=== PATIENT | female | born 1950 | race African-American/Black ===

== ENCOUNTER 2016-03-28 14:30 | Inpatient (IN) | payer BC, MEDICARE, MEDICAID ==
[~2016-03-28] VITALS: Ht 162.6 cm; Wt 90.7 kg
[~2016-03-28 14:30] MED LIST: COLACE100 MG PO; GABAPENTIN100 MG PO; LANTUS5 UNITS SUBQ; NOVOLIN R100 UNIT/1 SUBQ; RANITIDINE HCL150 MG PO
[2016-03-28] MEDS ORDERED: HUMALOG100 UNIT/4 SUBQ (14:48)
[2016-03-28 15:14] VITALS: BP 150/90
[2016-03-28] MEDS ORDERED: Nitroglycerin Subl 0.4mg tab (Bottle Of 25) SL PRN ×2 (16:00→23:15)
[2016-03-28] MEDS ORDERED: Nitroglycerin 2% oint pkt TOPIC ONE (16:00)
[2016-03-28 16:37] LABS: APPEARANCE,URINE CLEAR; BASOPHILS % (AUTO) 1.3 % (0.0-2.0); EOSINOPHILS % (AUTO) 3.7 % (0.0-3.0); KETONES,URINE NEGATIVE (NEGATIVE); LEUKOCYTE ESTERASE ,URINE NEGATIVE (NEGATIVE); LYMPHOCYTES % (AUTO) 30.2 % (20.0-45.0); MEAN CORPUSCULAR HEMOGLOBIN 28.6 PG (27.0-31.0); MEAN CORPUSCULAR HGB CONC 33.5 G/DL (32.0-36.0); MEAN CORPUSCULAR VOLUME 86 FL (80-99); MEAN PLATELET VOLUME 9.6 FL (6.5-10.1); MONOCYTES % (AUTO) 7.2 % (1.0-10.0); NEUTROPHILS % (AUTO) 57.5 % (45.0-75.0); NITRITE,URINE NEGATIVE (NEGATIVE); PH,URINE 6 (4.5-8.0); PLATELET COUNT 217 K/UL (150-450); PROTEIN,URINE NEGATIVE (NEGATIVE); RED BLOOD COUNT 4.47 M/UL (4.20-5.40); RED CELL DISTRIBUTION WIDTH 13.2 % (11.6-14.8); UROBILINOGEN,URINE NORMAL MG/DL (0.0-1.0); WHITE BLOOD COUNT 9.2 K/UL (4.8-10.8)
--- NOTE | 2016-03-28 16:37 | Emergency Room Report ---
History of Present Illness General Chief Complaint: Pain Source: Patient Present Illness HPI Patient presents with several days of intermittent chest pain which is pressure , left-sided and radiates down towards her back laterally. It is associated with nausea. She has episodes that last about 20 minutes that are severe 9/10. They seem to subside on their own. She denies the pain being exertional. She has not taken any medication other than prescribed. No prior cardiology w/u. RF = dm, htn No fever, cough, URI sy, POLO, dizziness, palpitations, vomit or diarrhea. No melena. No dysuria. Glucose controlled 90s to 140s with insulin. Allergies: Coded Allergies: IODINE (Verified Allergy, Severe, Anaphylaxis, 02/29/12) Patient History Past Medical History: see triage record Social History: Denies: alcohol use, drug use, smoking Social History Narrative from [facility] Reviewed Nursing Documentation: PMH: Agreed, PSxH: Agreed Nursing Documentation-PMH Past Medical History: No History, Except For Hx Cardiac Problems: No Hx Diabetes: Yes Hx Cancer: No Hx Gastrointestinal Problems: No Hx Neurological Problems: Yes - NEUROPATHY Review of Systems All Other Systems: negative except mentioned in HPI Physical Exam Vital Signs Date Time Temp Pulse Resp B/P Pulse Ox O2 Delivery O2 Flow Rate FiO2 03/28/16 14:43 99.0 88 18 175/100 99 Room Air Sp02 EP Interpretation: reviewed, normal General Appearance: well appearing, no apparent distress, GCS 15 Head: normocephalic Eyes: bilateral eye PERRL, bilateral eye normal inspection ENT: moist mucus membranes Neck: supple Respiratory: chest non-tender, lungs clear, normal breath sounds Cardiovascular #1: regular rate, rhythm, no edema Cardiovascular #2: 2+ radial (R) Gastrointestinal: normal inspection, normal bowel sounds, non tender, no mass, non-distended Musculoskeletal: back normal, gait/station normal, normal range of motion Neurologic: alert, oriented x3, grossly normal Psychiatric: mood/affect normal Skin: normal inspection, warm/dry Medical Decision Making Diagnostic Impression: Primary Impression: Chest pain Qualified Codes: R07.2 - Precordial pain Additional Impression: Diabetes Qualified Codes: E10.9 - Type 1 diabetes mellitus without complications ER Course Patient with risk factors with chest pain. DDx: AMI, ACS, chest wall pain, PE, gastritis/GERD amongst others. Never with cardiac evaluation. Emergent evaluation with labs, CXR, EKG. Treatment with nitrates and aspirin. Cardiac monitoring. EKG no ischemia. CXR unremarkable. Labs with negative troponin. Discussed with Dr. Blackwood. He contacted Dr. Tadeo who contacted me. He states he is calling Dr. Cintron. Patient treated for pain. Improved. Admit telemetry Dr. Tadeo. Laboratory Tests Test 03/28/16 16:22 03/29/16 03:45 White Blood Count 9.2 K/UL (4.8-10.8) 7.2 K/UL (4.8-10.8) Red Blood Count 4.47 M/UL (4.20-5.40) 4.08 M/UL (4.20-5.40) L Hemoglobin 12.8 G/DL (12.0-16.0) 11.7 G/DL (12.0-16.0) L Hematocrit 38.2 % (37.0-47.0) 35.2 % (37.0-47.0) L Mean Corpuscular Volume 86 FL (80-99) 86 FL (80-99) Mean Corpuscular Hemoglobin 28.6 PG (27.0-31.0) 28.6 PG (27.0-31.0) Mean Corpuscular Hemoglobin Concent 33.5 G/DL (32.0-36.0) 33.2 G/DL (32.0-36.0) Red Cell Distribution Width 13.2 % (11.6-14.8) 13.5 % (11.6-14.8) Platelet Count 217 K/UL (150-450) 206 K/UL (150-450) Mean Platelet Volume 9.6 FL (6.5-10.1) 10.6 FL (6.5-10.1) H Neutrophils (%) (Auto) 57.5 % (45.0-75.0) 56.3 % (45.0-75.0) Lymphocytes (%) (Auto) 30.2 % (20.0-45.0) 30.3 % (20.0-45.0) Monocytes (%) (Auto) 7.2 % (1.0-10.0) 9.0 % (1.0-10.0) Eosinophils (%) (Auto) 3.7 % (0.0-3.0) H 3.6 % (0.0-3.0) H Basophils (%) (Auto) 1.3 % (0.0-2.0) 0.9 % (0.0-2.0) Prothrombin Time 10.7 SEC (9.30-11.50) Prothrombin Time INR 1.1 (0.9-1.1) PTT 26 SEC (23-33) Urine Color Pale yellow Urine Appearance Clear Urine pH 6 (4.5-8.0) Urine Specific [place] 1.005 (1.005-1.035) Urine Protein Negative (NEGATIVE) Urine Glucose (UA) 1+ (NEGATIVE) H Urine Ketones Negative (NEGATIVE) Urine Occult Blood Negative (NEGATIVE) Urine Nitrite Negative (NEGATIVE) Urine Bilirubin Negative (NEGATIVE) Urine Urobilinogen Normal MG/DL (0.0-1.0) Urine Leukocyte Esterase Negative (NEGATIVE) Sodium Level 141 mEQ/L (135-145) Pending Potassium Level 4.0 mEQ/L (3.4-4.9) Pending Chloride Level 100 mEQ/L (98-107) Pending Carbon Dioxide Level 25 mEQ/L (20-30) Pending Anion Gap 16 (5-15) H Blood Urea Nitrogen 13 mg/dL (7-23) Pending Creatinine 0.8 mg/dL (0.5-0.9) Pending Estimate Glomerular Filtration Rate > 60 mL/min (>60) Pending Glucose Level 109 mg/dL (74-106) H Pending Calcium Level 9.5 mg/dL (8.6-10.2) Pending Total Bilirubin < 0.2 mg/dL (0.0-1.2) Pending Aspartate Amino Transferase (AST) 16 U/L (5-40) Pending Alanine Aminotransferase (ALT) 12 U/L (3-33) Pending Alkaline Phosphatase 130 U/L (35-104) H Pending Total Creatine Kinase 225 U/L (26-140) H Troponin I < 0.30 ng/mL (<=0.30) Pending Pro-B-Type Natriuretic Peptide 105 pg/mL (0-125) Total Protein 7.3 g/dL (6.6-8.7) Pending Albumin 4.1 g/dL (3.5-5.2) Pending Globulin 3.2 g/dL Pending Albumin/Globulin Ratio 1.2 (1.0-2.7) Hemoglobin A1c Pending Phosphorus Level Pending Magnesium Level Pending EKG Diagnostic Results Rate: normal Rhythm: NSR ST Segments: no acute changes Rhythm Strip Diag. Results EP Interpretation: yes Rhythm: NSR, no PVC's, no ectopy Chest X-Ray Diagnostic Results EP Interpretation: Yes Findings: no consolidation, no effusion, no pneumothorax, no acute cardiopulmonary disease Number of Views: 1 Last Vital Signs Date Time Temp Pulse Resp B/P Pulse Ox O2 Delivery O2 Flow Rate FiO2 03/28/16 16:14 164/75 03/28/16 15:14 98.6 83 16 98 Room Air Status: improved Disposition: ADMITTED INPATIENT Condition: Serious Bravo Mon M.D. Mar 28, 2016 16:36
[2016-03-28 16:46] LABS: INR 1.1 (0.9-1.1); PROTHROMBIN TIME 10.7 SEC (9.30-11.50)
[2016-03-28 16:49] LABS: ALANINE AMINOTRANSFERASE 12 U/L (3-33); ALBUMIN/GLOBULIN RATIO 1.2 (1.0-2.7); ANION GAP 16 (5-15); ASPARTATE AMINO TRANSFERASE 16 U/L (5-40); CALCIUM 9.5 mg/dL (8.6-10.2); CARBON DIOXIDE 25 mEQ/L (20-30); CHLORIDE 100 mEQ/L (98-107); CREATININE 0.8 mg/dL (0.5-0.9); GLOMERULAR FILTRATION RATE > 60 mL/min (>60); HEMOLYSIS 2; SODIUM 141 mEQ/L (135-145); TOTAL PROTEIN 7.3 g/dL (6.6-8.7); TROPONIN I < 0.30 ng/mL (<=0.30)
[2016-03-28 17:42] VITALS: BP 149/82
[2016-03-28] MEDS ORDERED: Morphine Sulfate 4mg/ml Inj IVP ONE (18:45)
[2016-03-28 20:47] VITALS: BP 112/59
[2016-03-28 22:00] VITALS: BP 136/83
[2016-03-28] MEDS ORDERED: Morphine Sulfate 2mg/ml Inj IVP PRN (23:15)
[2016-03-28] MEDS ORDERED: Morphine Sulfate 4mg/ml Inj IVP PRN (23:15)
[2016-03-28] MEDS ORDERED: Simethicone 80mg tab ORAL ONE (23:45)
[2016-03-29] VITALS: BP 130/82
[2016-03-29 04:00] VITALS: BP 138/74
[2016-03-29 05:08] LABS: BASOPHILS % (AUTO) 0.9 % (0.0-2.0); EOSINOPHILS % (AUTO) 3.6 % (0.0-3.0); LYMPHOCYTES % (AUTO) 30.3 % (20.0-45.0); MEAN CORPUSCULAR HEMOGLOBIN 28.6 PG (27.0-31.0); MEAN CORPUSCULAR HGB CONC 33.2 G/DL (32.0-36.0); MEAN CORPUSCULAR VOLUME 86 FL (80-99); MEAN PLATELET VOLUME 10.6 FL (6.5-10.1); NEUTROPHILS % (AUTO) 56.3 % (45.0-75.0); PLATELET COUNT 206 K/UL (150-450); RED BLOOD COUNT 4.08 M/UL (4.20-5.40); RED CELL DISTRIBUTION WIDTH 13.5 % (11.6-14.8); WHITE BLOOD COUNT 7.2 K/UL (4.8-10.8)
[2016-03-29 05:48] LABS: ALANINE AMINOTRANSFERASE 12 U/L (3-33); ALBUMIN/GLOBULIN RATIO 1.1 (1.0-2.7); ANION GAP 14 (5-15); ASPARTATE AMINO TRANSFERASE 16 U/L (5-40); CARBON DIOXIDE 24 mEQ/L (20-30); CHLORIDE 104 mEQ/L (98-107); CREATININE 1.1 mg/dL (0.5-0.9); GLOMERULAR FILTRATION RATE > 60 mL/min (>60); HEMOLYSIS 3; POTASSIUM 4.2 mEQ/L (3.4-4.9); SODIUM 142 mEQ/L (135-145); TOTAL PROTEIN 6.1 g/dL (6.6-8.7)
[2016-03-29 05:49] LABS: MAGNESIUM 1.9 mg/dL (1.7-2.5); PHOSPHORUS 3.7 mg/dL (2.5-4.8)
[2016-03-29] MEDS: NovoLOG Insulin Flexpen SUBQ SCH ×4 (06:11→22:15)
[2016-03-29] MEDS: Heparin 5000 units/ml inj SUBQ SCH ×3 (06:12→22:17)
[2016-03-29 06:31] LABS: TROPONIN I < 0.30 ng/mL (<=0.30)
[2016-03-29 06:56] LABS: HEMOGLOBIN A1C 8.6 % (< 6.0)
[2016-03-29 08:00] VITALS: BP 138/77
--- NOTE | 2016-03-29 11:18 | Diagnostic Imaging Report ---
Indication: Chest pain Technique: One view of the chest Comparison: 08/08/2012 Findings: Lungs and pleural spaces are clear. Heart size is normal. No significant interim change Impression: No acute process. This agrees with the preliminary interpretation provided by the emergency room physician
--- NOTE | 2016-03-29 11:33 | History & Physical ---
History and Physical History & Physicial Dictated for Int Med-Dr Tadeo no. [id number]. FLETCHER IRIZARRY Mar 29, 2016 11:33
--- NOTE | 2016-03-29 12:12 | Consultation ---
History of Present Illness General Date patient seen: Mar 29, 2016 Chief Complaint: Pain Referring physician: Dr. Pimentel Reason for Consultation: chest pain Present Illness HPI 65 year old female with hx of IDDM, PVD, s/p amputation of RBK presented to [facility] with CC of intermittent sharp chest pain, left-sided and radiates down towards her back laterally. It is associated with nausea. She has episodes that last about 20 minutes they're severe 9/10 in the day seemed to subside on their own. This is the first time she has this kind of chest pain. Allergies: Coded Allergies: IODINE (Verified Allergy, Severe, Anaphylaxis, 02/29/12) Medication History Scheduled Docusate Sodium* (Colace*), 100 MG PO DAILY Insulin Glargine (Lantus), 21 UNITS SUBQ QHS, (Reported) Insulin Lispro (Humalog), 0 SUBQ AC+HS, (Reported) Discontinued Medications Gabapentin* (Gabapentin*), 100 MG PO QHS PRN, (Reported) Discontinued Reason: Pt stopped taking med Insulin Regular, Human* (Novolin R*), 16 UNITS SUBQ AC, (Reported) Discontinued Reason: Pt stopped taking med Patient History Healthcare decision maker N Resuscitation status Full Code Advanced Directive on File Past Medical/Surgical History Past Medical/Surgical History: (1) Diabetes (2) PVD (peripheral vascular disease) Review of Systems All Other Systems: negative except mentioned in HPI Physical Exam General Appearance: WD/WN Lines, tubes and drains: peripheral HEENT: normocephalic, atraumatic Neck: normal alignment, supple Respiratory/Chest: chest wall non-tender, lungs clear Cardiovascular/Chest: normal peripheral pulses, normal rate Abdomen: normal bowel sounds, non tender Genitourinary/Rectal: normal genital exam, normal rectal exam Last 24 Hour Vital Signs Date Time Temp Pulse Resp B/P Pulse Ox O2 Delivery O2 Flow Rate FiO2 03/29/16 08:00 97.3 95 20 138/77 78 Room Air 03/29/16 08:00 80 03/29/16 04:00 72 03/29/16 04:00 97.7 76 20 138/74 99 Room Air 03/29/16 00:00 98.3 72 20 130/82 99 Room Air 03/29/16 00:00 74 03/28/16 22:00 98.4 76 20 136/83 99 Room Air 03/28/16 21:19 98.6 75 16 112/59 98 Room Air 03/28/16 20:47 98.6 75 16 112/59 98 Room Air 03/28/16 19:44 98.6 03/28/16 17:42 98.6 86 15 149/82 98 Room Air 03/28/16 16:14 164/75 03/28/16 16:13 164/75 03/28/16 15:14 98.6 83 16 150/90 98 Room Air 03/28/16 14:43 99.0 88 18 175/100 99 Room Air Intake and Output 03/28/16 03/29/16 19:00 07:00 Intake Total 0 ml Balance 0 ml Intake Oral 0 ml # Voids 2 Laboratory Tests Test 03/28/16 16:22 03/29/16 03:45 White Blood Count 9.2 K/UL (4.8-10.8) 7.2 K/UL (4.8-10.8) Red Blood Count 4.47 M/UL (4.20-5.40) 4.08 M/UL (4.20-5.40) L Hemoglobin 12.8 G/DL (12.0-16.0) 11.7 G/DL (12.0-16.0) L Hematocrit 38.2 % (37.0-47.0) 35.2 % (37.0-47.0) L Mean Corpuscular Volume 86 FL (80-99) 86 FL (80-99) Mean Corpuscular Hemoglobin 28.6 PG (27.0-31.0) 28.6 PG (27.0-31.0) Mean Corpuscular Hemoglobin Concent 33.5 G/DL (32.0-36.0) 33.2 G/DL (32.0-36.0) Red Cell Distribution Width 13.2 % (11.6-14.8) 13.5 % (11.6-14.8) Platelet Count 217 K/UL (150-450) 206 K/UL (150-450) Mean Platelet Volume 9.6 FL (6.5-10.1) 10.6 FL (6.5-10.1) H Neutrophils (%) (Auto) 57.5 % (45.0-75.0) 56.3 % (45.0-75.0) Lymphocytes (%) (Auto) 30.2 % (20.0-45.0) 30.3 % (20.0-45.0) Monocytes (%) (Auto) 7.2 % (1.0-10.0) 9.0 % (1.0-10.0) Eosinophils (%) (Auto) 3.7 % (0.0-3.0) H 3.6 % (0.0-3.0) H Basophils (%) (Auto) 1.3 % (0.0-2.0) 0.9 % (0.0-2.0) Prothrombin Time 10.7 SEC (9.30-11.50) Prothromb Time International Ratio 1.1 (0.9-1.1) Activated Partial Thromboplast Time 26 SEC (23-33) Urine Color Pale yellow Urine Appearance Clear Urine pH 6 (4.5-8.0) Urine Specific [place] 1.005 (1.005-1.035) Urine Protein Negative (NEGATIVE) Urine Glucose (UA) 1+ (NEGATIVE) H Urine Ketones Negative (NEGATIVE) Urine Occult Blood Negative (NEGATIVE) Urine Nitrite Negative (NEGATIVE) Urine Bilirubin Negative (NEGATIVE) Urine Urobilinogen Normal MG/DL (0.0-1.0) Urine Leukocyte Esterase Negative (NEGATIVE) Sodium Level 141 mEQ/L (135-145) 142 mEQ/L (135-145) Potassium Level 4.0 mEQ/L (3.4-4.9) 4.2 mEQ/L (3.4-4.9) Chloride Level 100 mEQ/L (98-107) 104 mEQ/L (98-107) Carbon Dioxide Level 25 mEQ/L (20-30) 24 mEQ/L (20-30) Anion Gap 16 (5-15) H 14 (5-15) Blood Urea Nitrogen 13 mg/dL (7-23) 17 mg/dL (7-23) Creatinine 0.8 mg/dL (0.5-0.9) 1.1 mg/dL (0.5-0.9) H Estimat Glomerular Filtration Rate > 60 mL/min (>60) > 60 mL/min (>60) Glucose Level 109 mg/dL (74-106) H 209 mg/dL (74-106) #H Calcium Level 9.5 mg/dL (8.6-10.2) 9.0 mg/dL (8.6-10.2) Total Bilirubin < 0.2 mg/dL (0.0-1.2) < 0.2 mg/dL (0.0-1.2) Aspartate Amino Transf (AST/SGOT) 16 U/L (5-40) 16 U/L (5-40) Alanine Aminotransferase (ALT/SGPT) 12 U/L (3-33) 12 U/L (3-33) Alkaline Phosphatase 130 U/L (35-104) H 112 U/L (35-104) H Total Creatine Kinase 225 U/L (26-140) H Troponin I < 0.30 ng/mL (<=0.30) < 0.30 ng/mL (<=0.30) Pro-B-Type Natriuretic Peptide 105 pg/mL (0-125) Total Protein 7.3 g/dL (6.6-8.7) 6.1 g/dL (6.6-8.7) L Albumin 4.1 g/dL (3.5-5.2) 3.3 g/dL (3.5-5.2) L Globulin 3.2 g/dL 2.8 g/dL Albumin/Globulin Ratio 1.2 (1.0-2.7) 1.1 (1.0-2.7) Hemoglobin A1c 8.6 % (< 6.0) H Phosphorus Level 3.7 mg/dL (2.5-4.8) Magnesium Level 1.9 mg/dL (1.7-2.5) Height (Feet): 5 Height (Inches): 4.00 Weight (Pounds): 200 Medications Current Medications Medications (Trade) Dose Ordered Sig/[place] Route PRN Reason Start Time Stop Time Status Last Admin Dose Admin Aspirin (ASA) 325 mg DAILY ORAL 03/29/16 09:00 04/28/16 08:59 03/29/16 09:40 Dextrose (Dextrose 50%) STAT PRN IV Hypoglycemia 03/28/16 23:15 04/27/16 23:14 Heparin Sodium (Porcine) (Heparin 5000 units/ml) 5,000 units EVERY 8 HOURS SUBQ 03/29/16 06:00 04/28/16 05:59 03/29/16 06:12 Insulin Aspart (NovoLOG) BEFORE MEALS AND HS SUBQ 03/29/16 06:30 04/28/16 06:29 03/29/16 06:11 Morphine Sulfate (Morphine Sulfate) 2 mg Q4H PRN IVP For mild to moderate pain 03/28/16 23:15 04/04/16 23:14 Morphine Sulfate (Morphine Sulfate) 4 mg Q4H PRN IVP For severe Pain 03/28/16 23:15 04/04/16 23:14 03/29/16 10:55 Nitroglycerin (Ntg) 0.4 mg Q5M PRN SL Prn Chest Pain 03/28/16 23:15 04/27/16 23:14 Ranitidine HCl (Zantac) 150 mg BEDTIME ORAL 03/29/16 21:00 04/28/16 20:59 Assessment/Plan Problem List: (1) Chest pain ICD Codes: R07.9 - Chest pain, unspecified SNOMED: 26681119 (2) Diabetes ICD Codes: E11.9 - Type 2 diabetes mellitus without complications SNOMED: 77413317 (3) PVD (peripheral vascular disease) ICD Codes: I73.9 - Peripheral vascular disease, unspecified SNOMED: 708796244 Assessment/Plan serial ekg, torponin echo probably will need stress testing and GI evaluation No hx of smoking or COPD No risk for PE sliding scale, insulin coverage dvt prophylaxis FRANCES RIVERA Mar 29, 2016 12:12
--- NOTE | 2016-03-29 12:17 | Cardiology Report ---
APPROVED REPORT EKG Measurement Heart [id number] Normal sinus rhythm Nonspecific T wave abnormality Abnormal ECG
--- NOTE | 2016-03-29 13:48 | Cardiac Electrophysiology PN ---
Subjective Subjective [id number]. CP in a patient with IDDM, HTN, PVD s/pR BKA. No IA. Get echo and nuclear stress test. Objective Last 24 Hour Vital Signs Date Time Temp Pulse Resp B/P Pulse Ox O2 Delivery O2 Flow Rate FiO2 03/29/16 12:00 71 03/29/16 08:00 97.3 95 20 138/77 78 Room Air 03/29/16 08:00 80 03/29/16 04:00 72 03/29/16 04:00 97.7 76 20 138/74 99 Room Air 03/29/16 00:00 98.3 72 20 130/82 99 Room Air 03/29/16 00:00 74 03/28/16 22:00 98.4 76 20 136/83 99 Room Air 03/28/16 21:19 98.6 75 16 112/59 98 Room Air 03/28/16 20:47 98.6 75 16 112/59 98 Room Air 03/28/16 19:44 98.6 03/28/16 17:42 98.6 86 15 149/82 98 Room Air 03/28/16 16:14 164/75 03/28/16 16:13 164/75 03/28/16 15:14 98.6 83 16 150/90 98 Room Air 03/28/16 14:43 99.0 88 18 175/100 99 Room Air Intake and Output 03/28/16 03/29/16 19:00 07:00 Intake Total 0 ml Balance 0 ml Intake Oral 0 ml # Voids 2 Laboratory Tests Test 03/28/16 16:22 03/29/16 03:45 White Blood Count 9.2 K/UL (4.8-10.8) 7.2 K/UL (4.8-10.8) Red Blood Count 4.47 M/UL (4.20-5.40) 4.08 M/UL (4.20-5.40) L Hemoglobin 12.8 G/DL (12.0-16.0) 11.7 G/DL (12.0-16.0) L Hematocrit 38.2 % (37.0-47.0) 35.2 % (37.0-47.0) L Mean Corpuscular Volume 86 FL (80-99) 86 FL (80-99) Mean Corpuscular Hemoglobin 28.6 PG (27.0-31.0) 28.6 PG (27.0-31.0) Mean Corpuscular Hemoglobin Concent 33.5 G/DL (32.0-36.0) 33.2 G/DL (32.0-36.0) Red Cell Distribution Width 13.2 % (11.6-14.8) 13.5 % (11.6-14.8) Platelet Count 217 K/UL (150-450) 206 K/UL (150-450) Mean Platelet Volume 9.6 FL (6.5-10.1) 10.6 FL (6.5-10.1) H Neutrophils (%) (Auto) 57.5 % (45.0-75.0) 56.3 % (45.0-75.0) Lymphocytes (%) (Auto) 30.2 % (20.0-45.0) 30.3 % (20.0-45.0) Monocytes (%) (Auto) 7.2 % (1.0-10.0) 9.0 % (1.0-10.0) Eosinophils (%) (Auto) 3.7 % (0.0-3.0) H 3.6 % (0.0-3.0) H Basophils (%) (Auto) 1.3 % (0.0-2.0) 0.9 % (0.0-2.0) Prothrombin Time 10.7 SEC (9.30-11.50) Prothromb Time International Ratio 1.1 (0.9-1.1) Activated Partial Thromboplast Time 26 SEC (23-33) Urine Color Pale yellow Urine Appearance Clear Urine pH 6 (4.5-8.0) Urine Specific [place] 1.005 (1.005-1.035) Urine Protein Negative (NEGATIVE) Urine Glucose (UA) 1+ (NEGATIVE) H Urine Ketones Negative (NEGATIVE) Urine Occult Blood Negative (NEGATIVE) Urine Nitrite Negative (NEGATIVE) Urine Bilirubin Negative (NEGATIVE) Urine Urobilinogen Normal MG/DL (0.0-1.0) Urine Leukocyte Esterase Negative (NEGATIVE) Sodium Level 141 mEQ/L (135-145) 142 mEQ/L (135-145) Potassium Level 4.0 mEQ/L (3.4-4.9) 4.2 mEQ/L (3.4-4.9) Chloride Level 100 mEQ/L (98-107) 104 mEQ/L (98-107) Carbon Dioxide Level 25 mEQ/L (20-30) 24 mEQ/L (20-30) Anion Gap 16 (5-15) H 14 (5-15) Blood Urea Nitrogen 13 mg/dL (7-23) 17 mg/dL (7-23) Creatinine 0.8 mg/dL (0.5-0.9) 1.1 mg/dL (0.5-0.9) H Estimat Glomerular Filtration Rate > 60 mL/min (>60) > 60 mL/min (>60) Glucose Level 109 mg/dL (74-106) H 209 mg/dL (74-106) #H Calcium Level 9.5 mg/dL (8.6-10.2) 9.0 mg/dL (8.6-10.2) Total Bilirubin < 0.2 mg/dL (0.0-1.2) < 0.2 mg/dL (0.0-1.2) Aspartate Amino Transf (AST/SGOT) 16 U/L (5-40) 16 U/L (5-40) Alanine Aminotransferase (ALT/SGPT) 12 U/L (3-33) 12 U/L (3-33) Alkaline Phosphatase 130 U/L (35-104) H 112 U/L (35-104) H Total Creatine Kinase 225 U/L (26-140) H Troponin I < 0.30 ng/mL (<=0.30) < 0.30 ng/mL (<=0.30) Pro-B-Type Natriuretic Peptide 105 pg/mL (0-125) Total Protein 7.3 g/dL (6.6-8.7) 6.1 g/dL (6.6-8.7) L Albumin 4.1 g/dL (3.5-5.2) 3.3 g/dL (3.5-5.2) L Globulin 3.2 g/dL 2.8 g/dL Albumin/Globulin Ratio 1.2 (1.0-2.7) 1.1 (1.0-2.7) Hemoglobin A1c 8.6 % (< 6.0) H Phosphorus Level 3.7 mg/dL (2.5-4.8) Magnesium Level 1.9 mg/dL (1.7-2.5) TANIA HERNANDEZ Mar 29, 2016 13:48
[2016-03-29 16:00] VITALS: BP 119/64
[2016-03-29 20:00] VITALS: BP 121/62
--- NOTE | 2016-03-29 21:19 | History and Physical Report ---
DATE OF ADMISSION: 03/28/2016 CHIEF COMPLAINT: The patient is a 65-year-old female, presents with chief complaint of chest pain. HISTORY OF PRESENT ILLNESS: The patient has a history of type 2 diabetes. The patient states chest pain began approximately three weeks ago, has been on and off. It is sharp. It is located under the left breast. There is no radiation to the jaw or to the shoulder. The patient states the pain intensified yesterday, 03/28/2016. The patient stated the pain was 9/10 in intensity. The patient called EMS. The patient was transported to [facility]. The patient was admitted for chest pain to rule out acute coronary syndrome. REVIEW OF SYSTEMS: Constitutional: The patient denies weight loss or weight gain. The patient denies fevers or chills. HEENT: The patient denies ear or throat pain. Cardiovascular: The patient complains of chest pain as above. The patient denies palpitations. Abdominal: The patient denies nausea, vomiting, diarrhea, constipation, or chest pain. Chest: The patient denies wheezes or shortness of breath. Genitourinary: The patient denies dysuria or increased frequency of urination. Neuromuscular: The patient denies seizures or generalized weakness. PAST MEDICAL HISTORY: Significant for: 1. Type 2 diabetes. 2. Hypertension. PAST SURGICAL HISTORY: Significant for uterine myomectomy, secondary to fibroids. MEDICATIONS: Current medications: 1. Aspirin 81 mg one tablet p.o. daily. 2. Lantus insulin 21 units subcutaneously nightly. 3. Lispro sliding scale before meals and at bedtime. ALLERGIES: Iodine, which causes anaphylaxis. SOCIAL HISTORY: The patient is . The patient is disabled. The patient denies tobacco use. The patient admits to rare alcohol use. PHYSICAL EXAMINATION: VITAL SIGNS: Temperature 98.6, respirations 16, pulse 75, and blood pressure 112/59. GENERAL: The patient is a well-developed and well-nourished female, in no apparent distress. HEENT: Eyes, pupils are equal and responsive to light and accommodation. Extraocular movements are intact. NECK: Supple without lymphadenopathy. CHEST: Lungs are clear to auscultation bilaterally without wheezes or rales. CARDIOVASCULAR: Regular rhythm and rate. S1 and S2 are normal without murmurs, rubs, or gallops. ABDOMEN: Soft, nontender, and nondistended. Positive bowel sounds. No evidence of hepatosplenomegaly. Currently, no rebound or guarding noted. EXTREMITIES: Negative for clubbing, cyanosis, or edema. RECTAL: Refused. GENITAL: Refused. NEUROLOGIC: Cranial nerves II through XII are grossly intact without focal deficits. Motor strength is 5/5 bilaterally. Deep tendon reflexes are 2+ plantar. LABORATORY AND DIAGNOSTIC DATA: WBC 9.2, hemoglobin 12.8, hematocrit 38.2, and platelets 217,000. Sodium 141, potassium 4.0, chloride 100, CO2 25, BUN 13, creatinine 0.8, and glucose 109. Troponin is less than 0.3. BNP normal at 105. ASSESSMENT: This is a 65-year-old female with: 1. Chest pain. 2. Diabetes type 2. 3. Uncontrolled hypertension. TREATMENT: 1. Chest pain. A Cardiology consultation was obtained with Dr. Manoj Lua. A Cardiolite stress test is pending. We will follow recommendations of Cardiology. Serial troponin levels will be run. 2. Diabetes, type 2. Continue Levemir insulin as Lantus is unavailable at [facility]. Continue lispro and sliding scale. 3. Uncontrolled hypertension. The patient has been placed empirically on uncontrolled hypertension. The patient is currently stable on as needed clonidine. David Pimentel M.D. DR: TIAGO JOB#: [id number] CC:
--- NOTE | 2016-03-29 21:39 | Consultation ---
DATE OF CONSULTATION: 03/29/2016 CARDIOLOGY CONSULTATION CONSULTING PHYSICIAN: Manoj Lua M.D. REFERRING PHYSICIAN: Abhilash Tadeo M.D. REASON FOR CONSULTATION: Management of hypertension and chest pain. HISTORY OF PRESENT ILLNESS: The patient is a very pleasant 65-year-old lady with history of hypertension, insulin-dependent diabetes, peripheral vascular disease, status post amputation of right [id number], who presents to [facility] complaining of chest pain, which was left-sided with some radiation to her back associated with nausea last about 20 minutes and it was 9/10 in severity. The patient had similar pain in the past. She denies any known coronary artery disease or prior myocardial infarction or cardiac catheterization. The patient's first set of cardiac enzymes were negative and a Cardiology consultation was obtained for further evaluation and management. PAST MEDICAL HISTORY: 1. Hypertension. 2. Diabetes. 3. Peripheral vascular disease. 4. Status post amputation of right [id number]. FAMILY HISTORY: Noncontributory. ALLERGIES: Iodine. REVIEW OF SYSTEMS: Review of systems was thoroughly performed and was negative other than what was mentioned in the history of present illness. PHYSICAL EXAMINATION: VITAL SIGNS: Blood pressure is 110/70, pulse 70, respirations 18, and she is afebrile. HEAD AND NECK: Showed no JVD or carotid bruits. LUNGS: Clear. CARDIOVASCULAR: Shows regular S1 and S2 with no gallop or murmur. ABDOMEN: Soft and nontender. EXTREMITIES: Status post right [id number]-khpl amputation. LABORATORY DATA: White cell count 7.2, hemoglobin 7.2, hematocrit 35.2, and platelet count of 260,000. Sodium 142, potassium 4.2, BUN 17, creatinine 1.1, and glucose of 209. Troponin negative x2. ASSESSMENT AND PLAN: 1. Chest pain. The patient with multiple risk factors for coronary artery disease including hypertension, diabetes, and peripheral vascular disease. The patient was ruled out for myocardial infarction. EKG showed nonspecific ST abnormalities. Echocardiogram has been ordered. I am awaiting . I will schedule the patient for nuclear stress test for further evaluation and management. 2. Hypertension. Currently off antihypertensives. Blood pressure is borderline elevated. We will watch the patient. We will start the patient on low-dose DIONISIO inhibitor. In view of patient's diabetes and to prevent proteinuria as well. 3. Diabetes on insulin. 4. Peripheral vascular disease status post right phqnw-iqa-[id number] amputation. Thank you very much, Dr. Tadeo, for allowing me to participate in the care of this patient. Please do not hesitate to contact me for any questions regarding my evaluation. Manoj Lua M.D. DR: NICOLE JOB#: [id number] CC:
[2016-03-30] VITALS: BP 119/66
[2016-03-30 04:00] VITALS: BP 138/70
[2016-03-30] MEDS: Heparin 5000 units/ml inj SUBQ SCH ×3 (06:05→21:46)
[2016-03-30] MEDS: NovoLOG Insulin Flexpen SUBQ SCH ×4 (06:27→21:46)
[2016-03-30 07:58] LABS: BASOPHILS % (AUTO) 1.2 % (0.0-2.0); EOSINOPHILS % (AUTO) 3.9 % (0.0-3.0); LYMPHOCYTES % (AUTO) 30.8 % (20.0-45.0); MEAN CORPUSCULAR HEMOGLOBIN 28.9 PG (27.0-31.0); MEAN CORPUSCULAR HGB CONC 32.6 G/DL (32.0-36.0); MEAN CORPUSCULAR VOLUME 89 FL (80-99); MEAN PLATELET VOLUME 10.2 FL (6.5-10.1); MONOCYTES % (AUTO) 8.3 % (1.0-10.0); PLATELET COUNT 190 K/UL (150-450); RED BLOOD COUNT 4.07 M/UL (4.20-5.40); WHITE BLOOD COUNT 6.5 K/UL (4.8-10.8)
[2016-03-30 08:00] VITALS: BP 159/82
[2016-03-30 08:16] LABS: ANION GAP 13 (5-15); CALCIUM 9.1 mg/dL (8.6-10.2); CARBON DIOXIDE 24 mEQ/L (20-30); CHLORIDE 102 mEQ/L (98-107); CREATININE 0.9 mg/dL (0.5-0.9); GLOMERULAR FILTRATION RATE > 60 mL/min (>60); HEMOLYSIS 3; POTASSIUM 4.2 mEQ/L (3.4-4.9); SODIUM 139 mEQ/L (135-145)
[2016-03-30 08:29] LABS: TROPONIN I < 0.30 ng/mL (<=0.30)
[2016-03-30] MEDS: Lisinopril 10mg tab ORAL SCH (09:46)
[2016-03-30] MEDS ORDERED: Adenosine 90 mg/30mL vial IVP ONE (11:15)
[2016-03-30 12:00] VITALS: BP 146/76
--- NOTE | 2016-03-30 12:10 | Pulmonology Progress Note ---
Assessment/Plan Problems: (1) Chest pain (2) Diabetes (3) PVD (peripheral vascular disease) Assessment/Plan improving dc home with diuretics f/u with her primary physician Subjective ROS Limited/Unobtainable: No Interval Events: feeling much better, urinating a lot Allergies: Coded Allergies: IODINE (Verified Allergy, Severe, Anaphylaxis, 02/29/12) Objective Last 24 Hour Vital Signs Date Time Temp Pulse Resp B/P Pulse Ox O2 Delivery O2 Flow Rate FiO2 03/30/16 09:46 159/82 03/30/16 08:00 99.1 84 18 159/82 97 Room Air 03/30/16 08:00 84 03/30/16 04:00 70 03/30/16 04:00 98.2 77 18 138/70 94 Room Air 03/30/16 00:00 98.1 73 18 119/66 94 Room Air 03/30/16 00:00 71 03/29/16 20:00 77 03/29/16 20:00 97.6 73 19 121/62 98 Room Air 03/29/16 16:36 73 03/29/16 16:00 98.2 78 21 119/64 97 Room Air Intake and Output 03/29/16 03/30/16 19:00 07:00 Intake Total 550 ml 300 ml Balance 550 ml 300 ml Intake Oral 550 ml 300 ml # Voids 1 1 Objective General Appearance: WD/WN Lines, tubes and drains: peripheral HEENT: normocephalic, atraumatic Neck: non-tender, normal alignment Respiratory/Chest: chest wall non-tender, rhonchi - left, rhonchi - right Cardiovascular/Chest: normal peripheral pulses, normal rate Abdomen: normal bowel sounds, non tender Genitourinary/Rectal: normal genital exam Extremities: normal range of motion, non-tender, normal inspection, no calf tenderness, normal capillary refill Skin Exam: normal pigmentation 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: 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 Laboratory Tests 03/30/16 07:15: White Blood Count 6.5, Red Blood Count 4.07L, Hemoglobin 11.8L, Hematocrit 36.2L , Mean Corpuscular Volume 89, Mean Corpuscular Hemoglobin 28.9, Mean Corpuscular Hemoglobin Concent 32.6, Red Cell Distribution Width 13.0, Platelet Count 190, Mean Platelet Volume 10.2H, Neutrophils (%) (Auto) 56.0, Lymphocytes (%) (Auto) 30.8, Monocytes (%) (Auto) 8.3, Eosinophils (%) (Auto) 3.9H, Basophils (%) (Auto) 1.2, Sodium Level 139, Potassium Level 4.2, Chloride Level 102, Carbon Dioxide Level 24, Anion Gap 13, Blood Urea Nitrogen 18, Creatinine 0.9, Estimat Glomerular Filtration Rate > 60, Glucose Level 218H, Calcium Level 9.1, Troponin I < 0.30, Pro-B-Type Natriuretic Peptide 23 Current Medications Medications (Trade) Dose Ordered Sig/Salvador Route PRN Reason Start Time Stop Time Status Last Admin Dose Admin Aspirin (ASA) 325 mg DAILY ORAL 03/29/16 09:00 04/28/16 08:59 03/30/16 09:46 Dextrose (Dextrose 50%) STAT PRN IV Hypoglycemia 03/28/16 23:15 04/27/16 23:14 Heparin Sodium (Porcine) (Heparin 5000 units/ml) 5,000 units EVERY 8 HOURS SUBQ 03/29/16 06:00 04/28/16 05:59 03/30/16 06:05 Insulin Aspart (NovoLOG) BEFORE MEALS AND HS SUBQ 03/29/16 06:30 04/28/16 06:29 03/29/16 17:58 Lisinopril (Zestril) 10 mg DAILY ORAL 03/30/16 09:00 04/29/16 08:59 03/30/16 09:46 Morphine Sulfate (Morphine Sulfate) 2 mg Q4H PRN IVP For mild to moderate pain 03/28/16 23:15 04/04/16 23:14 Morphine Sulfate (Morphine Sulfate) 4 mg Q4H PRN IVP For severe Pain 03/28/16 23:15 04/04/16 23:14 03/29/16 10:55 Nitroglycerin (Ntg) 0.4 mg Q5M PRN SL Prn Chest Pain 03/28/16 23:15 04/27/16 23:14 Ranitidine HCl (Zantac) 150 mg BEDTIME ORAL 03/29/16 21:00 04/28/16 20:59 03/29/16 22:16 FRANCES RIVERA Mar 30, 2016 12:10
--- NOTE | 2016-03-30 12:56 | Cardiology Report ---
APPROVED REPORT EXAM: Two-dimensional and M-mode echocardiogram with Doppler and color Doppler. INDICATION Chest Pain M-Mode DIMENSIONS IVSd.8 (0.7-1.1cm)Left Atrium (MM)3.9 (1.6-4.0cm) LVDd4.2 (3.5-5.6cm)Aortic Root2.4 (2.0-3.7cm) PWd1.3 (0.7-1.1cm)Aortic Cusp Exc.1.8 (1.5-2.0cm) LVDs2.6 (2.5-4.0cm) PWs1.6 cm Normal left ventricular chamber size, systolic function and wall motion. Left ventricular ejection fraction estimated to be 55-60 %. No evidence of ventricular hypertrophy. No evidence of pericardial fat or effusion. All other cardiac chamber sizes are within normal limits. Mild focal aortic valve sclerosis with adequate cusp excursion. Mildly thickened mitral valve leaflets with normal excursion. Mild mitral annulus and aortic root calcification. Pulmonic valve not well visualized. Normal tricuspid valve structure. IVC not obtainable. A color flow and spectral Doppler study was performed and revealed: No aortic regurgitation. Trace mitral regurgitation. Mitral diastolic velocities suggest reduced left ventricular relaxation (Grade I). Trace tricuspid regurgitation. No pulmonic regurgitation present.
--- NOTE | 2016-03-30 15:28 | Cardiac Electrophysiology PN ---
Assessment/Plan Status Narrative Normal left ventricular chamber size, systolic function and wall motion. Left ventricular ejection fraction estimated to be 55-60 %. No evidence of ventricular hypertrophy. No evidence of pericardial fat or effusion. All other cardiac chamber sizes are within normal limits. Mild focal aortic valve sclerosis with adequate cusp excursion. Mildly thickened mitral valve leaflets with normal excursion. Mild mitral annulus and aortic root calcification. Pulmonic valve not well visualized. Normal tricuspid valve structure. IVC not obtainable. A color flow and spectral Doppler study was performed and revealed: No aortic regurgitation. Trace mitral regurgitation. Mitral diastolic velocities suggest reduced left ventricular relaxation (Grade I ). Trace tricuspid regurgitation. No pulmonic regurgitation present. Assessment/Plan 1. Chest pain in a patient with multiple risk factors for coronary artery disease including hypertension, diabetes, and peripheral vascular disease. The patient was ruled out for myocardial infarction. Awaiting nuclear stress test report.Echo EF 55% 2. Hypertension. On Lisinopril 10 mg daily. 3. Diabetes on insulin. 4. Peripheral vascular disease status post right [id number] DW RN Subjective Subjective Had nuclear stress test today. No chest pain or SOB. Objective Last 24 Hour Vital Signs Date Time Temp Pulse Resp B/P Pulse Ox O2 Delivery O2 Flow Rate FiO2 03/30/16 12:00 98.0 81 17 146/76 96 03/30/16 12:00 81 03/30/16 09:46 159/82 03/30/16 08:00 99.1 84 18 159/82 97 Room Air 03/30/16 08:00 84 03/30/16 04:00 70 03/30/16 04:00 98.2 77 18 138/70 94 Room Air 03/30/16 00:00 98.1 73 18 119/66 94 Room Air 03/30/16 00:00 71 03/29/16 20:00 77 03/29/16 20:00 97.6 73 19 121/62 98 Room Air 03/29/16 16:36 73 03/29/16 16:00 98.2 78 21 119/64 97 Room Air Intake and Output 03/29/16 03/30/16 19:00 07:00 Intake Total 550 ml 300 ml Balance 550 ml 300 ml Intake Oral 550 ml 300 ml # Voids 1 1 Laboratory Tests Test 03/30/16 07:15 White Blood Count 6.5 K/UL (4.8-10.8) Red Blood Count 4.07 M/UL (4.20-5.40) L Hemoglobin 11.8 G/DL (12.0-16.0) L Hematocrit 36.2 % (37.0-47.0) L Mean Corpuscular Volume 89 FL (80-99) Mean Corpuscular Hemoglobin 28.9 PG (27.0-31.0) Mean Corpuscular Hemoglobin Concent 32.6 G/DL (32.0-36.0) Red Cell Distribution Width 13.0 % (11.6-14.8) Platelet Count 190 K/UL (150-450) Mean Platelet Volume 10.2 FL (6.5-10.1) H Neutrophils (%) (Auto) 56.0 % (45.0-75.0) Lymphocytes (%) (Auto) 30.8 % (20.0-45.0) Monocytes (%) (Auto) 8.3 % (1.0-10.0) Eosinophils (%) (Auto) 3.9 % (0.0-3.0) H Basophils (%) (Auto) 1.2 % (0.0-2.0) Sodium Level 139 mEQ/L (135-145) Potassium Level 4.2 mEQ/L (3.4-4.9) Chloride Level 102 mEQ/L (98-107) Carbon Dioxide Level 24 mEQ/L (20-30) Anion Gap 13 (5-15) Blood Urea Nitrogen 18 mg/dL (7-23) Creatinine 0.9 mg/dL (0.5-0.9) Estimat Glomerular Filtration Rate > 60 mL/min (>60) Glucose Level 218 mg/dL (74-106) H Calcium Level 9.1 mg/dL (8.6-10.2) Troponin I < 0.30 ng/mL (<=0.30) Pro-B-Type Natriuretic Peptide 23 pg/mL (0-125) Objective HEAD AND NECK: Showed no JVD or carotid bruits. LUNGS: Clear. CARDIOVASCULAR: Shows regular S1 and S2 with no gallop or murmur. ABDOMEN: Soft and nontender. EXTREMITIES: Status post right bmtik-sqd-glur amputation. TANIA HERNANDEZ Mar 30, 2016 15:28
--- NOTE | 2016-03-30 15:48 | Diagnostic Imaging Report ---
Indications: 65-year-old female inpatient presents with chest pain. Technique: The examination was supervised by Dr. Oquendo. Baseline electrocardiogram was recorded. Adenosine was administered the patient intravenously per usual protocol. Continuous electrocardiography, heart rate, blood pressure monitoring performed. Immediate SPECT imaging of the left ventricular myocardium was performed in multiple planes with the patient in supine position, following intravenous administration of 31.2 mCi 99 M technetium-sestaMIBI. Cinegraphic images were generated for wall motion analysis. Left ventricular ejection fraction was calculated. Similar imaging was performed at rest immediately prior with intravenous administration of 0.9 mCi 99 M technetium-sestaMIBI. Findings: Comparison: None. Both stress and rest images demonstrate left ventricular myocardial perfusion to be intact. No areas of abnormally decreased or absent perfusion are demonstrated. Cinegraphic images demonstrate no areas of wall motion abnormality. Ejection fraction is estimated at 69%. The patient developed no acute complaints but minimal ST segment depression and T-wave inversion in the inferior leads during adenosine infusion. Supervising dairy bar manager's conclusions are that clinical response to pharmacologic stress simulation is ischemic while electrocardiographic response is equivocal. IMPRESSION: Negative left ventricular myocardial perfusion scan-no evidence of chemically induced left ventricular myocardial ischemia. LVEF within normal limits This partially correlates with supervising dairy bar manager's conclusions.
[2016-03-30 16:00] VITALS: BP 119/69
--- NOTE | 2016-03-30 16:37 | Internal Med Progress Note ---
Subjective Date of Service: Mar 30, 2016 Physician Name David Irizarry Attending Physician Abhilash Tadeo MD Current Medications Medications (Trade) Dose Ordered Sig/Salvador Route PRN Reason Start Time Stop Time Status Last Admin Dose Admin Aspirin (ASA) 325 mg DAILY ORAL 03/29/16 09:00 04/28/16 08:59 03/30/16 09:46 Dextrose (Dextrose 50%) STAT PRN IV Hypoglycemia 03/28/16 23:15 04/27/16 23:14 Heparin Sodium (Porcine) (Heparin 5000 units/ml) 5,000 units EVERY 8 HOURS SUBQ 03/29/16 06:00 04/28/16 05:59 03/30/16 14:53 Insulin Aspart (NovoLOG) BEFORE MEALS AND HS SUBQ 03/29/16 06:30 04/28/16 06:29 03/30/16 13:08 Lisinopril (Zestril) 10 mg DAILY ORAL 03/30/16 09:00 04/29/16 08:59 03/30/16 09:46 Morphine Sulfate (Morphine Sulfate) 2 mg Q4H PRN IVP For mild to moderate pain 03/28/16 23:15 04/04/16 23:14 Morphine Sulfate (Morphine Sulfate) 4 mg Q4H PRN IVP For severe Pain 03/28/16 23:15 04/04/16 23:14 03/29/16 10:55 Nitroglycerin (Ntg) 0.4 mg Q5M PRN SL Prn Chest Pain 03/28/16 23:15 04/27/16 23:14 Ranitidine HCl (Zantac) 150 mg BEDTIME ORAL 03/29/16 21:00 04/28/16 20:59 03/29/16 22:16 Allergies: Coded Allergies: IODINE (Verified Allergy, Severe, Anaphylaxis, 02/29/12) ROS Limited/Unobtainable: No Constitutional: Reports: no symptoms HEENT: Reports: no symptoms Cardiovascular: Reports: chest pain Respiratory: Reports: no symptoms Gastrointestinal/Abdominal: Reports: no symptoms Genitourinary: Reports: no symptoms Neurologic/Psychiatric: Reports: no symptoms Subjective 65 YO F with diabetes admitted with chest pain. Await cardiolite stress test. Cover for Int Med-Dr Tadeo. Objective Last Vital Signs Date Time Temp Pulse Resp B/P Pulse Ox O2 Delivery O2 Flow Rate FiO2 03/30/16 16:00 96.6 85 18 119/69 96 Room Air General Appearance: WD/WN, no apparent distress, alert, obese EENT: PERRL/EOMI, normal ENT inspection Neck: non-tender, normal alignment, supple, normal inspection Cardiovascular: normal peripheral pulses, normal rate, regular rhythm, no gallop/murmur, no JVD Respiratory/Chest: chest wall non-tender, lungs clear, normal breath sounds, no respiratory distress, no accessory muscle use Abdomen: normal bowel sounds, non tender, soft, no organomegaly, no mass Extremities: normal range of motion Neurologic: director global development II-XII 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 normal, no motor/sensory deficits Skin: normal pigmentation, warm/dry Laboratory Tests Test 03/30/16 07:15 White Blood Count 6.5 K/UL (4.8-10.8) Red Blood Count 4.07 M/UL (4.20-5.40) L Hemoglobin 11.8 G/DL (12.0-16.0) L Hematocrit 36.2 % (37.0-47.0) L Mean Corpuscular Volume 89 FL (80-99) Mean Corpuscular Hemoglobin 28.9 PG (27.0-31.0) Mean Corpuscular Hemoglobin Concent 32.6 G/DL (32.0-36.0) Red Cell Distribution Width 13.0 % (11.6-14.8) Platelet Count 190 K/UL (150-450) Mean Platelet Volume 10.2 FL (6.5-10.1) H Neutrophils (%) (Auto) 56.0 % (45.0-75.0) Lymphocytes (%) (Auto) 30.8 % (20.0-45.0) Monocytes (%) (Auto) 8.3 % (1.0-10.0) Eosinophils (%) (Auto) 3.9 % (0.0-3.0) H Basophils (%) (Auto) 1.2 % (0.0-2.0) Sodium Level 139 mEQ/L (135-145) Potassium Level 4.2 mEQ/L (3.4-4.9) Chloride Level 102 mEQ/L (98-107) Carbon Dioxide Level 24 mEQ/L (20-30) Anion Gap 13 (5-15) Blood Urea Nitrogen 18 mg/dL (7-23) Creatinine 0.9 mg/dL (0.5-0.9) Estimat Glomerular Filtration Rate > 60 mL/min (>60) Glucose Level 218 mg/dL (74-106) H Calcium Level 9.1 mg/dL (8.6-10.2) Troponin I < 0.30 ng/mL (<=0.30) Pro-B-Type Natriuretic Peptide 23 pg/mL (0-125) Intake and Output 03/29/16 03/30/16 19:00 07:00 Intake Total 550 ml 300 ml Balance 550 ml 300 ml Intake Oral 550 ml 300 ml # Voids 1 1 Assessment/Plan Problem List: (1) Diabetes mellitus Assessment & Plan: Continue novolog sliding scale (2) Uncontrolled hypertension Assessment & Plan: Continue lisinopril. (3) Chest pain Assessment & Plan: See Cardiology note. Await adenosine stress test results. Status: progressing DAVID IRIZARRY Mar 30, 2016 16:37
[2016-03-30 20:00] VITALS: BP 141/69
[2016-03-30] MEDS ORDERED: Miralax 17gm pkt ORAL ONE ×2 (21:30→21:45)
[2016-03-31 00:14] VITALS: BP 120/63
[2016-03-31 04:09] VITALS: BP 137/85
[2016-03-31] MEDS: NovoLOG Insulin Flexpen SUBQ SCH ×2 (06:26→12:36)
[2016-03-31] MEDS: Heparin 5000 units/ml inj SUBQ SCH ×2 (06:27→13:46)
[2016-03-31 07:59] LABS: BASOPHILS % (AUTO) 0.7 % (0.0-2.0); LYMPHOCYTES % (AUTO) 28.5 % (20.0-45.0); MEAN CORPUSCULAR HEMOGLOBIN 27.8 PG (27.0-31.0); MEAN CORPUSCULAR HGB CONC 31.3 G/DL (32.0-36.0); MEAN CORPUSCULAR VOLUME 89 FL (80-99); MEAN PLATELET VOLUME 10.8 FL (6.5-10.1); MONOCYTES % (AUTO) 9.9 % (1.0-10.0); NEUTROPHILS % (AUTO) 56.8 % (45.0-75.0); PLATELET COUNT 194 K/UL (150-450); RED BLOOD COUNT 4.02 M/UL (4.20-5.40); WHITE BLOOD COUNT 7.1 K/UL (4.8-10.8)
[2016-03-31 08:01] VITALS: BP 143/71
[2016-03-31 08:10] LABS: ANION GAP 13 (5-15); CALCIUM 9.1 mg/dL (8.6-10.2); CARBON DIOXIDE 25 mEQ/L (20-30); CHLORIDE 101 mEQ/L (98-107); CREATININE 0.9 mg/dL (0.5-0.9); GLOMERULAR FILTRATION RATE > 60 mL/min (>60); HEMOLYSIS 4; POTASSIUM 3.8 mEQ/L (3.4-4.9); SODIUM 139 mEQ/L (135-145)
[2016-03-31] MEDS: Lisinopril 10mg tab ORAL SCH (08:27)
[2016-03-31] MEDS ORDERED: LISINOPRIL10 MG ORAL (10:54)
[2016-03-31] MEDS ORDERED: ASPIRIN325 MG ORAL (10:54)
--- NOTE | 2016-03-31 11:00 | Discharge Summary ---
Discharge Summary Hospital Course Date of Admission Mar 28, 2016 at 21:09 Date of Discharge Admitting Diagnosis Acute Coronary Syndrome HPI Stacey Silveira is a 65 year old female who was admitted on Mar 28, 2016 at 21 :09 for Acute Coronary Syndrome Hospital Course Dictated for Int Davon-Dr Tadeo no. [id number]. Discharge Discharge Disposition Patient was discharged to Discharge Diagnoses: FLETCHER IRIZARRY Mar 31, 2016 11:00
[2016-03-31 11:19] VITALS: BP 157/88
--- NOTE | 2016-03-31 15:21 | Cardiac Electrophysiology PN ---
Assessment/Plan Status Narrative Normal left ventricular chamber size, systolic function and wall motion. Left ventricular ejection fraction estimated to be 55-60 %. No evidence of ventricular hypertrophy. No evidence of pericardial fat or effusion. All other cardiac chamber sizes are within normal limits. Mild focal aortic valve sclerosis with adequate cusp excursion. Mildly thickened mitral valve leaflets with normal excursion. Mild mitral annulus and aortic root calcification. Pulmonic valve not well visualized. Normal tricuspid valve structure. IVC not obtainable. A color flow and spectral Doppler study was performed and revealed: No aortic regurgitation. Trace mitral regurgitation. Mitral diastolic velocities suggest reduced left ventricular relaxation (Grade I ). Trace tricuspid regurgitation. No pulmonic regurgitation present. Assessment/Plan 1. Chest pain in a patient with multiple risk factors for coronary artery disease including hypertension, diabetes, and peripheral vascular disease. Ruled out for myocardial infarction. Nuclear stress test was equivocal by [facility] and no ischemia on nuclear images. Offered transfer for Cardiac cath or coronary Ct angio but she declined. Will treat medically. If develops chest pain again, she will go to [facility] for Cardiac cath or coronary CT angio for further evaluation .Echo EF 55% 2. Hypertension. On Lisinopril 10 mg daily. 3. Diabetes on insulin. 4. Peripheral vascular disease status post right [id number] DW RN Subjective Subjective No chest pain or SOB.No arrhythmias on tele. Objective Last 24 Hour Vital Signs Date Time Temp Pulse Resp B/P Pulse Ox O2 Delivery O2 Flow Rate FiO2 03/31/16 12:00 86 03/31/16 11:19 97.9 82 18 157/88 98 Room Air 03/31/16 08:27 143/71 03/31/16 08:01 97.7 81 18 143/71 99 Room Air 03/31/16 08:00 86 03/31/16 04:09 98.4 79 18 137/85 95 Room Air 03/31/16 04:00 67 03/31/16 00:14 98.2 87 19 120/63 94 Room Air 03/31/16 00:00 92 03/30/16 20:00 80 03/30/16 20:00 98.2 83 18 141/69 96 Room Air 03/30/16 16:00 96.6 85 18 119/69 96 Room Air 03/30/16 16:00 80 Intake and Output 03/30/16 03/31/16 19:00 07:00 Intake Total 450 ml Balance 450 ml Intake Oral 450 ml # Voids 2 2 Laboratory Tests Test 03/31/16 06:40 White Blood Count 7.1 K/UL (4.8-10.8) Red Blood Count 4.02 M/UL (4.20-5.40) L Hemoglobin 11.2 G/DL (12.0-16.0) L Hematocrit 35.6 % (37.0-47.0) L Mean Corpuscular Volume 89 FL (80-99) Mean Corpuscular Hemoglobin 27.8 PG (27.0-31.0) Mean Corpuscular Hemoglobin Concent 31.3 G/DL (32.0-36.0) L Red Cell Distribution Width 13.0 % (11.6-14.8) Platelet Count 194 K/UL (150-450) Mean Platelet Volume 10.8 FL (6.5-10.1) H Neutrophils (%) (Auto) 56.8 % (45.0-75.0) Lymphocytes (%) (Auto) 28.5 % (20.0-45.0) Monocytes (%) (Auto) 9.9 % (1.0-10.0) Eosinophils (%) (Auto) 4.0 % (0.0-3.0) H Basophils (%) (Auto) 0.7 % (0.0-2.0) Sodium Level 139 mEQ/L (135-145) Potassium Level 3.8 mEQ/L (3.4-4.9) Chloride Level 101 mEQ/L (98-107) Carbon Dioxide Level 25 mEQ/L (20-30) Anion Gap 13 (5-15) Blood Urea Nitrogen 18 mg/dL (7-23) Creatinine 0.9 mg/dL (0.5-0.9) Estimat Glomerular Filtration Rate > 60 mL/min (>60) Glucose Level 209 mg/dL (74-106) H Calcium Level 9.1 mg/dL (8.6-10.2) Objective HEAD AND NECK: Showed no JVD or carotid bruits. LUNGS: Clear. CARDIOVASCULAR: Shows regular S1 and S2 with no gallop or murmur. ABDOMEN: Soft and nontender. EXTREMITIES: Status post right pevyi-bqe-[id number] amputation. TANIA HERNANDEZ Mar 31, 2016 15:21
--- NOTE | 2016-03-31 17:59 | Pulmonology Progress Note ---
Assessment/Plan Problems: (1) Chest pain (2) Diabetes (3) PVD (peripheral vascular disease) Assessment/Plan improving dc home with diuretics f/u with her primary physician Subjective Allergies: Coded Allergies: IODINE (Verified Allergy, Severe, Anaphylaxis, 02/29/12) Objective Last 24 Hour Vital Signs Date Time Temp Pulse Resp B/P Pulse Ox O2 Delivery O2 Flow Rate FiO2 03/31/16 12:00 86 03/31/16 11:19 97.9 82 18 157/88 98 Room Air 03/31/16 08:27 143/71 03/31/16 08:01 97.7 81 18 143/71 99 Room Air 03/31/16 08:00 86 03/31/16 04:09 98.4 79 18 137/85 95 Room Air 03/31/16 04:00 67 03/31/16 00:14 98.2 87 19 120/63 94 Room Air 03/31/16 00:00 92 03/30/16 20:00 80 03/30/16 20:00 98.2 83 18 141/69 96 Room Air Intake and Output 03/30/16 03/31/16 19:00 07:00 Intake Total 450 ml Balance 450 ml Intake Oral 450 ml # Voids 2 2 Objective General Appearance: WD/WN Lines, tubes and drains: peripheral HEENT: normocephalic, atraumatic Neck: non-tender, normal alignment Respiratory/Chest: chest wall non-tender, rhonchi - left, rhonchi - right Cardiovascular/Chest: normal peripheral pulses, normal rate Abdomen: normal bowel sounds, non tender Genitourinary/Rectal: normal genital exam Extremities: normal range of motion, non-tender, normal inspection, no calf tenderness, normal capillary refill Skin Exam: normal pigmentation 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 Laboratory Tests 03/31/16 06:40: White Blood Count 7.1, Red Blood Count 4.02L, Hemoglobin 11.2L, Hematocrit 35.6L , Mean Corpuscular Volume 89, Mean Corpuscular Hemoglobin 27.8, Mean Corpuscular Hemoglobin Concent 31.3L, Red Cell Distribution Width 13.0, Platelet Count 194, Mean Platelet Volume 10.8H, Neutrophils (%) (Auto) 56.8, Lymphocytes (%) (Auto) 28.5, Monocytes (%) (Auto) 9.9, Eosinophils (%) (Auto) 4.0H, Basophils (%) (Auto) 0.7, Sodium Level 139, Potassium Level 3.8, Chloride Level 101, Carbon Dioxide Level 25, Anion Gap 13, Blood Urea Nitrogen 18, Creatinine 0.9, Estimat Glomerular Filtration Rate > 60, Glucose Level 209H, Calcium Level 9.1 Current Medications Medications (Trade) Dose Ordered Sig/Salvadro Route PRN Reason Start Time Stop Time Status Last Admin Dose Admin Aspirin (ASA) 325 mg DAILY ORAL 03/29/16 09:00 04/28/16 08:59 03/31/16 08:27 Dextrose (Dextrose 50%) STAT PRN IV Hypoglycemia 03/28/16 23:15 04/27/16 23:14 Heparin Sodium (Porcine) (Heparin 5000 units/ml) 5,000 units EVERY 8 HOURS SUBQ 03/29/16 06:00 04/28/16 05:59 03/31/16 13:46 Insulin Aspart (NovoLOG) BEFORE MEALS AND HS SUBQ 03/29/16 06:30 04/28/16 06:29 03/31/16 12:36 Lisinopril (Zestril) 10 mg DAILY ORAL 03/30/16 09:00 04/29/16 08:59 03/31/16 08:27 Morphine Sulfate (Morphine Sulfate) 2 mg Q4H PRN IVP For mild to moderate pain 03/28/16 23:15 04/04/16 23:14 Morphine Sulfate (Morphine Sulfate) 4 mg Q4H PRN IVP For severe Pain 03/28/16 23:15 04/04/16 23:14 03/29/16 10:55 Nitroglycerin (Ntg) 0.4 mg Q5M PRN SL Prn Chest Pain 03/28/16 23:15 04/27/16 23:14 Ranitidine HCl (Zantac) 150 mg BEDTIME ORAL 03/29/16 21:00 04/28/16 20:59 03/30/16 21:42 FRANCES RIVERA Mar 31, 2016 17:59
--- NOTE | 2016-03-31 22:20 | Discharge Summary ---
DATE OF ADMISSION: 03/28/2016 DATE OF DISCHARGE: 03/31/2016 ADMITTING DIAGNOSES: 1. Chest pain. 2. Diabetes type 2. DISCHARGE DIAGNOSES: 1. Chest pain. 2. Diabetes type 2. 3. Uncontrolled hypertension. 4. Right sblzk-[id number]-[id number] amputation. HOSPITAL COURSE BY PROBLEM LIST: 1. Chest pain. A Cardiology consultation was obtained with Dr. Manoj Lua. The patient underwent a nuclear medicine myocardial perfusion scan on 03/30/2016. This is reported as no ischemia. The patient also underwent an echocardiogram on 03/29/2016. Ejection fraction was normal at 50% to 55%. The patient is to follow up with Dr. Lua as outpatient. Chest pain is thought to be not secondary to coronary etiology. 2. Diabetes type 2. The patient remained on NovoLog sliding scale during the hospitalization. The patient is to continue her regular dose of Lantus insulin and NovoLog at home. 3. Uncontrolled hypertension. The patient is placed on lisinopril 10 mg one tab daily. The patient is to follow up with Dr. Manoj Lua in one week. 4. History of right sltfq-[id number]-tidj amputation. DISCHARGE MEDICATIONS: Please refer to discharge medication list. DISCHARGE INSTRUCTIONS: 1. The patient is discharged home today, 03/31/2016 to home with her daughter. 2. The patient to follow up with Dr. Abhilash Tadeo in one to two weeks. David Pimentel M.D. DR: JANIS JOB#: [id number] CC:
== END 2016-03-31 16:35 | disposition home or self-care (01) | DRG 313 ==
LOC: EMR 16:15 → EDBEDREQ 18:05 → 2W 21:09 → 2E 03-29 13:16
DX: R07.89 Other chest pain (principal); I10 Essential (primary) hypertension; Z89.511 Acquired absence of right leg below knee; E11.9 Type 2 diabetes mellitus without complications; Z79.4 Long term (current) use of insulin; Z88.8 Allergy status to other drugs, medicaments and biological substances; I73.9 Peripheral vascular disease, unspecified
CPT/HCPCS: 36415; 71010; 78452; 80048; 80053; 81003; 82550; 82962; 83036; 83735; 83880; 84100; 84484; 85025; 85610; 85730; 93005; 93017; 93306; J0153; J1815; J2405

== ENCOUNTER 2016-09-02 20:56 | Inpatient (IN) | payer BC, MEDICARE, MEDICAID ==
[~2016-09-02] VITALS: Ht 165.1 cm; Wt 101.6 kg
[~2016-09-02 20:56] MED LIST changes: +ASPIR 8181 MG ORAL; +ASPIRIN325 MG ORAL; +HUMALOG100 UNIT/4 SUBQ; +LANTUS SOL100 UNIT/1 SUBQ; +LISINOPRIL10 MG ORAL; +LISINOPRIL5 MG ORAL; +NOVOLOG100 UNIT/5; +RANITIDINE HCL150 MG ORAL
[2016-09-02 21:30] VITALS: BP 182/110
[2016-09-02] MEDS ORDERED: Morphine Sulfate 4mg/ml Inj IVP ONE (21:30)
[2016-09-02 21:58] LABS: MEAN CORPUSCULAR HEMOGLOBIN 29.1 PG (27.0-31.0); MEAN CORPUSCULAR VOLUME 86 FL (80-99); MEAN PLATELET VOLUME 11.2 FL (6.5-10.1); PLATELET COUNT 260 K/UL (150-450); RED BLOOD COUNT 4.78 M/UL (4.20-5.40); RED CELL DISTRIBUTION WIDTH 12.9 % (11.6-14.8); WHITE BLOOD COUNT 14.5 K/UL (4.8-10.8)
[2016-09-02 22:01] LABS: BASOPHILS % (AUTO) 0.3 % (0.0-2.0); MONOCYTES % (AUTO) 4.4 % (1.0-10.0); NEUTROPHILS % (AUTO) 87.3 % (45.0-75.0)
[2016-09-02 22:12] LABS: ALANINE AMINOTRANSFERASE 9 U/L (3-33); ALBUMIN/GLOBULIN RATIO 1.2 (1.0-2.7); ASPARTATE AMINO TRANSFERASE 12 U/L (5-40); CALCIUM 9.7 mg/dL (8.6-10.2); CARBON DIOXIDE 20 mEQ/L (20-30); CHLORIDE 90 mEQ/L (98-107); CREATININE 1.1 mg/dL (0.5-0.9); GLOMERULAR FILTRATION RATE > 60 mL/min (>60); HEMOLYSIS 4; LIPASE 66 U/L (< 60); SODIUM 137 mEQ/L (135-145); TOTAL PROTEIN 7.2 g/dL (6.6-8.7)
[2016-09-02 22:18] LABS: ANION GAP 27 (5-15)
[2016-09-02 22:21] LABS: POTASSIUM 2.5 mEQ/L (3.4-4.9)
[2016-09-02 23:00] VITALS: BP 198/88
[2016-09-02 23:40] LABS: APPEARANCE,URINE CLEAR; KETONES,URINE 4+ (NEGATIVE); LEUKOCYTE ESTERASE ,URINE NEGATIVE (NEGATIVE); NITRITE,URINE NEGATIVE (NEGATIVE); PH,URINE 5 (4.5-8.0); PROTEIN,URINE 3+ (NEGATIVE); UROBILINOGEN,URINE NORMAL MG/DL (0.0-1.0)
[2016-09-02] MEDS ORDERED: HYDROmorphone 1mg/ml Carpuject IVP ONE (23:45)
[2016-09-02 23:54] LABS: BACTERIA,URINE OCCASIONAL /HPF; RBC,URINE 0-2 /HPF (0 - 2); SQUAMOUS EPITHELIAL CELL,UR FEW /LPF (NONE/OCC); WBC,URINE 0-2 /HPF (0 - 2)
[2016-09-03] VITALS (7 sets, daily range): BP systolic 137–183; BP diastolic 69–99
--- NOTE | 2016-09-03 00:31 | Emergency Room Report ---
History of Present Illness General Chief Complaint: Abdominal Pain Source: Patient, EMS Present Illness HPI This is a 66-year-old female with history of diabetes. She has a history of intractable pain and vomiting. She was just admitted here last week for abdominal pain with vomiting. Workup showed esophagitis. She was just discharged home for one day. Since then she's been vomiting unable to keep anything down. No diarrhea. Does have abdominal pain in the epigastric area. No diarrhea. Call 911. Pain is 10 out of 10. No chest pain. No other complaint. Allergies: Coded Allergies: IODINE (Verified Allergy, Severe, Anaphylaxis, 02/29/12) Patient History Past Medical History: see triage record, old chart reviewed, DM, HTN Past Surgical History: other Pertinent Family History: none Social History: Denies: smoking Last Menstrual Period: ONE Now: No Immunizations: other Reviewed Nursing Documentation: PMH: Agreed, PSxH: Agreed Nursing Documentation-PMH Hx Cardiac Problems: No Hx Hypertension: Yes Hx Diabetes: Yes Hx Cancer: No Hx Gastrointestinal Problems: No Hx Neurological Problems: Yes - NEUROPATHY Review of Systems Eye: Denies: blurred vision, eye pain ENT: Denies: ear pain, nose congestion, throat swelling Respiratory: Denies: cough, shortness of breath Cardiovascular: Denies: chest pain, palpitations Gastrointestinal: Reports: abdominal pain, nausea, vomiting, Denies: diarrhea Musculoskeletal: Denies: back pain, joint pain Skin: Denies: rash Neurological: Denies: headache, numbness Endocrine: Denies: increased thirst, increased urine Hematologic/Lymphatic: Denies: easy bruising All Other Systems: negative except mentioned in HPI Physical Exam Vital Signs Date Time Temp Pulse Resp B/P Pulse Ox O2 Delivery O2 Flow Rate FiO2 09/02/16 20:54 98.8 88 18 182/110 98 Room Air vitals with hypertension Sp02 EP Interpretation: reviewed, normal General Appearance: well appearing, no apparent distress, alert Head: normocephalic, atraumatic Eyes: bilateral eye EOMI, bilateral eye PERRL ENT: hearing grossly normal, normal pharynx Neck: full range of motion, supple, no meningismus Respiratory: chest non-tender, lungs clear, normal breath sounds Cardiovascular #1: regular rate, rhythm, no murmur Gastrointestinal: no mass, no organomegaly, no bruit, non-distended, abnormal bowel sounds, tenderness - Epigastric, decreased bowel sounds Musculoskeletal: back normal, normal range of motion Neurologic: alert, oriented x3 Psychiatric: mood/affect normal Skin: warm/dry Medical Decision Making Diagnostic Impression: Primary Impression: Abdominal pain of unknown etiology Additional Impressions: Nausea & vomiting Qualified Codes: R11.2 - Nausea with vomiting, unspecified Hypertension Qualified Codes: I10 - Essential (primary) hypertension Uncontrolled diabetes mellitus Qualified Codes: E11.8 - Type 2 diabetes mellitus with unspecified complications; E11.65 - Type 2 diabetes mellitus with hyperglycemia Dehydration Hypokalemia Proteinuria Qualified Codes: R80.9 - Proteinuria, unspecified ER Course Present with abdominal pain and vomiting. No evidence of obstruction. This may be secondary to gastroparesis from her diabetes. She is dehydrated. Oral admit for IV fluid and potassium replacement. I contacted Dr. Tadeo for admission. Also discussed the case with Dr. Pyle who will write orders. Last Vital Signs Date Time Temp Pulse Resp B/P Pulse Ox O2 Delivery O2 Flow Rate FiO2 09/02/16 23:14 222/104 09/02/16 20:54 98.8 88 18 98 Room Air Status: improved Disposition: ADMITTED INPATIENT Condition: Serious Referrals: Abhilash Tadeo MD (PCP) RICHARD HENRY M.D. Sep 03, 2016 00:31
[2016-09-03] MEDS ORDERED: Nitroglycerin Subl 0.4mg tab (Bottle Of 25) SL PRN (00:45)
[2016-09-03] MEDS ORDERED: Ketorolac 30mg Inj IV PRN (00:45)
[2016-09-03] MEDS ORDERED: Mylanta II UD 30ml ORAL PRN (00:45)
[2016-09-03] MEDS ORDERED: Miralax 17gm pkt ORAL PRN (00:45)
[2016-09-03] MEDS ORDERED: PROTONIX40 M2 GT (00:53)
[2016-09-03] MEDS ORDERED: NORCO 5-325 TA1 EAC1 ORAL (00:54)
[2016-09-03] MEDS ORDERED: LANTUS SOL100 UNIT/1 SUBQ (00:56)
[2016-09-03] MEDS: Morphine Sulfate 2mg/ml Inj IVP PRN ×4 (04:10→21:21)
[2016-09-03] MEDS: NovoLOG Insulin Flexpen SUBQ SCH ×4 (07:05→20:58)
[2016-09-03] MEDS: Lisinopril 10mg tab ORAL SCH (08:32)
[2016-09-03] MEDS: Heparin 5000 units/ml inj SUBQ SCH ×2 (08:33→20:57)
[2016-09-03] MEDS: Metoclopramide 10mg/2ml Inj IVP PRN ×2 (09:18→15:44)
--- NOTE | 2016-09-03 11:05 | Consultation ---
History of Present Illness General Date patient seen: Sep 03, 2016 Time patient seen: 09:00 Chief Complaint: Abdominal Pain Referring physician: dr Tadeo Reason for Consultation: inpatietn management Present Illness HPI 66-year-old female with history of HTN and diabetes along with intractable pain and vomiting. Was in the hospital last week for abdominal pain with vomiting. Workup revealed esophagitis. She was just discharged after being able to tolerate diet However at home had been vomiting and was unable to keep anything down. Denies blood in emesis Denies diarrhea. Some abdominal pain in the epigastric area. No chest pain, no SOB Workup in ED revealed no fever BP-182/110 WBC-14.5 K-2.5 LFT stable, minimally elevated lipase -66 UA negative stable HH patient was admitted for further management . Allergies: Coded Allergies: IODINE (Verified Allergy, Severe, Anaphylaxis, 02/29/12) Medication History Scheduled Aspirin* (Aspirin*), 325 MG ORAL DAILY Aspirin* (Aspir 81*), 81 MG ORAL DAILY, (Reported) Docusate Sodium* (Colace*), 100 MG PO DAILY Insulin Glargine (Lantus), 21 UNITS SUBQ QHS, (Reported) Insulin Glargine (Lantus), 26 SUBQ BEDTIME, (Reported) Insulin Glargine (Lantus), 0 SUBQ BEDTIME, (Reported) Insulin Lispro (Humalog), 0 SUBQ AC+HS, (Reported) Lisinopril* (Lisinopril*), 10 MG ORAL DAILY Lisinopril* (Lisinopril*), 10 MG ORAL DAILY, (Reported) Pantoprazole Sodium (Protonix), 40 MG GT DAILY, (Reported) Ranitidine Hcl* (Zantac*), 150 MG ORAL BEDTIME Scheduled PRN Hydrocodone Bit/Acetaminophen 5-325* ([place] 5-325 Tablet*), 1 TAB ORAL Q4H PRN for For Pain, (Reported) Miscellaneous Medications Insulin Aspart (Novolog), Unknown Dose, (Reported) Patient History History Provided By: Patient Healthcare decision maker Stacey Silveira Resuscitation status Full Code Advanced Directive on File No Past Medical/Surgical History Past Medical/Surgical History: (1) Uncontrolled diabetes mellitus (2) Hypertension (3) Nausea & vomiting (4) Gastritis (5) Esophagitis (6) PVD (peripheral vascular disease) Review of Systems Constitutional: Reports: weakness Eye: Reports: no symptoms ENT: Reports: no symptoms Respiratory: Reports: no symptoms Cardiovascular: Reports: no symptoms, other - HTN Gastrointestinal: Reports: see HPI Genitourinary: Reports: no symptoms Musculoskeletal: Reports: no symptoms Psychiatric: Reports: no symptoms Neurological: Reports: no symptoms Hematologic/Lymphatic: Reports: no symptoms, other - diabetes Physical Exam General Appearance: alert - mild distress, other - A/A/O x3 AA female Lines, tubes and drains: peripheral HEENT: normocephalic, atraumatic, anicteric, PERRL Neck: non-tender, supple Respiratory/Chest: chest wall non-tender, lungs clear, normal breath sounds, no respiratory distress, no accessory muscle use Cardiovascular/Chest: normal peripheral pulses, normal rate, regular rhythm, no JVD Abdomen: normal bowel sounds, non tender, soft Extremities: other - R BKA Skin Exam: normal pigmentation, warm/dry 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, no motor/sensory deficits, alert, oriented x 3 Musculoskeletal: normal muscle bulk Last 24 Hour Vital Signs Date Time Temp Pulse Resp B/P Pulse Ox O2 Delivery O2 Flow Rate FiO2 09/03/16 09:03 98.2 09/03/16 08:32 183/95 09/03/16 08:01 98.2 90 16 183/95 96 Room Air 09/03/16 04:00 98.1 89 20 146/69 93 Room Air 09/03/16 01:30 98.1 100 20 162/99 96 Room Air 09/03/16 01:24 99.3 99 21 172/73 98 Room Air 09/03/16 00:30 99.3 99 21 172/73 98 Room Air 09/02/16 23:14 222/104 09/02/16 23:00 98.9 94 21 198/88 98 Room Air 09/02/16 22:27 99.3 09/02/16 22:27 99.3 09/02/16 21:30 98.8 18 182/110 98 Room Air 09/02/16 20:54 98.8 88 18 182/110 98 Room Air Intake and Output 09/02/16 09/03/16 19:00 07:00 Intake Total 2300 ml Balance 2300 ml Intake Oral 0 ml IV Total 2300 ml # Voids 2 Laboratory Tests Test 09/02/16 21:35 09/02/16 23:05 White Blood Count 14.5 K/UL (4.8-10.8) H Red Blood Count 4.78 M/UL (4.20-5.40) Hemoglobin 13.9 G/DL (12.0-16.0) Hematocrit 41.0 % (37.0-47.0) Mean Corpuscular Volume 86 FL (80-99) Mean Corpuscular Hemoglobin 29.1 PG (27.0-31.0) Mean Corpuscular Hemoglobin Concent 34.0 G/DL (32.0-36.0) Red Cell Distribution Width 12.9 % (11.6-14.8) Platelet Count 260 K/UL (150-450) Mean Platelet Volume 11.2 FL (6.5-10.1) H Neutrophils (%) (Auto) 87.3 % (45.0-75.0) H Lymphocytes (%) (Auto) 8.0 % (20.0-45.0) L Monocytes (%) (Auto) 4.4 % (1.0-10.0) Eosinophils (%) (Auto) 0.0 % (0.0-3.0) Basophils (%) (Auto) 0.3 % (0.0-2.0) Sodium Level 137 mEQ/L (135-145) Potassium Level 2.5 mEQ/L (3.4-4.9) *L Chloride Level 90 mEQ/L (98-107) L Carbon Dioxide Level 20 mEQ/L (20-30) Anion Gap 27 (5-15) H Blood Urea Nitrogen 13 mg/dL (7-23) Creatinine 1.1 mg/dL (0.5-0.9) H Estimat Glomerular Filtration Rate > 60 mL/min (>60) Glucose Level 294 mg/dL (74-106) H Calcium Level 9.7 mg/dL (8.6-10.2) Total Bilirubin 0.6 mg/dL (0.0-1.2) Aspartate Amino Transf (AST/SGOT) 12 U/L (5-40) Alanine Aminotransferase (ALT/SGPT) 9 U/L (3-33) Alkaline Phosphatase 112 U/L (35-104) H Total Protein 7.2 g/dL (6.6-8.7) Albumin 4.0 g/dL (3.5-5.2) Globulin 3.2 g/dL Albumin/Globulin Ratio 1.2 (1.0-2.7) Lipase 66 U/L (< 60) H Urine Color Pale yellow Urine Appearance Clear Urine pH 5 (4.5-8.0) Urine Specific [place] 1.020 (1.005-1.035) Urine Protein 3+ (NEGATIVE) H Urine Glucose (UA) 4+ (NEGATIVE) H Urine Ketones 4+ (NEGATIVE) H Urine Occult Blood 1+ (NEGATIVE) H Urine Nitrite Negative (NEGATIVE) Urine Bilirubin Negative (NEGATIVE) Urine Urobilinogen Normal MG/DL (0.0-1.0) Urine Leukocyte Esterase Negative (NEGATIVE) Urine RBC 0-2 /HPF (0 - 2) Urine WBC 0-2 /HPF (0 - 2) Urine Squamous Epithelial Cells Few /LPF (NONE/OCC) Urine Bacteria Occasional /HPF (NONE) Height (Feet): 5 Height (Inches): 5.00 Weight (Pounds): 224 Medications Current Medications Medications (Trade) Dose Ordered Sig/[place] Route PRN Reason Start Time Stop Time Status Last Admin Dose Admin Acetaminophen (Tylenol) 650 mg Q4H PRN ORAL fever 09/03/16 00:45 10/03/16 00:44 Al Hydroxide/Mg Hydroxide (Mylanta II) 30 ml Q6H PRN ORAL dyspepsia 09/03/16 00:45 10/03/16 00:44 Aspirin (ASA) 325 mg DAILY ORAL 09/03/16 09:00 10/03/16 08:59 09/03/16 08:32 Dextrose STAT PRN IV Hypoglycemia 09/03/16 00:45 10/03/16 00:44 Diphenhydramine HCl (Benadryl) 25 mg Q6H PRN ORAL Itching/Pruritis 09/03/16 00:45 10/03/16 00:44 Heparin Sodium (Porcine) (Heparin 5000 units/ml) 5,000 units EVERY 12 HOURS SUBQ 09/03/16 09:00 10/03/16 08:59 09/03/16 08:33 Insulin Aspart (NovoLOG) BEFORE MEALS AND HS SUBQ 09/03/16 06:30 10/03/16 06:29 09/03/16 07:05 Lisinopril (Zestril) 10 mg DAILY ORAL 09/03/16 09:00 10/03/16 08:59 09/03/16 08:32 Metoclopramide HCl (Reglan) 5 mg Q6H PRN IVP Nausea & Vomiting 09/03/16 08:30 10/03/16 08:29 09/03/16 09:18 Morphine Sulfate (Morphine Sulfate) 2 mg Q4H PRN IVP severe Pain (Pain Scale 7-10) 09/03/16 00:45 09/10/16 00:44 09/03/16 08:33 Nitroglycerin (Ntg) 0.4 mg Q5M X 3 DOSES PRN SL Prn Chest Pain 09/03/16 00:45 10/03/16 00:44 Ondansetron HCl (Zofran) 4 mg Q6H PRN IVP Nausea & Vomiting 09/03/16 00:45 10/03/16 00:44 09/03/16 04:11 Polyethylene Glycol (Miralax) 17 gm HSPRN PRN ORAL Constipation 09/03/16 00:45 10/03/16 00:44 Sodium Chloride (Sodium Chloride 1000ml bag) 1,000 ml @ 50 mls/hr Q20H IV 09/03/16 02:00 10/03/16 01:59 09/03/16 02:47 Temazepam (Restoril) 15 mg HSPRN PRN ORAL Insomnia 09/03/16 00:45 09/10/16 00:44 Assessment/Plan Assessment/Plan ASSESSMENT intractable n/v with abdominal pain dehydration gastritis ( recently diagnosed) esophagitis ( recently diagnosed) possible gastroparesis DM OOC HTN urgency hypokalemia leukocytosis severe PVD with R BKA elevated lipase PLAN OF CARE MS floor IVF, increase rate a/emetic prn, added Reglan ( alternate Zofran and Reglan) GI eval abdominal US PPI K replaced , check stat BMP and Mg now BP management with CCB and DIONISIO, Clonidine prn pain management BS management with SS of insulin, check HgA1c no obvious source of infection, afebrile, UA negative will hold on abx for now, possibly reactive leukocytosis trend lipase, amylase DVT /GI prophylaxis case discussed and evaluated by supervising physician Ismael ([facility])Sonia NP Sep 03, 2016 11:05
[2016-09-03 12:25] LABS: MEAN CORPUSCULAR HGB CONC 33.4 G/DL (32.0-36.0); MEAN CORPUSCULAR VOLUME 87 FL (80-99); MEAN PLATELET VOLUME 10.3 FL (6.5-10.1); PLATELET COUNT 276 K/UL (150-450); RED BLOOD COUNT 4.64 M/UL (4.20-5.40); RED CELL DISTRIBUTION WIDTH 12.9 % (11.6-14.8); WHITE BLOOD COUNT 18.3 K/UL (4.8-10.8)
[2016-09-03 12:37] LABS: ANION GAP 24 (5-15); CALCIUM 9.3 mg/dL (8.6-10.2); CARBON DIOXIDE 21 mEQ/L (20-30); CHLORIDE 94 mEQ/L (98-107); CREATININE 1.1 mg/dL (0.5-0.9); GLOMERULAR FILTRATION RATE > 60 mL/min (>60); HEMOLYSIS 2; MAGNESIUM 1.9 mg/dL (1.7-2.5); SODIUM 139 mEQ/L (135-145)
[2016-09-03 12:40] LABS: POTASSIUM 2.6 mEQ/L (3.4-4.9)
[2016-09-03] MEDS: Pantoprazole Inj IVP SCH (12:51)
[2016-09-03 12:52] LABS: BAND NEUTROPHILS % (MANUAL) 0 % (0-8); BASOPHILS % (MANUAL) 0 % (0-2); EOSINOPHILS % (MANUAL) 3 % (0-3); LYMPHOCYTES % (MANUAL) 8 % (20-45); NEUTROPHILS % (MANUAL) 86 % (45-75); PLATELET ESTIMATE ADEQUATE; PLATELET MORPHOLOGY NORMAL; TOTAL CELLS COUNTED 100
--- NOTE | 2016-09-03 13:40 | History & Physical ---
History and Physical History & Physicial Last 24 Hour Vital Signs Date Time Temp Pulse Resp B/P Pulse Ox O2 Delivery O2 Flow Rate FiO2 09/03/16 12:51 90 159/86 09/03/16 12:47 98.2 90 16 159/86 97 Room Air 09/03/16 09:03 98.2 09/03/16 08:32 183/95 09/03/16 08:01 98.2 90 16 183/95 96 Room Air 09/03/16 04:00 98.1 89 20 146/69 93 Room Air 09/03/16 01:30 98.1 100 20 162/99 96 Room Air 09/03/16 01:24 99.3 99 21 172/73 98 Room Air 09/03/16 00:30 99.3 99 21 172/73 98 Room Air 09/02/16 23:14 222/104 09/02/16 23:00 98.9 94 21 198/88 98 Room Air 09/02/16 22:27 99.3 09/02/16 22:27 99.3 09/02/16 21:30 98.8 18 182/110 98 Room Air 09/02/16 20:54 98.8 88 18 182/110 98 Room Air The patient was seen and examined at bedside and all new and available data was reviewed in the patients chart. F/U Labs F/U IVF F/U with Edenilson Fuentes Recommendation (Patient was seen earlier today. Signature timestamp does not reflect patient encounter time) Abhilash Garcia MD, MD Sep 03, 2016 13:40
[2016-09-03] MEDS: HydrALAZINE 50mg tab ORAL SCH ×2 (14:46→20:56)
--- NOTE | 2016-09-03 17:45 | History and Physical Report ---
DATE OF ADMISSION: 09/02/2016 CHIEF COMPLAINT: Intractable nausea and vomiting. HISTORY OF PRESENT ILLNESS: This is a 66-year-old very unfortunate female with past medical history significant for hypertension, diabetes type 2, history of peripheral vascular disease, status post right BKA who was presented to the hospital and complained about intractable nausea and vomiting. The patient was recently discharged from the [facility]. The patient was in prior admission admitted on 08/25/2016 through 09/01/2016 and was discharged yesterday, but the patient presented with the same picture with emesis and that admission was noted to be having an upper gastrointestinal bleed. The patient has been followed up with Dr. Alvares from Gastroenterology and Dr. Pyle from Pulmonary Critical Care. PAST MEDICAL HISTORY/PAST SURGICAL HISTORY: As above, history of diabetes type 2, hypertension, and peripheral vascular disease status of the BKA. MEDICATIONS: Medications at home significant for aspirin, docusate, Lantus insulin, lisinopril, Protonix and Zantac. ALLERGIES: Iodine. SOCIAL HISTORY: No smoking, alcohol, or drugs at this time. FAMILY HISTORY: Noncontributory. REVIEW OF SYSTEMS: Mostly as above, complained about intractable nausea or vomiting. Denies any bright red blood per rectum, hemoptysis or hematochezia. Denies any loss of consciousness. Denies any double vision, feeling weak and tired. PHYSICAL EXAMINATION: GENERAL: The patient awake and responsive, no acute distress. VITAL SIGNS: Temperature 98.8 degrees, pulse of 88, respiration 18, and blood pressure 182/110 and repeat is 183/95. HEENT: Pupils are reactive to light. Extraocular movements are intact. NECK: Supple. No JVD. LUNGS: Good air entry. No wheezes or rales. Poor inspiratory effort. HEART: S1 and S2. Tachycardic. ABDOMEN: Soft. Generalized tenderness. No rebound tenderness. EXTREMITIES: No cyanosis or clubbing. Edema on the left side and the right side has a BKA with stump is clean. NEUROLOGIC: Cranial nerves II through XII are grossly intact. Motor is 5/5 in all extremities. LABORATORY AND DIAGNOSTIC DATA: Laboratory on admission, WBC of 14, hemoglobin of 13, hematocrit 41, and platelet is 260,000. Sodium 137, potassium 2.5, chloride 90, bicarbonate is 20, BUN 13, and creatinine 1.1. Alkaline phosphatase was 112. Lipase is 66. Urinalysis +2 protein, +4 glucose and +4 ketones. The patient had an endoscopy. Pathology report showed that the patient has mild chronic antrum gastritis with no H. pylori and no intestinal metaplasia or dysplasia. This was a biopsy done on prior admission at the [facility] on 08/26/2016. ASSESSMENT: 1. Intractable nausea vomiting, possible due to the diabetic gastroparesis. 2. Uncontrolled diabetes type 2. 3. Hypertension. 4. Gastritis. 5. Severe peripheral vascular disease and status post right below knee amputation. PLAN: Admit the patient to Medical/Surgical. We will followup laboratory. Aggressive IV hydration. Potassium supplements. We will monitor laboratory closely. Clear liquid, advance as tolerated. Code status is Full Code. Accu-Chek with sliding scale. Abhilash Tadeo M.D. DR: DONG JOB#: [id number] CC:
[2016-09-03] MEDS: NS w/KCl 20mEq 1,000 ML IV SCH (18:26)
[2016-09-03] MEDS: Metoclopramide 10mg/2ml Inj IVP SCH (18:27)
[2016-09-04] VITALS (7 sets, daily range): BP systolic 140–173; BP diastolic 57–91
[2016-09-04] MEDS: NS w/KCl 20mEq 1,000 ML IV SCH ×2 (01:30→05:16)
[2016-09-04] MEDS: Metoclopramide 10mg/2ml Inj IVP PRN (01:40)
[2016-09-04] MEDS: Morphine Sulfate 2mg/ml Inj IVP PRN ×4 (01:43→22:18)
[2016-09-04] MEDS: HydrALAZINE 50mg tab ORAL SCH ×3 (06:12→20:55)
[2016-09-04] MEDS: NovoLOG Insulin Flexpen SUBQ SCH ×4 (06:13→20:56)
[2016-09-04 06:51] LABS: INR 1.4 (0.9-1.1); PROTHROMBIN TIME 14.9 SEC (9.30-11.50)
[2016-09-04 06:55] LABS: MEAN CORPUSCULAR HEMOGLOBIN 29.7 PG (27.0-31.0); MEAN CORPUSCULAR HGB CONC 34.1 G/DL (32.0-36.0); MEAN CORPUSCULAR VOLUME 87 FL (80-99); MEAN PLATELET VOLUME 12.2 FL (6.5-10.1); PLATELET COUNT 218 K/UL (150-450); RED BLOOD COUNT 4.84 M/UL (4.20-5.40); WHITE BLOOD COUNT 15.5 K/UL (4.8-10.8)
[2016-09-04 06:59] LABS: HEMOGLOBIN A1C 8.7 % (< 6.0); MAGNESIUM 1.9 mg/dL (1.7-2.5); PHOSPHORUS 2.1 mg/dL (2.5-4.8)
[2016-09-04 07:03] LABS: ALANINE AMINOTRANSFERASE 9 U/L (3-33); ALBUMIN/GLOBULIN RATIO 1.3 (1.0-2.7); AMYLASE 37 U/L (10-110); ASPARTATE AMINO TRANSFERASE 11 U/L (5-40); CALCIUM 9.4 mg/dL (8.6-10.2); CARBON DIOXIDE 19 mEQ/L (20-30); CHLORIDE 94 mEQ/L (98-107); CREATININE 1.1 mg/dL (0.5-0.9); GLOMERULAR FILTRATION RATE > 60 mL/min (>60); HEMOLYSIS 3; LIPASE 58 U/L (< 60); SODIUM 140 mEQ/L (135-145); TOTAL PROTEIN 6.9 g/dL (6.6-8.7)
[2016-09-04 07:14] LABS: THYROID STIMULATING HORMONE 0.391 uIU/mL (0.300-4.500)
[2016-09-04 07:26] LABS: ANION GAP 27 (5-15)
--- NOTE | 2016-09-04 07:30 | Consultation ---
DATE OF CONSULTATION: 09/04/2016 CONSULTING PHYSICIAN: Dayton Alvares M.D. CHIEF COMPLAINT: Nausea, vomiting, and abdominal pain. HISTORY OF PRESENT ILLNESS: This is a 66-year-old female who was recently discharged from [facility]. She was admitted again with complaint of nausea, vomiting, abdominal pain. In last admission, she had an endoscopy which showed evidence of esophagitis and gastritis. Biopsy from the stomach did not show any H. pylori infection or any other findings. The patient readmitted again with nausea and vomiting. According to the patient, she is not able to keep anything down and it has been going on for a while. Denies any fevers or chills. PAST MEDICAL HISTORY: Significant: 1. Diabetes, type 2. 2. Hypertension. 3. Peripheral vascular disease requiring BKA. 4. Esophagitis. 5. Gastritis. PAST SURGICAL HISTORY: The patient had history of fibroid removal from her uterus and also BKA from peripheral vascular disease. MEDICATION: Please see medication reconciliation list. ALLERGIES: To iodine. SOCIAL HISTORY: The patient denies any tobacco, alcohol, or drug abuse. FAMILY HISTORY: Noncontributory. REVIEW OF SYSTEM: A 10-point review of system was performed and pertinent positives in history of present illness. PHYSICAL EXAMINATION: VITAL SIGNS: Temperature 98.2 degrees, pulse 92, respirations 22, and blood pressure is 129/80. HEENT: Normocephalic and atraumatic. Sclerae anicteric. NECK: Supple. No lymphadenopathy. CARDIOVASCULAR: Regular rate and rhythm. Plus S1 and S2. LUNGS: Clear to auscultation bilaterally. ABDOMEN: Positive bowel sounds. Soft and nontender. No rebound. No guarding. No peritoneal sign. EXTREMITIES: No cyanosis, no clubbing, no edema. LABORATORY DATA: Sodium 139, potassium 2.6, BUN is 15, and creatinine is 1.1. White count is 18.3, hemoglobin 13, hematocrit 40, and platelets are 276,000. ASSESSMENT AND PLAN: This is a 66-year-old female with nausea and vomiting, history of diabetes, history of peripheral vascular disease, evidence of hypokalemia and leukocytosis based on laboratories. Plan to increase the Reglan from 5 mg to 10 mg for possible diabetes induced gastroparesis. Start the patient on clear liquid diet and advance as tolerated. I see the orders for abdominal ultrasound and CT scan which has been ordered. We will follow on the results of those consider doing colonoscopy with no results to explain her persistent symptoms. Dayton Alvares M.D. DR: MIN JOB#: [id number] CC:
[2016-09-04 07:32] LABS: POTASSIUM 2.3 mEQ/L (3.4-4.9)
[2016-09-04] MEDS ORDERED: KCl 10% 40mEq/30ml liquid NG ONE (08:00)
[2016-09-04 08:40] LABS: LYMPHOCYTES % (MANUAL) 8 % (20-45); NEUTROPHILS % (MANUAL) 88 % (45-75); TOTAL CELLS COUNTED 100
[2016-09-04 08:42] LABS: BAND NEUTROPHILS % (MANUAL) 0 % (0-8); BASOPHILS % (MANUAL) 0 % (0-2); EOSINOPHILS % (MANUAL) 0 % (0-3); PLATELET ESTIMATE ADEQUATE; PLATELET MORPHOLOGY NORMAL
--- NOTE | 2016-09-04 09:16 | Pulmonology Progress Note ---
Assessment/Plan Assessment/Plan ASSESSMENT intractable n/v with abdominal pain dehydration gastritis ( recently diagnosed) esophagitis ( recently diagnosed) possible gastroparesis DM OOC HTN urgency e/lyte imbalance: hypokalemia, hypo P leukocytosis severe PVD with R BKA elevated lipase PLAN OF CARE [facility] floor IVF, decrease rate a/emetic prn, on , alternate with Zofran GI eval appreciated abdominal US pending results gastric emptying study on Tuesday PPI replace K : 40 KCL via IV, 15 mmol K phosphate and then change IVF with 40 KCL BP management with CCB and DIONISIO, Clonidine prn , optimize as needed pain management BS management with SS of insulin, [id number] , not at goal , add Levemir no obvious source of infection, afebrile, UA negative will hold on abx for now, leukocytosis persist stool C dif negative possibly reactive leukocytosis trend lipase, amylase-WNL DVT /GI prophylaxis case discussed and evaluated by supervising physician Subjective Allergies: Coded Allergies: IODINE (Verified Allergy, Severe, Anaphylaxis, 02/29/12) Subjective still with n/v, slightly less + abdominal pain K-2.3, Mg-stable seen by GI still with mild leukocytosis Objective Last 24 Hour Vital Signs Date Time Temp Pulse Resp B/P Pulse Ox O2 Delivery O2 Flow Rate FiO2 09/04/16 08:00 98.2 90 20 156/89 97 Room Air 09/04/16 06:30 160/84 09/04/16 06:12 179/88 09/04/16 05:25 173/91 09/04/16 04:00 98.2 92 22 173/91 95 Room Air 09/04/16 00:00 98.2 94 20 140/57 97 Room Air 09/04/16 00:00 98.2 94 20 140/57 95 Room Air 09/03/16 20:56 137/87 09/03/16 20:00 98.8 97 18 137/87 97 Room Air 09/03/16 16:17 98.4 95 16 173/83 96 Room Air 09/03/16 14:46 159/86 09/03/16 14:33 98.2 09/03/16 12:51 90 159/86 09/03/16 12:47 98.2 90 16 159/86 97 Room Air Intake and Output 09/03/16 09/04/16 19:00 07:00 Intake Total 305 ml 1100 ml Output Total 800 ml Balance -495 ml 1100 ml IV Total 305 ml 1100 ml Output Urine Total 800 ml # Voids 2 Objective General Appearance: alert - mild distress, other - A/A/O x3 AA female Lines, tubes and drains: peripheral HEENT: normocephalic, atraumatic, anicteric, PERRL Neck: non-tender, supple Respiratory/Chest: chest wall non-tender, lungs clear, normal breath sounds, no respiratory distress, no accessory muscle use Cardiovascular/Chest: normal peripheral pulses, normal rate, regular rhythm, no JVD Abdomen: normal bowel sounds, non tender, soft Extremities: R BKA Skin Exam: normal pigmentation, warm/dry 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, no motor/sensory deficits, alert, oriented x 3 Musculoskeletal: normal muscle bulk Laboratory Tests 09/03/16 12:00: White Blood Count 18.3H, Red Blood Count 4.64, Hemoglobin 13.5, Hematocrit 40.3 , Mean Corpuscular Volume 87, Mean Corpuscular Hemoglobin 29.0, Mean Corpuscular Hemoglobin Concent 33.4, Red Cell Distribution Width 12.9, Platelet Count 276, Mean Platelet Volume 10.3H, Neutrophils (%) (Auto) , Lymphocytes (%) (Auto) , Monocytes (%) (Auto) , Eosinophils (%) (Auto) , Basophils (%) (Auto) , Differential Total Cells Counted 100, Neutrophils % (Manual) 86H, Lymphocytes % (Manual) 8L, Monocytes % (Manual) 3, Eosinophils % (Manual) 3, Basophils % ( Manual) 0, Band Neutrophils 0, Platelet Estimate Adequate, Platelet Morphology Normal, Red Blood Cell Morphology Normal, Sodium Level 139, Potassium Level 2.6* L, Chloride Level 94L, Carbon Dioxide Level 21, Anion Gap 24H, Blood Urea Nitrogen 15, Creatinine 1.1H, Estimat Glomerular Filtration Rate > 60, Glucose Level 233H, Calcium Level 9.3, Magnesium Level 1.9 09/04/16 04:40: White Blood Count 15.5H, Red Blood Count 4.84, Hemoglobin 14.3, Hematocrit 42.0 , Mean Corpuscular Volume 87, Mean Corpuscular Hemoglobin 29.7, Mean Corpuscular Hemoglobin Concent 34.1, Red Cell Distribution Width 13.0, Platelet Count 218, Mean Platelet Volume 12.2H, Neutrophils (%) (Auto) , Lymphocytes (%) (Auto) , Monocytes (%) (Auto) , Eosinophils (%) (Auto) , Basophils (%) (Auto) , Differential Total Cells Counted 100, Neutrophils % (Manual) 88H, Lymphocytes % (Manual) 8L, Monocytes % (Manual) 4, Eosinophils % (Manual) 0, Basophils % ( Manual) 0, Band Neutrophils 0, Platelet Estimate Adequate, Platelet Morphology Normal, Red Blood Cell Morphology Normal, Sodium Level 140, Potassium Level 2.3* L, Chloride Level 94L, Carbon Dioxide Level 19L, Anion Gap 27H, Blood Urea Nitrogen 16, Creatinine 1.1H, Estimat Glomerular Filtration Rate > 60, Glucose Level 267H, Calcium Level 9.4, Magnesium Level 1.9, Prothrombin Time 14.9H, Prothromb Time International Ratio 1.4H, Activated Partial Thromboplast Time 24 , Hemoglobin A1c 8.7H, Phosphorus Level 2.1L, Total Bilirubin 0.6, Aspartate Amino Transf (AST/SGOT) 11, Alanine Aminotransferase (ALT/SGPT) 9, Alkaline Phosphatase 107H, Total Protein 6.9, Albumin 3.9, Globulin 3.0, Albumin/ Globulin Ratio 1.3, Amylase Level 37, Lipase 58, Thyroid Stimulating Hormone ( TSH) 0.391 Current Medications Medications (Trade) Dose Ordered Sig/Salvador Route PRN Reason Start Time Stop Time Status Last Admin Dose Admin Acetaminophen (Tylenol) 650 mg Q4H PRN ORAL fever 09/03/16 00:45 10/03/16 00:44 Al Hydroxide/Mg Hydroxide (Mylanta II) 30 ml Q6H PRN ORAL dyspepsia 09/03/16 00:45 10/03/16 00:44 Amlodipine Besylate (Norvasc) 5 mg DAILY ORAL 09/03/16 12:00 10/03/16 11:59 09/03/16 12:51 Aspirin (ASA) 325 mg DAILY ORAL 09/03/16 09:00 10/03/16 08:59 09/03/16 08:32 Clonidine HCl (Catapres) 0.1 mg Q6H PRN ORAL SBP>160 09/03/16 11:00 10/03/16 10:59 09/04/16 05:25 Dextrose (Dextrose 50%) STAT PRN IV Hypoglycemia 09/03/16 00:45 10/03/16 00:44 Diphenhydramine HCl (Benadryl) 25 mg Q6H PRN ORAL Itching/Pruritis 09/03/16 00:45 10/03/16 00:44 Heparin Sodium (Porcine) (Heparin 5000 units/ml) 5,000 units EVERY 12 HOURS SUBQ 09/03/16 09:00 10/03/16 08:59 09/03/16 20:57 Hydralazine HCl 50 mg 50 mg Q8HR ORAL 09/03/16 14:00 10/03/16 13:59 09/04/16 06:12 Insulin Aspart (NovoLOG) BEFORE MEALS AND HS SUBQ 09/03/16 06:30 10/03/16 06:29 09/04/16 06:13 Lisinopril (Zestril) 10 mg DAILY ORAL 09/03/16 09:00 10/03/16 08:59 09/03/16 08:32 Metoclopramide HCl (Reglan) 5 mg Q6H PRN IVP Nausea & Vomiting 09/03/16 08:30 10/03/16 08:29 09/04/16 01:40 Metoclopramide HCl (Reglan) 5 mg TID IVP 09/03/16 18:00 10/03/16 17:59 09/03/16 18:27 Morphine Sulfate (Morphine Sulfate) 2 mg Q4H PRN IVP severe Pain (Pain Scale 7-10) 09/03/16 00:45 09/10/16 00:44 09/04/16 05:54 Nitroglycerin (Ntg) 0.4 mg Q5M X 3 DOSES PRN SL Prn Chest Pain 09/03/16 00:45 10/03/16 00:44 Ondansetron HCl (Zofran) 4 mg Q6H PRN IVP Nausea & Vomiting 09/03/16 00:45 10/03/16 00:44 09/04/16 05:16 Pantoprazole (Protonix) 40 mg DAILY IVP 09/03/16 12:00 10/03/16 11:59 09/03/16 12:51 Polyethylene Glycol (Miralax) 17 gm HSPRN PRN ORAL Constipation 09/03/16 00:45 10/03/16 00:44 Potassium Chloride 100 ml @ 100 mls/hr Q1H IVPB 09/04/16 08:30 09/04/16 12:29 Sodium Chloride (NS w/KCl 40mEq) 1,000 ml @ 100 mls/hr Q10H IV 09/04/16 10:00 10/04/16 09:59 Temazepam (Restoril) 15 mg HSPRN PRN ORAL Insomnia 09/03/16 00:45 09/10/16 00:44 Sonia Guevara NP ([facility]anchte[facility]) Sep 04, 2016 09:16
[2016-09-04] MEDS: Lisinopril 10mg tab ORAL SCH (09:24)
[2016-09-04] MEDS: Metoclopramide 10mg/2ml Inj IVP SCH ×4 (09:25→22:18)
[2016-09-04] MEDS: Pantoprazole Inj IVP SCH (09:25)
[2016-09-04] MEDS: Heparin 5000 units/ml inj SUBQ SCH ×2 (09:29→20:55)
[2016-09-04] MEDS ORDERED: NS w/KCl 40mEq 1,000 ML IV SCH ×2 (10:00)
--- NOTE | 2016-09-04 10:30 | Diagnostic Imaging Report ---
Indication: N/V Technique: Continuous helical scanning was performed without any contrast material from the diaphragms through the pelvis per specific request of the ordering physician. Axial, sagittal, and coronal images were generated. Dose: Total Dose Length Product - DLP [address] Dose Index - CTDIvol(s) 17.93 mGy. Comparison: 02/29/2012 Findings: The liver is unremarkable. The gallbladder is normal. The spleen is unremarkable. The pancreas is normal. There is vascular calcification. Adrenal glands are unremarkable. The kidneys are normal. Retroperitoneum is free of adenopathy. Aorta and inferior vena cava are normal caliber. The appendix is normal. The bowel is normal caliber. The bladder is unremarkable. Uterus is normal size. There are some calcifications in the right side of the uterus, unchanged from previous study. Ovaries are not enlarged. The bones are unremarkable. Impression: Atherosclerotic changes. Uterine calcifications unchanged from previous exam. No acute abnormality. The CT scanner at [facility] is accredited by the [employer] and the scans are performed using protocols designed to limit radiation exposure to as low as reasonably achievable to attain images of sufficient resolution adequate for diagnostic evaluation.
[2016-09-04] MEDS ORDERED: Tubing IV Secondary IV ONE (10:31)
[2016-09-04] MEDS ORDERED: Levemir Flexpen SUBQ SCH (11:30)
[2016-09-04] MEDS: NS w/KCl 40mEq 1,000 ML IV SCH (12:32)
--- NOTE | 2016-09-04 12:53 | Diagnostic Imaging Report ---
APPROVED REPORT CPT Code: 80826 Present Symptoms Comments: R/O DVT Amputation: below the right knee. BILATERAL: Imaging reveals a patent deep venous system bilaterally. There is no evidence of thrombus within the femoral, popliteal or left tibial segments. The greater saphenous veins are also within normal limits. Doppler indicates normal spontaneous flow within these segments.
[2016-09-04] MEDS ORDERED: Sodium Phosphate 15 MM in NS 275 ML IV ONE ×2 (13:00→21:00)
[2016-09-04] MEDS ORDERED: NS 550ML IV ONE (17:01)
--- NOTE | 2016-09-04 18:35 | Consultation ---
History of Present Illness General Chief Complaint: Abdominal Pain Referring physician: dr Tadeo Reason for Consultation: inpatietn management Present Illness HPI 66-year-old female with past medical history significant for mdd hypertension, diabetes type 2, history of peripheral vascular disease, status post right BKA who was presented to the hospital and complained about intractable nausea and vomiting. The patient was recently discharged from the [facility]. cont to have depressive sxs Allergies: Coded Allergies: IODINE (Verified Allergy, Severe, Anaphylaxis, 02/29/12) Medication History Scheduled Aspirin* (Aspirin*), 325 MG ORAL DAILY Aspirin* (Aspir 81*), 81 MG ORAL DAILY, (Reported) Docusate Sodium* (Colace*), 100 MG PO DAILY Insulin Glargine (Lantus), 21 UNITS SUBQ QHS, (Reported) Insulin Glargine (Lantus), 26 SUBQ BEDTIME, (Reported) Insulin Glargine (Lantus), 0 SUBQ BEDTIME, (Reported) Insulin Lispro (Humalog), 0 SUBQ AC+HS, (Reported) Lisinopril* (Lisinopril*), 10 MG ORAL DAILY Lisinopril* (Lisinopril*), 10 MG ORAL DAILY, (Reported) Pantoprazole Sodium (Protonix), 40 MG GT DAILY, (Reported) Ranitidine Hcl* (Zantac*), 150 MG ORAL BEDTIME Scheduled PRN Hydrocodone Bit/Acetaminophen 5-325* (Clayton 5-325 Tablet*), 1 TAB ORAL Q4H PRN for For Pain, (Reported) Miscellaneous Medications Insulin Aspart (Novolog), Unknown Dose, (Reported) Patient History Limited by: medical condition History Provided By: Patient, Medical Record, PMD Healthcare decision maker Stacey Silveira Resuscitation status Full Code Advanced Directive on File No Past Medical/Surgical History Past Medical/Surgical History: (1) Pain (2) Diabetes mellitus (3) Uncontrolled hypertension (4) Diabetes mellitus (5) Hematemesis (6) Peripheral vascular disease (7) Complete below knee amputation of right lower extremity (8) Depression (9) Dehydration (10) Hypokalemia (11) Proteinuria (12) Abdominal pain of unknown etiology (13) Uncontrolled diabetes mellitus (14) Esophagitis (15) Gastritis (16) PVD (peripheral vascular disease) (17) Hypertension (18) Nausea & vomiting Review of Systems Constitutional: Reports: malaise, weakness Psychiatric: Reports: anxiety, depressed feelings, emotional problems, prior hx Physical Exam General Appearance: no apparent distress, alert Neurologic: alert, oriented x 3, responsive, depressed affect Last 24 Hour Vital Signs Date Time Temp Pulse Resp B/P Pulse Ox O2 Delivery O2 Flow Rate FiO2 09/04/16 17:33 166/89 09/04/16 16:03 98.1 96 16 166/89 95 Room Air 09/04/16 12:00 98.0 84 18 140/79 98 Room Air 09/04/16 09:24 90 156/89 09/04/16 09:24 156/89 09/04/16 08:00 98.2 90 20 156/89 97 Room Air 09/04/16 06:30 160/84 09/04/16 06:12 179/88 09/04/16 05:25 173/91 09/04/16 04:00 98.2 92 22 173/91 95 Room Air 09/04/16 00:00 98.2 94 20 140/57 97 Room Air 09/04/16 00:00 98.2 94 20 140/57 95 Room Air 09/03/16 20:56 137/87 09/03/16 20:00 98.8 97 18 137/87 97 Room Air Intake and Output 09/03/16 09/04/16 19:00 07:00 Intake Total 305 ml 1100 ml Output Total 800 ml Balance -495 ml 1100 ml IV Total 305 ml 1100 ml Output Urine Total 800 ml # Voids 2 Laboratory Tests Test 09/04/16 04:40 White Blood Count 15.5 K/UL (4.8-10.8) H Red Blood Count 4.84 M/UL (4.20-5.40) Hemoglobin 14.3 G/DL (12.0-16.0) Hematocrit 42.0 % (37.0-47.0) Mean Corpuscular Volume 87 FL (80-99) Mean Corpuscular Hemoglobin 29.7 PG (27.0-31.0) Mean Corpuscular Hemoglobin Concent 34.1 G/DL (32.0-36.0) Red Cell Distribution Width 13.0 % (11.6-14.8) Platelet Count 218 K/UL (150-450) Mean Platelet Volume 12.2 FL (6.5-10.1) H Neutrophils (%) (Auto) % (45.0-75.0) Lymphocytes (%) (Auto) % (20.0-45.0) Monocytes (%) (Auto) % (1.0-10.0) Eosinophils (%) (Auto) % (0.0-3.0) Basophils (%) (Auto) % (0.0-2.0) Differential Total Cells Counted 100 Neutrophils % (Manual) 88 % (45-75) H Lymphocytes % (Manual) 8 % (20-45) L Monocytes % (Manual) 4 % (1-10) Eosinophils % (Manual) 0 % (0-3) Basophils % (Manual) 0 % (0-2) Band Neutrophils 0 % (0-8) Platelet Estimate Adequate Platelet Morphology Normal Red Blood Cell Morphology Normal Prothrombin Time 14.9 SEC (9.30-11.50) H Prothromb Time International Ratio 1.4 (0.9-1.1) H Activated Partial Thromboplast Time 24 SEC (23-33) Sodium Level 140 mEQ/L (135-145) Potassium Level 2.3 mEQ/L (3.4-4.9) *L Chloride Level 94 mEQ/L (98-107) L Carbon Dioxide Level 19 mEQ/L (20-30) L Anion Gap 27 (5-15) H Blood Urea Nitrogen 16 mg/dL (7-23) Creatinine 1.1 mg/dL (0.5-0.9) H Estimat Glomerular Filtration Rate > 60 mL/min (>60) Glucose Level 267 mg/dL (74-106) H Hemoglobin A1c 8.7 % (< 6.0) H Calcium Level 9.4 mg/dL (8.6-10.2) Phosphorus Level 2.1 mg/dL (2.5-4.8) L Magnesium Level 1.9 mg/dL (1.7-2.5) Total Bilirubin 0.6 mg/dL (0.0-1.2) Aspartate Amino Transf (AST/SGOT) 11 U/L (5-40) Alanine Aminotransferase (ALT/SGPT) 9 U/L (3-33) Alkaline Phosphatase 107 U/L (35-104) H Total Protein 6.9 g/dL (6.6-8.7) Albumin 3.9 g/dL (3.5-5.2) Globulin 3.0 g/dL Albumin/Globulin Ratio 1.3 (1.0-2.7) Amylase Level 37 U/L (10-110) Lipase 58 U/L (< 60) Thyroid Stimulating Hormone (TSH) 0.391 uIU/mL (0.300-4.500) Height (Feet): 5 Height (Inches): 5.00 Weight (Pounds): 224 Medications Current Medications Medications (Trade) Dose Ordered Sig/Salvador Route PRN Reason Start Time Stop Time Status Last Admin Dose Admin Acetaminophen (Tylenol) 650 mg Q4H PRN ORAL fever 09/03/16 00:45 10/03/16 00:44 Al Hydroxide/Mg Hydroxide (Mylanta II) 30 ml Q6H PRN ORAL dyspepsia 09/03/16 00:45 10/03/16 00:44 Amlodipine Besylate (Norvasc) 5 mg DAILY ORAL 09/03/16 12:00 10/03/16 11:59 09/04/16 09:24 Aspirin (ASA) 325 mg DAILY ORAL 09/03/16 09:00 10/03/16 08:59 09/04/16 09:24 Clonidine HCl (Catapres) 0.1 mg Q6H PRN ORAL SBP>160 09/03/16 11:00 10/03/16 10:59 09/04/16 05:25 Dextrose (Dextrose 50%) STAT PRN IV Hypoglycemia 09/03/16 00:45 10/03/16 00:44 Diphenhydramine HCl (Benadryl) 25 mg Q6H PRN ORAL Itching/Pruritis 09/03/16 00:45 10/03/16 00:44 Heparin Sodium (Porcine) (Heparin 5000 units/ml) 5,000 units EVERY 12 HOURS SUBQ 09/03/16 09:00 10/03/16 08:59 09/04/16 09:29 Hydralazine HCl 50 mg 50 mg Q8HR ORAL 09/03/16 14:00 10/03/16 13:59 09/04/16 17:33 Insulin Aspart (NovoLOG) BEFORE MEALS AND HS SUBQ 09/03/16 06:30 10/03/16 06:29 09/04/16 17:36 Insulin Detemir 8 units 8 units Q24H SUBQ 09/04/16 11:30 10/04/16 11:29 09/04/16 12:35 Lisinopril (Zestril) 10 mg DAILY ORAL 09/03/16 09:00 10/03/16 08:59 09/04/16 09:24 Metoclopramide HCl (Reglan) 5 mg Q6H PRN IVP Nausea & Vomiting 09/03/16 08:30 10/03/16 08:29 09/04/16 01:40 Metoclopramide HCl (Reglan) 5 mg TID IVP 09/03/16 18:00 10/03/16 17:59 09/04/16 09:25 Morphine Sulfate (Morphine Sulfate) 2 mg Q4H PRN IVP severe Pain (Pain Scale 7-10) 09/03/16 00:45 09/10/16 00:44 09/04/16 09:55 Nitroglycerin (Ntg) 0.4 mg Q5M X 3 DOSES PRN SL Prn Chest Pain 09/03/16 00:45 10/03/16 00:44 Ondansetron HCl (Zofran) 4 mg Q6H PRN IVP Nausea & Vomiting 09/03/16 00:45 10/03/16 00:44 09/04/16 05:16 Pantoprazole (Protonix) 40 mg DAILY IVP 09/03/16 12:00 10/03/16 11:59 09/04/16 09:25 Polyethylene Glycol (Miralax) 17 gm HSPRN PRN ORAL Constipation 09/03/16 00:45 10/03/16 00:44 Sodium Chloride (NS w/KCl 40mEq) 1,000 ml @ 50 mls/hr Q20H IV 09/04/16 10:00 10/04/16 09:59 09/04/16 12:32 Sodium Phosphate/ Sodium Chloride (NaPO4/Sodium Chloride) 280 ml @ 70.273 mls/ hr ONCE ONCE IV 09/04/16 21:00 09/05/16 00:59 Temazepam (Restoril) 15 mg HSPRN PRN ORAL Insomnia 09/03/16 00:45 09/10/16 00:44 Assessment/Plan Status: stable Assessment/Plan mdd cymbalta 30mg qaana laura JimenezPantea MSusieD. Sep 04, 2016 18:35
[2016-09-04] MEDS ORDERED: Morphine Sulfate 2mg/ml Inj SUBQ PRN (19:00)
--- NOTE | 2016-09-04 20:06 | Internal Med Progress Note ---
Subjective Physician Name Abhilash Tadeo Attending Physician Abhilash Tadeo MD Current Medications Medications (Trade) Dose Ordered Sig/Salvador Route PRN Reason Start Time Stop Time Status Last Admin Dose Admin Acetaminophen (Tylenol) 650 mg Q4H PRN ORAL fever 09/03/16 00:45 10/03/16 00:44 Al Hydroxide/Mg Hydroxide (Mylanta II) 30 ml Q6H PRN ORAL dyspepsia 09/03/16 00:45 10/03/16 00:44 Amlodipine Besylate (Norvasc) 5 mg DAILY ORAL 09/03/16 12:00 10/03/16 11:59 09/04/16 09:24 Aspirin (ASA) 325 mg DAILY ORAL 09/03/16 09:00 10/03/16 08:59 09/04/16 09:24 Clonidine HCl (Catapres) 0.1 mg Q6H PRN ORAL SBP>160 09/03/16 11:00 10/03/16 10:59 09/04/16 05:25 Dextrose (Dextrose 50%) STAT PRN IV Hypoglycemia 09/03/16 00:45 10/03/16 00:44 Diphenhydramine HCl (Benadryl) 25 mg Q6H PRN ORAL Itching/Pruritis 09/03/16 00:45 10/03/16 00:44 Duloxetine HCl (Cymbalta) 30 mg DAILY ORAL 09/05/16 09:00 10/05/16 08:59 Heparin Sodium (Porcine) (Heparin 5000 units/ml) 5,000 units EVERY 12 HOURS SUBQ 09/03/16 09:00 10/03/16 08:59 09/04/16 09:29 Hydralazine HCl 50 mg 50 mg Q8HR ORAL 09/03/16 14:00 10/03/16 13:59 09/04/16 17:33 Insulin Aspart (NovoLOG) BEFORE MEALS AND HS SUBQ 09/03/16 06:30 10/03/16 06:29 09/04/16 17:36 Insulin Detemir 8 units 8 units Q24H SUBQ 09/04/16 11:30 10/04/16 11:29 09/04/16 12:35 Lisinopril (Zestril) 10 mg DAILY ORAL 09/03/16 09:00 10/03/16 08:59 09/04/16 09:24 Metoclopramide HCl (Reglan) 5 mg Q6H PRN IVP Nausea & Vomiting 09/03/16 08:30 10/03/16 08:29 09/04/16 01:40 Metoclopramide HCl (Reglan) 5 mg TID IVP 09/03/16 18:00 10/03/16 17:59 09/04/16 09:25 Morphine Sulfate (Morphine Sulfate) 2 mg Q4H PRN IVP severe Pain (Pain Scale 7-10) 09/03/16 00:45 09/10/16 00:44 09/04/16 09:55 Morphine Sulfate (Morphine Sulfate) 2 mg Q4H PRN SUBQ Severe Pain (Pain Scale 7-10) 09/04/16 19:00 09/11/16 18:59 Nitroglycerin (Ntg) 0.4 mg Q5M X 3 DOSES PRN SL Prn Chest Pain 09/03/16 00:45 10/03/16 00:44 Ondansetron HCl (Zofran) 4 mg Q6H PRN IVP Nausea & Vomiting 09/03/16 00:45 10/03/16 00:44 09/04/16 05:16 Pantoprazole (Protonix) 40 mg DAILY IVP 09/03/16 12:00 10/03/16 11:59 09/04/16 09:25 Polyethylene Glycol (Miralax) 17 gm HSPRN PRN ORAL Constipation 09/03/16 00:45 10/03/16 00:44 Sodium Chloride (NS w/KCl 40mEq) 1,000 ml @ 50 mls/hr Q20H IV 09/04/16 10:00 10/04/16 09:59 09/04/16 12:32 Sodium Phosphate/ Sodium Chloride (NaPO4/Sodium Chloride) 280 ml @ 70.273 mls/ hr ONCE ONCE IV 09/04/16 21:00 09/05/16 00:59 Temazepam (Restoril) 15 mg HSPRN PRN ORAL Insomnia 09/03/16 00:45 09/10/16 00:44 Allergies: Coded Allergies: IODINE (Verified Allergy, Severe, Anaphylaxis, 02/29/12) Subjective still Nauseated and Vomiting, unable to keep down, on liquid diet, WBC: 15.5, Kcl: 2.3 Objective Last Vital Signs Date Time Temp Pulse Resp B/P Pulse Ox O2 Delivery O2 Flow Rate FiO2 09/04/16 17:33 166/89 09/04/16 16:03 98.1 96 16 95 Room Air Laboratory Tests Test 09/04/16 04:40 White Blood Count 15.5 K/UL (4.8-10.8) H Red Blood Count 4.84 M/UL (4.20-5.40) Hemoglobin 14.3 G/DL (12.0-16.0) Hematocrit 42.0 % (37.0-47.0) Mean Corpuscular Volume 87 FL (80-99) Mean Corpuscular Hemoglobin 29.7 PG (27.0-31.0) Mean Corpuscular Hemoglobin Concent 34.1 G/DL (32.0-36.0) Red Cell Distribution Width 13.0 % (11.6-14.8) Platelet Count 218 K/UL (150-450) Mean Platelet Volume 12.2 FL (6.5-10.1) H Neutrophils (%) (Auto) % (45.0-75.0) Lymphocytes (%) (Auto) % (20.0-45.0) Monocytes (%) (Auto) % (1.0-10.0) Eosinophils (%) (Auto) % (0.0-3.0) Basophils (%) (Auto) % (0.0-2.0) Differential Total Cells Counted 100 Neutrophils % (Manual) 88 % (45-75) H Lymphocytes % (Manual) 8 % (20-45) L Monocytes % (Manual) 4 % (1-10) Eosinophils % (Manual) 0 % (0-3) Basophils % (Manual) 0 % (0-2) Band Neutrophils 0 % (0-8) Platelet Estimate Adequate Platelet Morphology Normal Red Blood Cell Morphology Normal Prothrombin Time 14.9 SEC (9.30-11.50) H Prothromb Time International Ratio 1.4 (0.9-1.1) H Activated Partial Thromboplast Time 24 SEC (23-33) Sodium Level 140 mEQ/L (135-145) Potassium Level 2.3 mEQ/L (3.4-4.9) *L Chloride Level 94 mEQ/L (98-107) L Carbon Dioxide Level 19 mEQ/L (20-30) L Anion Gap 27 (5-15) H Blood Urea Nitrogen 16 mg/dL (7-23) Creatinine 1.1 mg/dL (0.5-0.9) H Estimat Glomerular Filtration Rate > 60 mL/min (>60) Glucose Level 267 mg/dL (74-106) H Hemoglobin A1c 8.7 % (< 6.0) H Calcium Level 9.4 mg/dL (8.6-10.2) Phosphorus Level 2.1 mg/dL (2.5-4.8) L Magnesium Level 1.9 mg/dL (1.7-2.5) Total Bilirubin 0.6 mg/dL (0.0-1.2) Aspartate Amino Transf (AST/SGOT) 11 U/L (5-40) Alanine Aminotransferase (ALT/SGPT) 9 U/L (3-33) Alkaline Phosphatase 107 U/L (35-104) H Total Protein 6.9 g/dL (6.6-8.7) Albumin 3.9 g/dL (3.5-5.2) Globulin 3.0 g/dL Albumin/Globulin Ratio 1.3 (1.0-2.7) Amylase Level 37 U/L (10-110) Lipase 58 U/L (< 60) Thyroid Stimulating Hormone (TSH) 0.391 uIU/mL (0.300-4.500) Intake and Output 09/03/16 09/04/16 19:00 07:00 Intake Total 305 ml 1100 ml Output Total 800 ml Balance -495 ml 1100 ml IV Total 305 ml 1100 ml Output Urine Total 800 ml # Voids 2 Objective General: No acute distress, awake and alert HEENT: NCAT, sclera anicteric, PERRL, EOMI. Neck: Supple, no significant jugular venous distention, Lungs: Fair inspiratory effort, clear to auscultation bilaterally, no Wheeze or Rales. Heart: Regular rate and rhythm, normal S1/S2, no murmurs Abdomen: soft, Generalized tenderness, nondistended. Normoactive bowel sounds. / Rectal: Refused and deferred. Extremities: Left: No Cyanosis , clubbing or edema, Right: BKA with intact stump.. Neuro: A&O x 3, Able to move all extremities Skin: warm, no rashes or lesions Psych: Normal mood and affect Assessment/Plan Assessment/Plan 1. Intractable nausea vomiting, possible due to the diabetic gastroparesis. 2. Uncontrolled diabetes type 2. 3. Hypertension. 4. Gastritis. 5. Severe peripheral vascular disease and status post right below knee amputation. 6. Dehydration. 7. Hypokalemia. PLAN: On Medical/Surgical. Monitor laboratory. Aggressive IV hydration. Potassium supplements. Clear liquid, advance as tolerated. Code status is Full Code. Accu-Chek with sliding scale GI consult Dr. Alvares CT abdomen and Pelvic: Impression: Atherosclerotic changes. Uterine calcifications unchanged from previous exam. No acute abnormality. Abhilash Tadeo MD Sep 04, 2016 20:06
[2016-09-05] VITALS: BP 133/74
[2016-09-05] MEDS: Metoclopramide 10mg/2ml Inj IVP PRN ×2 (00:58→04:41)
[2016-09-05] MEDS: Morphine Sulfate 2mg/ml Inj IVP PRN ×4 (02:23→17:37)
[2016-09-05 04:00] VITALS: BP 141/78
[2016-09-05] MEDS: NS w/KCl 40mEq 1,000 ML IV SCH ×3 (06:00→23:50)
[2016-09-05] MEDS: HydrALAZINE 50mg tab ORAL SCH ×3 (06:15→20:39)
[2016-09-05] MEDS: NovoLOG Insulin Flexpen SUBQ SCH ×4 (06:18→20:41)
[2016-09-05 08:18] LABS: MEAN CORPUSCULAR HGB CONC 33.6 G/DL (32.0-36.0); MEAN CORPUSCULAR VOLUME 86 FL (80-99); MEAN PLATELET VOLUME 10.7 FL (6.5-10.1); PLATELET COUNT 264 K/UL (150-450); RED BLOOD COUNT 4.95 M/UL (4.20-5.40); RED CELL DISTRIBUTION WIDTH 13.2 % (11.6-14.8); WHITE BLOOD COUNT 16.3 K/UL (4.8-10.8)
[2016-09-05 08:32] VITALS: BP 172/99
[2016-09-05 08:32] LABS: ANION GAP 22 (5-15); CALCIUM 9.5 mg/dL (8.6-10.2); CARBON DIOXIDE 23 mEQ/L (20-30); CHLORIDE 97 mEQ/L (98-107); CREATININE 1.1 mg/dL (0.5-0.9); GLOMERULAR FILTRATION RATE > 60 mL/min (>60); HEMOLYSIS 2; SODIUM 142 mEQ/L (135-145)
[2016-09-05 08:36] LABS: POTASSIUM 2.2 mEQ/L (3.4-4.9)
[2016-09-05] MEDS: Metoclopramide 10mg/2ml Inj IVP SCH ×3 (09:00→17:34)
--- NOTE | 2016-09-05 09:03 | General Progress Note ---
Assessment/Plan Problem List: (1) Hx of BKA ICD Codes: Z89.519 - Acquired absence of unspecified leg below knee SNOMED: 240383198, 964062052 (2) Peripheral vascular disease ICD Codes: I73.9 - Peripheral vascular disease, unspecified SNOMED: 732495847 (3) Diabetes mellitus ICD Codes: E11.9 - Type 2 diabetes mellitus without complications SNOMED: 47565426 (4) Nausea & vomiting ICD Codes: R11.2 - Nausea with vomiting, unspecified SNOMED: 92275609 Qualifiers: Qualified Codes: R11.2 - Nausea with vomiting, unspecified (5) Gastritis ICD Codes: K29.70 - Gastritis, unspecified, without bleeding SNOMED: 0971117 (6) Esophagitis ICD Codes: K20.9 - Esophagitis, unspecified SNOMED: 50455085 (7) Hypokalemia ICD Codes: E87.6 - Hypokalemia SNOMED: 29503421 Assessment/Plan ? cause for N/V negative repeat CT increase reglan to 10 mg prn zofran repeat labs may need colonoscopy Subjective ROS Limited/Unobtainable: Yes Allergies: Coded Allergies: IODINE (Verified Allergy, Severe, Anaphylaxis, 02/29/12) Subjective c/o nausea nd vomiting Objective Last 24 Hour Vital Signs Date Time Temp Pulse Resp B/P Pulse Ox O2 Delivery O2 Flow Rate FiO2 09/05/16 08:32 98.4 96 20 172/99 99 Room Air 09/05/16 06:15 141/78 09/05/16 04:00 98.2 88 20 141/78 93 Room Air 09/05/16 00:00 97.9 91 20 133/74 97 Room Air 09/04/16 20:55 165/81 09/04/16 20:54 165/81 09/04/16 20:00 98.2 99 20 165/81 98 Room Air 09/04/16 17:33 166/89 09/04/16 16:03 98.1 96 16 166/89 95 Room Air 09/04/16 12:00 98.0 84 18 140/79 98 Room Air 09/04/16 09:24 90 156/89 09/04/16 09:24 156/89 Intake and Output 09/04/16 09/05/16 19:00 07:00 Intake Total 640 ml 400 ml Balance 640 ml 400 ml Intake Oral 640 ml IV Total 400 ml # Voids 2 2 Laboratory Tests 09/05/16 07:30: White Blood Count 16.3H, Red Blood Count 4.95, Hemoglobin 14.4, Hematocrit 42.7 , Mean Corpuscular Volume 86, Mean Corpuscular Hemoglobin 29.0, Mean Corpuscular Hemoglobin Concent 33.6, Red Cell Distribution Width 13.2, Platelet Count 264, Mean Platelet Volume 10.7H, Neutrophils (%) (Auto) , Lymphocytes (%) (Auto) , Monocytes (%) (Auto) , Eosinophils (%) (Auto) , Basophils (%) (Auto) , Neutrophils % (Manual) [Pending], Lymphocytes % (Manual) [Pending], Platelet Estimate [Pending], Platelet Morphology [Pending], Sodium Level 142, Potassium Level 2.2*L, Chloride Level 97L, Carbon Dioxide Level 23, Anion Gap 22H, Blood Urea Nitrogen 17, Creatinine 1.1H, Estimat Glomerular Filtration Rate > 60, Glucose Level 249H, Calcium Level 9.5, Carcinoembryonic Antigen 2.4 Height (Feet): 5 Height (Inches): 5.00 Weight (Pounds): 224 General Appearance: alert EENT: normal ENT inspection Neck: supple Cardiovascular: normal rate Respiratory/Chest: lungs clear Abdomen: normal bowel sounds, non tender, soft Extremities: non-tender JOHNATHAN DURHAM Sep 05, 2016 09:03
[2016-09-05] MEDS: DULoxetine 30mg cap ORAL SCH (09:08)
[2016-09-05] MEDS: Pantoprazole Inj IVP SCH (09:09)
[2016-09-05] MEDS: Lisinopril 10mg tab ORAL SCH (09:09)
[2016-09-05] MEDS: Heparin 5000 units/ml inj SUBQ SCH ×2 (09:10→20:39)
--- NOTE | 2016-09-05 09:32 | Pulmonology Progress Note ---
Assessment/Plan Assessment/Plan ASSESSMENT intractable n/v with abdominal pain dehydration gastritis ( recently diagnosed) esophagitis ( recently diagnosed) possible gastroparesis DM OOC HTN urgency e/lyte imbalance: hypokalemia, hypo P leukocytosis severe PVD with R BKA elevated lipase PLAN OF CARE [facility] floor IVF, a/emetic prn, on Reglan , alternate with Zofran GI follows CT A/P unremarkable abdominal US pending results gastric emptying study on Tuesday PPI replace K ( order done by PMD already), check K and Mg in am BP management with CCB and DIONISIO, Clonidine prn , optimize as needed pain management BS management with SS of insulin, PpK4l-4.7 , not at goal ,BS in 200 range , increase Levemir dose no obvious source of infection, afebrile, UA negative will hold on abx for now, leukocytosis persist stool C dif negative possibly reactive leukocytosis trend lipase, amylase-WNL DVT /GI prophylaxis case discussed and evaluated by supervising physician Subjective Allergies: Coded Allergies: IODINE (Verified Allergy, Severe, Anaphylaxis, 02/29/12) Subjective still with n/v, slightly less + abdominal pain K-2.2, seen by GI still with leukocytosis Objective Last 24 Hour Vital Signs Date Time Temp Pulse Resp B/P Pulse Ox O2 Delivery O2 Flow Rate FiO2 09/05/16 09:09 96 172/99 09/05/16 09:09 172/99 09/05/16 08:32 98.4 96 20 172/99 99 Room Air 09/05/16 06:15 141/78 09/05/16 04:00 98.2 88 20 141/78 93 Room Air 09/05/16 00:00 97.9 91 20 133/74 97 Room Air 09/04/16 20:55 165/81 09/04/16 20:54 165/81 09/04/16 20:00 98.2 99 20 165/81 98 Room Air 09/04/16 17:33 166/89 09/04/16 16:03 98.1 96 16 166/89 95 Room Air 09/04/16 12:00 98.0 84 18 140/79 98 Room Air Intake and Output 09/04/16 09/05/16 19:00 07:00 Intake Total 640 ml 400 ml Balance 640 ml 400 ml Intake Oral 640 ml IV Total 400 ml # Voids 2 2 Objective General Appearance: alert - mild distress, other - A/A/O x3 AA female Lines, tubes and drains: peripheral HEENT: normocephalic, atraumatic, anicteric, PERRL Neck: non-tender, supple Respiratory/Chest: chest wall non-tender, lungs clear, normal breath sounds, no respiratory distress, no accessory muscle use Cardiovascular/Chest: normal peripheral pulses, normal rate, regular rhythm, no JVD Abdomen: normal bowel sounds, non tender, soft Extremities: R BKA Skin Exam: normal pigmentation, warm/dry Neurologic: broker in charge II-XII grossly normal, no motor/sensory deficits, alert, oriented x 3 Musculoskeletal: normal muscle bulk Laboratory Tests 09/05/16 07:30: White Blood Count 16.3H, Red Blood Count 4.95, Hemoglobin 14.4, Hematocrit 42.7 , Mean Corpuscular Volume 86, Mean Corpuscular Hemoglobin 29.0, Mean Corpuscular Hemoglobin Concent 33.6, Red Cell Distribution Width 13.2, Platelet Count 264, Mean Platelet Volume 10.7H, Neutrophils (%) (Auto) , Lymphocytes (%) (Auto) , Monocytes (%) (Auto) , Eosinophils (%) (Auto) , Basophils (%) (Auto) , Neutrophils % (Manual) [Pending], Lymphocytes % (Manual) [Pending], Platelet Estimate [Pending], Platelet Morphology [Pending], Sodium Level 142, Potassium Level 2.2*L, Chloride Level 97L, Carbon Dioxide Level 23, Anion Gap 22H, Blood Urea Nitrogen 17, Creatinine 1.1H, Estimat Glomerular Filtration Rate > 60, Glucose Level 249H, Calcium Level 9.5, Carcinoembryonic Antigen 2.4 Current Medications Medications (Trade) Dose Ordered Sig/Salvador Route PRN Reason Start Time Stop Time Status Last Admin Dose Admin Acetaminophen (Tylenol) 650 mg Q4H PRN ORAL fever 09/03/16 00:45 10/03/16 00:44 Al Hydroxide/Mg Hydroxide (Mylanta II) 30 ml Q6H PRN ORAL dyspepsia 09/03/16 00:45 10/03/16 00:44 Amlodipine Besylate (Norvasc) 5 mg DAILY ORAL 09/03/16 12:00 10/03/16 11:59 09/05/16 09:09 Aspirin (ASA) 325 mg DAILY ORAL 09/03/16 09:00 10/03/16 08:59 09/05/16 09:08 Clonidine HCl (Catapres) 0.1 mg Q6H PRN ORAL SBP>160 09/03/16 11:00 10/03/16 10:59 09/04/16 20:54 Dextrose (Dextrose 50%) STAT PRN IV Hypoglycemia 09/03/16 00:45 10/03/16 00:44 Diphenhydramine HCl (Benadryl) 25 mg Q6H PRN ORAL Itching/Pruritis 09/03/16 00:45 10/03/16 00:44 Duloxetine HCl (Cymbalta) 30 mg DAILY ORAL 09/05/16 09:00 10/05/16 08:59 09/05/16 09:08 Heparin Sodium (Porcine) (Heparin 5000 units/ml) 5,000 units EVERY 12 HOURS SUBQ 09/03/16 09:00 10/03/16 08:59 09/05/16 09:10 Hydralazine HCl 50 mg 50 mg Q8HR ORAL 09/03/16 14:00 10/03/16 13:59 09/05/16 06:15 Insulin Aspart (NovoLOG) BEFORE MEALS AND HS SUBQ 09/03/16 06:30 10/03/16 06:29 09/05/16 06:18 Insulin Detemir (Levemir) 8 units Q24H SUBQ 09/04/16 11:30 10/04/16 11:29 09/04/16 12:35 Lisinopril (Zestril) 10 mg DAILY ORAL 09/03/16 09:00 10/03/16 08:59 09/05/16 09:09 Metoclopramide HCl 10 mg 10 mg Q6HR IVP 09/05/16 14:30 10/05/16 14:29 Morphine Sulfate (Morphine Sulfate) 2 mg Q4H PRN IVP severe Pain (Pain Scale 7-10) 09/03/16 00:45 09/10/16 00:44 09/05/16 06:23 Morphine Sulfate (Morphine Sulfate) 2 mg Q4H PRN SUBQ Severe Pain (Pain Scale 7-10) 09/04/16 19:00 09/11/16 18:59 Nitroglycerin (Ntg) 0.4 mg Q5M X 3 DOSES PRN SL Prn Chest Pain 09/03/16 00:45 10/03/16 00:44 Ondansetron HCl (Zofran) 4 mg Q6H PRN IVP Nausea & Vomiting 09/03/16 00:45 10/03/16 00:44 09/05/16 08:07 Pantoprazole (Protonix) 40 mg DAILY IVP 09/03/16 12:00 10/03/16 11:59 09/05/16 09:09 Polyethylene Glycol (Miralax) 17 gm HSPRN PRN ORAL Constipation 09/03/16 00:45 10/03/16 00:44 Potassium Chloride 100 ml @ 100 mls/hr Q1H IVPB 09/05/16 10:00 09/05/16 13:59 Potassium Chloride 100 ml @ 100 mls/hr Q1HR IVPB 09/05/16 10:00 09/05/16 15:59 UNV Sodium Chloride (NS w/KCl 40mEq) 1,000 ml @ 50 mls/hr Q20H IV 09/04/16 10:00 10/04/16 09:59 09/04/16 12:32 Sodium Chloride (NS w/KCl 40mEq) 1,000 ml @ 75 mls/hr [id number] IV 09/05/16 09:30 10/05/16 09:29 UNV Temazepam (Restoril) 15 mg HSPRN PRN ORAL Insomnia 09/03/16 00:45 09/10/16 00:44 Ismael ValerioSonia porter NP Sep 05, 2016 09:32
[2016-09-05 09:45] LABS: BAND NEUTROPHILS % (MANUAL) 0 % (0-8); BASOPHILS % (MANUAL) 0 % (0-2); EOSINOPHILS % (MANUAL) 0 % (0-3); LYMPHOCYTES % (MANUAL) 9 % (20-45); NEUTROPHILS % (MANUAL) 87 % (45-75); PLATELET ESTIMATE ADEQUATE; PLATELET MORPHOLOGY NORMAL; TOTAL CELLS COUNTED 100
[2016-09-05 09:47] LABS: HYPOCHROMASIA 1+
[2016-09-05 11:57] VITALS: BP 179/88
[2016-09-05] MEDS: Levemir Flexpen SUBQ SCH (12:23)
--- NOTE | 2016-09-05 13:44 | Internal Med Progress Note ---
Subjective Physician Name Abhilash Tadeo Attending Physician Abhilash Tadeo MD Current Medications Medications (Trade) Dose Ordered Sig/Salvador Route PRN Reason Start Time Stop Time Status Last Admin Dose Admin Acetaminophen (Tylenol) 650 mg Q4H PRN ORAL fever 09/03/16 00:45 10/03/16 00:44 Al Hydroxide/Mg Hydroxide (Mylanta II) 30 ml Q6H PRN ORAL dyspepsia 09/03/16 00:45 10/03/16 00:44 Amlodipine Besylate (Norvasc) 5 mg DAILY ORAL 09/03/16 12:00 10/03/16 11:59 09/05/16 09:09 Aspirin (ASA) 325 mg DAILY ORAL 09/03/16 09:00 10/03/16 08:59 09/05/16 09:08 Clonidine HCl (Catapres) 0.1 mg Q6H PRN ORAL SBP>160 09/03/16 11:00 10/03/16 10:59 09/05/16 12:32 Dextrose (Dextrose 50%) STAT PRN IV Hypoglycemia 09/03/16 00:45 10/03/16 00:44 Diphenhydramine HCl (Benadryl) 25 mg Q6H PRN ORAL Itching/Pruritis 09/03/16 00:45 10/03/16 00:44 Duloxetine HCl (Cymbalta) 30 mg DAILY ORAL 09/05/16 09:00 10/05/16 08:59 09/05/16 09:08 Heparin Sodium (Porcine) (Heparin 5000 units/ml) 5,000 units EVERY 12 HOURS SUBQ 09/03/16 09:00 10/03/16 08:59 09/05/16 09:10 Hydralazine HCl (Apresoline) 50 mg Q8HR ORAL 09/03/16 14:00 10/03/16 13:59 09/05/16 06:15 Insulin Aspart (NovoLOG) BEFORE MEALS AND HS SUBQ 09/03/16 06:30 10/03/16 06:29 09/05/16 12:24 Insulin Detemir (Levemir) 10 units Q24H SUBQ 09/05/16 11:30 10/05/16 11:29 09/05/16 12:23 Lisinopril (Zestril) 10 mg DAILY ORAL 09/03/16 09:00 8/20/17 08:59 09/05/16 09:09 Metoclopramide HCl 10 mg 10 mg Q6HR IVP 09/05/16 14:30 10/05/16 14:29 09/05/16 13:27 Morphine Sulfate (Morphine Sulfate) 2 mg Q4H PRN IVP severe Pain (Pain Scale 7-10) 09/03/16 00:45 09/10/16 00:44 09/05/16 11:52 Morphine Sulfate (Morphine Sulfate) 2 mg Q4H PRN SUBQ Severe Pain (Pain Scale 7-10) 09/04/16 19:00 09/11/16 18:59 Nitroglycerin (Ntg) 0.4 mg Q5M X 3 DOSES PRN SL Prn Chest Pain 09/03/16 00:45 10/03/16 00:44 Ondansetron HCl (Zofran) 4 mg Q6H PRN IVP Nausea & Vomiting 09/03/16 00:45 10/03/16 00:44 09/05/16 08:07 Pantoprazole (Protonix) 40 mg DAILY IVP 09/03/16 12:00 10/03/16 11:59 09/05/16 09:09 Polyethylene Glycol (Miralax) 17 gm HSPRN PRN ORAL Constipation 09/03/16 00:45 10/03/16 00:44 Potassium Chloride 100 ml @ 100 mls/hr Q1H IVPB 09/05/16 10:00 09/05/16 13:59 09/05/16 13:27 Potassium Chloride 100 ml @ 100 mls/hr Q1H IVPB 09/05/16 14:00 09/05/16 15:59 Sodium Chloride (NS w/KCl 40mEq) 1,000 ml @ 75 mls/hr [id number] IV 09/05/16 10:30 10/05/16 10:29 09/05/16 10:59 Temazepam (Restoril) 15 mg HSPRN PRN ORAL Insomnia 09/03/16 00:45 09/10/16 00:44 Allergies: Coded Allergies: IODINE (Verified Allergy, Severe, Anaphylaxis, 02/29/12) Subjective less Nauseated and Vomiting, on liquid diet, awake, alert, responsive, WBC: 16.3 , K: 2.2 Objective Last Vital Signs Date Time Temp Pulse Resp B/P Pulse Ox O2 Delivery O2 Flow Rate FiO2 09/05/16 12:32 179/88 09/05/16 11:57 98.0 98 20 98 Room Air Laboratory Tests Test 09/05/16 07:30 White Blood Count 16.3 K/UL (4.8-10.8) H Red Blood Count 4.95 M/UL (4.20-5.40) Hemoglobin 14.4 G/DL (12.0-16.0) Hematocrit 42.7 % (37.0-47.0) Mean Corpuscular Volume 86 FL (80-99) Mean Corpuscular Hemoglobin 29.0 PG (27.0-31.0) Mean Corpuscular Hemoglobin Concent 33.6 G/DL (32.0-36.0) Red Cell Distribution Width 13.2 % (11.6-14.8) Platelet Count 264 K/UL (150-450) Mean Platelet Volume 10.7 FL (6.5-10.1) H Neutrophils (%) (Auto) % (45.0-75.0) Lymphocytes (%) (Auto) % (20.0-45.0) Monocytes (%) (Auto) % (1.0-10.0) Eosinophils (%) (Auto) % (0.0-3.0) Basophils (%) (Auto) % (0.0-2.0) Differential Total Cells Counted 100 Neutrophils % (Manual) 87 % (45-75) H Lymphocytes % (Manual) 9 % (20-45) L Monocytes % (Manual) 4 % (1-10) Eosinophils % (Manual) 0 % (0-3) Basophils % (Manual) 0 % (0-2) Band Neutrophils 0 % (0-8) Platelet Estimate Adequate Platelet Morphology Normal Hypochromasia 1+ Sodium Level 142 mEQ/L (135-145) Potassium Level 2.2 mEQ/L (3.4-4.9) *L Chloride Level 97 mEQ/L (98-107) L Carbon Dioxide Level 23 mEQ/L (20-30) Anion Gap 22 (5-15) H Blood Urea Nitrogen 17 mg/dL (7-23) Creatinine 1.1 mg/dL (0.5-0.9) H Estimat Glomerular Filtration Rate > 60 mL/min (>60) Glucose Level 249 mg/dL (74-106) H Calcium Level 9.5 mg/dL (8.6-10.2) Carcinoembryonic Antigen 2.4 ng/mL Intake and Output 09/04/16 09/05/16 19:00 07:00 Intake Total 640 ml 400 ml Balance 640 ml 400 ml Intake Oral 640 ml IV Total 400 ml # Voids 2 2 Objective General: No acute distress, awake and alert HEENT: NCAT, sclera anicteric, PERRL, EOMI. Neck: Supple, no significant jugular venous distention, Lungs: Fair inspiratory effort, clear to auscultation bilaterally, no Wheeze or Rales. Heart: Regular rate and rhythm, normal S1/S2, no murmurs Abdomen: soft, less Generalized tenderness, nondistended. Normoactive bowel sounds. / Rectal: Refused and deferred. Extremities: Left: No Cyanosis , clubbing or edema, Right: BKA with intact stump.. Neuro: A&O x 3, Able to move all extremities Skin: warm, no rashes or lesions Psych: Normal mood and affect Assessment/Plan Assessment/Plan 1. Intractable nausea vomiting, possible due to the diabetic gastroparesis. 2. Uncontrolled diabetes type 2. 3. Hypertension. 4. Gastritis. 5. Severe peripheral vascular disease and status post right below knee amputation. 6. Dehydration. 7. Hypokalemia. PLAN: On Medical/Surgical. Monitor laboratory. Aggressive IV hydration. Potassium supplements. Clear liquid, advance as tolerated. Code status is Full Code. Accu-Chek with sliding scale GI consult Dr. Alvares: May needs colonoscopy CT abdomen and Pelvic: Impression: Atherosclerotic changes. Uterine calcifications unchanged from previous exam. No acute abnormality. Abhilash Tadeo MD Sep 05, 2016 13:44
[2016-09-05] MEDS ORDERED: Tubing IV Secondary IV ONE (15:05)
[2016-09-05 16:37] VITALS: BP 148/76
[2016-09-05 20:00] VITALS: BP 134/69
[2016-09-05] MEDS: Morphine Sulfate 4mg/ml Inj IVP PRN (22:10)
[2016-09-06] VITALS: BP 154/83
[2016-09-06] MEDS: Metoclopramide 10mg/2ml Inj IVP SCH ×3 (01:54→12:31)
[2016-09-06] MEDS: Morphine Sulfate 4mg/ml Inj IVP PRN ×3 (03:07→22:09)
[2016-09-06 04:00] VITALS: BP 150/78
[2016-09-06] MEDS: HydrALAZINE 50mg tab ORAL SCH ×3 (06:08→22:09)
[2016-09-06] MEDS: NovoLOG Insulin Flexpen SUBQ SCH ×4 (06:10→22:10)
[2016-09-06 07:21] LABS: BASOPHILS % (AUTO) 0.4 % (0.0-2.0); LYMPHOCYTES % (AUTO) 9.3 % (20.0-45.0); MEAN CORPUSCULAR HEMOGLOBIN 29.8 PG (27.0-31.0); MEAN CORPUSCULAR HGB CONC 34.4 G/DL (32.0-36.0); MEAN CORPUSCULAR VOLUME 87 FL (80-99); MEAN PLATELET VOLUME 10.8 FL (6.5-10.1); MONOCYTES % (AUTO) 5.4 % (1.0-10.0); NEUTROPHILS % (AUTO) 84.9 % (45.0-75.0); PLATELET COUNT 218 K/UL (150-450); RED BLOOD COUNT 4.78 M/UL (4.20-5.40); RED CELL DISTRIBUTION WIDTH 13.1 % (11.6-14.8); WHITE BLOOD COUNT 12.3 K/UL (4.8-10.8)
[2016-09-06 08:00] VITALS: BP 147/81
[2016-09-06 08:09] LABS: ALANINE AMINOTRANSFERASE 9 U/L (3-33); ALBUMIN/GLOBULIN RATIO 1.4 (1.0-2.7); AMYLASE 34 U/L (10-110); ANION GAP 19 (5-15); ASPARTATE AMINO TRANSFERASE 11 U/L (5-40); CARBON DIOXIDE 24 mEQ/L (20-30); CHLORIDE 97 mEQ/L (98-107); CREATININE 0.9 mg/dL (0.5-0.9); GLOMERULAR FILTRATION RATE > 60 mL/min (>60); HEMOLYSIS 7; LIPASE 63 U/L (< 60); POTASSIUM 2.9 mEQ/L (3.4-4.9); SODIUM 140 mEQ/L (135-145); TOTAL PROTEIN 6.2 g/dL (6.6-8.7)
[2016-09-06] MEDS: Pantoprazole Inj IVP SCH (09:13)
[2016-09-06] MEDS: DULoxetine 30mg cap ORAL SCH (09:13)
--- NOTE | 2016-09-06 09:13 | Diagnostic Imaging Report ---
Indication:Abdominal pain Technique: Grayscale and duplex Doppler imaging of the abdomen performed. Comparison: None Findings: The exam is limited due to body habitus. Liver is echogenic. CBD is 3.8 mm. The demonstrated part of the pancreas, gallbladder, aorta and IVC, both kidneys, spleen appear unremarkable. There is no biliary ductal dilatation identified. Doppler evaluation of the main portal vein shows patency. There is no ascites. No hydronephrosis seen. Impression: No acute findings appreciated. Fatty liver
[2016-09-06] MEDS: Lisinopril 10mg tab ORAL SCH (09:14)
[2016-09-06] MEDS: Heparin 5000 units/ml inj SUBQ SCH ×2 (09:14→22:11)
--- NOTE | 2016-09-06 12:11 | GI Progress Note ---
Assessment/Plan Problems: (1) Nausea & vomiting ICD Codes: R11.2 - Nausea with vomiting, unspecified SNOMED: 63724859 Qualifiers: Qualified Codes: R11.2 - Nausea with vomiting, unspecified (2) Gastritis ICD Codes: K29.70 - Gastritis, unspecified, without bleeding SNOMED: 9958918 (3) Esophagitis ICD Codes: K20.9 - Esophagitis, unspecified SNOMED: 34485485 (4) Dehydration ICD Codes: E86.0 - Dehydration SNOMED: 58243404 Status: unchanged Status Narrative Discussed with Dr. Alvares. Assessment/Plan 1. Distal esophagitis, minimum. 2. Gastritis status post biopsy >> negative for H. Pylori ? cause for N/V NM gastric Empty Study negative repeat CT increase reglan to 10 mg prn zofran repeat labs may need colonoscopy Subjective Subjective continues to vomit Objective Last 24 Hour Vital Signs Date Time Temp Pulse Resp B/P Pulse Ox O2 Delivery O2 Flow Rate FiO2 09/06/16 09:59 98.1 09/06/16 09:14 98 147/81 09/06/16 09:14 147/81 09/06/16 08:00 98.1 98 17 147/81 96 Room Air 09/06/16 06:08 146/81 09/06/16 04:00 98.1 89 20 150/78 95 Room Air 09/06/16 00:00 97.1 95 20 154/83 97 Room Air 09/05/16 20:39 134/69 09/05/16 20:00 97.0 99 20 134/69 99 Room Air 09/05/16 16:37 97.0 95 19 148/76 97 Room Air 09/05/16 14:36 139/72 09/05/16 12:32 179/88 Intake and Output 09/05/16 09/06/16 19:00 07:00 Intake Total 360 ml 1125 ml Balance 360 ml 1125 ml Intake Oral 360 ml IV Total 1125 ml # Voids 2 2 Laboratory Tests Test 09/06/16 06:30 White Blood Count 12.3 K/UL (4.8-10.8) H Red Blood Count 4.78 M/UL (4.20-5.40) Hemoglobin 14.3 G/DL (12.0-16.0) Hematocrit 41.4 % (37.0-47.0) Mean Corpuscular Volume 87 FL (80-99) Mean Corpuscular Hemoglobin 29.8 PG (27.0-31.0) Mean Corpuscular Hemoglobin Concent 34.4 G/DL (32.0-36.0) Red Cell Distribution Width 13.1 % (11.6-14.8) Platelet Count 218 K/UL (150-450) Mean Platelet Volume 10.8 FL (6.5-10.1) H Neutrophils (%) (Auto) 84.9 % (45.0-75.0) H Lymphocytes (%) (Auto) 9.3 % (20.0-45.0) L Monocytes (%) (Auto) 5.4 % (1.0-10.0) Eosinophils (%) (Auto) 0.0 % (0.0-3.0) Basophils (%) (Auto) 0.4 % (0.0-2.0) Sodium Level 140 mEQ/L (135-145) Potassium Level 2.9 mEQ/L (3.4-4.9) L Chloride Level 97 mEQ/L (98-107) L Carbon Dioxide Level 24 mEQ/L (20-30) Anion Gap 19 (5-15) H Blood Urea Nitrogen 14 mg/dL (7-23) Creatinine 0.9 mg/dL (0.5-0.9) Estimat Glomerular Filtration Rate > 60 mL/min (>60) Glucose Level 237 mg/dL (74-106) H Calcium Level 9.0 mg/dL (8.6-10.2) Magnesium Level 1.9 mg/dL (1.7-2.5) Total Bilirubin 0.5 mg/dL (0.0-1.2) Aspartate Amino Transf (AST/SGOT) 11 U/L (5-40) Alanine Aminotransferase (ALT/SGPT) 9 U/L (3-33) Alkaline Phosphatase 96 U/L (35-104) Total Protein 6.2 g/dL (6.6-8.7) L Albumin 3.7 g/dL (3.5-5.2) Globulin 2.5 g/dL Albumin/Globulin Ratio 1.4 (1.0-2.7) Amylase Level 34 U/L (10-110) Lipase 63 U/L (< 60) H Height (Feet): 5 Height (Inches): 5.00 Weight (Pounds): 224 General Appearance: no apparent distress, alert, overweight Cardiovascular: normal rate Respiratory/Chest: normal breath sounds Abdominal Exam: normal bowel sounds, non tender, soft Mariam Barbosa N.P. Sep 06, 2016 12:11
[2016-09-06] MEDS: Levemir Flexpen SUBQ SCH (12:35)
[2016-09-06 12:40] VITALS: BP 182/99
--- NOTE | 2016-09-06 15:13 | GI Progress Note ---
Assessment/Plan Problems: (1) Nausea & vomiting ICD Codes: R11.2 - Nausea with vomiting, unspecified SNOMED: 78702232 Qualifiers: Qualified Codes: R11.2 - Nausea with vomiting, unspecified (2) Gastritis ICD Codes: K29.70 - Gastritis, unspecified, without bleeding SNOMED: 7814286 (3) Esophagitis ICD Codes: K20.9 - Esophagitis, unspecified SNOMED: 60256552 (4) Dehydration ICD Codes: E86.0 - Dehydration SNOMED: 92316429 Status: unchanged Status Narrative Discussed with Dr. Alvares. Assessment/Plan 1. Distal esophagitis, minimum. 2. Gastritis status post biopsy >> negative for H. Pylori negative repeat CT ? cause for N/V NM gastric Empty Study pending >> hold reglan 10mg, ok to resume after study prn zofran repeat labs may need colonoscopy Subjective Subjective continues to vomit Objective Last 24 Hour Vital Signs Date Time Temp Pulse Resp B/P Pulse Ox O2 Delivery O2 Flow Rate FiO2 09/06/16 12:40 97.0 90 18 182/99 96 Room Air 09/06/16 09:59 98.1 09/06/16 09:14 98 147/81 09/06/16 09:14 147/81 09/06/16 08:00 98.1 98 17 147/81 96 Room Air 09/06/16 06:08 146/81 09/06/16 04:00 98.1 89 20 150/78 95 Room Air 09/06/16 00:00 97.1 95 20 154/83 97 Room Air 09/05/16 20:39 134/69 09/05/16 20:00 97.0 99 20 134/69 99 Room Air 09/05/16 16:37 97.0 95 19 148/76 97 Room Air Intake and Output 09/05/16 09/06/16 19:00 07:00 Intake Total 360 ml 1125 ml Balance 360 ml 1125 ml Intake Oral 360 ml IV Total 1125 ml # Voids 2 2 Laboratory Tests Test 09/06/16 06:30 White Blood Count 12.3 K/UL (4.8-10.8) H Red Blood Count 4.78 M/UL (4.20-5.40) Hemoglobin 14.3 G/DL (12.0-16.0) Hematocrit 41.4 % (37.0-47.0) Mean Corpuscular Volume 87 FL (80-99) Mean Corpuscular Hemoglobin 29.8 PG (27.0-31.0) Mean Corpuscular Hemoglobin Concent 34.4 G/DL (32.0-36.0) Red Cell Distribution Width 13.1 % (11.6-14.8) Platelet Count 218 K/UL (150-450) Mean Platelet Volume 10.8 FL (6.5-10.1) H Neutrophils (%) (Auto) 84.9 % (45.0-75.0) H Lymphocytes (%) (Auto) 9.3 % (20.0-45.0) L Monocytes (%) (Auto) 5.4 % (1.0-10.0) Eosinophils (%) (Auto) 0.0 % (0.0-3.0) Basophils (%) (Auto) 0.4 % (0.0-2.0) Sodium Level 140 mEQ/L (135-145) Potassium Level 2.9 mEQ/L (3.4-4.9) L Chloride Level 97 mEQ/L (98-107) L Carbon Dioxide Level 24 mEQ/L (20-30) Anion Gap 19 (5-15) H Blood Urea Nitrogen 14 mg/dL (7-23) Creatinine 0.9 mg/dL (0.5-0.9) Estimat Glomerular Filtration Rate > 60 mL/min (>60) Glucose Level 237 mg/dL (74-106) H Calcium Level 9.0 mg/dL (8.6-10.2) Magnesium Level 1.9 mg/dL (1.7-2.5) Total Bilirubin 0.5 mg/dL (0.0-1.2) Aspartate Amino Transf (AST/SGOT) 11 U/L (5-40) Alanine Aminotransferase (ALT/SGPT) 9 U/L (3-33) Alkaline Phosphatase 96 U/L (35-104) Total Protein 6.2 g/dL (6.6-8.7) L Albumin 3.7 g/dL (3.5-5.2) Globulin 2.5 g/dL Albumin/Globulin Ratio 1.4 (1.0-2.7) Amylase Level 34 U/L (10-110) Lipase 63 U/L (< 60) H Height (Feet): 5 Height (Inches): 5.00 Weight (Pounds): 224 General Appearance: no apparent distress, alert Cardiovascular: normal rate Respiratory/Chest: no respiratory distress Abdominal Exam: normal bowel sounds, non tender, soft Extremities: normal range of motion Mariam Barbosa N.P. Sep 06, 2016 15:13
[2016-09-06] MEDS: NS w/KCl 40mEq 1,000 ML IV SCH (15:33)
[2016-09-06 16:06] VITALS: BP 150/83
--- NOTE | 2016-09-06 17:34 | Internal Med Progress Note ---
Subjective Physician Name Abhilash Tadeo Attending Physician Abhilash Tadeo MD Current Medications Medications (Trade) Dose Ordered Sig/[place] Route PRN Reason Start Time Stop Time Status Last Admin Dose Admin Acetaminophen (Tylenol) 650 mg Q4H PRN ORAL fever 09/03/16 00:45 10/03/16 00:44 Al Hydroxide/Mg Hydroxide (Mylanta II) 30 ml Q6H PRN ORAL dyspepsia 09/03/16 00:45 10/03/16 00:44 Amlodipine Besylate (Norvasc) 5 mg DAILY ORAL 09/03/16 12:00 10/03/16 11:59 09/06/16 09:14 Aspirin (ASA) 325 mg DAILY ORAL 09/03/16 09:00 10/03/16 08:59 09/06/16 09:13 Clonidine HCl (Catapres) 0.1 mg Q6H PRN ORAL SBP>160 09/03/16 11:00 10/03/16 10:59 09/05/16 12:32 Dextrose (Dextrose 50%) STAT PRN IV Hypoglycemia 09/03/16 00:45 10/03/16 00:44 Diphenhydramine HCl (Benadryl) 25 mg Q6H PRN ORAL Itching/Pruritis 09/03/16 00:45 10/03/16 00:44 Duloxetine HCl 30 mg 30 mg DAILY ORAL 09/05/16 09:00 10/05/16 08:59 09/06/16 09:13 Heparin Sodium (Porcine) (Heparin 5000 units/ml) 5,000 units EVERY 12 HOURS SUBQ 09/03/16 09:00 10/03/16 08:59 09/06/16 09:14 Hydralazine HCl (Apresoline) 50 mg Q8HR ORAL 09/03/16 14:00 10/03/16 13:59 09/06/16 15:33 Insulin Aspart (NovoLOG) BEFORE MEALS AND HS SUBQ 09/03/16 06:30 10/03/16 06:29 09/06/16 16:53 Insulin Detemir (Levemir) 10 units Q24H SUBQ 09/05/16 11:30 10/05/16 11:29 09/06/16 12:35 Lisinopril (Zestril) 10 mg DAILY ORAL 09/03/16 09:00 10/03/16 08:59 09/06/16 09:14 Morphine Sulfate (Morphine Sulfate) 4 mg Q4H PRN IVP For Pain 09/05/16 22:00 09/12/16 21:59 09/06/16 09:29 Nitroglycerin (Ntg) 0.4 mg Q5M X 3 DOSES PRN SL Prn Chest Pain 09/03/16 00:45 10/03/16 00:44 Ondansetron HCl (Zofran) 4 mg Q6H PRN IVP Nausea & Vomiting 09/03/16 00:45 10/03/16 00:44 09/06/16 05:24 Pantoprazole (Protonix) 40 mg DAILY IVP 09/03/16 12:00 10/03/16 11:59 09/06/16 09:13 Polyethylene Glycol (Miralax) 17 gm HSPRN PRN ORAL Constipation 09/03/16 00:45 10/03/16 00:44 Sodium Chloride (NS w/KCl 40mEq) 1,000 ml @ 75 mls/hr [id number] IV 09/05/16 10:30 10/05/16 10:29 09/06/16 15:33 Temazepam (Restoril) 15 mg HSPRN PRN ORAL Insomnia 09/03/16 00:45 09/10/16 00:44 Allergies: Coded Allergies: IODINE (Verified Allergy, Severe, Anaphylaxis, 02/29/12) Subjective less Nauseated and less Vomiting, on liquid diet, awake, alert, responsive, WBC : 12.3, K: 2.9 Objective Last Vital Signs Date Time Temp Pulse Resp B/P Pulse Ox O2 Delivery O2 Flow Rate FiO2 09/06/16 16:06 97.7 97 20 150/83 97 Room Air Laboratory Tests Test 09/06/16 06:30 White Blood Count 12.3 K/UL (4.8-10.8) H Red Blood Count 4.78 M/UL (4.20-5.40) Hemoglobin 14.3 G/DL (12.0-16.0) Hematocrit 41.4 % (37.0-47.0) Mean Corpuscular Volume 87 FL (80-99) Mean Corpuscular Hemoglobin 29.8 PG (27.0-31.0) Mean Corpuscular Hemoglobin Concent 34.4 G/DL (32.0-36.0) Red Cell Distribution Width 13.1 % (11.6-14.8) Platelet Count 218 K/UL (150-450) Mean Platelet Volume 10.8 FL (6.5-10.1) H Neutrophils (%) (Auto) 84.9 % (45.0-75.0) H Lymphocytes (%) (Auto) 9.3 % (20.0-45.0) L Monocytes (%) (Auto) 5.4 % (1.0-10.0) Eosinophils (%) (Auto) 0.0 % (0.0-3.0) Basophils (%) (Auto) 0.4 % (0.0-2.0) Sodium Level 140 mEQ/L (135-145) Potassium Level 2.9 mEQ/L (3.4-4.9) L Chloride Level 97 mEQ/L (98-107) L Carbon Dioxide Level 24 mEQ/L (20-30) Anion Gap 19 (5-15) H Blood Urea Nitrogen 14 mg/dL (7-23) Creatinine 0.9 mg/dL (0.5-0.9) Estimat Glomerular Filtration Rate > 60 mL/min (>60) Glucose Level 237 mg/dL (74-106) H Calcium Level 9.0 mg/dL (8.6-10.2) Magnesium Level 1.9 mg/dL (1.7-2.5) Total Bilirubin 0.5 mg/dL (0.0-1.2) Aspartate Amino Transf (AST/SGOT) 11 U/L (5-40) Alanine Aminotransferase (ALT/SGPT) 9 U/L (3-33) Alkaline Phosphatase 96 U/L (35-104) Total Protein 6.2 g/dL (6.6-8.7) L Albumin 3.7 g/dL (3.5-5.2) Globulin 2.5 g/dL Albumin/Globulin Ratio 1.4 (1.0-2.7) Amylase Level 34 U/L (10-110) Lipase 63 U/L (< 60) H Intake and Output 09/05/16 09/06/16 19:00 07:00 Intake Total 360 ml 1125 ml Balance 360 ml 1125 ml Intake Oral 360 ml IV Total 1125 ml # Voids 2 2 Objective General: No acute distress, awake and alert HEENT: NCAT, sclera anicteric, PERRL, EOMI. Neck: Supple, no significant jugular venous distention, Lungs: Fair inspiratory effort, clear to auscultation bilaterally, no Wheeze or Rales. Heart: Regular rate and rhythm, normal S1/S2, no murmurs Abdomen: soft, less Generalized tenderness, nondistended. Normoactive bowel sounds. / Rectal: Refused and deferred. Extremities: Left: No Cyanosis , clubbing or edema, Right: BKA with intact stump.. Neuro: A&O x 3, Able to move all extremities Skin: warm, no rashes or lesions Psych: Normal mood and affect Assessment/Plan Assessment/Plan 1. Intractable nausea vomiting, possible due to the diabetic gastroparesis. 2. Uncontrolled diabetes type 2. 3. Hypertension. 4. Gastritis. 5. Severe peripheral vascular disease and status post right below knee amputation. 6. Dehydration. 7. Hypokalemia. PLAN: On Medical/Surgical. Monitor laboratory. IVF: NS with 40 Meq IV Potassium supplements. Clear liquid, advance as tolerated. Code status is Full Code. Accu-Chek with sliding scale F/U with GI Recommendations: NM gastric Empty Study pending >> hold reglan 10mg , ok to resume after study May needs colonoscopy next CT abdomen and Pelvic: Impression: Atherosclerotic changes. Uterine calcifications unchanged from previous exam. No acute abnormality. Abhilash Tadeo MD Sep 06, 2016 17:34
--- NOTE | 2016-09-06 18:37 | Pulmonology Progress Note ---
Assessment/Plan Problems: (1) Abdominal pain of unknown etiology (2) Gastritis (3) Peripheral vascular disease (4) Diabetes mellitus Assessment/Plan advance diet as tolerated supplement electrolytes check labs in am all notes and meds reviewed. Subjective ROS Limited/Unobtainable: No Constitutional: Reports: no symptoms HEENT: Repors: no symptoms Respiratory: Reports: no symptoms Cardiovascular: Reports: no symptoms Allergies: Coded Allergies: IODINE (Verified Allergy, Severe, Anaphylaxis, 02/29/12) Objective Last 24 Hour Vital Signs Date Time Temp Pulse Resp B/P Pulse Ox O2 Delivery O2 Flow Rate FiO2 09/06/16 16:06 97.7 97 20 150/83 97 Room Air 09/06/16 15:33 182/99 09/06/16 12:40 97.0 90 18 182/99 96 Room Air 09/06/16 09:59 98.1 09/06/16 09:14 98 147/81 09/06/16 09:14 147/81 09/06/16 08:00 98.1 98 17 147/81 96 Room Air 09/06/16 06:08 146/81 09/06/16 04:00 98.1 89 20 150/78 95 Room Air 09/06/16 00:00 97.1 95 20 154/83 97 Room Air 09/05/16 20:39 134/69 09/05/16 20:00 97.0 99 20 134/69 99 Room Air Intake and Output 09/05/16 09/06/16 19:00 07:00 Intake Total 360 ml 1125 ml Balance 360 ml 1125 ml Intake Oral 360 ml IV Total 1125 ml # Voids 2 2 General Appearance: WD/WN HEENT: normocephalic Respiratory/Chest: chest wall non-tender, lungs clear Breasts: no masses Cardiovascular: normal peripheral pulses Abdomen: normal bowel sounds, soft, non tender Genitourinary: normal external genitalia Extremities: no cyanosis 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 Musculoskeletal: normal muscle bulk Laboratory Tests 09/06/16 06:30: White Blood Count 12.3H, Red Blood Count 4.78, Hemoglobin 14.3, Hematocrit 41.4 , Mean Corpuscular Volume 87, Mean Corpuscular Hemoglobin 29.8, Mean Corpuscular Hemoglobin Concent 34.4, Red Cell Distribution Width 13.1, Platelet Count 218, Mean Platelet Volume 10.8H, Neutrophils (%) (Auto) 84.9H, Lymphocytes (%) (Auto) 9.3L, Monocytes (%) (Auto) 5.4, Eosinophils (%) (Auto) 0.0, Basophils (%) (Auto) 0.4, Sodium Level 140, Potassium Level 2.9L, Chloride Level 97L, Carbon Dioxide Level 24, Anion Gap 19H, Blood Urea Nitrogen 14, Creatinine 0.9, Estimat Glomerular Filtration Rate > 60, Glucose Level 237H, Calcium Level 9.0, Magnesium Level 1.9, Total Bilirubin 0.5, Aspartate Amino Transf (AST/SGOT) 11, Alanine Aminotransferase (ALT/SGPT) 9, Alkaline Phosphatase 96, Total Protein 6.2L, Albumin 3.7, Globulin 2.5, Albumin/Globulin Ratio 1.4, Amylase Level 34, Lipase 63H Current Medications Medications (Trade) Dose Ordered Sig/[place] Route PRN Reason Start Time Stop Time Status Last Admin Dose Admin Acetaminophen (Tylenol) 650 mg Q4H PRN ORAL fever 09/03/16 00:45 10/03/16 00:44 Al Hydroxide/Mg Hydroxide (Mylanta II) 30 ml Q6H PRN ORAL dyspepsia 09/03/16 00:45 10/03/16 00:44 Amlodipine Besylate (Norvasc) 5 mg DAILY ORAL 09/03/16 12:00 10/03/16 11:59 09/06/16 09:14 Aspirin (ASA) 325 mg DAILY ORAL 09/03/16 09:00 10/03/16 08:59 09/06/16 09:13 Clonidine HCl (Catapres) 0.1 mg Q6H PRN ORAL SBP>160 09/03/16 11:00 10/03/16 10:59 09/05/16 12:32 Dextrose (Dextrose 50%) STAT PRN IV Hypoglycemia 09/03/16 00:45 10/03/16 00:44 Diphenhydramine HCl (Benadryl) 25 mg Q6H PRN ORAL Itching/Pruritis 09/03/16 00:45 10/03/16 00:44 Duloxetine HCl 30 mg 30 mg DAILY ORAL 09/05/16 09:00 10/05/16 08:59 09/06/16 09:13 Heparin Sodium (Porcine) (Heparin 5000 units/ml) 5,000 units EVERY 12 HOURS SUBQ 09/03/16 09:00 10/03/16 08:59 09/06/16 09:14 Hydralazine HCl (Apresoline) 50 mg Q8HR ORAL 09/03/16 14:00 10/03/16 13:59 09/06/16 15:33 Insulin Aspart (NovoLOG) BEFORE MEALS AND HS SUBQ 09/03/16 06:30 10/03/16 06:29 09/06/16 16:53 Insulin Detemir (Levemir) 10 units Q24H SUBQ 09/05/16 11:30 10/05/16 11:29 09/06/16 12:35 Lisinopril (Zestril) 10 mg DAILY ORAL 09/03/16 09:00 10/03/16 08:59 09/06/16 09:14 Morphine Sulfate (Morphine Sulfate) 4 mg Q4H PRN IVP For Pain 09/05/16 22:00 09/12/16 21:59 09/06/16 09:29 Nitroglycerin (Ntg) 0.4 mg Q5M X 3 DOSES PRN SL Prn Chest Pain 09/03/16 00:45 10/03/16 00:44 Ondansetron HCl (Zofran) 4 mg Q6H PRN IVP Nausea & Vomiting 09/03/16 00:45 10/03/16 00:44 09/06/16 05:24 Pantoprazole (Protonix) 40 mg DAILY IVP 09/03/16 12:00 10/03/16 11:59 09/06/16 09:13 Polyethylene Glycol (Miralax) 17 gm HSPRN PRN ORAL Constipation 09/03/16 00:45 10/03/16 00:44 Sodium Chloride (NS w/KCl 40mEq) 1,000 ml @ 75 mls/hr [id number] IV 09/05/16 10:30 10/05/16 10:29 09/06/16 15:33 Temazepam (Restoril) 15 mg HSPRN PRN ORAL Insomnia 09/03/16 00:45 09/10/16 00:44 FRANCES RIVERA Sep 06, 2016 18:37
[2016-09-06 20:00] VITALS: BP 155/86
--- NOTE | 2016-09-06 23:09 | General Progress Note ---
Assessment/Plan Status: doing well, stable Assessment/Plan mdd recurrent mod - cont current meds Subjective Constitutional: Reports: malaise, weakness Neurologic/Psychiatric: Reports: anxiety, depressed, emotional problems Allergies: Coded Allergies: IODINE (Verified Allergy, Severe, Anaphylaxis, 02/29/12) Objective Last 24 Hour Vital Signs Date Time Temp Pulse Resp B/P Pulse Ox O2 Delivery O2 Flow Rate FiO2 09/06/16 22:09 155/86 09/06/16 20:00 98.0 101 20 155/86 97 Room Air 09/06/16 16:06 97.7 97 20 150/83 97 Room Air 09/06/16 15:33 182/99 09/06/16 12:40 97.0 90 18 182/99 96 Room Air 09/06/16 09:59 98.1 09/06/16 09:14 98 147/81 09/06/16 09:14 147/81 09/06/16 08:00 98.1 98 17 147/81 96 Room Air 09/06/16 06:08 146/81 09/06/16 04:00 98.1 89 20 150/78 95 Room Air 09/06/16 00:00 97.1 95 20 154/83 97 Room Air Intake and Output 09/05/16 09/06/16 19:00 07:00 Intake Total 360 ml 1125 ml Balance 360 ml 1125 ml Intake Oral 360 ml IV Total 1125 ml # Voids 2 2 Laboratory Tests 09/06/16 06:30: White Blood Count 12.3H, Red Blood Count 4.78, Hemoglobin 14.3, Hematocrit 41.4 , Mean Corpuscular Volume 87, Mean Corpuscular Hemoglobin 29.8, Mean Corpuscular Hemoglobin Concent 34.4, Red Cell Distribution Width 13.1, Platelet Count 218, Mean Platelet Volume 10.8H, Neutrophils (%) (Auto) 84.9H, Lymphocytes (%) (Auto) 9.3L, Monocytes (%) (Auto) 5.4, Eosinophils (%) (Auto) 0.0, Basophils (%) (Auto) 0.4, Sodium Level 140, Potassium Level 2.9L, Chloride Level 97L, Carbon Dioxide Level 24, Anion Gap 19H, Blood Urea Nitrogen 14, Creatinine 0.9, Estimat Glomerular Filtration Rate > 60, Glucose Level 237H, Calcium Level 9.0, Magnesium Level 1.9, Total Bilirubin 0.5, Aspartate Amino Transf (AST/SGOT) 11, Alanine Aminotransferase (ALT/SGPT) 9, Alkaline Phosphatase 96, Total Protein 6.2L, Albumin 3.7, Globulin 2.5, Albumin/Globulin Ratio 1.4, Amylase Level 34, Lipase 63H Height (Feet): 5 Height (Inches): 5.00 Weight (Pounds): 224 General Appearance: no apparent distress, alert Neurologic: alert, oriented x 3, responsive, depressed affect Bronson Jimenez M.D. Sep 06, 2016 23:09
[2016-09-07] VITALS (7 sets, daily range): BP systolic 130–170; BP diastolic 69–98
[2016-09-07] MEDS: Morphine Sulfate 4mg/ml Inj IVP PRN ×5 (02:20→23:47)
[2016-09-07] MEDS: NS w/KCl 40mEq 1,000 ML IV SCH ×2 (02:50→16:04)
[2016-09-07 06:30] LABS: BASOPHILS % (AUTO) 0.4 % (0.0-2.0); EOSINOPHILS % (AUTO) 0.1 % (0.0-3.0); MEAN CORPUSCULAR HEMOGLOBIN 28.8 PG (27.0-31.0); MEAN CORPUSCULAR HGB CONC 33.4 G/DL (32.0-36.0); MEAN CORPUSCULAR VOLUME 86 FL (80-99); MEAN PLATELET VOLUME 10.7 FL (6.5-10.1); MONOCYTES % (AUTO) 5.7 % (1.0-10.0); NEUTROPHILS % (AUTO) 82.8 % (45.0-75.0); PLATELET COUNT 208 K/UL (150-450); RED CELL DISTRIBUTION WIDTH 13.1 % (11.6-14.8); WHITE BLOOD COUNT 10.8 K/UL (4.8-10.8)
[2016-09-07] MEDS: HydrALAZINE 50mg tab ORAL SCH ×3 (06:35→20:43)
[2016-09-07] MEDS: NovoLOG Insulin Flexpen SUBQ SCH ×4 (06:36→20:45)
[2016-09-07 07:24] LABS: ANION GAP 17 (5-15); CALCIUM 8.9 mg/dL (8.6-10.2); CARBON DIOXIDE 24 mEQ/L (20-30); CHLORIDE 99 mEQ/L (98-107); CREATININE 0.7 mg/dL (0.5-0.9); GLOMERULAR FILTRATION RATE > 60 mL/min (>60); HEMOLYSIS 11; MAGNESIUM 1.6 mg/dL (1.7-2.5); PHOSPHORUS 2.1 mg/dL (2.5-4.8); POTASSIUM 3.1 mEQ/L (3.4-4.9); SODIUM 140 mEQ/L (135-145)
[2016-09-07] MEDS: Pantoprazole Inj IVP SCH (10:00)
[2016-09-07] MEDS: DULoxetine 30mg cap ORAL SCH ×2 (10:00→10:23)
[2016-09-07] MEDS: Lisinopril 10mg tab ORAL SCH ×2 (10:01→10:23)
[2016-09-07] MEDS: Heparin 5000 units/ml inj SUBQ SCH ×2 (10:08→20:44)
[2016-09-07] MEDS: Levemir Flexpen SUBQ SCH (12:24)
--- NOTE | 2016-09-07 13:08 | General Progress Note ---
Assessment/Plan Problem List: (1) Hx of BKA ICD Codes: Z89.519 - Acquired absence of unspecified leg below knee SNOMED: 089483261, 211689968 (2) Peripheral vascular disease ICD Codes: I73.9 - Peripheral vascular disease, unspecified SNOMED: 412581906 (3) Diabetes mellitus ICD Codes: E11.9 - Type 2 diabetes mellitus without complications SNOMED: 72331327 (4) Nausea & vomiting ICD Codes: R11.2 - Nausea with vomiting, unspecified SNOMED: 26409431 Qualifiers: Qualified Codes: R11.2 - Nausea with vomiting, unspecified (5) Gastritis ICD Codes: K29.70 - Gastritis, unspecified, without bleeding SNOMED: 1045913 (6) Esophagitis ICD Codes: K20.9 - Esophagitis, unspecified SNOMED: 47571706 (7) Hypokalemia ICD Codes: E87.6 - Hypokalemia SNOMED: 54656936 Assessment/Plan ? cause for N/V negative repeat CT reglan prn zofran repeat labs may need colonoscopy head ct gastric emptying study Subjective ROS Limited/Unobtainable: Yes Allergies: Coded Allergies: IODINE (Verified Allergy, Severe, Anaphylaxis, 02/29/12) Subjective c/o nausea nd vomiting Objective Last 24 Hour Vital Signs Date Time Temp Pulse Resp B/P Pulse Ox O2 Delivery O2 Flow Rate FiO2 09/07/16 10:23 94 135/80 09/07/16 10:23 135/80 09/07/16 08:00 97.2 94 20 135/80 94 Room Air 09/07/16 06:35 147/86 09/07/16 04:00 92 18 147/86 100 Room Air 09/07/16 00:00 97.2 98 20 145/78 95 Room Air 09/06/16 22:09 155/86 09/06/16 20:00 98.0 101 20 155/86 97 Room Air 09/06/16 16:06 97.7 97 20 150/83 97 Room Air 09/06/16 15:33 182/99 Intake and Output 09/06/16 09/07/16 19:00 07:00 Intake Total 1030 ml 675 ml Output Total 300 ml Balance 730 ml 675 ml Intake Oral 120 ml IV Total 910 ml 675 ml Output Urine Total 300 ml # Voids 2 1 Laboratory Tests 09/07/16 04:55: White Blood Count 10.8, Red Blood Count 4.80, Hemoglobin 13.8, Hematocrit 41.3, Mean Corpuscular Volume 86, Mean Corpuscular Hemoglobin 28.8, Mean Corpuscular Hemoglobin Concent 33.4, Red Cell Distribution Width 13.1, Platelet Count 208, Mean Platelet Volume 10.7H, Neutrophils (%) (Auto) 82.8H, Lymphocytes (%) (Auto ) 11.0L, Monocytes (%) (Auto) 5.7, Eosinophils (%) (Auto) 0.1, Basophils (%) ( Auto) 0.4, Sodium Level 140, Potassium Level 3.1L, Chloride Level 99, Carbon Dioxide Level 24, Anion Gap 17H, Blood Urea Nitrogen 10, Creatinine 0.7, Estimat Glomerular Filtration Rate > 60, Glucose Level 193H, Calcium Level 8.9, Phosphorus Level 2.1L, Magnesium Level 1.6L Height (Feet): 5 Height (Inches): 5.00 Weight (Pounds): 224 General Appearance: alert EENT: normal ENT inspection Neck: supple Cardiovascular: normal rate Respiratory/Chest: decreased breath sounds Abdomen: normal bowel sounds, non tender, soft Extremities: non-tender JOHNATHAN DURHAM Sep 07, 2016 13:08
--- NOTE | 2016-09-07 16:36 | Diagnostic Imaging Report ---
Indication: Pain Technique: spiral acquisitions obtained through the brain. Angled axial and coronal 5 x 5 mm slices were reconstructed. No IV contrast utilized. Radiation dose was minimized using automated exposure control Total dose length product 1404 mGycm. CTDIvol(s) 70 mGy Comparison: none FINDINGS: No acute hemorrhage or edema. No mass effect or midline shift. There is age-related enlargement of the ventricles and extra axial CSF spaces. There is periventricular deep white matter ischemic change. Normal lomeli-white differentiation. Visualized orbits are unremarkable. Visualized sinuses are unremarkable. Intact calvarium. IMPRESSION: Chronic and age-related changes. Negative for acute intracranial bleed or mass effect The CT scanner at [facility] is accredited by the [employer] and the scans are performed using protocols designed to limit radiation exposure to as low as reasonably achievable to attain images of sufficient resolution adequate for diagnostic evaluation
--- NOTE | 2016-09-07 17:50 | Internal Med Progress Note ---
Subjective Date of Service: Sep 07, 2016 Physician Name Irizarry,Fletcher Attending Physician Abhilash Tadeo MD Current Medications Medications (Trade) Dose Ordered Sig/[place] Route PRN Reason Start Time Stop Time Status Last Admin Dose Admin Acetaminophen (Tylenol) 650 mg Q4H PRN ORAL fever 09/03/16 00:45 10/03/16 00:44 Al Hydroxide/Mg Hydroxide (Mylanta II) 30 ml Q6H PRN ORAL dyspepsia 09/03/16 00:45 10/03/16 00:44 Amlodipine Besylate (Norvasc) 5 mg DAILY ORAL 09/03/16 12:00 10/03/16 11:59 09/06/16 09:14 Aspirin (ASA) 325 mg DAILY ORAL 09/03/16 09:00 10/03/16 08:59 09/06/16 09:13 Clonidine HCl (Catapres) 0.1 mg Q6H PRN ORAL SBP>160 09/03/16 11:00 10/03/16 10:59 09/05/16 12:32 Dextrose (Dextrose 50%) STAT PRN IV Hypoglycemia 09/03/16 00:45 10/03/16 00:44 Diphenhydramine HCl (Benadryl) 25 mg Q6H PRN ORAL Itching/Pruritis 09/03/16 00:45 10/03/16 00:44 Duloxetine HCl 30 mg 30 mg DAILY ORAL 09/05/16 09:00 10/05/16 08:59 09/06/16 09:13 Heparin Sodium (Porcine) (Heparin 5000 units/ml) 5,000 units EVERY 12 HOURS SUBQ 09/03/16 09:00 10/03/16 08:59 09/07/16 10:08 Hydralazine HCl (Apresoline) 50 mg Q8HR ORAL 09/03/16 14:00 10/03/16 13:59 09/07/16 14:18 Insulin Aspart (NovoLOG) BEFORE MEALS AND HS SUBQ 09/03/16 06:30 10/03/16 06:29 09/07/16 17:14 Insulin Detemir (Levemir) 10 units Q24H SUBQ 09/05/16 11:30 10/05/16 11:29 09/07/16 12:24 Lisinopril (Zestril) 10 mg DAILY ORAL 09/03/16 09:00 10/03/16 08:59 09/06/16 09:14 Morphine Sulfate (Morphine Sulfate) 4 mg Q4H PRN IVP For Pain 09/05/16 22:00 09/12/16 21:59 09/07/16 15:26 Nitroglycerin (Ntg) 0.4 mg Q5M X 3 DOSES PRN SL Prn Chest Pain 09/03/16 00:45 10/03/16 00:44 Nystatin (Nystop Powder) 1 applic THREE TIMES A DAY TOPIC 09/07/16 18:00 10/07/16 17:59 Ondansetron HCl (Zofran) 4 mg Q6H PRN IVP Nausea & Vomiting 09/03/16 00:45 10/03/16 00:44 09/07/16 16:04 Pantoprazole (Protonix) 40 mg DAILY IVP 09/03/16 12:00 10/03/16 11:59 09/07/16 10:00 Polyethylene Glycol (Miralax) 17 gm HSPRN PRN ORAL Constipation 09/03/16 00:45 10/03/16 00:44 Sodium Chloride (NS w/KCl 40mEq) 1,000 ml @ 75 mls/hr [id number] IV 09/05/16 10:30 10/05/16 10:29 09/07/16 16:04 Temazepam (Restoril) 15 mg HSPRN PRN ORAL Insomnia 09/03/16 00:45 09/10/16 00:44 Allergies: Coded Allergies: IODINE (Verified Allergy, Severe, Anaphylaxis, 02/29/12) ROS Limited/Unobtainable: No Constitutional: Reports: no symptoms HEENT: Reports: no symptoms Cardiovascular: Reports: no symptoms Respiratory: Reports: no symptoms Gastrointestinal/Abdominal: Reports: abdominal pain, nausea, vomiting Genitourinary: Reports: no symptoms Neurologic/Psychiatric: Reports: no symptoms Subjective 66 YO F admitted with abdominal pain, nausea and vomiting. Cover for Int [facility]- Dr Tadeo. Objective Last Vital Signs Date Time Temp Pulse Resp B/P Pulse Ox O2 Delivery O2 Flow Rate FiO2 09/07/16 14:18 152/87 09/07/16 12:00 98.4 98 20 94 Room Air Laboratory Tests Test 09/07/16 04:55 White Blood Count 10.8 K/UL (4.8-10.8) Red Blood Count 4.80 M/UL (4.20-5.40) Hemoglobin 13.8 G/DL (12.0-16.0) Hematocrit 41.3 % (37.0-47.0) Mean Corpuscular Volume 86 FL (80-99) Mean Corpuscular Hemoglobin 28.8 PG (27.0-31.0) Mean Corpuscular Hemoglobin Concent 33.4 G/DL (32.0-36.0) Red Cell Distribution Width 13.1 % (11.6-14.8) Platelet Count 208 K/UL (150-450) Mean Platelet Volume 10.7 FL (6.5-10.1) H Neutrophils (%) (Auto) 82.8 % (45.0-75.0) H Lymphocytes (%) (Auto) 11.0 % (20.0-45.0) L Monocytes (%) (Auto) 5.7 % (1.0-10.0) Eosinophils (%) (Auto) 0.1 % (0.0-3.0) Basophils (%) (Auto) 0.4 % (0.0-2.0) Sodium Level 140 mEQ/L (135-145) Potassium Level 3.1 mEQ/L (3.4-4.9) L Chloride Level 99 mEQ/L (98-107) Carbon Dioxide Level 24 mEQ/L (20-30) Anion Gap 17 (5-15) H Blood Urea Nitrogen 10 mg/dL (7-23) Creatinine 0.7 mg/dL (0.5-0.9) Estimat Glomerular Filtration Rate > 60 mL/min (>60) Glucose Level 193 mg/dL (74-106) H Calcium Level 8.9 mg/dL (8.6-10.2) Phosphorus Level 2.1 mg/dL (2.5-4.8) L Magnesium Level 1.6 mg/dL (1.7-2.5) L Intake and Output 09/06/16 09/07/16 19:00 07:00 Intake Total 1030 ml 675 ml Output Total 300 ml Balance 730 ml 675 ml Intake Oral 120 ml IV Total 910 ml 675 ml Output Urine Total 300 ml # Voids 2 1 FLETCHER IRIZARRY Sep 07, 2016 17:50
--- NOTE | 2016-09-07 17:56 | Internal Med Progress Note ---
Subjective Date of Service: Sep 07, 2016 Physician Name Irizarry,Fletcher Attending Physician Abhilash Tadeo MD Current Medications Medications (Trade) Dose Ordered Sig/[place] Route PRN Reason Start Time Stop Time Status Last Admin Dose Admin Acetaminophen (Tylenol) 650 mg Q4H PRN ORAL fever 09/03/16 00:45 10/03/16 00:44 Al Hydroxide/Mg Hydroxide (Mylanta II) 30 ml Q6H PRN ORAL dyspepsia 09/03/16 00:45 10/03/16 00:44 Amlodipine Besylate (Norvasc) 5 mg DAILY ORAL 09/03/16 12:00 10/03/16 11:59 09/06/16 09:14 Aspirin (ASA) 325 mg DAILY ORAL 09/03/16 09:00 10/03/16 08:59 09/06/16 09:13 Clonidine HCl (Catapres) 0.1 mg Q6H PRN ORAL SBP>160 09/03/16 11:00 10/03/16 10:59 09/05/16 12:32 Dextrose (Dextrose 50%) STAT PRN IV Hypoglycemia 09/03/16 00:45 10/03/16 00:44 Diphenhydramine HCl (Benadryl) 25 mg Q6H PRN ORAL Itching/Pruritis 09/03/16 00:45 10/03/16 00:44 Duloxetine HCl 30 mg 30 mg DAILY ORAL 09/05/16 09:00 10/05/16 08:59 09/06/16 09:13 Heparin Sodium (Porcine) (Heparin 5000 units/ml) 5,000 units EVERY 12 HOURS SUBQ 09/03/16 09:00 10/03/16 08:59 09/07/16 10:08 Hydralazine HCl (Apresoline) 50 mg Q8HR ORAL 09/03/16 14:00 10/03/16 13:59 09/07/16 14:18 Insulin Aspart (NovoLOG) BEFORE MEALS AND HS SUBQ 09/03/16 06:30 10/03/16 06:29 09/07/16 17:14 Insulin Detemir (Levemir) 10 units Q24H SUBQ 09/05/16 11:30 10/05/16 11:29 09/07/16 12:24 Lisinopril (Zestril) 10 mg DAILY ORAL 09/03/16 09:00 10/03/16 08:59 09/06/16 09:14 Morphine Sulfate (Morphine Sulfate) 4 mg Q4H PRN IVP For Pain 09/05/16 22:00 09/12/16 21:59 09/07/16 15:26 Nitroglycerin (Ntg) 0.4 mg Q5M X 3 DOSES PRN SL Prn Chest Pain 09/03/16 00:45 10/03/16 00:44 Nystatin 1 applic 1 applic THREE TIMES A DAY TOPIC 09/07/16 18:00 10/07/16 17:59 Ondansetron HCl (Zofran) 4 mg Q6H PRN IVP Nausea & Vomiting 09/03/16 00:45 10/03/16 00:44 09/07/16 16:04 Pantoprazole (Protonix) 40 mg DAILY IVP 09/03/16 12:00 10/03/16 11:59 09/07/16 10:00 Polyethylene Glycol (Miralax) 17 gm HSPRN PRN ORAL Constipation 09/03/16 00:45 10/03/16 00:44 Potassium Chloride (KCl 20mEq/100ml Premix) 100 ml @ 50 mls/hr ONCE ONCE IVPB 09/07/16 17:45 09/07/16 19:44 UNV Sodium Chloride (NS w/KCl 40mEq) 1,000 ml @ 75 mls/hr [id number] IV 09/05/16 10:30 10/05/16 10:29 09/07/16 16:04 Temazepam (Restoril) 15 mg HSPRN PRN ORAL Insomnia 09/03/16 00:45 09/10/16 00:44 Allergies: Coded Allergies: IODINE (Verified Allergy, Severe, Anaphylaxis, 02/29/12) ROS Limited/Unobtainable: No Constitutional: Reports: no symptoms HEENT: Reports: no symptoms Cardiovascular: Reports: no symptoms Respiratory: Reports: no symptoms Gastrointestinal/Abdominal: Reports: abdominal pain, nausea, vomiting Genitourinary: Reports: no symptoms Neurologic/Psychiatric: Reports: no symptoms Subjective 66 YO F admitted with abdominal pain, nausea and vomiting. Cover for Int Mayank Tadeo. Objective Last Vital Signs Date Time Temp Pulse Resp B/P Pulse Ox O2 Delivery O2 Flow Rate FiO2 09/07/16 14:18 152/87 09/07/16 12:00 98.4 98 20 94 Room Air General Appearance: WD/WN, no apparent distress, alert EENT: PERRL/EOMI, normal ENT inspection, TMs normal Neck: non-tender, normal alignment, supple Cardiovascular: normal peripheral pulses, normal rate, regular rhythm, no gallop/murmur, no JVD Respiratory/Chest: chest wall non-tender, lungs clear, normal breath sounds, no respiratory distress, no accessory muscle use Abdomen: normal bowel sounds, soft, no organomegaly, no mass, decreased bowel sounds, guarding, tender Extremities: normal range of motion 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, no motor/sensory deficits Skin: normal pigmentation, warm/dry Laboratory Tests Test 09/07/16 04:55 White Blood Count 10.8 K/UL (4.8-10.8) Red Blood Count 4.80 M/UL (4.20-5.40) Hemoglobin 13.8 G/DL (12.0-16.0) Hematocrit 41.3 % (37.0-47.0) Mean Corpuscular Volume 86 FL (80-99) Mean Corpuscular Hemoglobin 28.8 PG (27.0-31.0) Mean Corpuscular Hemoglobin Concent 33.4 G/DL (32.0-36.0) Red Cell Distribution Width 13.1 % (11.6-14.8) Platelet Count 208 K/UL (150-450) Mean Platelet Volume 10.7 FL (6.5-10.1) H Neutrophils (%) (Auto) 82.8 % (45.0-75.0) H Lymphocytes (%) (Auto) 11.0 % (20.0-45.0) L Monocytes (%) (Auto) 5.7 % (1.0-10.0) Eosinophils (%) (Auto) 0.1 % (0.0-3.0) Basophils (%) (Auto) 0.4 % (0.0-2.0) Sodium Level 140 mEQ/L (135-145) Potassium Level 3.1 mEQ/L (3.4-4.9) L Chloride Level 99 mEQ/L (98-107) Carbon Dioxide Level 24 mEQ/L (20-30) Anion Gap 17 (5-15) H Blood Urea Nitrogen 10 mg/dL (7-23) Creatinine 0.7 mg/dL (0.5-0.9) Estimat Glomerular Filtration Rate > 60 mL/min (>60) Glucose Level 193 mg/dL (74-106) H Calcium Level 8.9 mg/dL (8.6-10.2) Phosphorus Level 2.1 mg/dL (2.5-4.8) L Magnesium Level 1.6 mg/dL (1.7-2.5) L Intake and Output 09/06/16 09/07/16 19:00 07:00 Intake Total 1030 ml 675 ml Output Total 300 ml Balance 730 ml 675 ml Intake Oral 120 ml IV Total 910 ml 675 ml Output Urine Total 300 ml # Voids 2 1 Assessment/Plan Problem List: (1) Hypokalemia Assessment & Plan: Due to emesis. Cont IV KCL replacement. (2) Esophagitis (3) Gastritis Assessment & Plan: Cont protonix (4) Nausea & vomiting Assessment & Plan: See GI note. Cont reglan and zofran (5) Hypertension Assessment & Plan: cont lisinopril (6) Diabetes mellitus Assessment & Plan: Continue novolog sliding scale. 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
[2016-09-07] MEDS: Nystatin Powder 100,000 units/gm 15gm TOPIC SCH (18:23)
--- NOTE | 2016-09-07 22:36 | Pulmonology Progress Note ---
Assessment/Plan Problems: (1) Abdominal pain of unknown etiology (2) Gastritis (3) Peripheral vascular disease (4) Diabetes mellitus Assessment/Plan advance diet as tolerated supplement electrolytes check labs in am all notes and meds reviewed. ct head negative gastric emptying studies Subjective ROS Limited/Unobtainable: No Constitutional: Reports: no symptoms HEENT: Repors: no symptoms Respiratory: Reports: no symptoms Allergies: Coded Allergies: IODINE (Verified Allergy, Severe, Anaphylaxis, 02/29/12) Objective Last 24 Hour Vital Signs Date Time Temp Pulse Resp B/P Pulse Ox O2 Delivery O2 Flow Rate FiO2 09/07/16 20:43 170/88 09/07/16 20:00 98.1 91 18 170/88 95 Room Air 09/07/16 16:00 97.7 96 20 170/98 95 Room Air 09/07/16 14:18 152/87 09/07/16 12:00 98.4 98 20 152/87 94 Room Air 09/07/16 10:23 94 135/80 09/07/16 10:23 135/80 09/07/16 08:00 97.2 94 20 135/80 94 Room Air 09/07/16 06:35 147/86 09/07/16 04:00 92 18 147/86 100 Room Air 09/07/16 00:00 97.2 98 20 145/78 95 Room Air Intake and Output 09/06/16 09/07/16 18:59 06:59 Intake Total 955 ml 750 ml Output Total 300 ml Balance 655 ml 750 ml Intake Oral 120 ml IV Total 835 ml 750 ml Output Urine Total 300 ml # Voids 2 1 General Appearance: WD/WN HEENT: normocephalic, anicteric Respiratory/Chest: chest wall non-tender Breasts: no masses Cardiovascular: normal peripheral pulses Abdomen: normal bowel sounds, soft, non tender Genitourinary: normal external genitalia Extremities: no cyanosis Laboratory Tests 09/07/16 04:55: White Blood Count 10.8, Red Blood Count 4.80, Hemoglobin 13.8, Hematocrit 41.3, Mean Corpuscular Volume 86, Mean Corpuscular Hemoglobin 28.8, Mean Corpuscular Hemoglobin Concent 33.4, Red Cell Distribution Width 13.1, Platelet Count 208, Mean Platelet Volume 10.7H, Neutrophils (%) (Auto) 82.8H, Lymphocytes (%) (Auto ) 11.0L, Monocytes (%) (Auto) 5.7, Eosinophils (%) (Auto) 0.1, Basophils (%) ( Auto) 0.4, Sodium Level 140, Potassium Level 3.1L, Chloride Level 99, Carbon Dioxide Level 24, Anion Gap 17H, Blood Urea Nitrogen 10, Creatinine 0.7, Estimat Glomerular Filtration Rate > 60, Glucose Level 193H, Calcium Level 8.9, Phosphorus Level 2.1L, Magnesium Level 1.6L Current Medications Medications (Trade) Dose Ordered Sig/[place] Route PRN Reason Start Time Stop Time Status Last Admin Dose Admin Acetaminophen (Tylenol) 650 mg Q4H PRN ORAL fever 09/03/16 00:45 10/03/16 00:44 Al Hydroxide/Mg Hydroxide (Mylanta II) 30 ml Q6H PRN ORAL dyspepsia 09/03/16 00:45 10/03/16 00:44 Amlodipine Besylate (Norvasc) 5 mg DAILY ORAL 09/03/16 12:00 10/03/16 11:59 09/06/16 09:14 Aspirin (ASA) 325 mg DAILY ORAL 09/03/16 09:00 10/03/16 08:59 09/06/16 09:13 Clonidine HCl (Catapres) 0.1 mg Q6H PRN ORAL SBP>160 09/03/16 11:00 10/03/16 10:59 09/05/16 12:32 Dextrose (Dextrose 50%) STAT PRN IV Hypoglycemia 09/03/16 00:45 10/03/16 00:44 Diphenhydramine HCl (Benadryl) 25 mg Q6H PRN ORAL Itching/Pruritis 09/03/16 00:45 10/03/16 00:44 Duloxetine HCl 30 mg 30 mg DAILY ORAL 09/05/16 09:00 10/05/16 08:59 09/06/16 09:13 Heparin Sodium (Porcine) (Heparin 5000 units/ml) 5,000 units EVERY 12 HOURS SUBQ 09/03/16 09:00 10/03/16 08:59 09/07/16 20:44 Hydralazine HCl (Apresoline) 50 mg Q8HR ORAL 09/03/16 14:00 10/03/16 13:59 09/07/16 20:43 Insulin Aspart (NovoLOG) BEFORE MEALS AND HS SUBQ 09/03/16 06:30 10/03/16 06:29 09/07/16 20:45 Insulin Detemir (Levemir) 10 units Q24H SUBQ 09/05/16 11:30 10/05/16 11:29 09/07/16 12:24 Lisinopril (Zestril) 10 mg DAILY ORAL 09/03/16 09:00 10/03/16 08:59 09/06/16 09:14 Morphine Sulfate (Morphine Sulfate) 4 mg Q4H PRN IVP For Pain 09/05/16 22:00 09/12/16 21:59 09/07/16 19:43 Nitroglycerin (Ntg) 0.4 mg Q5M X 3 DOSES PRN SL Prn Chest Pain 09/03/16 00:45 10/03/16 00:44 Nystatin (Nystop Powder) 1 applic THREE TIMES A DAY TOPIC 09/07/16 18:00 10/07/16 17:59 09/07/16 18:23 Ondansetron HCl (Zofran) 4 mg Q6H PRN IVP Nausea & Vomiting 09/03/16 00:45 10/03/16 00:44 09/07/16 22:05 Pantoprazole (Protonix) 40 mg DAILY IVP 09/03/16 12:00 10/03/16 11:59 09/07/16 10:00 Polyethylene Glycol (Miralax) 17 gm HSPRN PRN ORAL Constipation 09/03/16 00:45 10/03/16 00:44 Sodium Chloride (NS w/KCl 40mEq) 1,000 ml @ 75 mls/hr [id number] IV 09/05/16 10:30 10/05/16 10:29 09/07/16 16:04 Temazepam (Restoril) 15 mg HSPRN PRN ORAL Insomnia 09/03/16 00:45 09/10/16 00:44 FRANCES RIVERA Sep 07, 2016 22:36
[2016-09-08 04:38] VITALS: BP 133/68
[2016-09-08] MEDS: Morphine Sulfate 4mg/ml Inj IVP PRN (05:32)
[2016-09-08] MEDS: NS w/KCl 40mEq 1,000 ML IV SCH ×2 (05:33→19:27)
[2016-09-08] MEDS: HydrALAZINE 50mg tab ORAL SCH ×3 (06:08→21:09)
[2016-09-08] MEDS: NovoLOG Insulin Flexpen SUBQ SCH ×4 (06:09→21:10)
[2016-09-08 07:17] LABS: BASOPHILS % (AUTO) 0.4 % (0.0-2.0); EOSINOPHILS % (AUTO) 0.1 % (0.0-3.0); LYMPHOCYTES % (AUTO) 12.1 % (20.0-45.0); MEAN CORPUSCULAR HEMOGLOBIN 28.2 PG (27.0-31.0); MEAN CORPUSCULAR HGB CONC 32.7 G/DL (32.0-36.0); MEAN CORPUSCULAR VOLUME 86 FL (80-99); MEAN PLATELET VOLUME 11.6 FL (6.5-10.1); MONOCYTES % (AUTO) 6.9 % (1.0-10.0); NEUTROPHILS % (AUTO) 80.4 % (45.0-75.0); PLATELET COUNT 245 K/UL (150-450); RED BLOOD COUNT 5.22 M/UL (4.20-5.40); WHITE BLOOD COUNT 11.7 K/UL (4.8-10.8)
[2016-09-08 07:49] LABS: ANION GAP 18 (5-15); CALCIUM 9.3 mg/dL (8.6-10.2); CARBON DIOXIDE 27 mEQ/L (20-30); CHLORIDE 98 mEQ/L (98-107); CREATININE 0.9 mg/dL (0.5-0.9); GLOMERULAR FILTRATION RATE > 60 mL/min (>60); HEMOLYSIS 4; SODIUM 143 mEQ/L (135-145)
[2016-09-08] MEDS: Pantoprazole Inj IVP SCH (10:06)
[2016-09-08] MEDS: Lisinopril 10mg tab ORAL SCH (10:07)
[2016-09-08] MEDS: DULoxetine 30mg cap ORAL SCH (10:07)
[2016-09-08] MEDS: Heparin 5000 units/ml inj SUBQ SCH ×2 (10:08→19:58)
[2016-09-08] MEDS: Nystatin Powder 100,000 units/gm 15gm TOPIC SCH ×3 (10:28→18:00)
[2016-09-08] MEDS ORDERED: Potassium Phosphate 30 MM in NS 275 ML IV ONE (11:00)
[2016-09-08 11:56] VITALS: BP 124/79
[2016-09-08] MEDS: Levemir Flexpen SUBQ SCH (12:26)
--- NOTE | 2016-09-08 12:35 | GI Progress Note ---
Assessment/Plan Problems: (1) Nausea & vomiting ICD Codes: R11.2 - Nausea with vomiting, unspecified SNOMED: 11774438 Qualifiers: Qualified Codes: R11.2 - Nausea with vomiting, unspecified (2) Gastritis ICD Codes: K29.70 - Gastritis, unspecified, without bleeding SNOMED: 0146716 (3) Esophagitis ICD Codes: K20.9 - Esophagitis, unspecified SNOMED: 47064791 (4) Dehydration ICD Codes: E86.0 - Dehydration SNOMED: 57174966 Status: unchanged Status Narrative Discussed with Dr. Alvares. Assessment/Plan S/P EGD SUMMARY 1. Distal esophagitis, minimum. 2. Gastritis status post biopsy >> negative for H. Pylori Head CT >> unremarkable ? cause for N/V NM gastric Empty Study pending >> hold reglan 10mg, ok to resume after study adv to FLD dc opiates increase zofran strength repeat labs may need colonoscopy Subjective Subjective emesis Objective Last 24 Hour Vital Signs Date Time Temp Pulse Resp B/P Pulse Ox O2 Delivery O2 Flow Rate FiO2 09/08/16 11:56 97.6 100 20 124/79 99 Room Air 09/08/16 10:07 94 133/68 09/08/16 10:07 133/68 09/08/16 06:08 133/68 09/08/16 04:38 98.1 94 17 133/68 97 Room Air 09/07/16 23:42 98.1 91 17 130/69 96 Room Air 09/07/16 20:43 170/88 09/07/16 20:00 98.1 91 18 170/88 95 Room Air 09/07/16 16:00 97.7 96 20 170/98 95 Room Air 09/07/16 14:18 152/87 Intake and Output 09/07/16 09/08/16 19:00 07:00 Intake Total 270 ml 675 ml Balance 270 ml 675 ml Intake Oral 120 ml IV Total 150 ml 675 ml # Voids 3 Laboratory Tests Test 09/08/16 05:45 White Blood Count 11.7 K/UL (4.8-10.8) H Red Blood Count 5.22 M/UL (4.20-5.40) Hemoglobin 14.7 G/DL (12.0-16.0) Hematocrit 45.1 % (37.0-47.0) Mean Corpuscular Volume 86 FL (80-99) Mean Corpuscular Hemoglobin 28.2 PG (27.0-31.0) Mean Corpuscular Hemoglobin Concent 32.7 G/DL (32.0-36.0) Red Cell Distribution Width 13.0 % (11.6-14.8) Platelet Count 245 K/UL (150-450) Mean Platelet Volume 11.6 FL (6.5-10.1) H Neutrophils (%) (Auto) 80.4 % (45.0-75.0) H Lymphocytes (%) (Auto) 12.1 % (20.0-45.0) L Monocytes (%) (Auto) 6.9 % (1.0-10.0) Eosinophils (%) (Auto) 0.1 % (0.0-3.0) Basophils (%) (Auto) 0.4 % (0.0-2.0) Sodium Level 143 mEQ/L (135-145) Potassium Level 3.0 mEQ/L (3.4-4.9) L Chloride Level 98 mEQ/L (98-107) Carbon Dioxide Level 27 mEQ/L (20-30) Anion Gap 18 (5-15) H Blood Urea Nitrogen 12 mg/dL (7-23) Creatinine 0.9 mg/dL (0.5-0.9) Estimat Glomerular Filtration Rate > 60 mL/min (>60) Glucose Level 193 mg/dL (74-106) H Calcium Level 9.3 mg/dL (8.6-10.2) Height (Feet): 5 Height (Inches): 5.00 Weight (Pounds): 224 General Appearance: no apparent distress, alert Cardiovascular: normal rate Respiratory/Chest: normal breath sounds, no respiratory distress Abdominal Exam: normal bowel sounds, non tender Mariam Barbosa N.P. Sep 08, 2016 12:35
[2016-09-08] MEDS ORDERED: Norco 5mg/325mg tab ORAL PRN (13:15)
[2016-09-08] MEDS ORDERED: Norco 10mg/325mg tab ORAL PRN (13:15)
--- NOTE | 2016-09-08 13:15 | Internal Med Progress Note ---
Subjective Date of Service: Sep 08, 2016 Physician Name Irizarry,Fletcher Attending Physician Abhilash Tadeo MD Current Medications Medications (Trade) Dose Ordered Sig/[place] Route PRN Reason Start Time Stop Time Status Last Admin Dose Admin Acetaminophen (Tylenol) 650 mg Q4H PRN ORAL fever 09/03/16 00:45 10/03/16 00:44 09/08/16 10:29 Acetaminophen/ Hydrocodone Bitart ([place] 10/325) 1 ea Q4H PRN ORAL Severe Pain (Pain Scale 7-10) 09/08/16 13:15 09/15/16 13:14 UNV Acetaminophen/ Hydrocodone Bitart ([place] 5/325) 1 tab Q4H PRN ORAL Moderate Pain (Pain Scale 4-6) 09/08/16 13:15 09/15/16 13:14 UNV Al Hydroxide/Mg Hydroxide (Mylanta II) 30 ml Q6H PRN ORAL dyspepsia 09/03/16 00:45 10/03/16 00:44 Amlodipine Besylate (Norvasc) 5 mg DAILY ORAL 09/03/16 12:00 10/03/16 11:59 09/08/16 10:07 Aspirin (ASA) 325 mg DAILY ORAL 09/03/16 09:00 10/03/16 08:59 09/08/16 10:07 Clonidine HCl (Catapres) 0.1 mg Q6H PRN ORAL SBP>160 09/03/16 11:00 10/03/16 10:59 09/05/16 12:32 Dextrose (Dextrose 50%) STAT PRN IV Hypoglycemia 09/03/16 00:45 10/03/16 00:44 Diphenhydramine HCl (Benadryl) 25 mg Q6H PRN ORAL Itching/Pruritis 09/03/16 00:45 10/03/16 00:44 Duloxetine HCl 30 mg 30 mg DAILY ORAL 09/05/16 09:00 10/05/16 08:59 09/08/16 10:07 Heparin Sodium (Porcine) (Heparin 5000 units/ml) 5,000 units EVERY 12 HOURS SUBQ 09/03/16 09:00 10/03/16 08:59 09/08/16 10:08 Hydralazine HCl (Apresoline) 50 mg Q8HR ORAL 09/03/16 14:00 10/03/16 13:59 09/08/16 06:08 Insulin Aspart (NovoLOG) BEFORE MEALS AND HS SUBQ 09/03/16 06:30 10/03/16 06:29 09/08/16 06:09 Insulin Detemir (Levemir) 10 units Q24H SUBQ 09/05/16 11:30 10/05/16 11:29 09/08/16 12:26 Lisinopril (Zestril) 10 mg DAILY ORAL 09/03/16 09:00 10/03/16 08:59 09/08/16 10:07 Nitroglycerin (Ntg) 0.4 mg Q5M X 3 DOSES PRN SL Prn Chest Pain 09/03/16 00:45 10/03/16 00:44 Nystatin 1 applic 1 applic THREE TIMES A DAY TOPIC 09/07/16 18:00 10/07/16 17:59 09/08/16 10:28 Ondansetron HCl (Zofran) 4 mg Q6H PRN IVP Nausea & Vomiting 09/03/16 00:45 10/03/16 00:44 09/08/16 12:02 Pantoprazole (Protonix) 40 mg DAILY IVP 09/03/16 12:00 10/03/16 11:59 09/08/16 10:06 Polyethylene Glycol (Miralax) 17 gm HSPRN PRN ORAL Constipation 09/03/16 00:45 10/03/16 00:44 Potassium Phosphate/Sodium Chloride (Potassium Phosphate/Sodium Chloride) 285 ml @ 47.5 mls/hr ONCE ONCE IV 09/08/16 11:00 09/08/16 16:59 Sodium Chloride (NS w/KCl 40mEq) 1,000 ml @ 75 mls/hr [id number] IV 09/05/16 10:30 10/05/16 10:29 09/08/16 05:33 Temazepam (Restoril) 15 mg HSPRN PRN ORAL Insomnia 09/03/16 00:45 09/10/16 00:44 Allergies: Coded Allergies: IODINE (Verified Allergy, Severe, Anaphylaxis, 02/29/12) ROS Limited/Unobtainable: No Constitutional: Reports: no symptoms HEENT: Reports: no symptoms Cardiovascular: Reports: no symptoms Respiratory: Reports: no symptoms Gastrointestinal/Abdominal: Reports: abdominal pain, nausea, vomiting Genitourinary: Reports: no symptoms Neurologic/Psychiatric: Reports: no symptoms Subjective 66 YO F admitted with abdominal pain, nausea and vomiting. Cover for Int Davon- Dr Tadeo. Objective Last Vital Signs Date Time Temp Pulse Resp B/P Pulse Ox O2 Delivery O2 Flow Rate FiO2 09/08/16 11:56 97.6 100 20 124/79 99 Room Air Laboratory Tests Test 09/08/16 05:45 White Blood Count 11.7 K/UL (4.8-10.8) H Red Blood Count 5.22 M/UL (4.20-5.40) Hemoglobin 14.7 G/DL (12.0-16.0) Hematocrit 45.1 % (37.0-47.0) Mean Corpuscular Volume 86 FL (80-99) Mean Corpuscular Hemoglobin 28.2 PG (27.0-31.0) Mean Corpuscular Hemoglobin Concent 32.7 G/DL (32.0-36.0) Red Cell Distribution Width 13.0 % (11.6-14.8) Platelet Count 245 K/UL (150-450) Mean Platelet Volume 11.6 FL (6.5-10.1) H Neutrophils (%) (Auto) 80.4 % (45.0-75.0) H Lymphocytes (%) (Auto) 12.1 % (20.0-45.0) L Monocytes (%) (Auto) 6.9 % (1.0-10.0) Eosinophils (%) (Auto) 0.1 % (0.0-3.0) Basophils (%) (Auto) 0.4 % (0.0-2.0) Sodium Level 143 mEQ/L (135-145) Potassium Level 3.0 mEQ/L (3.4-4.9) L Chloride Level 98 mEQ/L (98-107) Carbon Dioxide Level 27 mEQ/L (20-30) Anion Gap 18 (5-15) H Blood Urea Nitrogen 12 mg/dL (7-23) Creatinine 0.9 mg/dL (0.5-0.9) Estimat Glomerular Filtration Rate > 60 mL/min (>60) Glucose Level 193 mg/dL (74-106) H Calcium Level 9.3 mg/dL (8.6-10.2) Intake and Output 09/07/16 09/08/16 19:00 07:00 Intake Total 270 ml 675 ml Balance 270 ml 675 ml Intake Oral 120 ml IV Total 150 ml 675 ml # Voids 3 Objective General Appearance: WD/WN, no apparent distress, alert EENT: PERRL/EOMI, normal ENT inspection, TMs normal Neck: non-tender, normal alignment, supple Cardiovascular: normal peripheral pulses, normal rate, regular rhythm, no gallop/murmur, no JVD Respiratory/Chest: chest wall non-tender, lungs clear, normal breath sounds, no respiratory distress, no accessory muscle use Abdomen: normal bowel sounds, soft, no organomegaly, no mass, decreased bowel sounds, guarding, tender Extremities: normal range of motion 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 Cont IV KCL replacement. (2) Esophagitis (3) Gastritis Assessment & Plan: Cont protonix (4) Nausea & vomiting Assessment & Plan: See GI note. Cont reglan and zofran (5) Hypertension Assessment & Plan: cont lisinopril (6) Diabetes mellitus Assessment & Plan: Continue novolog sliding scale. 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
--- NOTE | 2016-09-08 16:28 | Pulmonology Progress Note ---
Assessment/Plan Problems: (1) Abdominal pain of unknown etiology (2) Gastritis (3) Peripheral vascular disease (4) Diabetes mellitus (5) Malingering Assessment/Plan advance diet as tolerated supplement electrolytes check labs in am all notes and meds reviewed. ct head negative gastric emptying studies narcotics were decreased, pt is not happy Subjective ROS Limited/Unobtainable: No Constitutional: Reports: no symptoms HEENT: Repors: no symptoms Respiratory: Reports: no symptoms Allergies: Coded Allergies: IODINE (Verified Allergy, Severe, Anaphylaxis, 02/29/12) Objective Last 24 Hour Vital Signs Date Time Temp Pulse Resp B/P Pulse Ox O2 Delivery O2 Flow Rate FiO2 09/08/16 13:42 124/79 09/08/16 11:56 97.6 100 20 124/79 99 Room Air 09/08/16 10:07 94 133/68 09/08/16 10:07 133/68 09/08/16 06:08 133/68 09/08/16 04:38 98.1 94 17 133/68 97 Room Air 09/07/16 23:42 98.1 91 17 130/69 96 Room Air 09/07/16 20:43 170/88 09/07/16 20:00 98.1 91 18 170/88 95 Room Air Intake and Output 09/07/16 09/08/16 19:00 07:00 Intake Total 270 ml 675 ml Balance 270 ml 675 ml Intake Oral 120 ml IV Total 150 ml 675 ml # Voids 3 General Appearance: WD/WN HEENT: normocephalic, atraumatic Respiratory/Chest: chest wall non-tender, lungs clear, normal breath sounds Breasts: no masses Cardiovascular: normal peripheral pulses, normal rate Abdomen: normal bowel sounds, soft, non tender, no mass Laboratory Tests 09/08/16 05:45: White Blood Count 11.7H, Red Blood Count 5.22, Hemoglobin 14.7, Hematocrit 45.1 , Mean Corpuscular Volume 86, Mean Corpuscular Hemoglobin 28.2, Mean Corpuscular Hemoglobin Concent 32.7, Red Cell Distribution Width 13.0, Platelet Count 245, Mean Platelet Volume 11.6H, Neutrophils (%) (Auto) 80.4H, Lymphocytes (%) (Auto) 12.1L, Monocytes (%) (Auto) 6.9, Eosinophils (%) (Auto) 0.1, Basophils (%) (Auto) 0.4, Sodium Level 143, Potassium Level 3.0L, Chloride Level 98, Carbon Dioxide Level 27, Anion Gap 18H, Blood Urea Nitrogen 12, Creatinine 0.9, Estimat Glomerular Filtration Rate > 60, Glucose Level 193H, Calcium Level 9.3 Current Medications Medications (Trade) Dose Ordered Sig/[place] Route PRN Reason Start Time Stop Time Status Last Admin Dose Admin Acetaminophen (Tylenol) 650 mg Q4H PRN ORAL fever 09/03/16 00:45 10/03/16 00:44 09/08/16 10:29 Acetaminophen/ Hydrocodone Bitart 1 ea 1 ea Q4H PRN ORAL Severe Pain (Pain Scale 7-10) 09/08/16 13:15 09/15/16 13:14 Acetaminophen/ Hydrocodone Bitart ([place] 5/325) 1 tab Q4H PRN ORAL Moderate Pain (Pain Scale 4-6) 09/08/16 13:15 09/15/16 13:14 09/08/16 13:42 Al Hydroxide/Mg Hydroxide (Mylanta II) 30 ml Q6H PRN ORAL dyspepsia 09/03/16 00:45 10/03/16 00:44 Amlodipine Besylate (Norvasc) 5 mg DAILY ORAL 09/03/16 12:00 10/03/16 11:59 09/08/16 10:07 Aspirin (ASA) 325 mg DAILY ORAL 09/03/16 09:00 10/03/16 08:59 09/08/16 10:07 Clonidine HCl (Catapres) 0.1 mg Q6H PRN ORAL SBP>160 09/03/16 11:00 10/03/16 10:59 09/05/16 12:32 Dextrose (Dextrose 50%) STAT PRN IV Hypoglycemia 09/03/16 00:45 10/03/16 00:44 Diphenhydramine HCl (Benadryl) 25 mg Q6H PRN ORAL Itching/Pruritis 09/03/16 00:45 10/03/16 00:44 Duloxetine HCl 30 mg 30 mg DAILY ORAL 09/05/16 09:00 10/05/16 08:59 09/08/16 10:07 Heparin Sodium (Porcine) (Heparin 5000 units/ml) 5,000 units EVERY 12 HOURS SUBQ 09/03/16 09:00 10/03/16 08:59 09/08/16 10:08 Hydralazine HCl (Apresoline) 50 mg Q8HR ORAL 09/03/16 14:00 10/03/16 13:59 09/08/16 13:42 Insulin Aspart (NovoLOG) BEFORE MEALS AND HS SUBQ 09/03/16 06:30 10/03/16 06:29 09/08/16 06:09 Insulin Detemir (Levemir) 10 units Q24H SUBQ 09/05/16 11:30 10/05/16 11:29 09/08/16 12:26 Lisinopril (Zestril) 10 mg DAILY ORAL 09/03/16 09:00 10/03/16 08:59 09/08/16 10:07 Nitroglycerin (Ntg) 0.4 mg Q5M X 3 DOSES PRN SL Prn Chest Pain 09/03/16 00:45 10/03/16 00:44 Nystatin 1 applic 1 applic THREE TIMES A DAY TOPIC 09/07/16 18:00 10/07/16 17:59 09/08/16 13:43 Ondansetron HCl (Zofran) 8 mg Q6H PRN IVP Nausea & Vomiting 09/08/16 14:00 10/08/16 13:59 Pantoprazole (Protonix) 40 mg DAILY IVP 09/03/16 12:00 10/03/16 11:59 09/08/16 10:06 Polyethylene Glycol (Miralax) 17 gm HSPRN PRN ORAL Constipation 09/03/16 00:45 10/03/16 00:44 Potassium Phosphate/Sodium Chloride (Potassium Phosphate/Sodium Chloride) 285 ml @ 47.5 mls/hr ONCE ONCE IV 09/08/16 11:00 09/08/16 16:59 09/08/16 13:43 Potassium Chloride (KCl 10mEq/100ml Premix) 100 ml @ 100 mls/hr Q1HR IVPB 09/08/16 17:00 09/08/16 18:59 Sodium Chloride (NS w/KCl 40mEq) 1,000 ml @ 75 mls/hr [id number] IV 09/05/16 10:30 10/05/16 10:29 09/08/16 05:33 Temazepam (Restoril) 15 mg HSPRN PRN ORAL Insomnia 09/03/16 00:45 09/10/16 00:44 FRANCES RIVERA Sep 08, 2016 16:28
[2016-09-08 20:00] VITALS: BP 153/90
--- NOTE | 2016-09-08 23:44 | Geriatric Progress Note ---
Assessment/Plan Assessment/Plan mdd stable cont current meds ro/st Subjective Constitutional: Reports: malaise, weakness Psychiatric: Reports: see HPI Sleep: Reports: doesn't sleep well, sleep aid Geriatric Geriatric Last 24 Hour Vital Signs Date Time Temp Pulse Resp B/P Pulse Ox O2 Delivery O2 Flow Rate FiO2 09/08/16 21:09 153/90 09/08/16 20:00 97.3 106 20 153/90 100 Room Air 09/08/16 13:42 124/79 09/08/16 11:56 97.6 100 20 124/79 99 Room Air 09/08/16 10:07 94 133/68 09/08/16 10:07 133/68 09/08/16 06:08 133/68 09/08/16 04:38 98.1 94 17 133/68 97 Room Air Intake and Output 09/07/16 09/08/16 19:00 07:00 Intake Total 270 ml 675 ml Balance 270 ml 675 ml Intake Oral 120 ml IV Total 150 ml 675 ml # Voids 3 Laboratory Tests Test 09/08/16 05:45 White Blood Count 11.7 K/UL (4.8-10.8) H Red Blood Count 5.22 M/UL (4.20-5.40) Hemoglobin 14.7 G/DL (12.0-16.0) Hematocrit 45.1 % (37.0-47.0) Mean Corpuscular Volume 86 FL (80-99) Mean Corpuscular Hemoglobin 28.2 PG (27.0-31.0) Mean Corpuscular Hemoglobin Concent 32.7 G/DL (32.0-36.0) Red Cell Distribution Width 13.0 % (11.6-14.8) Platelet Count 245 K/UL (150-450) Mean Platelet Volume 11.6 FL (6.5-10.1) H Neutrophils (%) (Auto) 80.4 % (45.0-75.0) H Lymphocytes (%) (Auto) 12.1 % (20.0-45.0) L Monocytes (%) (Auto) 6.9 % (1.0-10.0) Eosinophils (%) (Auto) 0.1 % (0.0-3.0) Basophils (%) (Auto) 0.4 % (0.0-2.0) Sodium Level 143 mEQ/L (135-145) Potassium Level 3.0 mEQ/L (3.4-4.9) L Chloride Level 98 mEQ/L (98-107) Carbon Dioxide Level 27 mEQ/L (20-30) Anion Gap 18 (5-15) H Blood Urea Nitrogen 12 mg/dL (7-23) Creatinine 0.9 mg/dL (0.5-0.9) Estimat Glomerular Filtration Rate > 60 mL/min (>60) Glucose Level 193 mg/dL (74-106) H Calcium Level 9.3 mg/dL (8.6-10.2) Current Medications Medications (Trade) Dose Ordered Sig/[place] Route PRN Reason Start Time Stop Time Status Last Admin Dose Admin Acetaminophen (Tylenol) 650 mg Q4H PRN ORAL fever 09/03/16 00:45 10/03/16 00:44 09/08/16 10:29 Acetaminophen/ Hydrocodone Bitart ([place] 10/325) 1 ea Q4H PRN ORAL Severe Pain (Pain Scale 7-10) 09/08/16 13:15 09/15/16 13:14 09/08/16 21:09 Acetaminophen/ Hydrocodone Bitart ([place] 5/325) 1 tab Q4H PRN ORAL Moderate Pain (Pain Scale 4-6) 09/08/16 13:15 09/15/16 13:14 09/08/16 13:42 Al Hydroxide/Mg Hydroxide (Mylanta II) 30 ml Q6H PRN ORAL dyspepsia 09/03/16 00:45 10/03/16 00:44 Amlodipine Besylate (Norvasc) 5 mg DAILY ORAL 09/03/16 12:00 10/03/16 11:59 09/08/16 10:07 Aspirin (ASA) 325 mg DAILY ORAL 09/03/16 09:00 10/03/16 08:59 09/08/16 10:07 Clonidine HCl (Catapres) 0.1 mg Q6H PRN ORAL SBP>160 09/03/16 11:00 10/03/16 10:59 09/05/16 12:32 Dextrose (Dextrose 50%) STAT PRN IV Hypoglycemia 09/03/16 00:45 10/03/16 00:44 Diphenhydramine HCl (Benadryl) 25 mg Q6H PRN ORAL Itching/Pruritis 09/03/16 00:45 10/03/16 00:44 Duloxetine HCl 30 mg 30 mg DAILY ORAL 09/05/16 09:00 10/05/16 08:59 09/08/16 10:07 Heparin Sodium (Porcine) (Heparin 5000 units/ml) 5,000 units EVERY 12 HOURS SUBQ 09/03/16 09:00 10/03/16 08:59 09/08/16 19:58 Hydralazine HCl (Apresoline) 50 mg Q8HR ORAL 09/03/16 14:00 10/03/16 13:59 09/08/16 21:09 Insulin Aspart (NovoLOG) BEFORE MEALS AND HS SUBQ 09/03/16 06:30 10/03/16 06:29 09/08/16 21:10 Insulin Detemir (Levemir) 10 units Q24H SUBQ 09/05/16 11:30 10/05/16 11:29 09/08/16 12:26 Lisinopril (Zestril) 10 mg DAILY ORAL 09/03/16 09:00 10/03/16 08:59 09/08/16 10:07 Nitroglycerin (Ntg) 0.4 mg Q5M X 3 DOSES PRN SL Prn Chest Pain 09/03/16 00:45 10/03/16 00:44 Nystatin (Nystop Powder) 1 applic THREE TIMES A DAY TOPIC 09/07/16 18:00 10/07/16 17:59 09/08/16 18:00 Ondansetron HCl (Zofran) 8 mg Q6H PRN IVP Nausea & Vomiting 09/08/16 14:00 10/08/16 13:59 09/08/16 19:56 Pantoprazole (Protonix) 40 mg DAILY IVP 09/03/16 12:00 10/03/16 11:59 09/08/16 10:06 Polyethylene Glycol (Miralax) 17 gm HSPRN PRN ORAL Constipation 09/03/16 00:45 10/03/16 00:44 Sodium Chloride (NS w/KCl 40mEq) 1,000 ml @ 75 mls/hr [id number] IV 09/05/16 10:30 10/05/16 10:29 09/08/16 19:27 Temazepam (Restoril) 15 mg HSPRN PRN ORAL Insomnia 09/03/16 00:45 09/10/16 00:44 Height (Feet): 5 Height (Inches): 5.00 Weight (Pounds): 224 General Appearance: well appearing, well dressed, well groomed, alert, good eye contact, appears stated age Psychiatric Behavior: cooperative Language/Speech: intact Orientation: person, place, time, situation Affect: appropriate, restricted Insight: Bronson Davies M.D. Sep 08, 2016 23:44
[2016-09-08] MEDS ORDERED: traMADol 50mg tab ORAL PRN (23:45)
[2016-09-09] VITALS: BP 128/74
[2016-09-09] MEDS: traMADol 50mg tab ORAL PRN (03:09)
[2016-09-09 04:00] VITALS: BP 139/86
[2016-09-09] MEDS: HydrALAZINE 50mg tab ORAL SCH ×3 (06:18→22:18)
[2016-09-09 06:20] LABS: BASOPHILS % (AUTO) 0.3 % (0.0-2.0); EOSINOPHILS % (AUTO) 0.1 % (0.0-3.0); LYMPHOCYTES % (AUTO) 11.6 % (20.0-45.0); MEAN CORPUSCULAR HEMOGLOBIN 28.4 PG (27.0-31.0); MEAN CORPUSCULAR HGB CONC 32.8 G/DL (32.0-36.0); MEAN CORPUSCULAR VOLUME 87 FL (80-99); MEAN PLATELET VOLUME 11.4 FL (6.5-10.1); MONOCYTES % (AUTO) 6.9 % (1.0-10.0); NEUTROPHILS % (AUTO) 81.1 % (45.0-75.0); PLATELET COUNT 222 K/UL (150-450); RED BLOOD COUNT 4.94 M/UL (4.20-5.40); RED CELL DISTRIBUTION WIDTH 13.1 % (11.6-14.8); WHITE BLOOD COUNT 11.6 K/UL (4.8-10.8)
[2016-09-09] MEDS: NovoLOG Insulin Flexpen SUBQ SCH ×4 (06:20→21:32)
[2016-09-09] MEDS: NS w/KCl 40mEq 1,000 ML IV SCH ×2 (06:26→21:30)
[2016-09-09 06:47] LABS: ANION GAP 13 (5-15); CARBON DIOXIDE 29 mEQ/L (20-30); CHLORIDE 98 mEQ/L (98-107); CREATININE 0.7 mg/dL (0.5-0.9); GLOMERULAR FILTRATION RATE > 60 mL/min (>60); HEMOLYSIS 2; POTASSIUM 3.2 mEQ/L (3.4-4.9); SODIUM 140 mEQ/L (135-145)
[2016-09-09] MEDS: DULoxetine 30mg cap ORAL SCH (09:45)
[2016-09-09] MEDS: Pantoprazole Inj IVP SCH (09:45)
[2016-09-09] MEDS: Lisinopril 10mg tab ORAL SCH (09:46)
[2016-09-09] MEDS: Heparin 5000 units/ml inj SUBQ SCH ×2 (09:47→21:33)
[2016-09-09] MEDS: Nystatin Powder 100,000 units/gm 15gm TOPIC SCH ×4 (09:48→17:26)
[2016-09-09] MEDS: Levemir Flexpen SUBQ SCH (12:18)
--- NOTE | 2016-09-09 12:18 | GI Progress Note ---
Assessment/Plan Problems: (1) Nausea & vomiting ICD Codes: R11.2 - Nausea with vomiting, unspecified SNOMED: 50137059 Qualifiers: Qualified Codes: R11.2 - Nausea with vomiting, unspecified (2) Gastritis ICD Codes: K29.70 - Gastritis, unspecified, without bleeding SNOMED: 8588426 (3) Esophagitis ICD Codes: K20.9 - Esophagitis, unspecified SNOMED: 80516939 (4) Dehydration ICD Codes: E86.0 - Dehydration SNOMED: 68131304 Status: stable Status Narrative Discussed with Dr. Alvares. Assessment/Plan S/P EGD SUMMARY 1. Distal esophagitis, minimum. 2. Gastritis status post biopsy >> negative for H. Pylori Head CT >> unremarkable ? cause for N/V >> recommend psych evaluation SBFT r/o partial SBO NM gastric Empty Study pending >> hold reglan 10mg, ok to resume after study adv to FLD dc opiates increase zofran add compazine repeat labs may need colonoscopy Subjective Subjective emesis Objective Last 24 Hour Vital Signs Date Time Temp Pulse Resp B/P Pulse Ox O2 Delivery O2 Flow Rate FiO2 09/09/16 09:46 98 139/86 09/09/16 09:46 139/86 09/09/16 06:18 139/86 09/09/16 04:00 98.1 98 20 139/86 97 Room Air 09/09/16 00:00 97.3 97 20 128/74 97 Room Air 09/08/16 21:09 153/90 09/08/16 20:00 97.3 106 20 153/90 100 Room Air 09/08/16 13:42 124/79 Intake and Output 09/08/16 09/09/16 19:00 07:00 Intake Total 900 ml 705 ml Balance 900 ml 705 ml Intake Oral 900 ml 180 ml IV Total 525 ml # Voids 4 2 Laboratory Tests Test 09/09/16 04:40 White Blood Count 11.6 K/UL (4.8-10.8) H Red Blood Count 4.94 M/UL (4.20-5.40) Hemoglobin 14.0 G/DL (12.0-16.0) Hematocrit 42.7 % (37.0-47.0) Mean Corpuscular Volume 87 FL (80-99) Mean Corpuscular Hemoglobin 28.4 PG (27.0-31.0) Mean Corpuscular Hemoglobin Concent 32.8 G/DL (32.0-36.0) Red Cell Distribution Width 13.1 % (11.6-14.8) Platelet Count 222 K/UL (150-450) Mean Platelet Volume 11.4 FL (6.5-10.1) H Neutrophils (%) (Auto) 81.1 % (45.0-75.0) H Lymphocytes (%) (Auto) 11.6 % (20.0-45.0) L Monocytes (%) (Auto) 6.9 % (1.0-10.0) Eosinophils (%) (Auto) 0.1 % (0.0-3.0) Basophils (%) (Auto) 0.3 % (0.0-2.0) Sodium Level 140 mEQ/L (135-145) Potassium Level 3.2 mEQ/L (3.4-4.9) L Chloride Level 98 mEQ/L (98-107) Carbon Dioxide Level 29 mEQ/L (20-30) Anion Gap 13 (5-15) Blood Urea Nitrogen 9 mg/dL (7-23) Creatinine 0.7 mg/dL (0.5-0.9) Estimat Glomerular Filtration Rate > 60 mL/min (>60) Glucose Level 198 mg/dL (74-106) H Calcium Level 9.0 mg/dL (8.6-10.2) Height (Feet): 5 Height (Inches): 5.00 Weight (Pounds): 224 General Appearance: no apparent distress, alert, overweight Cardiovascular: normal rate Respiratory/Chest: normal breath sounds Abdominal Exam: normal bowel sounds, non tender, soft Extremities: normal range of motion Mariam Barbosa NAudra Sep 09, 2016 12:18
[2016-09-09 16:07] VITALS: BP 140/60
[2016-09-09] MEDS ORDERED: Tubing IV Secondary IV ONE (17:33)
--- NOTE | 2016-09-09 18:47 | Pulmonology Progress Note ---
Assessment/Plan Problems: (1) Abdominal pain of unknown etiology (2) Gastritis (3) Peripheral vascular disease (4) Diabetes mellitus (5) Malingering Assessment/Plan advance diet as tolerated supplement electrolytes check labs in am all notes and meds reviewed. ct head negative avoid narcotics EGD report reviewed Subjective ROS Limited/Unobtainable: No Constitutional: Reports: no symptoms HEENT: Repors: no symptoms Allergies: Coded Allergies: IODINE (Verified Allergy, Severe, Anaphylaxis, 02/29/12) Objective Last 24 Hour Vital Signs Date Time Temp Pulse Resp B/P Pulse Ox O2 Delivery O2 Flow Rate FiO2 09/09/16 16:07 98.8 103 19 140/60 96 Room Air 09/09/16 13:56 139/86 09/09/16 09:46 98 139/86 09/09/16 09:46 139/86 09/09/16 06:18 139/86 09/09/16 04:00 98.1 98 20 139/86 97 Room Air 09/09/16 00:00 97.3 97 20 128/74 97 Room Air 09/08/16 21:09 153/90 09/08/16 20:00 97.3 106 20 153/90 100 Room Air Intake and Output 09/08/16 09/09/16 19:00 07:00 Intake Total 900 ml 705 ml Balance 900 ml 705 ml Intake Oral 900 ml 180 ml IV Total 525 ml # Voids 4 2 General Appearance: WD/WN HEENT: normocephalic, atraumatic Respiratory/Chest: chest wall non-tender, normal breath sounds Cardiovascular: normal peripheral pulses, normal rate Abdomen: normal bowel sounds, no organomegaly Genitourinary: normal external genitalia Extremities: no cyanosis Laboratory Tests 09/09/16 04:40: White Blood Count 11.6H, Red Blood Count 4.94, Hemoglobin 14.0, Hematocrit 42.7 , Mean Corpuscular Volume 87, Mean Corpuscular Hemoglobin 28.4, Mean Corpuscular Hemoglobin Concent 32.8, Red Cell Distribution Width 13.1, Platelet Count 222, Mean Platelet Volume 11.4H, Neutrophils (%) (Auto) 81.1H, Lymphocytes (%) (Auto) 11.6L, Monocytes (%) (Auto) 6.9, Eosinophils (%) (Auto) 0.1, Basophils (%) (Auto) 0.3, Sodium Level 140, Potassium Level 3.2L, Chloride Level 98, Carbon Dioxide Level 29, Anion Gap 13, Blood Urea Nitrogen 9, Creatinine 0.7, Estimat Glomerular Filtration Rate > 60, Glucose Level 198H, Calcium Level 9.0 Current Medications Medications (Trade) Dose Ordered Sig/[place] Route PRN Reason Start Time Stop Time Status Last Admin Dose Admin Acetaminophen (Tylenol) 650 mg Q4H PRN ORAL fever 09/03/16 00:45 10/03/16 00:44 09/08/16 10:29 Acetaminophen/ Hydrocodone Bitart ([place] 5/325) 1 tab Q4H PRN ORAL Moderate Pain (Pain Scale 4-6) 09/08/16 13:15 09/15/16 13:14 09/08/16 13:42 Al Hydroxide/Mg Hydroxide (Mylanta II) 30 ml Q6H PRN ORAL dyspepsia 09/03/16 00:45 10/03/16 00:44 Amlodipine Besylate (Norvasc) 5 mg DAILY ORAL 09/03/16 12:00 10/03/16 11:59 09/09/16 09:46 Aspirin (ASA) 325 mg DAILY ORAL 09/03/16 09:00 10/03/16 08:59 09/09/16 09:45 Clonidine HCl (Catapres) 0.1 mg Q6H PRN ORAL SBP>160 09/03/16 11:00 10/03/16 10:59 09/05/16 12:32 Dextrose (Dextrose 50%) STAT PRN IV Hypoglycemia 09/03/16 00:45 10/03/16 00:44 Diphenhydramine HCl (Benadryl) 25 mg Q6H PRN ORAL Itching/Pruritis 09/03/16 00:45 10/03/16 00:44 Duloxetine HCl 30 mg 30 mg DAILY ORAL 09/05/16 09:00 10/05/16 08:59 09/09/16 09:45 Heparin Sodium (Porcine) (Heparin 5000 units/ml) 5,000 units EVERY 12 HOURS SUBQ 09/03/16 09:00 10/03/16 08:59 09/09/16 09:47 Hydralazine HCl (Apresoline) 50 mg Q8HR ORAL 09/03/16 14:00 10/03/16 13:59 7/27/17 13:56 Insulin Aspart (NovoLOG) BEFORE MEALS AND HS SUBQ 09/03/16 06:30 10/03/16 06:29 09/09/16 17:23 Insulin Detemir (Levemir) 10 units Q24H SUBQ 09/05/16 11:30 10/05/16 11:29 09/09/16 12:18 Lisinopril (Zestril) 10 mg DAILY ORAL 09/03/16 09:00 10/03/16 08:59 09/09/16 09:46 Nitroglycerin (Ntg) 0.4 mg Q5M X 3 DOSES PRN SL Prn Chest Pain 09/03/16 00:45 10/03/16 00:44 Nystatin (Nystop Powder) 1 applic THREE TIMES A DAY TOPIC 09/07/16 18:00 10/07/16 17:59 09/09/16 13:56 Ondansetron HCl (Zofran) 8 mg Q6H PRN IVP Nausea & Vomiting 09/08/16 14:00 10/08/16 13:59 09/09/16 03:10 Pantoprazole (Protonix) 40 mg DAILY IVP 09/03/16 12:00 10/03/16 11:59 09/09/16 09:45 Polyethylene Glycol (Miralax) 17 gm HSPRN PRN ORAL Constipation 09/03/16 00:45 10/03/16 00:44 Prochlorperazine (Compazine) 10 mg Q6H IVP 09/09/16 11:00 10/09/16 10:59 09/09/16 17:22 Sodium Chloride (NS w/KCl 40mEq) 1,000 ml @ 75 mls/hr [id number] IV 09/05/16 10:30 10/05/16 10:29 09/09/16 06:26 Temazepam (Restoril) 15 mg HSPRN PRN ORAL Insomnia 09/03/16 00:45 09/10/16 00:44 Tramadol HCl (Ultram) 50 mg Q6H PRN ORAL Severe Pain (Pain Scale 7-10) 09/09/16 00:41 09/16/16 00:40 09/09/16 03:09 FRANCES RIVERA Sep 09, 2016 18:46
--- NOTE | 2016-09-09 19:22 | Internal Med Progress Note ---
Subjective Date of Service: Sep 09, 2016 Physician Name David Irizarry Attending Physician Abhilash Tadeo MD Current Medications Medications (Trade) Dose Ordered Sig/[place] Route PRN Reason Start Time Stop Time Status Last Admin Dose Admin Acetaminophen (Tylenol) 650 mg Q4H PRN ORAL fever 09/03/16 00:45 10/03/16 00:44 09/08/16 10:29 Acetaminophen/ Hydrocodone Bitart ([place] 5/325) 1 tab Q4H PRN ORAL Moderate Pain (Pain Scale 4-6) 09/08/16 13:15 09/15/16 13:14 09/08/16 13:42 Al Hydroxide/Mg Hydroxide (Mylanta II) 30 ml Q6H PRN ORAL dyspepsia 09/03/16 00:45 10/03/16 00:44 Amlodipine Besylate (Norvasc) 5 mg DAILY ORAL 09/03/16 12:00 10/03/16 11:59 09/09/16 09:46 Aspirin (ASA) 325 mg DAILY ORAL 09/03/16 09:00 10/03/16 08:59 09/09/16 09:45 Clonidine HCl (Catapres) 0.1 mg Q6H PRN ORAL SBP>160 09/03/16 11:00 10/03/16 10:59 09/05/16 12:32 Dextrose (Dextrose 50%) STAT PRN IV Hypoglycemia 09/03/16 00:45 10/03/16 00:44 Diphenhydramine HCl (Benadryl) 25 mg Q6H PRN ORAL Itching/Pruritis 09/03/16 00:45 10/03/16 00:44 Duloxetine HCl 30 mg 30 mg DAILY ORAL 09/05/16 09:00 10/05/16 08:59 09/09/16 09:45 Heparin Sodium (Porcine) (Heparin 5000 units/ml) 5,000 units EVERY 12 HOURS SUBQ 09/03/16 09:00 10/03/16 08:59 09/09/16 09:47 Hydralazine HCl (Apresoline) 50 mg Q8HR ORAL 09/03/16 14:00 10/03/16 13:59 09/09/16 13:56 Insulin Aspart (NovoLOG) BEFORE MEALS AND HS SUBQ 09/03/16 06:30 10/03/16 06:29 09/09/16 17:23 Insulin Detemir (Levemir) 10 units Q24H SUBQ 09/05/16 11:30 10/05/16 11:29 09/09/16 12:18 Lisinopril (Zestril) 10 mg DAILY ORAL 09/03/16 09:00 10/03/16 08:59 09/09/16 09:46 Nitroglycerin (Ntg) 0.4 mg Q5M X 3 DOSES PRN SL Prn Chest Pain 09/03/16 00:45 10/03/16 00:44 Nystatin (Nystop Powder) 1 applic THREE TIMES A DAY TOPIC 09/07/16 18:00 10/07/16 17:59 09/09/16 13:56 Ondansetron HCl (Zofran) 8 mg Q6H PRN IVP Nausea & Vomiting 09/08/16 14:00 10/08/16 13:59 09/09/16 03:10 Pantoprazole (Protonix) 40 mg DAILY IVP 09/03/16 12:00 10/03/16 11:59 09/09/16 09:45 Polyethylene Glycol (Miralax) 17 gm HSPRN PRN ORAL Constipation 09/03/16 00:45 10/03/16 00:44 Prochlorperazine (Compazine) 10 mg Q6H IVP 09/09/16 11:00 10/09/16 10:59 09/09/16 17:22 Sodium Chloride (NS w/KCl 40mEq) 1,000 ml @ 75 mls/hr [id number] IV 09/05/16 10:30 10/05/16 10:29 09/09/16 06:26 Temazepam (Restoril) 15 mg HSPRN PRN ORAL Insomnia 09/03/16 00:45 09/10/16 00:44 Tramadol HCl (Ultram) 50 mg Q6H PRN ORAL Severe Pain (Pain Scale 7-10) 09/09/16 00:41 09/16/16 00:40 09/09/16 03:09 Allergies: Coded Allergies: IODINE (Verified Allergy, Severe, Anaphylaxis, 02/29/12) ROS Limited/Unobtainable: No Constitutional: Reports: no symptoms HEENT: Reports: no symptoms Cardiovascular: Reports: no symptoms Respiratory: Reports: no symptoms Gastrointestinal/Abdominal: Reports: nausea, vomiting Genitourinary: Reports: no symptoms Neurologic/Psychiatric: Reports: no symptoms Subjective 66 YO F admitted with abdominal pain, nausea and vomiting. Cover for Int Med- Dr Tadeo. Nausea and vomiting improving today Objective Last Vital Signs Date Time Temp Pulse Resp B/P Pulse Ox O2 Delivery O2 Flow Rate FiO2 09/09/16 16:07 98.8 103 19 140/60 96 Room Air Laboratory Tests Test 09/09/16 04:40 White Blood Count 11.6 K/UL (4.8-10.8) H Red Blood Count 4.94 M/UL (4.20-5.40) Hemoglobin 14.0 G/DL (12.0-16.0) Hematocrit 42.7 % (37.0-47.0) Mean Corpuscular Volume 87 FL (80-99) Mean Corpuscular Hemoglobin 28.4 PG (27.0-31.0) Mean Corpuscular Hemoglobin Concent 32.8 G/DL (32.0-36.0) Red Cell Distribution Width 13.1 % (11.6-14.8) Platelet Count 222 K/UL (150-450) Mean Platelet Volume 11.4 FL (6.5-10.1) H Neutrophils (%) (Auto) 81.1 % (45.0-75.0) H Lymphocytes (%) (Auto) 11.6 % (20.0-45.0) L Monocytes (%) (Auto) 6.9 % (1.0-10.0) Eosinophils (%) (Auto) 0.1 % (0.0-3.0) Basophils (%) (Auto) 0.3 % (0.0-2.0) Sodium Level 140 mEQ/L (135-145) Potassium Level 3.2 mEQ/L (3.4-4.9) L Chloride Level 98 mEQ/L (98-107) Carbon Dioxide Level 29 mEQ/L (20-30) Anion Gap 13 (5-15) Blood Urea Nitrogen 9 mg/dL (7-23) Creatinine 0.7 mg/dL (0.5-0.9) Estimat Glomerular Filtration Rate > 60 mL/min (>60) Glucose Level 198 mg/dL (74-106) H Calcium Level 9.0 mg/dL (8.6-10.2) Intake and Output 09/08/16 09/09/16 19:00 07:00 Intake Total 900 ml 705 ml Balance 900 ml 705 ml Intake Oral 900 ml 180 ml IV Total 525 ml # Voids 4 2 Objective General Appearance: WD/WN, no apparent distress, alert EENT: PERRL/EOMI, normal ENT inspection, TMs normal Neck: non-tender, normal alignment, supple Cardiovascular: normal peripheral pulses, normal rate, regular rhythm, no gallop/murmur, no JVD Respiratory/Chest: chest wall non-tender, lungs clear, normal breath sounds, no respiratory distress, no accessory muscle use Abdomen: normal bowel sounds, soft, no organomegaly, no mass, decreased bowel sounds, guarding, tender Extremities: normal range of motion 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 Cont IV KCL replacement. (2) Esophagitis (3) Gastritis Assessment & Plan: Cont protonix (4) Nausea & vomiting Assessment & Plan: Improving. See GI note. Cont compazine. (5) Hypertension Assessment & Plan: cont lisinopril (6) Diabetes mellitus Assessment & Plan: Continue novolog sliding scale. 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
[2016-09-09 21:00] VITALS: BP 108/58
[2016-09-10] VITALS (7 sets, daily range): BP systolic 108–128; BP diastolic 50–73
[2016-09-10 05:07] LABS: ANION GAP 10 (5-15); CALCIUM 8.4 mg/dL (8.6-10.2); CARBON DIOXIDE 29 mEQ/L (20-30); CHLORIDE 99 mEQ/L (98-107); CREATININE 1.1 mg/dL (0.5-0.9); GLOMERULAR FILTRATION RATE > 60 mL/min (>60); HEMOLYSIS 3; POTASSIUM 3.5 mEQ/L (3.4-4.9); SODIUM 138 mEQ/L (135-145)
[2016-09-10] MEDS: NovoLOG Insulin Flexpen SUBQ SCH ×4 (05:50→22:21)
[2016-09-10] MEDS: HydrALAZINE 50mg tab ORAL SCH ×4 (05:57→22:20)
[2016-09-10 06:25] LABS: BASOPHILS % (AUTO) 0.3 % (0.0-2.0); EOSINOPHILS % (AUTO) 0.2 % (0.0-3.0); LYMPHOCYTES % (AUTO) 9.8 % (20.0-45.0); MEAN CORPUSCULAR HEMOGLOBIN 30.3 PG (27.0-31.0); MEAN CORPUSCULAR HGB CONC 34.3 G/DL (32.0-36.0); MEAN CORPUSCULAR VOLUME 88 FL (80-99); MEAN PLATELET VOLUME 10.8 FL (6.5-10.1); MONOCYTES % (AUTO) 7.1 % (1.0-10.0); NEUTROPHILS % (AUTO) 82.6 % (45.0-75.0); PLATELET COUNT 177 K/UL (150-450); RED BLOOD COUNT 4.07 M/UL (4.20-5.40); RED CELL DISTRIBUTION WIDTH 13.4 % (11.6-14.8); WHITE BLOOD COUNT 12.1 K/UL (4.8-10.8)
[2016-09-10] MEDS: DULoxetine 30mg cap ORAL SCH (09:00)
[2016-09-10] MEDS: Lisinopril 10mg tab ORAL SCH (09:00)
[2016-09-10] MEDS: Pantoprazole Inj IVP SCH ×2 (09:15→09:49)
[2016-09-10] MEDS: Heparin 5000 units/ml inj SUBQ SCH ×2 (09:17→22:22)
[2016-09-10] MEDS: Nystatin Powder 100,000 units/gm 15gm TOPIC SCH ×3 (09:18→19:01)
[2016-09-10] MEDS: NS w/KCl 40mEq 1,000 ML IV SCH ×2 (10:30→23:50)
[2016-09-10] MEDS: Levemir Flexpen SUBQ SCH (11:48)
--- NOTE | 2016-09-10 12:15 | GI Progress Note ---
Assessment/Plan Problems: (1) Nausea & vomiting ICD Codes: R11.2 - Nausea with vomiting, unspecified SNOMED: 16853600 Qualifiers: Qualified Codes: R11.2 - Nausea with vomiting, unspecified (2) Gastritis ICD Codes: K29.70 - Gastritis, unspecified, without bleeding SNOMED: 0018925 (3) Esophagitis ICD Codes: K20.9 - Esophagitis, unspecified SNOMED: 95517241 (4) Dehydration ICD Codes: E86.0 - Dehydration SNOMED: 38119980 Status: stable Status Narrative Discussed with Dr. Alvares. Assessment/Plan S/P EGD SUMMARY 1. Distal esophagitis, minimum. 2. Gastritis status post biopsy >> negative for H. Pylori Head CT >> unremarkable ? cause for N/V >> recommend psych evaluation SBFT r/o partial SBO NM gastric Empty Study today >> hold reglan 10mg, ok to resume after study adv to FLD dc opiates increase zofran cont compazine repeat labs may need colonoscopy Subjective Subjective continues to have emesis Objective Last 24 Hour Vital Signs Date Time Temp Pulse Resp B/P Pulse Ox O2 Delivery O2 Flow Rate FiO2 09/10/16 09:00 92 121/75 09/10/16 09:00 121/75 09/10/16 08:15 97.0 101 15 121/73 94 Room Air 09/10/16 05:57 136/71 09/10/16 04:00 97.9 92 20 127/66 Room Air 09/10/16 00:00 97.7 89 19 108/72 96 Room Air 09/09/16 22:18 110/65 09/09/16 21:00 97.7 102 19 108/58 96 Nasal Cannula 09/09/16 16:07 98.8 103 19 140/60 96 Room Air 09/09/16 13:56 139/86 Intake and Output 09/09/16 09/10/16 19:00 07:00 Intake Total 1665 ml 675 ml Output Total 350 ml Balance 1315 ml 675 ml Intake Oral 690 ml IV Total 975 ml 675 ml Output Urine Total 300 ml Emesis 50 ml # Voids 2 1 Laboratory Tests Test 09/10/16 04:15 White Blood Count 12.1 K/UL (4.8-10.8) H Red Blood Count 4.07 M/UL (4.20-5.40) L Hemoglobin 12.4 G/DL (12.0-16.0) Hematocrit 36.0 % (37.0-47.0) L Mean Corpuscular Volume 88 FL (80-99) Mean Corpuscular Hemoglobin 30.3 PG (27.0-31.0) Mean Corpuscular Hemoglobin Concent 34.3 G/DL (32.0-36.0) Red Cell Distribution Width 13.4 % (11.6-14.8) Platelet Count 177 K/UL (150-450) Mean Platelet Volume 10.8 FL (6.5-10.1) H Neutrophils (%) (Auto) 82.6 % (45.0-75.0) H Lymphocytes (%) (Auto) 9.8 % (20.0-45.0) L Monocytes (%) (Auto) 7.1 % (1.0-10.0) Eosinophils (%) (Auto) 0.2 % (0.0-3.0) Basophils (%) (Auto) 0.3 % (0.0-2.0) Sodium Level 138 mEQ/L (135-145) Potassium Level 3.5 mEQ/L (3.4-4.9) Chloride Level 99 mEQ/L (98-107) Carbon Dioxide Level 29 mEQ/L (20-30) Anion Gap 10 (5-15) Blood Urea Nitrogen 20 mg/dL (7-23) Creatinine 1.1 mg/dL (0.5-0.9) #H Estimat Glomerular Filtration Rate > 60 mL/min (>60) Glucose Level 313 mg/dL (74-106) #H Calcium Level 8.4 mg/dL (8.6-10.2) L Height (Feet): 5 Height (Inches): 5.00 Weight (Pounds): 224 General Appearance: no apparent distress, alert, overweight Cardiovascular: normal rate Respiratory/Chest: normal breath sounds, no respiratory distress Abdominal Exam: normal bowel sounds, non tender, soft Extremities: normal range of motion Mariam Barbosa N.Humberto Sep 10, 2016 12:15
--- NOTE | 2016-09-10 13:53 | General Progress Note ---
Assessment/Plan Status: stable, progressing Assessment/Plan mdd recurrent mod - increase antidepressant. Subjective Constitutional: Reports: malaise, weakness Neurologic/Psychiatric: Reports: anxiety, depressed, emotional problems, headache Allergies: Coded Allergies: IODINE (Verified Allergy, Severe, Anaphylaxis, 02/29/12) Subjective poor sleep poor appetite depressed. Objective Last 24 Hour Vital Signs Date Time Temp Pulse Resp B/P Pulse Ox O2 Delivery O2 Flow Rate FiO2 09/10/16 13:12 97.9 12 121/50 97 Room Air 09/10/16 09:00 92 121/75 09/10/16 09:00 121/75 09/10/16 08:15 97.0 101 15 121/73 94 Room Air 09/10/16 05:57 136/71 09/10/16 04:00 97.9 92 20 127/66 Room Air 09/10/16 00:00 97.7 89 19 108/72 96 Room Air 09/09/16 22:18 110/65 09/09/16 21:00 97.7 102 19 108/58 96 Nasal Cannula 09/09/16 16:07 98.8 103 19 140/60 96 Room Air 09/09/16 13:56 139/86 Intake and Output 09/09/16 09/10/16 19:00 07:00 Intake Total 1665 ml 675 ml Output Total 350 ml Balance 1315 ml 675 ml Intake Oral 690 ml IV Total 975 ml 675 ml Output Urine Total 300 ml Emesis 50 ml # Voids 2 1 Laboratory Tests 09/10/16 04:15: White Blood Count 12.1H, Red Blood Count 4.07L, Hemoglobin 12.4, Hematocrit 36.0L, Mean Corpuscular Volume 88, Mean Corpuscular Hemoglobin 30.3, Mean Corpuscular Hemoglobin Concent 34.3, Red Cell Distribution Width 13.4, Platelet Count 177, Mean Platelet Volume 10.8H, Neutrophils (%) (Auto) 82.6H, Lymphocytes (%) (Auto) 9.8L, Monocytes (%) (Auto) 7.1, Eosinophils (%) (Auto) 0.2, Basophils (%) (Auto) 0.3, Sodium Level 138, Potassium Level 3.5, Chloride Level 99, Carbon Dioxide Level 29, Anion Gap 10, Blood Urea Nitrogen 20, Creatinine 1.1#H, Estimat Glomerular Filtration Rate > 60, Glucose Level 313#H, Calcium Level 8.4L Height (Feet): 5 Height (Inches): 5.00 Weight (Pounds): 224 General Appearance: no apparent distress, alert Neurologic: alert, oriented x 3, responsive, depressed affect Bronson Jimenez M.D. Sep 10, 2016 13:53
--- NOTE | 2016-09-10 18:14 | Internal Med Progress Note ---
Subjective Date of Service: Sep 10, 2016 Physician Name David Irizarry Attending Physician Abhilash Tadeo MD Current Medications Medications (Trade) Dose Ordered Sig/Salv[place] Route PRN Reason Start Time Stop Time Status Last Admin Dose Admin Acetaminophen (Tylenol) 650 mg Q4H PRN ORAL fever 09/03/16 00:45 10/03/16 00:44 09/08/16 10:29 Acetaminophen/ Hydrocodone Bitart ([place] 5/325) 1 tab Q4H PRN ORAL Moderate Pain (Pain Scale 4-6) 09/08/16 13:15 09/15/16 13:14 09/08/16 13:42 Al Hydroxide/Mg Hydroxide (Mylanta II) 30 ml Q6H PRN ORAL dyspepsia 09/03/16 00:45 10/03/16 00:44 Amlodipine Besylate (Norvasc) 5 mg DAILY ORAL 09/03/16 12:00 10/03/16 11:59 09/10/16 09:00 Aspirin (ASA) 325 mg DAILY ORAL 09/03/16 09:00 10/03/16 08:59 09/09/16 09:45 Clonidine HCl (Catapres) 0.1 mg Q6H PRN ORAL SBP>160 09/03/16 11:00 10/03/16 10:59 09/05/16 12:32 Dextrose (Dextrose 50%) STAT PRN IV Hypoglycemia 09/03/16 00:45 10/03/16 00:44 Diphenhydramine HCl (Benadryl) 25 mg Q6H PRN ORAL Itching/Pruritis 09/03/16 00:45 10/03/16 00:44 Duloxetine HCl (Cymbalta) 60 mg DAILY ORAL 09/11/16 09:00 10/11/16 08:59 Heparin Sodium (Porcine) (Heparin 5000 units/ml) 5,000 units EVERY 12 HOURS SUBQ 09/03/16 09:00 10/03/16 08:59 09/10/16 09:17 Hydralazine HCl 50 mg 50 mg Q8HR ORAL 09/03/16 14:00 10/03/16 13:59 09/10/16 14:17 Insulin Aspart (NovoLOG) BEFORE MEALS AND HS SUBQ 09/03/16 06:30 10/03/16 06:29 09/10/16 17:05 Insulin Detemir (Levemir) 10 units Q24H SUBQ 09/05/16 11:30 10/05/16 11:29 09/10/16 11:48 Lisinopril (Zestril) 10 mg DAILY ORAL 09/03/16 09:00 10/03/16 08:59 09/09/16 09:46 Nitroglycerin (Ntg) 0.4 mg Q5M X 3 DOSES PRN SL Prn Chest Pain 09/03/16 00:45 10/03/16 00:44 Nystatin (Nystop Powder) 1 applic THREE TIMES A DAY TOPIC 09/07/16 18:00 10/07/16 17:59 09/10/16 09:18 Ondansetron HCl (Zofran) 8 mg Q6H PRN IVP Nausea & Vomiting 09/08/16 14:00 10/08/16 13:59 09/09/16 03:10 Pantoprazole (Protonix) 40 mg DAILY IVP 09/03/16 12:00 10/03/16 11:59 09/09/16 09:45 Polyethylene Glycol (Miralax) 17 gm HSPRN PRN ORAL Constipation 09/03/16 00:45 10/03/16 00:44 Prochlorperazine (Compazine) 10 mg Q6H IVP 09/09/16 11:00 10/09/16 10:59 09/10/16 05:48 Sodium Chloride (NS w/KCl 40mEq) 1,000 ml @ 75 mls/hr [id number] IV 09/05/16 10:30 10/05/16 10:29 09/09/16 21:30 Tramadol HCl (Ultram) 50 mg Q6H PRN ORAL Severe Pain (Pain Scale 7-10) 09/09/16 00:41 09/16/16 00:40 09/09/16 03:09 Allergies: Coded Allergies: IODINE (Verified Allergy, Severe, Anaphylaxis, 02/29/12) ROS Limited/Unobtainable: No Constitutional: Reports: no symptoms HEENT: Reports: no symptoms Cardiovascular: Reports: no symptoms Respiratory: Reports: no symptoms Gastrointestinal/Abdominal: Reports: nausea, vomiting Genitourinary: Reports: no symptoms Neurologic/Psychiatric: Reports: no symptoms Subjective 66 YO F admitted with abdominal pain, nausea and vomiting. Cover for Int Med- Dr Tadeo. Nausea and vomiting improving today. Await nuclear medicine gastric emptying study results. Objective Last Vital Signs Date Time Temp Pulse Resp B/P Pulse Ox O2 Delivery O2 Flow Rate FiO2 09/10/16 16:20 98.4 96 12 128/68 94 Room Air Laboratory Tests Test 09/10/16 04:15 White Blood Count 12.1 K/UL (4.8-10.8) H Red Blood Count 4.07 M/UL (4.20-5.40) L Hemoglobin 12.4 G/DL (12.0-16.0) Hematocrit 36.0 % (37.0-47.0) L Mean Corpuscular Volume 88 FL (80-99) Mean Corpuscular Hemoglobin 30.3 PG (27.0-31.0) Mean Corpuscular Hemoglobin Concent 34.3 G/DL (32.0-36.0) Red Cell Distribution Width 13.4 % (11.6-14.8) Platelet Count 177 K/UL (150-450) Mean Platelet Volume 10.8 FL (6.5-10.1) H Neutrophils (%) (Auto) 82.6 % (45.0-75.0) H Lymphocytes (%) (Auto) 9.8 % (20.0-45.0) L Monocytes (%) (Auto) 7.1 % (1.0-10.0) Eosinophils (%) (Auto) 0.2 % (0.0-3.0) Basophils (%) (Auto) 0.3 % (0.0-2.0) Sodium Level 138 mEQ/L (135-145) Potassium Level 3.5 mEQ/L (3.4-4.9) Chloride Level 99 mEQ/L (98-107) Carbon Dioxide Level 29 mEQ/L (20-30) Anion Gap 10 (5-15) Blood Urea Nitrogen 20 mg/dL (7-23) Creatinine 1.1 mg/dL (0.5-0.9) #H Estimat Glomerular Filtration Rate > 60 mL/min (>60) Glucose Level 313 mg/dL (74-106) #H Calcium Level 8.4 mg/dL (8.6-10.2) L Intake and Output 7/27/17 7/28/17 19:00 07:00 Intake Total 1665 ml 675 ml Output Total 350 ml Balance 1315 ml 675 ml Intake Oral 690 ml IV Total 975 ml 675 ml Output Urine Total 300 ml Emesis 50 ml # Voids 2 1 Objective General Appearance: WD/WN, no apparent distress, alert EENT: PERRL/EOMI, normal ENT inspection, TMs normal Neck: non-tender, normal alignment, supple Cardiovascular: normal peripheral pulses, normal rate, regular rhythm, no gallop/murmur, no JVD Respiratory/Chest: chest wall non-tender, lungs clear, normal breath sounds, no respiratory distress, no accessory muscle use Abdomen: normal bowel sounds, soft, no organomegaly, no mass, decreased bowel sounds, guarding, tender Extremities: normal range of motion 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 Resolved with IV KCL replacement. (2) Esophagitis (3) Gastritis Assessment & Plan: Cont protonix (4) Nausea & vomiting Assessment & Plan: Improving. See GI note. Cont compazine. AWait nuclear gastric emptying study results. (5) Hypertension Assessment & Plan: cont lisinopril (6) Diabetes mellitus Assessment & Plan: Continue novolog sliding scale. 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
--- NOTE | 2016-09-10 19:46 | Pulmonology Progress Note ---
Assessment/Plan Problems: (1) Abdominal pain of unknown etiology (2) Gastritis (3) Peripheral vascular disease (4) Diabetes mellitus (5) Malingering Assessment/Plan advance diet as tolerated supplement electrolytes check labs in am all notes and meds reviewed. ct head negative avoid narcotics dc planning Subjective ROS Limited/Unobtainable: No Constitutional: Reports: no symptoms HEENT: Repors: no symptoms Allergies: Coded Allergies: IODINE (Verified Allergy, Severe, Anaphylaxis, 02/29/12) Objective Last 24 Hour Vital Signs Date Time Temp Pulse Resp B/P Pulse Ox O2 Delivery O2 Flow Rate FiO2 09/10/16 16:20 98.4 96 12 128/68 94 Room Air 09/10/16 14:19 125/71 09/10/16 14:17 125/71 09/10/16 13:12 97.9 12 121/50 97 Room Air 09/10/16 09:00 92 121/75 09/10/16 09:00 121/75 09/10/16 08:15 97.0 101 15 121/73 94 Room Air 09/10/16 05:57 136/71 09/10/16 04:00 97.9 92 20 127/66 Room Air 09/10/16 00:00 97.7 89 19 108/72 96 Room Air 09/09/16 22:18 110/65 09/09/16 21:00 97.7 102 19 108/58 96 Nasal Cannula Intake and Output 09/09/16 09/10/16 19:00 07:00 Intake Total 1665 ml 675 ml Output Total 350 ml Balance 1315 ml 675 ml Intake Oral 690 ml IV Total 975 ml 675 ml Output Urine Total 300 ml Emesis 50 ml # Voids 2 1 Objective General Appearance: WD/WN HEENT: normocephalic Respiratory/Chest: chest wall non-tender, lungs clear Breasts: no masses Cardiovascular: normal peripheral pulses Abdomen: normal bowel sounds, soft, non tender Genitourinary: normal external genitalia Skin: no rash Laboratory Tests 09/10/16 04:15: White Blood Count 12.1H, Red Blood Count 4.07L, Hemoglobin 12.4, Hematocrit 36.0L, Mean Corpuscular Volume 88, Mean Corpuscular Hemoglobin 30.3, Mean Corpuscular Hemoglobin Concent 34.3, Red Cell Distribution Width 13.4, Platelet Count 177, Mean Platelet Volume 10.8H, Neutrophils (%) (Auto) 82.6H, Lymphocytes (%) (Auto) 9.8L, Monocytes (%) (Auto) 7.1, Eosinophils (%) (Auto) 0.2, Basophils (%) (Auto) 0.3, Sodium Level 138, Potassium Level 3.5, Chloride Level 99, Carbon Dioxide Level 29, Anion Gap 10, Blood Urea Nitrogen 20, Creatinine 1.1#H, Estimat Glomerular Filtration Rate > 60, Glucose Level 313#H, Calcium Level 8.4L Current Medications Medications (Trade) Dose Ordered Sig/[place] Route PRN Reason Start Time Stop Time Status Last Admin Dose Admin Acetaminophen (Tylenol) 650 mg Q4H PRN ORAL fever 09/03/16 00:45 10/03/16 00:44 09/08/16 10:29 Acetaminophen/ Hydrocodone Bitart ([place] 5/325) 1 tab Q4H PRN ORAL Moderate Pain (Pain Scale 4-6) 09/08/16 13:15 09/15/16 13:14 09/08/16 13:42 Al Hydroxide/Mg Hydroxide (Mylanta II) 30 ml Q6H PRN ORAL dyspepsia 09/03/16 00:45 10/03/16 00:44 Amlodipine Besylate (Norvasc) 5 mg DAILY ORAL 09/03/16 12:00 10/03/16 11:59 09/10/16 09:00 Aspirin (ASA) 325 mg DAILY ORAL 09/03/16 09:00 10/03/16 08:59 09/09/16 09:45 Clonidine HCl (Catapres) 0.1 mg Q6H PRN ORAL SBP>160 09/03/16 11:00 10/03/16 10:59 09/05/16 12:32 Dextrose (Dextrose 50%) STAT PRN IV Hypoglycemia 09/03/16 00:45 10/03/16 00:44 Diphenhydramine HCl (Benadryl) 25 mg Q6H PRN ORAL Itching/Pruritis 09/03/16 00:45 10/03/16 00:44 Duloxetine HCl (Cymbalta) 60 mg DAILY ORAL 09/11/16 09:00 10/11/16 08:59 Heparin Sodium (Porcine) (Heparin 5000 units/ml) 5,000 units EVERY 12 HOURS SUBQ 09/03/16 09:00 10/03/16 08:59 09/10/16 09:17 Hydralazine HCl 50 mg 50 mg Q8HR ORAL 09/03/16 14:00 10/03/16 13:59 09/10/16 14:17 Insulin Aspart (NovoLOG) BEFORE MEALS AND HS SUBQ 09/03/16 06:30 10/03/16 06:29 09/10/16 17:05 Insulin Detemir (Levemir) 10 units Q24H SUBQ 09/05/16 11:30 10/05/16 11:29 09/10/16 11:48 Lisinopril (Zestril) 10 mg DAILY ORAL 09/03/16 09:00 10/03/16 08:59 09/09/16 09:46 Nitroglycerin (Ntg) 0.4 mg Q5M X 3 DOSES PRN SL Prn Chest Pain 09/03/16 00:45 10/03/16 00:44 Nystatin (Nystop Powder) 1 applic THREE TIMES A DAY TOPIC 09/07/16 18:00 10/07/16 17:59 09/10/16 19:01 Ondansetron HCl (Zofran) 8 mg Q6H PRN IVP Nausea & Vomiting 09/08/16 14:00 10/08/16 13:59 09/09/16 03:10 Pantoprazole (Protonix) 40 mg DAILY IVP 09/03/16 12:00 10/03/16 11:59 09/09/16 09:45 Polyethylene Glycol (Miralax) 17 gm HSPRN PRN ORAL Constipation 09/03/16 00:45 10/03/16 00:44 Prochlorperazine (Compazine) 10 mg Q6H IVP 09/09/16 11:00 10/09/16 10:59 09/10/16 05:48 Sodium Chloride (NS w/KCl 40mEq) 1,000 ml @ 75 mls/hr [id number] IV 09/05/16 10:30 10/05/16 10:29 09/09/16 21:30 Tramadol HCl (Ultram) 50 mg Q6H PRN ORAL Severe Pain (Pain Scale 7-10) 09/09/16 00:41 09/16/16 00:40 09/09/16 03:09 FRANCES RIVERA Sep 10, 2016 19:46
[2016-09-11] VITALS: BP 115/60
[2016-09-11 04:00] VITALS: BP 139/85
[2016-09-11] MEDS: NS w/KCl 40mEq 1,000 ML IV SCH ×2 (05:48→23:47)
[2016-09-11] MEDS: HydrALAZINE 50mg tab ORAL SCH ×3 (05:49→20:58)
[2016-09-11] MEDS: NovoLOG Insulin Flexpen SUBQ SCH ×4 (05:54→21:00)
[2016-09-11 08:00] VITALS: BP 134/74
[2016-09-11 08:04] LABS: BASOPHILS % (AUTO) 0.2 % (0.0-2.0); EOSINOPHILS % (AUTO) 0.6 % (0.0-3.0); LYMPHOCYTES % (AUTO) 12.7 % (20.0-45.0); MEAN CORPUSCULAR HEMOGLOBIN 29.1 PG (27.0-31.0); MEAN CORPUSCULAR HGB CONC 33.3 G/DL (32.0-36.0); MEAN CORPUSCULAR VOLUME 88 FL (80-99); MEAN PLATELET VOLUME 11.9 FL (6.5-10.1); MONOCYTES % (AUTO) 7.5 % (1.0-10.0); PLATELET COUNT 174 K/UL (150-450); RED BLOOD COUNT 4.35 M/UL (4.20-5.40); RED CELL DISTRIBUTION WIDTH 13.4 % (11.6-14.8); WHITE BLOOD COUNT 9.8 K/UL (4.8-10.8)
[2016-09-11 08:11] LABS: ANION GAP 10 (5-15); CALCIUM 8.5 mg/dL (8.6-10.2); CARBON DIOXIDE 31 mEQ/L (20-30); CHLORIDE 96 mEQ/L (98-107); CREATININE 0.8 mg/dL (0.5-0.9); GLOMERULAR FILTRATION RATE > 60 mL/min (>60); HEMOLYSIS 8; MAGNESIUM 1.7 mg/dL (1.7-2.5); PHOSPHORUS 2.1 mg/dL (2.5-4.8); POTASSIUM 3.3 mEQ/L (3.4-4.9); SODIUM 137 mEQ/L (135-145)
[2016-09-11] MEDS: DULoxetine 30mg cap ORAL SCH (09:00)
[2016-09-11] MEDS: Lisinopril 10mg tab ORAL SCH (09:00)
--- NOTE | 2016-09-11 09:13 | Diagnostic Imaging Report ---
Indication: VOMITING Technique: Patient ingested 1 mCi 99M technetium sulfur colloid in scrambled egg with one views of chest. Images obtained over the abdomen 43 hours and 45 minutes. Time activity curves were generated. Comparison: None Findings: At one and 2 hours, there is essentially complete retention of tracer within the stomach. At 4 hours, some small bowel activity is demonstrated, but most of the tracer remains within the stomach. Time activity curve is essentially flat, with extrapolated T 1/2 of 397 minutes. Impression: Extremely slow gastric emptying. Findings most likely represent severe gastroparesis. Findings could also represent partial gastric outlet obstruction. This is deemed less likely, due to lack of significant gastric distention on recent (09/04/2016) CT scan
[2016-09-11] MEDS: Nystatin Powder 100,000 units/gm 15gm TOPIC SCH ×3 (09:32→18:23)
[2016-09-11] MEDS: Heparin 5000 units/ml inj SUBQ SCH ×2 (09:33→20:59)
[2016-09-11 12:00] VITALS: BP 134/82
[2016-09-11] MEDS: Levemir Flexpen SUBQ SCH (12:22)
[2016-09-11 16:15] VITALS: BP 133/64
--- NOTE | 2016-09-11 17:03 | General Progress Note ---
Assessment/Plan Assessment/Plan Assessment/Plan Problems: (1) Nausea & vomiting ICD Codes: R11.2 - Nausea with vomiting, unspecified SNOMED: 24427969 Qualifiers: Qualified Codes: R11.2 - Nausea with vomiting, unspecified (2) Gastritis ICD Codes: K29.70 - Gastritis, unspecified, without bleeding SNOMED: 2803272 (3) Esophagitis ICD Codes: K20.9 - Esophagitis, unspecified SNOMED: 03159752 (4) Dehydration ICD Codes: E86.0 - Dehydration SNOMED: 14665217 Status: stable Assessment/Plan S/P EGD SUMMARY 1. Distal esophagitis, minimum. 2. Gastritis status post biopsy >> negative for H. Pylori Head CT >> unremarkable NM gastric Empty Study noted --> gastroparesis, -- may be partly due to narcotics -- likely cause of N/V -- will give trial of bethanecol for motility adv to FLD dc opiates increase zofran cont compazine repeat labs may need colonoscopy Subjective Allergies: Coded Allergies: IODINE (Verified Allergy, Severe, Anaphylaxis, 02/29/12) Subjective Feels "OK" offers no symptoms refused meds earlier tolerating PO Objective Last 24 Hour Vital Signs Date Time Temp Pulse Resp B/P Pulse Ox O2 Delivery O2 Flow Rate FiO2 09/11/16 16:15 98.0 80 20 133/64 95 Room Air 09/11/16 14:00 134/74 09/11/16 12:00 97.0 91 18 134/82 97 Room Air 09/11/16 09:00 98 134/74 09/11/16 09:00 134/74 09/11/16 08:00 97.9 98 20 134/74 100 Room Air 09/11/16 05:49 139/85 09/11/16 04:00 98.9 103 18 139/85 98 Room Air 09/11/16 00:00 98.4 95 18 115/60 99 Room Air 09/10/16 22:00 108/65 09/10/16 20:00 98.9 100 18 108/65 96 Room Air Intake and Output 09/10/16 09/11/16 19:00 07:00 Intake Total 585 ml Output Total 400 ml Balance 185 ml Intake Oral 360 ml IV Total 225 ml Output Urine Total 200 ml Emesis 200 ml # Bowel Movements 2 Laboratory Tests 09/11/16 06:05: White Blood Count 9.8, Red Blood Count 4.35, Hemoglobin 12.7, Hematocrit 38.1, Mean Corpuscular Volume 88, Mean Corpuscular Hemoglobin 29.1, Mean Corpuscular Hemoglobin Concent 33.3, Red Cell Distribution Width 13.4, Platelet Count 174, Mean Platelet Volume 11.9H, Neutrophils (%) (Auto) 79.0H, Lymphocytes (%) (Auto ) 12.7L, Monocytes (%) (Auto) 7.5, Eosinophils (%) (Auto) 0.6, Basophils (%) ( Auto) 0.2, Sodium Level 137, Potassium Level 3.3L, Chloride Level 96L, Carbon Dioxide Level 31H, Anion Gap 10, Blood Urea Nitrogen 15, Creatinine 0.8, Estimat Glomerular Filtration Rate > 60, Glucose Level 277H, Calcium Level 8.5L , Phosphorus Level 2.1L, Magnesium Level 1.7 Height (Feet): 5 Height (Inches): 5.00 Weight (Pounds): 224 Objective Thin AA woman NCAT supple CTA RRR soft ND NT no edema OWEN GONSALVES Sep 11, 2016 17:03
--- NOTE | 2016-09-11 17:06 | Internal Med Progress Note ---
Subjective Date of Service: Sep 11, 2016 Physician Name David Irizarry Attending Physician Abhilash Tadeo MD Current Medications Medications (Trade) Dose Ordered Sig/[place] Route PRN Reason Start Time Stop Time Status Last Admin Dose Admin Acetaminophen (Tylenol) 650 mg Q4H PRN ORAL fever 09/03/16 00:45 10/03/16 00:44 09/08/16 10:29 Acetaminophen/ Hydrocodone Bitart ([place] 5/325) 1 tab Q4H PRN ORAL Moderate Pain (Pain Scale 4-6) 09/08/16 13:15 09/15/16 13:14 09/08/16 13:42 Al Hydroxide/Mg Hydroxide (Mylanta II) 30 ml Q6H PRN ORAL dyspepsia 09/03/16 00:45 10/03/16 00:44 Amlodipine Besylate (Norvasc) 5 mg DAILY ORAL 09/03/16 12:00 10/03/16 11:59 09/10/16 09:00 Aspirin (ASA) 325 mg DAILY ORAL 09/03/16 09:00 10/03/16 08:59 09/09/16 09:45 Bethanechol Chloride (Urecholine) 10 mg FOUR TIMES A DAY ORAL 09/11/16 18:00 10/11/16 17:59 UNV Clonidine HCl (Catapres) 0.1 mg Q6H PRN ORAL SBP>160 09/03/16 11:00 10/03/16 10:59 09/05/16 12:32 Dextrose (Dextrose 50%) STAT PRN IV Hypoglycemia 09/03/16 00:45 10/03/16 00:44 Diphenhydramine HCl (Benadryl) 25 mg Q6H PRN ORAL Itching/Pruritis 09/03/16 00:45 10/03/16 00:44 Duloxetine HCl (Cymbalta) 60 mg DAILY ORAL 09/11/16 09:00 10/11/16 08:59 Heparin Sodium (Porcine) (Heparin 5000 units/ml) 5,000 units EVERY 12 HOURS SUBQ 09/03/16 09:00 10/03/16 08:59 09/11/16 09:33 Hydralazine HCl 50 mg 50 mg Q8HR ORAL 09/03/16 14:00 10/03/16 13:59 09/11/16 05:49 Insulin Aspart (NovoLOG) BEFORE MEALS AND HS SUBQ 09/03/16 06:30 10/03/16 06:29 09/11/16 16:40 Insulin Detemir (Levemir) 10 units Q24H SUBQ 09/05/16 11:30 10/05/16 11:29 09/11/16 12:22 Lisinopril (Zestril) 10 mg DAILY ORAL 09/03/16 09:00 10/03/16 08:59 09/09/16 09:46 Nitroglycerin (Ntg) 0.4 mg Q5M X 3 DOSES PRN SL Prn Chest Pain 09/03/16 00:45 10/03/16 00:44 Nystatin (Nystop Powder) 1 applic THREE TIMES A DAY TOPIC 09/07/16 18:00 10/07/16 17:59 09/11/16 09:32 Ondansetron HCl (Zofran) 8 mg Q6H PRN IVP Nausea & Vomiting 09/08/16 14:00 10/08/16 13:59 09/09/16 03:10 Pantoprazole (Protonix) 40 mg DAILY IVP 09/03/16 12:00 10/03/16 11:59 09/09/16 09:45 Polyethylene Glycol (Miralax) 17 gm HSPRN PRN ORAL Constipation 09/03/16 00:45 10/03/16 00:44 Prochlorperazine (Compazine) 10 mg Q6H IVP 09/09/16 11:00 10/09/16 10:59 09/11/16 04:51 Sodium Chloride (NS w/KCl 40mEq) 1,000 ml @ 75 mls/hr [id number] IV 09/05/16 10:30 10/05/16 10:29 09/11/16 05:48 Tramadol HCl (Ultram) 50 mg Q6H PRN ORAL Severe Pain (Pain Scale 7-10) 09/09/16 00:41 09/16/16 00:40 09/09/16 03:09 Allergies: Coded Allergies: IODINE (Verified Allergy, Severe, Anaphylaxis, 02/29/12) ROS Limited/Unobtainable: No Constitutional: Reports: no symptoms HEENT: Reports: no symptoms Cardiovascular: Reports: no symptoms Respiratory: Reports: no symptoms Gastrointestinal/Abdominal: Reports: nausea, vomiting Genitourinary: Reports: no symptoms Neurologic/Psychiatric: Reports: no symptoms Subjective 66 YO F admitted with abdominal pain, nausea and vomiting. Cover for Int Med- Dr Tadeo. Nausea and vomiting improving today. Objective Last Vital Signs Date Time Temp Pulse Resp B/P Pulse Ox O2 Delivery O2 Flow Rate FiO2 09/11/16 16:15 98.0 80 20 133/64 95 Room Air Laboratory Tests Test 09/11/16 06:05 White Blood Count 9.8 K/UL (4.8-10.8) Red Blood Count 4.35 M/UL (4.20-5.40) Hemoglobin 12.7 G/DL (12.0-16.0) Hematocrit 38.1 % (37.0-47.0) Mean Corpuscular Volume 88 FL (80-99) Mean Corpuscular Hemoglobin 29.1 PG (27.0-31.0) Mean Corpuscular Hemoglobin Concent 33.3 G/DL (32.0-36.0) Red Cell Distribution Width 13.4 % (11.6-14.8) Platelet Count 174 K/UL (150-450) Mean Platelet Volume 11.9 FL (6.5-10.1) H Neutrophils (%) (Auto) 79.0 % (45.0-75.0) H Lymphocytes (%) (Auto) 12.7 % (20.0-45.0) L Monocytes (%) (Auto) 7.5 % (1.0-10.0) Eosinophils (%) (Auto) 0.6 % (0.0-3.0) Basophils (%) (Auto) 0.2 % (0.0-2.0) Sodium Level 137 mEQ/L (135-145) Potassium Level 3.3 mEQ/L (3.4-4.9) L Chloride Level 96 mEQ/L (98-107) L Carbon Dioxide Level 31 mEQ/L (20-30) H Anion Gap 10 (5-15) Blood Urea Nitrogen 15 mg/dL (7-23) Creatinine 0.8 mg/dL (0.5-0.9) Estimat Glomerular Filtration Rate > 60 mL/min (>60) Glucose Level 277 mg/dL (74-106) H Calcium Level 8.5 mg/dL (8.6-10.2) L Phosphorus Level 2.1 mg/dL (2.5-4.8) L Magnesium Level 1.7 mg/dL (1.7-2.5) Intake and Output 09/10/16 09/11/16 19:00 07:00 Intake Total 585 ml Output Total 400 ml Balance 185 ml Intake Oral 360 ml IV Total 225 ml Output Urine Total 200 ml Emesis 200 ml # Bowel Movements 2 Objective General Appearance: WD/WN, no apparent distress, alert EENT: PERRL/EOMI, normal ENT inspection, TMs normal Neck: non-tender, normal alignment, supple Cardiovascular: normal peripheral pulses, normal rate, regular rhythm, no gallop/murmur, no JVD Respiratory/Chest: chest wall non-tender, lungs clear, normal breath sounds, no respiratory distress, no accessory muscle use Abdomen: normal bowel sounds, soft, no organomegaly, no mass, decreased bowel sounds, guarding, tender Extremities: normal range of motion 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 Resolved with IV KCL replacement. (2) Esophagitis (3) Gastritis Assessment & Plan: Cont protonix (4) Nausea & vomiting Assessment & Plan: Improving. See GI note. Cont compazine. Nuclear Medicine gastric emptying study results=gastroparesis. Trial of bethanechol per GI (5) Hypertension Assessment & Plan: cont lisinopril (6) Diabetes mellitus Assessment & Plan: Continue novolog sliding scale. 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
[2016-09-11] MEDS: Bethanechol 10mg Tab ORAL SCH ×2 (18:00→20:58)
--- NOTE | 2016-09-11 19:08 | General Progress Note ---
Assessment/Plan Assessment/Plan mdd recurrent mod - increase antidepressant. -cymbolta 60mg qam Subjective Allergies: Coded Allergies: IODINE (Verified Allergy, Severe, Anaphylaxis, 02/29/12) Subjective poor sleep poor appetite depressed. anhedonia, worthlessness. pain Objective Last 24 Hour Vital Signs Date Time Temp Pulse Resp B/P Pulse Ox O2 Delivery O2 Flow Rate FiO2 09/11/16 16:15 98.0 80 20 133/64 95 Room Air 09/11/16 14:00 134/74 09/11/16 12:00 97.0 91 18 134/82 97 Room Air 09/11/16 09:00 98 134/74 09/11/16 09:00 134/74 09/11/16 08:00 97.9 98 20 134/74 100 Room Air 09/11/16 05:49 139/85 09/11/16 04:00 98.9 103 18 139/85 98 Room Air 09/11/16 00:00 98.4 95 18 115/60 99 Room Air 09/10/16 22:00 108/65 09/10/16 20:00 98.9 100 18 108/65 96 Room Air Intake and Output 09/10/16 09/11/16 19:00 07:00 Intake Total 585 ml Output Total 400 ml Balance 185 ml Intake Oral 360 ml IV Total 225 ml Output Urine Total 200 ml Emesis 200 ml # Bowel Movements 2 Laboratory Tests 09/11/16 06:05: White Blood Count 9.8, Red Blood Count 4.35, Hemoglobin 12.7, Hematocrit 38.1, Mean Corpuscular Volume 88, Mean Corpuscular Hemoglobin 29.1, Mean Corpuscular Hemoglobin Concent 33.3, Red Cell Distribution Width 13.4, Platelet Count 174, Mean Platelet Volume 11.9H, Neutrophils (%) (Auto) 79.0H, Lymphocytes (%) (Auto ) 12.7L, Monocytes (%) (Auto) 7.5, Eosinophils (%) (Auto) 0.6, Basophils (%) ( Auto) 0.2, Sodium Level 137, Potassium Level 3.3L, Chloride Level 96L, Carbon Dioxide Level 31H, Anion Gap 10, Blood Urea Nitrogen 15, Creatinine 0.8, Estimat Glomerular Filtration Rate > 60, Glucose Level 277H, Calcium Level 8.5L , Phosphorus Level 2.1L, Magnesium Level 1.7 Height (Feet): 5 Height (Inches): 5.00 Weight (Pounds): 224 General Appearance: alert, mild distress Neurologic: alert, oriented x 3, responsive, depressed affect Bronson Jimenez M.D. Sep 11, 2016 19:08
[2016-09-11 20:00] VITALS: BP 152/78
[2016-09-12] VITALS: BP 158/65
[2016-09-12 04:00] VITALS: BP 152/85
[2016-09-12] MEDS: NovoLOG Insulin Flexpen SUBQ SCH ×4 (05:53→20:42)
[2016-09-12] MEDS: HydrALAZINE 50mg tab ORAL SCH ×3 (05:53→20:41)
[2016-09-12 07:28] LABS: BASOPHILS % (AUTO) 0.4 % (0.0-2.0); EOSINOPHILS % (AUTO) 1.3 % (0.0-3.0); MEAN CORPUSCULAR HEMOGLOBIN 29.1 PG (27.0-31.0); MEAN CORPUSCULAR HGB CONC 32.8 G/DL (32.0-36.0); MEAN CORPUSCULAR VOLUME 89 FL (80-99); MEAN PLATELET VOLUME 11.7 FL (6.5-10.1); MONOCYTES % (AUTO) 8.1 % (1.0-10.0); NEUTROPHILS % (AUTO) 75.2 % (45.0-75.0); PLATELET COUNT 168 K/UL (150-450); RED BLOOD COUNT 4.39 M/UL (4.20-5.40); RED CELL DISTRIBUTION WIDTH 13.6 % (11.6-14.8); WHITE BLOOD COUNT 8.7 K/UL (4.8-10.8)
[2016-09-12 07:54] LABS: ANION GAP 11 (5-15); CALCIUM 8.8 mg/dL (8.6-10.2); CARBON DIOXIDE 30 mEQ/L (20-30); CHLORIDE 97 mEQ/L (98-107); CREATININE 0.9 mg/dL (0.5-0.9); GLOMERULAR FILTRATION RATE > 60 mL/min (>60); HEMOLYSIS 4; POTASSIUM 3.4 mEQ/L (3.4-4.9); SODIUM 138 mEQ/L (135-145)
[2016-09-12 08:00] VITALS: BP 133/54
[2016-09-12] MEDS: Pantoprazole Inj IVP SCH (09:00)
[2016-09-12] MEDS: Bethanechol 10mg Tab ORAL SCH (09:00)
[2016-09-12] MEDS: Lisinopril 10mg tab ORAL SCH (09:00)
[2016-09-12] MEDS: DULoxetine 30mg cap ORAL SCH (09:00)
[2016-09-12] MEDS: Heparin 5000 units/ml inj SUBQ SCH ×2 (10:10→20:42)
[2016-09-12] MEDS: Nystatin Powder 100,000 units/gm 15gm TOPIC SCH ×3 (10:11→18:11)
[2016-09-12 12:00] VITALS: BP 173/99
[2016-09-12] MEDS: Levemir Flexpen SUBQ SCH (12:13)
--- NOTE | 2016-09-12 13:13 | General Progress Note ---
Assessment/Plan Assessment/Plan Assessment/Plan Problems: (1) Nausea & vomiting ICD Codes: R11.2 - Nausea with vomiting, unspecified SNOMED: 31116969 Qualifiers: Qualified Codes: R11.2 - Nausea with vomiting, unspecified (2) Gastritis ICD Codes: K29.70 - Gastritis, unspecified, without bleeding SNOMED: 3941786 (3) Esophagitis ICD Codes: K20.9 - Esophagitis, unspecified SNOMED: 20366951 (4) Dehydration ICD Codes: E86.0 - Dehydration SNOMED: 78288407 Status: stable Assessment/Plan S/P EGD SUMMARY 1. Distal esophagitis, minimum. 2. Gastritis status post biopsy >> negative for H. Pylori Head CT >> unremarkable Abd CT and Abd u/s --> no causative pathology noted NM gastric Empty Study noted --> gastroparesis Recommendations - continue PRN Zofran/compazine - change bethanecol to Prn IM Tigan - check MRA of Celiac/mesenteric vessels - po liquids as tolerated - PPI Subjective Allergies: Coded Allergies: IODINE (Verified Allergy, Severe, Anaphylaxis, 02/29/12) Subjective Seen with RN at bedside c/o vomiting mild LUQ abd pain unable to take bethanecol po due to N/V has previously been admitted to [facility] with same N/V was on TPN for some time then Objective Last 24 Hour Vital Signs Date Time Temp Pulse Resp B/P Pulse Ox O2 Delivery O2 Flow Rate FiO2 09/12/16 12:00 97.5 100 20 173/99 94 Room Air 09/12/16 09:00 133/54 09/12/16 08:00 98.2 100 20 133/54 99 Room Air 09/12/16 05:53 152/85 09/12/16 04:00 99.1 97 20 152/85 95 Room Air 09/12/16 00:00 98.1 93 20 158/65 94 Room Air 09/11/16 20:58 152/78 09/11/16 20:00 99.5 98 20 152/78 95 Room Air 09/11/16 16:15 98.0 80 20 133/64 95 Room Air 09/11/16 14:00 134/74 Intake and Output 09/11/16 09/12/16 19:00 07:00 Intake Total 1065 ml 700 ml Balance 1065 ml 700 ml Intake Oral 240 ml IV Total 825 ml 700 ml # Voids 1 3 # Bowel Movements 1 2 Laboratory Tests 09/12/16 06:26: White Blood Count 8.7, Red Blood Count 4.39, Hemoglobin 12.8, Hematocrit 38.9, Mean Corpuscular Volume 89, Mean Corpuscular Hemoglobin 29.1, Mean Corpuscular Hemoglobin Concent 32.8, Red Cell Distribution Width 13.6, Platelet Count 168, Mean Platelet Volume 11.7H, Neutrophils (%) (Auto) 75.2H, Lymphocytes (%) (Auto ) 15.0L, Monocytes (%) (Auto) 8.1, Eosinophils (%) (Auto) 1.3, Basophils (%) ( Auto) 0.4, Sodium Level 138, Potassium Level 3.4, Chloride Level 97L, Carbon Dioxide Level 30, Anion Gap 11, Blood Urea Nitrogen 7, Creatinine 0.9, Estimat Glomerular Filtration Rate > 60, Glucose Level 267H, Calcium Level 8.8 Height (Feet): 5 Height (Inches): 5.00 Weight (Pounds): 224 Objective patient having emesis NCAT supple CTA RRR soft ND min LUQ TTP no edema, (+) R OWEN GAVIRIA Sep 12, 2016 13:13
[2016-09-12] MEDS: NS w/KCl 40mEq 1,000 ML IV SCH (13:57)
--- NOTE | 2016-09-12 14:25 | Pulmonology Progress Note ---
Assessment/Plan Problems: (1) Abdominal pain of unknown etiology (2) Gastritis (3) Peripheral vascular disease (4) Diabetes mellitus (5) Malingering Assessment/Plan advance diet as tolerated supplement electrolytes check labs in am all notes and meds reviewed. ct head negative avoid narcotics dc planning Subjective ROS Limited/Unobtainable: Yes Constitutional: Reports: no symptoms Gastrointestinal/Abdominal: Reports: nausea, vomiting Allergies: Coded Allergies: IODINE (Verified Allergy, Severe, Anaphylaxis, 02/29/12) Objective Last 24 Hour Vital Signs Date Time Temp Pulse Resp B/P Pulse Ox O2 Delivery O2 Flow Rate FiO2 09/12/16 12:00 97.5 100 20 173/99 94 Room Air 09/12/16 09:00 133/54 09/12/16 08:00 98.2 100 20 133/54 99 Room Air 09/12/16 05:53 152/85 09/12/16 04:00 99.1 97 20 152/85 95 Room Air 09/12/16 00:00 98.1 93 20 158/65 94 Room Air 09/11/16 20:58 152/78 09/11/16 20:00 99.5 98 20 152/78 95 Room Air 09/11/16 16:15 98.0 80 20 133/64 95 Room Air Intake and Output 09/11/16 09/12/16 19:00 07:00 Intake Total 1065 ml 700 ml Balance 1065 ml 700 ml Intake Oral 240 ml IV Total 825 ml 700 ml # Voids 1 3 # Bowel Movements 1 2 Objective General Appearance: WD/WN HEENT: normocephalic Respiratory/Chest: chest wall non-tender, lungs clear Breasts: no masses Cardiovascular: normal peripheral pulses Abdomen: normal bowel sounds, soft, non tender Genitourinary: normal external genitalia Skin: no rash HEENT: normocephalic, atraumatic Respiratory/Chest: chest wall non-tender Breasts: no masses Cardiovascular: normal peripheral pulses Abdomen: normal bowel sounds Genitourinary: normal external genitalia Extremities: no cyanosis 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 Laboratory Tests 09/12/16 06:26: White Blood Count 8.7, Red Blood Count 4.39, Hemoglobin 12.8, Hematocrit 38.9, Mean Corpuscular Volume 89, Mean Corpuscular Hemoglobin 29.1, Mean Corpuscular Hemoglobin Concent 32.8, Red Cell Distribution Width 13.6, Platelet Count 168, Mean Platelet Volume 11.7H, Neutrophils (%) (Auto) 75.2H, Lymphocytes (%) (Auto ) 15.0L, Monocytes (%) (Auto) 8.1, Eosinophils (%) (Auto) 1.3, Basophils (%) ( Auto) 0.4, Sodium Level 138, Potassium Level 3.4, Chloride Level 97L, Carbon Dioxide Level 30, Anion Gap 11, Blood Urea Nitrogen 7, Creatinine 0.9, Estimat Glomerular Filtration Rate > 60, Glucose Level 267H, Calcium Level 8.8 Current Medications Medications (Trade) Dose Ordered Sig/[place] Route PRN Reason Start Time Stop Time Status Last Admin Dose Admin Acetaminophen (Tylenol) 650 mg Q4H PRN ORAL fever 09/03/16 00:45 10/03/16 00:44 09/08/16 10:29 Acetaminophen/ Hydrocodone Bitart ([place] 5/325) 1 tab Q4H PRN ORAL Moderate Pain (Pain Scale 4-6) 09/08/16 13:15 09/15/16 13:14 09/08/16 13:42 Al Hydroxide/Mg Hydroxide (Mylanta II) 30 ml Q6H PRN ORAL dyspepsia 09/03/16 00:45 10/03/16 00:44 Amlodipine Besylate (Norvasc) 5 mg DAILY ORAL 09/03/16 12:00 10/03/16 11:59 09/10/16 09:00 Aspirin (ASA) 325 mg DAILY ORAL 09/03/16 09:00 10/03/16 08:59 09/09/16 09:45 Clonidine HCl (Catapres) 0.1 mg Q6H PRN ORAL SBP>160 09/03/16 11:00 10/03/16 10:59 09/05/16 12:32 Dextrose (Dextrose 50%) STAT PRN IV Hypoglycemia 09/03/16 00:45 10/03/16 00:44 Diphenhydramine HCl (Benadryl) 25 mg Q6H PRN ORAL Itching/Pruritis 09/03/16 00:45 10/03/16 00:44 Duloxetine HCl (Cymbalta) 60 mg DAILY ORAL 09/11/16 09:00 10/11/16 08:59 Heparin Sodium (Porcine) (Heparin 5000 units/ml) 5,000 units EVERY 12 HOURS SUBQ 09/03/16 09:00 10/03/16 08:59 09/12/16 10:10 Hydralazine HCl 50 mg 50 mg Q8HR ORAL 09/03/16 14:00 10/03/16 13:59 09/12/16 05:53 Insulin Aspart (NovoLOG) BEFORE MEALS AND HS SUBQ 09/03/16 06:30 10/03/16 06:29 09/12/16 12:12 Insulin Detemir (Levemir) 10 units Q24H SUBQ 09/05/16 11:30 10/05/16 11:29 09/12/16 12:13 Lisinopril (Zestril) 10 mg DAILY ORAL 09/03/16 09:00 10/03/16 08:59 09/09/16 09:46 Nitroglycerin (Ntg) 0.4 mg Q5M X 3 DOSES PRN SL Prn Chest Pain 09/03/16 00:45 10/03/16 00:44 Nystatin (Nystop Powder) 1 applic THREE TIMES A DAY TOPIC 09/07/16 18:00 10/07/16 17:59 09/12/16 13:57 Ondansetron HCl (Zofran) 8 mg Q6H PRN IVP Nausea & Vomiting 09/08/16 14:00 10/08/16 13:59 09/12/16 11:58 Pantoprazole (Protonix) 40 mg DAILY IVP 09/03/16 12:00 10/03/16 11:59 09/09/16 09:45 Polyethylene Glycol (Miralax) 17 gm HSPRN PRN ORAL Constipation 09/03/16 00:45 10/03/16 00:44 Prochlorperazine (Compazine) 10 mg Q6H IVP 09/09/16 11:00 10/09/16 10:59 09/11/16 04:51 Sodium Chloride (NS w/KCl 40mEq) 1,000 ml @ 75 mls/hr [id number] IV 09/05/16 10:30 10/05/16 10:29 09/12/16 13:57 Tramadol HCl (Ultram) 50 mg Q6H PRN ORAL Severe Pain (Pain Scale 7-10) 09/09/16 00:41 09/16/16 00:40 09/09/16 03:09 FRANCES RIVERA Sep 12, 2016 14:25
[2016-09-12] MEDS ORDERED: Trimethobenzamide 100mg/ml vial IM PRN (14:30)
[2016-09-12 16:00] VITALS: BP 153/91
--- NOTE | 2016-09-12 18:08 | Internal Med Progress Note ---
Subjective Date of Service: Sep 12, 2016 Physician Name Fletcher Irizarry Attending Physician Abhilash Tadeo MD Current Medications Medications (Trade) Dose Ordered Sig/[place] Route PRN Reason Start Time Stop Time Status Last Admin Dose Admin Acetaminophen (Tylenol) 650 mg Q4H PRN ORAL fever 09/03/16 00:45 10/03/16 00:44 09/08/16 10:29 Acetaminophen/ Hydrocodone Bitart ([place] 5/325) 1 tab Q4H PRN ORAL Moderate Pain (Pain Scale 4-6) 09/08/16 13:15 09/15/16 13:14 09/08/16 13:42 Al Hydroxide/Mg Hydroxide (Mylanta II) 30 ml Q6H PRN ORAL dyspepsia 09/03/16 00:45 10/03/16 00:44 Amlodipine Besylate (Norvasc) 5 mg DAILY ORAL 09/03/16 12:00 10/03/16 11:59 09/10/16 09:00 Aspirin (ASA) 325 mg DAILY ORAL 09/03/16 09:00 10/03/16 08:59 09/09/16 09:45 Clonidine HCl (Catapres) 0.1 mg Q6H PRN ORAL SBP>160 09/03/16 11:00 10/03/16 10:59 09/05/16 12:32 Dextrose (Dextrose 50%) STAT PRN IV Hypoglycemia 09/03/16 00:45 10/03/16 00:44 Diphenhydramine HCl (Benadryl) 25 mg Q6H PRN ORAL Itching/Pruritis 09/03/16 00:45 10/03/16 00:44 Duloxetine HCl (Cymbalta) 60 mg DAILY ORAL 09/11/16 09:00 10/11/16 08:59 Heparin Sodium (Porcine) (Heparin 5000 units/ml) 5,000 units EVERY 12 HOURS SUBQ 09/03/16 09:00 10/03/16 08:59 09/12/16 10:10 Hydralazine HCl 50 mg 50 mg Q8HR ORAL 09/03/16 14:00 10/03/16 13:59 09/12/16 05:53 Insulin Aspart (NovoLOG) BEFORE MEALS AND HS SUBQ 09/03/16 06:30 10/03/16 06:29 09/12/16 16:19 Insulin Detemir (Levemir) 10 units Q24H SUBQ 09/05/16 11:30 10/05/16 11:29 09/12/16 12:13 Lisinopril (Zestril) 10 mg DAILY ORAL 09/03/16 09:00 10/03/16 08:59 09/09/16 09:46 Nitroglycerin (Ntg) 0.4 mg Q5M X 3 DOSES PRN SL Prn Chest Pain 09/03/16 00:45 10/03/16 00:44 Nystatin (Nystop Powder) 1 applic THREE TIMES A DAY TOPIC 09/07/16 18:00 10/07/16 17:59 09/12/16 13:57 Ondansetron HCl (Zofran) 8 mg Q6H PRN IVP Nausea & Vomiting 09/08/16 14:00 10/08/16 13:59 09/12/16 11:58 Pantoprazole (Protonix) 40 mg DAILY IVP 09/03/16 12:00 10/03/16 11:59 09/09/16 09:45 Polyethylene Glycol (Miralax) 17 gm HSPRN PRN ORAL Constipation 09/03/16 00:45 10/03/16 00:44 Prochlorperazine (Compazine) 10 mg Q6H IVP 09/09/16 11:00 10/09/16 10:59 09/11/16 04:51 Sodium Chloride (NS w/KCl 40mEq) 1,000 ml @ 75 mls/hr [id number] IV 09/05/16 10:30 10/05/16 10:29 09/12/16 13:57 Tramadol HCl (Ultram) 50 mg Q6H PRN ORAL Severe Pain (Pain Scale 7-10) 09/09/16 00:41 09/16/16 00:40 09/09/16 03:09 Trimethobenzamide HCl (Tigan) 200 mg Q8H PRN IM Nausea & Vomiting 09/12/16 14:30 10/12/16 14:29 Allergies: Coded Allergies: IODINE (Verified Allergy, Severe, Anaphylaxis, 02/29/12) ROS Limited/Unobtainable: No Constitutional: Reports: no symptoms HEENT: Reports: no symptoms Cardiovascular: Reports: no symptoms Respiratory: Reports: no symptoms Gastrointestinal/Abdominal: Reports: nausea, vomiting Genitourinary: Reports: no symptoms Neurologic/Psychiatric: Reports: no symptoms Subjective 66 YO F admitted with abdominal pain, nausea and vomiting. Cover for Int [place]- Dr Tadeo. C/O Nausea and vomiting today. Objective Last Vital Signs Date Time Temp Pulse Resp B/P Pulse Ox O2 Delivery O2 Flow Rate FiO2 09/12/16 16:00 99.0 100 20 153/91 97 Room Air Laboratory Tests Test 09/12/16 06:26 White Blood Count 8.7 K/UL (4.8-10.8) Red Blood Count 4.39 M/UL (4.20-5.40) Hemoglobin 12.8 G/DL (12.0-16.0) Hematocrit 38.9 % (37.0-47.0) Mean Corpuscular Volume 89 FL (80-99) Mean Corpuscular Hemoglobin 29.1 PG (27.0-31.0) Mean Corpuscular Hemoglobin Concent 32.8 G/DL (32.0-36.0) Red Cell Distribution Width 13.6 % (11.6-14.8) Platelet Count 168 K/UL (150-450) Mean Platelet Volume 11.7 FL (6.5-10.1) H Neutrophils (%) (Auto) 75.2 % (45.0-75.0) H Lymphocytes (%) (Auto) 15.0 % (20.0-45.0) L Monocytes (%) (Auto) 8.1 % (1.0-10.0) Eosinophils (%) (Auto) 1.3 % (0.0-3.0) Basophils (%) (Auto) 0.4 % (0.0-2.0) Sodium Level 138 mEQ/L (135-145) Potassium Level 3.4 mEQ/L (3.4-4.9) Chloride Level 97 mEQ/L (98-107) L Carbon Dioxide Level 30 mEQ/L (20-30) Anion Gap 11 (5-15) Blood Urea Nitrogen 7 mg/dL (7-23) Creatinine 0.9 mg/dL (0.5-0.9) Estimat Glomerular Filtration Rate > 60 mL/min (>60) Glucose Level 267 mg/dL (74-106) H Calcium Level 8.8 mg/dL (8.6-10.2) Intake and Output 09/11/16 09/12/16 19:00 07:00 Intake Total 1065 ml 700 ml Balance 1065 ml 700 ml Intake Oral 240 ml IV Total 825 ml 700 ml # Voids 1 3 # Bowel Movements 1 2 Objective General Appearance: WD/WN, no apparent distress, alert EENT: PERRL/EOMI, normal ENT inspection, TMs normal Neck: non-tender, normal alignment, supple Cardiovascular: normal peripheral pulses, normal rate, regular rhythm, no gallop/murmur, no JVD Respiratory/Chest: chest wall non-tender, lungs clear, normal breath sounds, no respiratory distress, no accessory muscle use Abdomen: normal bowel sounds, soft, no organomegaly, no mass, decreased bowel sounds, guarding, tender Extremities: normal range of motion 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 Resolved with IV KCL replacement. (2) Esophagitis (3) Gastritis Assessment & Plan: Cont protonix (4) Nausea & vomiting Assessment & Plan: Improving. See GI note. Cont compazine. Nuclear Medicine gastric emptying study results=gastroparesis. D/C bethanechol per GI. Await MRA celiac (5) Hypertension Assessment & Plan: cont lisinopril (6) Diabetes mellitus Assessment & Plan: Continue novolog sliding scale. 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
[2016-09-12 20:00] VITALS: BP 143/86
--- NOTE | 2016-09-12 21:07 | General Progress Note ---
Assessment/Plan Status: doing well, stable Assessment/Plan mdd recurrent mod - increase antidepressant. -cymbolta 60mg qam Subjective Constitutional: Reports: malaise, weakness Neurologic/Psychiatric: Reports: anxiety, depressed, emotional problems, headache Allergies: Coded Allergies: IODINE (Verified Allergy, Severe, Anaphylaxis, 02/29/12) Subjective poor sleep poor appetite depressed. anhedonia, worthlessness. pain Objective Last 24 Hour Vital Signs Date Time Temp Pulse Resp B/P Pulse Ox O2 Delivery O2 Flow Rate FiO2 09/12/16 20:41 143/86 09/12/16 20:00 99.0 99 18 143/86 97 Room Air 09/12/16 16:00 99.0 100 20 153/91 97 Room Air 09/12/16 14:00 173/99 09/12/16 12:00 97.5 100 20 173/99 94 Room Air 09/12/16 09:00 133/54 09/12/16 08:00 98.2 100 20 133/54 99 Room Air 09/12/16 05:53 152/85 09/12/16 04:00 99.1 97 20 152/85 95 Room Air 09/12/16 00:00 98.1 93 20 158/65 94 Room Air Intake and Output 09/11/16 09/12/16 19:00 07:00 Intake Total 1065 ml 700 ml Balance 1065 ml 700 ml Intake Oral 240 ml IV Total 825 ml 700 ml # Voids 1 3 # Bowel Movements 1 2 Laboratory Tests 09/12/16 06:26: White Blood Count 8.7, Red Blood Count 4.39, Hemoglobin 12.8, Hematocrit 38.9, Mean Corpuscular Volume 89, Mean Corpuscular Hemoglobin 29.1, Mean Corpuscular Hemoglobin Concent 32.8, Red Cell Distribution Width 13.6, Platelet Count 168, Mean Platelet Volume 11.7H, Neutrophils (%) (Auto) 75.2H, Lymphocytes (%) (Auto ) 15.0L, Monocytes (%) (Auto) 8.1, Eosinophils (%) (Auto) 1.3, Basophils (%) ( Auto) 0.4, Sodium Level 138, Potassium Level 3.4, Chloride Level 97L, Carbon Dioxide Level 30, Anion Gap 11, Blood Urea Nitrogen 7, Creatinine 0.9, Estimat Glomerular Filtration Rate > 60, Glucose Level 267H, Calcium Level 8.8 Height (Feet): 5 Height (Inches): 5.00 Weight (Pounds): 224 General Appearance: alert, moderate distress Neurologic: alert, oriented x 3, responsive, depressed affect Bronson Jimenez M.D. Sep 12, 2016 21:07
[2016-09-12] MEDS: traMADol 50mg tab ORAL PRN (23:29)
[2016-09-13] VITALS (7 sets, daily range): BP systolic 103–163; BP diastolic 44–94
[2016-09-13] MEDS: NS w/KCl 40mEq 1,000 ML IV SCH ×2 (03:02→17:30)
[2016-09-13] MEDS: HydrALAZINE 50mg tab ORAL SCH ×3 (05:44→21:52)
[2016-09-13] MEDS: NovoLOG Insulin Flexpen SUBQ SCH ×4 (05:45→20:30)
[2016-09-13 07:11] LABS: BASOPHILS % (AUTO) 0.6 % (0.0-2.0); LYMPHOCYTES % (AUTO) 18.4 % (20.0-45.0); MEAN CORPUSCULAR HEMOGLOBIN 29.8 PG (27.0-31.0); MEAN CORPUSCULAR HGB CONC 33.6 G/DL (32.0-36.0); MEAN CORPUSCULAR VOLUME 88 FL (80-99); MEAN PLATELET VOLUME 11.9 FL (6.5-10.1); MONOCYTES % (AUTO) 10.8 % (1.0-10.0); NEUTROPHILS % (AUTO) 69.3 % (45.0-75.0); PLATELET COUNT 166 K/UL (150-450); RED BLOOD COUNT 4.25 M/UL (4.20-5.40); RED CELL DISTRIBUTION WIDTH 13.6 % (11.6-14.8); WHITE BLOOD COUNT 9.5 K/UL (4.8-10.8)
[2016-09-13 07:40] LABS: ALANINE AMINOTRANSFERASE 20 U/L (3-33); ALBUMIN/GLOBULIN RATIO 1.3 (1.0-2.7); ANION GAP 12 (5-15); ASPARTATE AMINO TRANSFERASE 23 U/L (5-40); CALCIUM 8.6 mg/dL (8.6-10.2); CARBON DIOXIDE 28 mEQ/L (20-30); CHLORIDE 98 mEQ/L (98-107); CREATININE 0.8 mg/dL (0.5-0.9); GLOMERULAR FILTRATION RATE > 60 mL/min (>60); HEMOLYSIS 5; MAGNESIUM 1.6 mg/dL (1.7-2.5); PHOSPHORUS 2.8 mg/dL (2.5-4.8); POTASSIUM 3.7 mEQ/L (3.4-4.9); SODIUM 138 mEQ/L (135-145); TOTAL PROTEIN 5.5 g/dL (6.6-8.7)
[2016-09-13] MEDS: DULoxetine 30mg cap ORAL SCH ×2 (09:00→10:42)
[2016-09-13] MEDS: Lisinopril 10mg tab ORAL SCH (10:42)
[2016-09-13] MEDS: Heparin 5000 units/ml inj SUBQ SCH ×2 (10:49→20:28)
[2016-09-13] MEDS: Nystatin Powder 100,000 units/gm 15gm TOPIC SCH ×3 (10:49→17:30)
[2016-09-13] MEDS: Pantoprazole Inj IVP SCH (10:50)
[2016-09-13] MEDS: Levemir Flexpen SUBQ SCH (11:14)
--- NOTE | 2016-09-13 11:30 | GI Progress Note ---
Assessment/Plan Problems: (1) Nausea & vomiting ICD Codes: R11.2 - Nausea with vomiting, unspecified SNOMED: 84352604 Qualifiers: Qualified Codes: R11.2 - Nausea with vomiting, unspecified (2) Gastritis ICD Codes: K29.70 - Gastritis, unspecified, without bleeding SNOMED: 0466516 (3) Esophagitis ICD Codes: K20.9 - Esophagitis, unspecified SNOMED: 61217686 (4) Dehydration ICD Codes: E86.0 - Dehydration SNOMED: 33941165 Status: stable, progressing Status Narrative Discussed with Dr. Alvares. Assessment/Plan S/P EGD SUMMARY 1. Distal esophagitis, minimum. 2. Gastritis status post biopsy >> negative for H. Pylori Head CT >> unremarkable Abd CT and Abd u/s --> no causative pathology noted NM gastric Empty Study noted --> gastroparesis Recommendations - continue PRN Zofran/compazine - change bethanecol to Prn IM Tigan - check MRA of Celiac/mesenteric vessels - po liquids as tolerated - PPI - fu MRI - reglan prn if emesis persists - fu labs - pt will need rx for "reglan 10mg 1 tab PO TID ATC x1 month" when discharged and to fu up to PCP. Subjective Subjective feels much better, no emesis reported Objective Last 24 Hour Vital Signs Date Time Temp Pulse Resp B/P Pulse Ox O2 Delivery O2 Flow Rate FiO2 09/13/16 10:43 92 123/69 09/13/16 10:42 123/69 09/13/16 08:15 97.9 92 12 123/69 98 09/13/16 06:30 133/89 09/13/16 05:44 163/94 09/13/16 05:44 163/94 09/13/16 04:00 98.4 93 20 163/94 95 Room Air 09/13/16 00:00 98.2 95 18 146/82 95 Room Air 09/12/16 20:41 143/86 09/12/16 20:00 99.0 99 18 143/86 97 Room Air 09/12/16 16:00 99.0 100 20 153/91 97 Room Air 09/12/16 14:00 173/99 09/12/16 12:00 97.5 100 20 173/99 94 Room Air Intake and Output 09/12/16 09/13/16 19:00 07:00 Intake Total 1100 ml 750 ml Balance 1100 ml 750 ml Intake Oral 200 ml IV Total 900 ml 750 ml # Voids 4 3 Laboratory Tests Test 09/13/16 06:00 White Blood Count 9.5 K/UL (4.8-10.8) Red Blood Count 4.25 M/UL (4.20-5.40) Hemoglobin 12.6 G/DL (12.0-16.0) Hematocrit 37.6 % (37.0-47.0) Mean Corpuscular Volume 88 FL (80-99) Mean Corpuscular Hemoglobin 29.8 PG (27.0-31.0) Mean Corpuscular Hemoglobin Concent 33.6 G/DL (32.0-36.0) Red Cell Distribution Width 13.6 % (11.6-14.8) Platelet Count 166 K/UL (150-450) Mean Platelet Volume 11.9 FL (6.5-10.1) H Neutrophils (%) (Auto) 69.3 % (45.0-75.0) Lymphocytes (%) (Auto) 18.4 % (20.0-45.0) L Monocytes (%) (Auto) 10.8 % (1.0-10.0) H Eosinophils (%) (Auto) 1.0 % (0.0-3.0) Basophils (%) (Auto) 0.6 % (0.0-2.0) Sodium Level 138 mEQ/L (135-145) Potassium Level 3.7 mEQ/L (3.4-4.9) Chloride Level 98 mEQ/L (98-107) Carbon Dioxide Level 28 mEQ/L (20-30) Anion Gap 12 (5-15) Blood Urea Nitrogen 4 mg/dL (7-23) L Creatinine 0.8 mg/dL (0.5-0.9) Estimat Glomerular Filtration Rate > 60 mL/min (>60) Glucose Level 237 mg/dL (74-106) H Calcium Level 8.6 mg/dL (8.6-10.2) Phosphorus Level 2.8 mg/dL (2.5-4.8) Magnesium Level 1.6 mg/dL (1.7-2.5) L Total Bilirubin 0.4 mg/dL (0.0-1.2) Aspartate Amino Transf (AST/SGOT) 23 U/L (5-40) Alanine Aminotransferase (ALT/SGPT) 20 U/L (3-33) Alkaline Phosphatase 83 U/L (35-104) Total Protein 5.5 g/dL (6.6-8.7) L Albumin 3.2 g/dL (3.5-5.2) L Globulin 2.3 g/dL Albumin/Globulin Ratio 1.3 (1.0-2.7) Height (Feet): 5 Height (Inches): 5.00 Weight (Pounds): 224 General Appearance: no apparent distress, alert, overweight Cardiovascular: normal rate Respiratory/Chest: normal breath sounds, no respiratory distress Abdominal Exam: normal bowel sounds, non tender, soft Extremities: normal range of motion Mariam Barbosa N.P. Sep 13, 2016 11:30
--- NOTE | 2016-09-13 12:34 | Diagnostic Imaging Report ---
Indication: Abdominal pain and vomiting, possible mesenteric vascular disease Technique: 3-D inflow inversion recovery, axial and coronal single shot fast spin-echo breath-hold, postcontrast coronal subtracted TRICKS images obtained. MIP reconstructions were generated in multiple rotational projections Comparison: None Findings: There is image degradation due to motion artifact; per technologist, patient unable hold breath well. Questionable slight kinking of the superior mesenteric artery is noted on the reconstructed images, not evident on the source images and quite possibly artifactual. Otherwise, no evidence of narrowing of the proximal celiac axis, proximal branches, or the superior mesenteric artery and proximal branches. Widely patent single left renal artery. Widely patent main and accessory right renal arteries. The inferior mesenteric artery appears to be patent, although sufficient resolution is insufficient to allow assessment of the patency of its origin. There is a 5 mm right lower pole renal cysts incidentally noted. No other definite visceral abnormality demonstrated on a single shot fast spin-echo images. Impression: Somewhat limited exam, due to respiratory motion artifact. Also, limited spatial resolution precludes evaluation of the inferior mesenteric artery origin. However, no definite evidence of proximal mesenteric arterial insufficiency
--- NOTE | 2016-09-13 15:32 | Pulmonology Progress Note ---
Assessment/Plan Problems: (1) Abdominal pain of unknown etiology (2) Gastritis (3) Peripheral vascular disease (4) Diabetes mellitus (5) Malingering Assessment/Plan - continue PRN Zofran/compazine - check MRA of Celiac/mesenteric vessels - avoid narcotics Subjective ROS Limited/Unobtainable: No Constitutional: Reports: no symptoms HEENT: Repors: no symptoms Respiratory: Reports: no symptoms Cardiovascular: Reports: no symptoms Allergies: Coded Allergies: IODINE (Verified Allergy, Severe, Anaphylaxis, 02/29/12) Objective Last 24 Hour Vital Signs Date Time Temp Pulse Resp B/P Pulse Ox O2 Delivery O2 Flow Rate FiO2 09/13/16 13:13 139/73 09/13/16 12:11 98.2 89 14 139/73 94 Room Air 09/13/16 10:43 92 123/69 09/13/16 10:42 123/69 09/13/16 08:15 97.9 92 12 123/69 98 09/13/16 06:30 133/89 09/13/16 05:44 163/94 09/13/16 05:44 163/94 09/13/16 04:00 98.4 93 20 163/94 95 Room Air 09/13/16 00:00 98.2 95 18 146/82 95 Room Air 09/12/16 20:41 143/86 09/12/16 20:00 99.0 99 18 143/86 97 Room Air 09/12/16 16:00 99.0 100 20 153/91 97 Room Air Intake and Output 09/12/16 09/13/16 19:00 07:00 Intake Total 1100 ml 750 ml Balance 1100 ml 750 ml Intake Oral 200 ml IV Total 900 ml 750 ml # Voids 4 3 Objective General Appearance: WD/WN HEENT: normocephalic Respiratory/Chest: chest wall non-tender, lungs clear Breasts: no masses Cardiovascular: normal peripheral pulses Abdomen: normal bowel sounds, soft, non tender Genitourinary: normal external genitalia Skin: no rash Laboratory Tests 09/13/16 06:00: White Blood Count 9.5, Red Blood Count 4.25, Hemoglobin 12.6, Hematocrit 37.6, Mean Corpuscular Volume 88, Mean Corpuscular Hemoglobin 29.8, Mean Corpuscular Hemoglobin Concent 33.6, Red Cell Distribution Width 13.6, Platelet Count 166, Mean Platelet Volume 11.9H, Neutrophils (%) (Auto) 69.3, Lymphocytes (%) (Auto) 18.4L, Monocytes (%) (Auto) 10.8H, Eosinophils (%) (Auto) 1.0, Basophils (%) ( Auto) 0.6, Sodium Level 138, Potassium Level 3.7, Chloride Level 98, Carbon Dioxide Level 28, Anion Gap 12, Blood Urea Nitrogen 4L, Creatinine 0.8, Estimat Glomerular Filtration Rate > 60, Glucose Level 237H, Calcium Level 8.6, Phosphorus Level 2.8, Magnesium Level 1.6L, Total Bilirubin 0.4, Aspartate Amino Transf (AST/SGOT) 23, Alanine Aminotransferase (ALT/SGPT) 20, Alkaline Phosphatase 83, Total Protein 5.5L, Albumin 3.2L, Globulin 2.3, Albumin/ Globulin Ratio 1.3 Current Medications Medications (Trade) Dose Ordered Sig/[place] Route PRN Reason Start Time Stop Time Status Last Admin Dose Admin Acetaminophen (Tylenol) 650 mg Q4H PRN ORAL fever 09/03/16 00:45 10/03/16 00:44 09/08/16 10:29 Acetaminophen/ Hydrocodone Bitart ([place] 5/325) 1 tab Q4H PRN ORAL Moderate Pain (Pain Scale 4-6) 09/08/16 13:15 09/15/16 13:14 09/08/16 13:42 Al Hydroxide/Mg Hydroxide (Mylanta II) 30 ml Q6H PRN ORAL dyspepsia 09/03/16 00:45 10/03/16 00:44 Amlodipine Besylate (Norvasc) 5 mg DAILY ORAL 09/03/16 12:00 10/03/16 11:59 09/13/16 10:43 Aspirin (ASA) 325 mg DAILY ORAL 09/03/16 09:00 10/03/16 08:59 09/13/16 10:43 Clonidine HCl (Catapres) 0.1 mg Q6H PRN ORAL SBP>160 09/03/16 11:00 10/03/16 10:59 09/13/16 05:44 Dextrose (Dextrose 50%) STAT PRN IV Hypoglycemia 09/03/16 00:45 10/03/16 00:44 Diphenhydramine HCl (Benadryl) 25 mg Q6H PRN ORAL Itching/Pruritis 09/03/16 00:45 10/03/16 00:44 Duloxetine HCl (Cymbalta) 60 mg DAILY ORAL 09/11/16 09:00 10/11/16 08:59 Heparin Sodium (Porcine) (Heparin 5000 units/ml) 5,000 units EVERY 12 HOURS SUBQ 09/03/16 09:00 10/03/16 08:59 09/13/16 10:49 Hydralazine HCl 50 mg 50 mg Q8HR ORAL 09/03/16 14:00 10/03/16 13:59 09/13/16 13:13 Insulin Aspart (NovoLOG) BEFORE MEALS AND HS SUBQ 09/03/16 06:30 10/03/16 06:29 09/13/16 11:15 Insulin Detemir (Levemir) 10 units Q24H SUBQ 09/05/16 11:30 10/05/16 11:29 09/13/16 11:14 Lisinopril (Zestril) 10 mg DAILY ORAL 09/03/16 09:00 10/03/16 08:59 09/13/16 10:42 Nitroglycerin (Ntg) 0.4 mg Q5M X 3 DOSES PRN SL Prn Chest Pain 09/03/16 00:45 10/03/16 00:44 Nystatin (Nystop Powder) 1 applic THREE TIMES A DAY TOPIC 09/07/16 18:00 10/07/16 17:59 09/13/16 13:12 Ondansetron HCl (Zofran) 8 mg Q6H PRN IVP Nausea & Vomiting 09/08/16 14:00 10/08/16 13:59 09/13/16 05:41 Pantoprazole (Protonix) 40 mg DAILY IVP 09/03/16 12:00 10/03/16 11:59 09/13/16 10:50 Polyethylene Glycol (Miralax) 17 gm HSPRN PRN ORAL Constipation 09/03/16 00:45 10/03/16 00:44 Prochlorperazine (Compazine) 10 mg Q6H IVP 09/09/16 11:00 10/09/16 10:59 09/11/16 04:51 Sodium Chloride (NS w/KCl 40mEq) 1,000 ml @ 75 mls/hr [id number] IV 09/05/16 10:30 10/05/16 10:29 09/13/16 03:02 Tramadol HCl (Ultram) 50 mg Q6H PRN ORAL Severe Pain (Pain Scale 7-10) 09/09/16 00:41 09/16/16 00:40 09/12/16 23:29 Trimethobenzamide HCl (Tigan) 200 mg Q8H PRN IM Nausea & Vomiting 09/12/16 14:30 10/12/16 14:29 09/12/16 23:29 FRANCES RIVERA Sep 13, 2016 15:32
--- NOTE | 2016-09-13 18:48 | Internal Med Progress Note ---
Subjective Date of Service: Sep 13, 2016 Physician Name David Irizarry Attending Physician Abhilash Tadeo MD Current Medications Medications (Trade) Dose Ordered Sig/Salvador Route PRN Reason Start Time Stop Time Status Last Admin Dose Admin Acetaminophen (Tylenol) 650 mg Q4H PRN ORAL fever 09/03/16 00:45 10/03/16 00:44 09/08/16 10:29 Acetaminophen/ Hydrocodone Bitart (Barrington 5/325) 1 tab Q4H PRN ORAL Moderate Pain (Pain Scale 4-6) 09/08/16 13:15 09/15/16 13:14 09/08/16 13:42 Al Hydroxide/Mg Hydroxide (Mylanta II) 30 ml Q6H PRN ORAL dyspepsia 09/03/16 00:45 10/03/16 00:44 Amlodipine Besylate (Norvasc) 5 mg DAILY ORAL 09/03/16 12:00 10/03/16 11:59 09/13/16 10:43 Aspirin (ASA) 325 mg DAILY ORAL 09/03/16 09:00 10/03/16 08:59 09/13/16 10:43 Clonidine HCl (Catapres) 0.1 mg Q6H PRN ORAL SBP>160 09/03/16 11:00 10/03/16 10:59 09/13/16 05:44 Dextrose (Dextrose 50%) STAT PRN IV Hypoglycemia 09/03/16 00:45 10/03/16 00:44 Diphenhydramine HCl (Benadryl) 25 mg Q6H PRN ORAL Itching/Pruritis 09/03/16 00:45 10/03/16 00:44 Duloxetine HCl (Cymbalta) 60 mg DAILY ORAL 09/11/16 09:00 10/11/16 08:59 Heparin Sodium (Porcine) (Heparin 5000 units/ml) 5,000 units EVERY 12 HOURS SUBQ 09/03/16 09:00 10/03/16 08:59 09/13/16 10:49 Hydralazine HCl 50 mg 50 mg Q8HR ORAL 09/03/16 14:00 10/03/16 13:59 09/13/16 13:13 Insulin Aspart (NovoLOG) BEFORE MEALS AND HS SUBQ 09/03/16 06:30 10/03/16 06:29 09/13/16 16:18 Insulin Detemir (Levemir) 10 units Q24H SUBQ 09/05/16 11:30 10/05/16 11:29 09/13/16 11:14 Lisinopril (Zestril) 10 mg DAILY ORAL 09/03/16 09:00 10/03/16 08:59 09/13/16 10:42 Nitroglycerin (Ntg) 0.4 mg Q5M X 3 DOSES PRN SL Prn Chest Pain 09/03/16 00:45 10/03/16 00:44 Nystatin (Nystop Powder) 1 applic THREE TIMES A DAY TOPIC 09/07/16 18:00 10/07/16 17:59 09/13/16 17:30 Ondansetron HCl (Zofran) 8 mg Q6H PRN IVP Nausea & Vomiting 09/08/16 14:00 10/08/16 13:59 09/13/16 05:41 Pantoprazole (Protonix) 40 mg DAILY IVP 09/03/16 12:00 10/03/16 11:59 09/13/16 10:50 Polyethylene Glycol (Miralax) 17 gm HSPRN PRN ORAL Constipation 09/03/16 00:45 10/03/16 00:44 Prochlorperazine (Compazine) 10 mg Q6H IVP 09/09/16 11:00 10/09/16 10:59 09/11/16 04:51 Sodium Chloride (NS w/KCl 40mEq) 1,000 ml @ 75 mls/hr [id number] IV 09/05/16 10:30 10/05/16 10:29 09/13/16 17:30 Tramadol HCl (Ultram) 50 mg Q6H PRN ORAL Severe Pain (Pain Scale 7-10) 09/09/16 00:41 09/16/16 00:40 09/12/16 23:29 Trimethobenzamide HCl (Tigan) 200 mg Q8H PRN IM Nausea & Vomiting 09/12/16 14:30 10/12/16 14:29 09/12/16 23:29 Allergies: Coded Allergies: IODINE (Verified Allergy, Severe, Anaphylaxis, 02/29/12) ROS Limited/Unobtainable: No Constitutional: Reports: no symptoms HEENT: Reports: no symptoms Cardiovascular: Reports: no symptoms Respiratory: Reports: no symptoms Gastrointestinal/Abdominal: Reports: nausea, vomiting Genitourinary: Reports: no symptoms Neurologic/Psychiatric: Reports: no symptoms Subjective 66 YO F admitted with abdominal pain, nausea and vomiting. Cover for Int Med- Dr Tadeo. C/O Nausea and vomiting today. Objective Last Vital Signs Date Time Temp Pulse Resp B/P Pulse Ox O2 Delivery O2 Flow Rate FiO2 09/13/16 16:00 98.8 87 18 103/44 96 Room Air Laboratory Tests Test 09/13/16 06:00 White Blood Count 9.5 K/UL (4.8-10.8) Red Blood Count 4.25 M/UL (4.20-5.40) Hemoglobin 12.6 G/DL (12.0-16.0) Hematocrit 37.6 % (37.0-47.0) Mean Corpuscular Volume 88 FL (80-99) Mean Corpuscular Hemoglobin 29.8 PG (27.0-31.0) Mean Corpuscular Hemoglobin Concent 33.6 G/DL (32.0-36.0) Red Cell Distribution Width 13.6 % (11.6-14.8) Platelet Count 166 K/UL (150-450) Mean Platelet Volume 11.9 FL (6.5-10.1) H Neutrophils (%) (Auto) 69.3 % (45.0-75.0) Lymphocytes (%) (Auto) 18.4 % (20.0-45.0) L Monocytes (%) (Auto) 10.8 % (1.0-10.0) H Eosinophils (%) (Auto) 1.0 % (0.0-3.0) Basophils (%) (Auto) 0.6 % (0.0-2.0) Sodium Level 138 mEQ/L (135-145) Potassium Level 3.7 mEQ/L (3.4-4.9) Chloride Level 98 mEQ/L (98-107) Carbon Dioxide Level 28 mEQ/L (20-30) Anion Gap 12 (5-15) Blood Urea Nitrogen 4 mg/dL (7-23) L Creatinine 0.8 mg/dL (0.5-0.9) Estimat Glomerular Filtration Rate > 60 mL/min (>60) Glucose Level 237 mg/dL (74-106) H Calcium Level 8.6 mg/dL (8.6-10.2) Phosphorus Level 2.8 mg/dL (2.5-4.8) Magnesium Level 1.6 mg/dL (1.7-2.5) L Total Bilirubin 0.4 mg/dL (0.0-1.2) Aspartate Amino Transf (AST/SGOT) 23 U/L (5-40) Alanine Aminotransferase (ALT/SGPT) 20 U/L (3-33) Alkaline Phosphatase 83 U/L (35-104) Total Protein 5.5 g/dL (6.6-8.7) L Albumin 3.2 g/dL (3.5-5.2) L Globulin 2.3 g/dL Albumin/Globulin Ratio 1.3 (1.0-2.7) Intake and Output 09/12/16 09/13/16 19:00 07:00 Intake Total 1100 ml 825 ml Balance 1100 ml 825 ml Intake Oral 200 ml IV Total 900 ml 825 ml # Voids 4 3 Objective General Appearance: WD/WN, no apparent distress, alert EENT: PERRL/EOMI, normal ENT inspection, TMs normal Neck: non-tender, normal alignment, supple Cardiovascular: normal peripheral pulses, normal rate, regular rhythm, no gallop/murmur, no JVD Respiratory/Chest: chest wall non-tender, lungs clear, normal breath sounds, no respiratory distress, no accessory muscle use Abdomen: normal bowel sounds, soft, no organomegaly, no mass, decreased bowel sounds, guarding, tender Extremities: normal range of motion 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 Resolved with IV KCL replacement. (2) Esophagitis (3) Gastritis Assessment & Plan: Cont protonix (4) Nausea & vomiting Assessment & Plan: Improving. See GI note. Cont compazine. Nuclear Medicine gastric emptying study results=gastroparesis. D/C bethanechol per GI. Await MRA celiac/mesenteric arteries. (5) Hypertension Assessment & Plan: cont lisinopril (6) Diabetes mellitus Assessment & Plan: Continue novolog sliding scale. 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
--- NOTE | 2016-09-13 20:14 | General Progress Note ---
Assessment/Plan Status: stable, progressing Assessment/Plan mdd recurrent mod - increase antidepressant. -cymbolta 60mg qam Subjective Allergies: Coded Allergies: IODINE (Verified Allergy, Severe, Anaphylaxis, 02/29/12) Subjective doing slightly better still has poor sleep poor appetite depressed. anhedonia, worthlessness. pain Objective Last 24 Hour Vital Signs Date Time Temp Pulse Resp B/P Pulse Ox O2 Delivery O2 Flow Rate FiO2 09/13/16 16:00 98.8 87 18 103/44 96 Room Air 09/13/16 13:13 139/73 09/13/16 12:11 98.2 89 14 139/73 94 Room Air 09/13/16 10:43 92 123/69 09/13/16 10:42 123/69 09/13/16 08:15 97.9 92 12 123/69 98 09/13/16 06:30 133/89 09/13/16 05:44 163/94 09/13/16 05:44 163/94 09/13/16 04:00 98.4 93 20 163/94 95 Room Air 09/13/16 00:00 98.2 95 18 146/82 95 Room Air 09/12/16 20:41 143/86 Intake and Output 09/12/16 09/13/16 19:00 07:00 Intake Total 1100 ml 825 ml Balance 1100 ml 825 ml Intake Oral 200 ml IV Total 900 ml 825 ml # Voids 4 3 Laboratory Tests 09/13/16 06:00: White Blood Count 9.5, Red Blood Count 4.25, Hemoglobin 12.6, Hematocrit 37.6, Mean Corpuscular Volume 88, Mean Corpuscular Hemoglobin 29.8, Mean Corpuscular Hemoglobin Concent 33.6, Red Cell Distribution Width 13.6, Platelet Count 166, Mean Platelet Volume 11.9H, Neutrophils (%) (Auto) 69.3, Lymphocytes (%) (Auto) 18.4L, Monocytes (%) (Auto) 10.8H, Eosinophils (%) (Auto) 1.0, Basophils (%) ( Auto) 0.6, Sodium Level 138, Potassium Level 3.7, Chloride Level 98, Carbon Dioxide Level 28, Anion Gap 12, Blood Urea Nitrogen 4L, Creatinine 0.8, Estimat Glomerular Filtration Rate > 60, Glucose Level 237H, Calcium Level 8.6, Phosphorus Level 2.8, Magnesium Level 1.6L, Total Bilirubin 0.4, Aspartate Amino Transf (AST/SGOT) 23, Alanine Aminotransferase (ALT/SGPT) 20, Alkaline Phosphatase 83, Total Protein 5.5L, Albumin 3.2L, Globulin 2.3, Albumin/ Globulin Ratio 1.3 Height (Feet): 5 Height (Inches): 5.00 Weight (Pounds): 224 General Appearance: alert, mild distress Neurologic: alert, oriented x 3, responsive, depressed affect Bronson Jimenez M.D. Sep 13, 2016 20:14
[2016-09-14] VITALS: BP 130/59
[2016-09-14 03:56] VITALS: BP 115/61
[2016-09-14] MEDS: HydrALAZINE 50mg tab ORAL SCH (05:49)
[2016-09-14] MEDS: NovoLOG Insulin Flexpen SUBQ SCH (05:50)
[2016-09-14] MEDS: NS w/KCl 40mEq 1,000 ML IV SCH (05:52)
[2016-09-14 07:13] LABS: BASOPHILS % (AUTO) 0.4 % (0.0-2.0); EOSINOPHILS % (AUTO) 1.6 % (0.0-3.0); LYMPHOCYTES % (AUTO) 19.6 % (20.0-45.0); MEAN CORPUSCULAR HEMOGLOBIN 29.5 PG (27.0-31.0); MEAN CORPUSCULAR HGB CONC 33.2 G/DL (32.0-36.0); MEAN CORPUSCULAR VOLUME 89 FL (80-99); MEAN PLATELET VOLUME 10.5 FL (6.5-10.1); NEUTROPHILS % (AUTO) 67.5 % (45.0-75.0); PLATELET COUNT 160 K/UL (150-450); RED BLOOD COUNT 3.89 M/UL (4.20-5.40); RED CELL DISTRIBUTION WIDTH 14.2 % (11.6-14.8); WHITE BLOOD COUNT 7.7 K/UL (4.8-10.8)
[2016-09-14 07:26] LABS: ANION GAP 11 (5-15); CALCIUM 8.8 mg/dL (8.6-10.2); CARBON DIOXIDE 26 mEQ/L (20-30); CHLORIDE 99 mEQ/L (98-107); CREATININE 0.9 mg/dL (0.5-0.9); GLOMERULAR FILTRATION RATE > 60 mL/min (>60); HEMOLYSIS 5; POTASSIUM 4.3 mEQ/L (3.4-4.9); SODIUM 136 mEQ/L (135-145)
[2016-09-14 08:05] VITALS: BP 104/50
[2016-09-14] MEDS ORDERED: REGLAN10 MG ORAL (08:14)
[2016-09-14] MEDS: Pantoprazole Inj IVP SCH (08:39)
[2016-09-14] MEDS: Heparin 5000 units/ml inj SUBQ SCH (08:41)
[2016-09-14] MEDS: Nystatin Powder 100,000 units/gm 15gm TOPIC SCH (08:48)
[2016-09-14] MEDS: DULoxetine 30mg cap ORAL SCH (08:48)
[2016-09-14 08:49] VITALS: BP 104/50
[2016-09-14] MEDS: Lisinopril 10mg tab ORAL SCH (08:49)
--- NOTE | 2016-09-14 13:58 | GI Progress Note ---
Assessment/Plan Problems: (1) Nausea & vomiting ICD Codes: R11.2 - Nausea with vomiting, unspecified SNOMED: 04092871 Qualifiers: Qualified Codes: R11.2 - Nausea with vomiting, unspecified (2) Gastritis ICD Codes: K29.70 - Gastritis, unspecified, without bleeding SNOMED: 1077410 (3) Esophagitis ICD Codes: K20.9 - Esophagitis, unspecified SNOMED: 72645973 (4) Dehydration ICD Codes: E86.0 - Dehydration SNOMED: 81832444 Status: stable Status Narrative Discussed with Dr. Alvares. Assessment/Plan S/P EGD SUMMARY 1. Distal esophagitis, minimum. 2. Gastritis status post biopsy >> negative for H. Pylori Head CT >> unremarkable Abd CT and Abd u/s --> no causative pathology noted NM gastric Empty Study noted --> gastroparesis MRI > no definite evidence of proximal mesenteric arterial insufficiency Recommendations - continue PRN Zofran/compazine - change bethanechol to Prn IM Tigan - po liquids as tolerated - PPI - reglan prn if emesis persists - fu labs - pt will need rx for "reglan 10mg 1 tab PO TID ATC x1 month" when discharged and to fu up to PCP. Subjective Subjective feels much better, no emesis reported Objective Last 24 Hour Vital Signs Date Time Temp Pulse Resp B/P Pulse Ox O2 Delivery O2 Flow Rate FiO2 09/14/16 08:49 104/50 09/14/16 08:48 93 104/50 09/14/16 08:05 97.9 93 21 104/50 98 Room Air 09/14/16 05:49 134/68 09/14/16 03:56 98.4 98 18 115/61 98 Room Air 09/14/16 00:00 99.0 90 20 130/59 99 Room Air 09/13/16 21:52 128/68 09/13/16 20:00 98.2 91 20 115/46 99 Room Air 09/13/16 16:00 98.8 87 18 103/44 96 Room Air Intake and Output 09/13/16 09/14/16 19:00 07:00 Intake Total 525 ml 1125 ml Balance 525 ml 1125 ml Intake Oral 300 ml IV Total 525 ml 825 ml # Voids 2 3 Laboratory Tests Test 8/1/17 05:35 White Blood Count 7.7 K/UL (4.8-10.8) Red Blood Count 3.89 M/UL (4.20-5.40) L Hemoglobin 11.5 G/DL (12.0-16.0) L Hematocrit 34.5 % (37.0-47.0) L Mean Corpuscular Volume 89 FL (80-99) Mean Corpuscular Hemoglobin 29.5 PG (27.0-31.0) Mean Corpuscular Hemoglobin Concent 33.2 G/DL (32.0-36.0) Red Cell Distribution Width 14.2 % (11.6-14.8) Platelet Count 160 K/UL (150-450) Mean Platelet Volume 10.5 FL (6.5-10.1) H Neutrophils (%) (Auto) 67.5 % (45.0-75.0) Lymphocytes (%) (Auto) 19.6 % (20.0-45.0) L Monocytes (%) (Auto) 11.0 % (1.0-10.0) H Eosinophils (%) (Auto) 1.6 % (0.0-3.0) Basophils (%) (Auto) 0.4 % (0.0-2.0) Sodium Level 136 mEQ/L (135-145) Potassium Level 4.3 mEQ/L (3.4-4.9) Chloride Level 99 mEQ/L (98-107) Carbon Dioxide Level 26 mEQ/L (20-30) Anion Gap 11 (5-15) Blood Urea Nitrogen 5 mg/dL (7-23) L Creatinine 0.9 mg/dL (0.5-0.9) Estimat Glomerular Filtration Rate > 60 mL/min (>60) Glucose Level 310 mg/dL (74-106) H Calcium Level 8.8 mg/dL (8.6-10.2) Height (Feet): 5 Height (Inches): 5.00 Weight (Pounds): 224 General Appearance: no apparent distress, alert Cardiovascular: normal rate Respiratory/Chest: normal breath sounds, no respiratory distress Abdominal Exam: normal bowel sounds, non tender, soft Extremities: normal range of motion Mariam Barbosa N.P. Sep 14, 2016 13:58
--- NOTE | 2016-09-14 15:38 | General Progress Note ---
Assessment/Plan Status: stable, progressing Assessment/Plan mdd recurrent mod - increase antidepressant. -cymbolta 60mg qam Subjective Constitutional: Reports: malaise, weakness Neurologic/Psychiatric: Reports: anxiety, depressed, emotional problems Allergies: Coded Allergies: IODINE (Verified Allergy, Severe, Anaphylaxis, 02/29/12) Subjective doing slightly better still has poor sleep poor appetite depressed. anhedonia, worthlessness. pain Objective Last 24 Hour Vital Signs Date Time Temp Pulse Resp B/P Pulse Ox O2 Delivery O2 Flow Rate FiO2 09/14/16 08:49 104/50 09/14/16 08:48 93 104/50 09/14/16 08:05 97.9 93 21 104/50 98 Room Air 09/14/16 05:49 134/68 09/14/16 03:56 98.4 98 18 115/61 98 Room Air 09/14/16 00:00 99.0 90 20 130/59 99 Room Air 09/13/16 21:52 128/68 09/13/16 20:00 98.2 91 20 115/46 99 Room Air 09/13/16 16:00 98.8 87 18 103/44 96 Room Air Intake and Output 09/13/16 09/14/16 19:00 07:00 Intake Total 525 ml 1125 ml Balance 525 ml 1125 ml Intake Oral 300 ml IV Total 525 ml 825 ml # Voids 2 3 Laboratory Tests 09/14/16 05:35: White Blood Count 7.7, Red Blood Count 3.89L, Hemoglobin 11.5L, Hematocrit 34.5L , Mean Corpuscular Volume 89, Mean Corpuscular Hemoglobin 29.5, Mean Corpuscular Hemoglobin Concent 33.2, Red Cell Distribution Width 14.2, Platelet Count 160, Mean Platelet Volume 10.5H, Neutrophils (%) (Auto) 67.5, Lymphocytes (%) (Auto) 19.6L, Monocytes (%) (Auto) 11.0H, Eosinophils (%) (Auto) 1.6, Basophils (%) (Auto) 0.4, Sodium Level 136, Potassium Level 4.3, Chloride Level 99, Carbon Dioxide Level 26, Anion Gap 11, Blood Urea Nitrogen 5L, Creatinine 0.9, Estimat Glomerular Filtration Rate > 60, Glucose Level 310H, Calcium Level 8.8 Height (Feet): 5 Height (Inches): 5.00 Weight (Pounds): 224 General Appearance: no apparent distress, alert Neurologic: alert, oriented x 3, responsive, depressed affect Bronson Jimenez M.D. Sep 14, 2016 15:38
--- NOTE | 2016-09-17 19:19 | Discharge Summary ---
Discharge Summary Hospital Course Date of Admission Sep 02, 2016 at 22:43 Date of Discharge Sep 14, 2016 at 09:25 Admitting Diagnosis dehydration. Intractable vomiting. HPI Stacey Silveira is a 66 year old female who was admitted on Sep 02, 2016 at 22 :43 for Dehydration,Intractable Vomiting Hospital Course [id number] Discharge Discharge Disposition Patient was discharged to Home (01) Discharge Diagnoses: Mae Avelar NP Sep 17, 2016 19:19
--- NOTE | 2016-09-18 00:15 | Discharge Summary 2 SIG ---
DATE OF ADMISSION: 09/02/2016 DATE OF DISCHARGE: 09/14/2016 CONSULTANTS: 1. Dayton Alvares M.D. 2. Bronson Jimenez M.D. 3. Chitra Pyle M.D. BRIEF HOSPITAL COURSE: The patient is a 66-year-old unfortunate female with past medical history significant for hypertension, diabetes type 2, history of peripheral vascular disease status post right BKA, who presented to the hospital after complaints of intractable nausea and vomiting. The patient was recently discharged from [place]. The patient was discharged home the day prior, but the patient presented with same symptoms with emesis and noted to have upper GI bleed. Since discharge, she was unable to keep anything down. She had epigastric pain, which is 10/10. She then came back to ED. On arrival, BP was elevated to 180s and 200 systolic. She was dehydrated and the patient was admitted to medical floor for intractable nausea and vomiting, uncontrolled hypertension, and uncontrolled diabetes. She was given aggressive IV hydration. Potassium was noted to be low and was given IV potassium supplement. She was followed by Dr. Alvares. During last admission she had an endoscopy, which showed evidence of esophagitis and gastritis. Biopsy from the stomach did not show any H. pylori infection or any other findings. Reglan was increased from 5 mg to 10 mg for possible diabetes induced gastroparesis and the patient was started on clear liquid diet. She was given Zofran and Compazine and was given trial of bethanechol for motility. CT of the abdomen and pelvis showed no acute abnormality. She underwent nuclear gastric emptying, which showed extremely slow gastric emptying consistent with severe gastroparesis. Bethanechol was then discontinued and was changed to prn IM Tigan. She was continued on proton pump inhibitors. She also underwent MRA of celiac and mesenteric vessels. Results showed somewhat limited exam due to respiratory motion artifact. However, there was no definite evidence of proximal mesenteric arterial insufficiency. The patient will need to take Reglan 10 mg t.i.d. around the clock for one month. She was also seen by Dr. Jimenez and was diagnosed to have major depressive disorder. She was given Cymbalta 30 mg, however, still complained of poor appetite, poor sleep, and depression with anhedonia and worthlessness. Cymbalta was increased to 60 mg every morning. She was eventually discharged home. Advised to follow up with PMD as outpatient. DISCHARGE MEDICATIONS: Refer to medication list. ACTIVITY: As tolerated. DISPOSITION: DC home. FINAL DIAGNOSES: 1. Intractable vomiting and nausea secondary to diabetic gastroparesis. 2. Hypertension out of control. 3. Hypokalemia. 4. Gastritis and esophagitis. 5. Diabetes mellitus out of control. 6. Peripheral vascular disease with right below knee amputation. 7. Major depressive disorder. 8. Dehydration. David Pimentel M.D. I have been assigned to dictate discharge summary on this account and I was not involved in the patient's management. Mae Avelar N.P. DR: LAURA JOB#: [id number] CC: TRISH
== END 2016-09-14 09:25 | disposition home or self-care (01) | DRG 74 ==
LOC: EDBD 20:56 → EMR 21:14 → EDBEDREQ 22:33 → 4E 22:43 → EDBEDREQ 23:52 → 4E 09-03 02:19
DX: E11.43 Type 2 diabetes mellitus with diabetic autonomic (poly)neuropathy (principal); E11.65 Type 2 diabetes mellitus with hyperglycemia; I10 Essential (primary) hypertension; K31.84 Gastroparesis; K29.70 Gastritis, unspecified, without bleeding; I73.9 Peripheral vascular disease, unspecified; Z88.8 Allergy status to other drugs, medicaments and biological substances; E87.6 Hypokalemia; F32.9 Major depressive disorder, single episode, unspecified; Z79.4 Long term (current) use of insulin; K20.9 Esophagitis, unspecified; Z89.511 Acquired absence of right leg below knee; E86.0 Dehydration
CPT/HCPCS: 36415; 70450; 74176; 74185; 76700; 78264; 80048; 80053; 81003; 82150; 82378; 82962; 83036; 83690; 83735; 84100; 84443; 85007; 85025; 85610; 85730; 93970; A9585; J1815; J2405; J2765; S5561

== ENCOUNTER 2017-01-28 11:23 | Inpatient (IN) | payer BC, MEDICARE, MEDICAID ==
[~2017-01-28] VITALS: Ht 162.6 cm; Wt 58.1 kg
--- NOTE | 2017-01-28 11:17 | Emergency Room Report ---
History of Present Illness General Source: Patient, EMS Present Illness HPI [id number] BIBEMS for nausea/vomiting and weakness last 4 days Cant keep anything down Denies assoc abd pain Denies fever/chills, chest pain, SOB Patient took her home insulin this morning Given IVF, zofran by EMS Hypotensive on scene Feels better after zofran PMHX: Diabetes, hypertension, PVD, right BKA, gastritis Allergies: Coded Allergies: IODINE (Verified Allergy, Severe, Anaphylaxis, 02/29/12) Patient History Past Medical History: DM, HTN Past Surgical History: none Pertinent Family History: none Social History: Denies: smoking, alcohol use, drug use Now: No Immunizations: UTD Reviewed Nursing Documentation: PMH: Agreed, PSxH: Agreed Review of Systems All Other Systems: negative except mentioned in HPI Physical Exam Sp02 EP Interpretation: reviewed, normal General Appearance: normal inspection, well appearing, no apparent distress, alert, GCS 15, non-toxic, obese Head: normocephalic, atraumatic Eyes: bilateral eye PERRL, bilateral eye EOMI ENT: normal ENT inspection, hearing grossly normal, normal pharynx, no angioedema, normal voice, TMs + canals normal, uvula midline, moist mucus membranes Neck: normal inspection, full range of motion, supple, thyroid normal, no meningismus, no bony tend Respiratory: normal inspection, lungs clear, normal breath sounds, no rhonchi, no respiratory distress, no retraction, no accessory muscle use, no wheezing, speaking full sentences Cardiovascular #1: regular rate, rhythm, no edema, no JVD, normal capillary refill Gastrointestinal: normal inspection, normal bowel sounds, non tender, soft, no mass, no peritonitis, non-distended, no guarding, no hernia, no pulsatile mass Genitourinary: no CVA tenderness Musculoskeletal: normal inspection, back normal, normal range of motion, no calf tenderness, pelvis stable, Tayo's Sign negative Neurologic: normal inspection, alert, oriented x3, responsive, silverer III-XII nml as tested, motor strength/tone normal, cerebellar normal, normal gait, speech normal Psychiatric: normal inspection, judgement/insight normal, mood/affect normal, no suicidal/homicidal ideation, no delusions Skin: normal inspection, normal color, no rash Lymphatic: normal inspection, no adenopathy Medical Decision Making Diagnostic Impression: Primary Impression: Hyperglycemia Additional Impressions: Hypotension Qualified Codes: I95.9 - Hypotension, unspecified Weakness Sepsis Qualified Codes: A41.9 - Sepsis, unspecified organism Nausea & vomiting Qualified Codes: R11.2 - Nausea with vomiting, unspecified Uncontrolled diabetes mellitus Qualified Codes: E11.65 - Type 2 diabetes mellitus with hyperglycemia; Z79.4 - joint terminal attack controller (current) use of insulin ER Course 66-year-old female with possible sepsis, hypotensive and tachycardic. Leukocytosis on labs. Empiric antibiotics given, with cultures pending Blood pressure is fluid responsive - see sepsis reassessment Labs also show elevated glucose and ABIGAIL. Dehydration from hyperglycemia also contributing to hypotension. Patient's vomiting is much more controlled in ER ABG does not show acidosis, acetone negative Sepsis Re-examination Time: 1234pm VS: Temp 99 HR 94 BP 134/79 RR 13 CVS: RRR Respiratory: Lungs clear bilaterally Peripheral pulses: 2+ radial Capillary refill: <2 seconds Skin exam: warm, dry, no rash, not mottled endorsed to Dr. Tadeo, 1237pm as previously admitting physician EKG Diagnostic Results Rate: normal Rhythm: NSR ST Segments: no acute changes ASA given to the pt in ED: No Rhythm Strip Diag. Results EP Interpretation: yes Rate: 95 Rhythm: NSR, no PVC's, no ectopy Chest X-Ray Diagnostic Results Chest X-Ray Diagnostic Results : Chest X-Ray Ordered: Yes # of Views/Limited/Complete: 1 View Indication: Chest Pain EP Interpretation: Yes Interpretation: no consolidation, no effusion, no acute cardiopulmonary disease Impression: No acute disease Electronically Signed by: Dr Bear Maurer MD Status: improved Disposition: ADMITTED INPATIENT Condition: Serious BEAR MAURRE M.D. Jan 28, 2017 11:17
[~2017-01-28 11:23] MED LIST changes: +NORCO 5-325 TA1 EAC1 ORAL; +PROTONIX40 M2 GT; +REGLAN10 MG ORAL
[2017-01-28 11:30] VITALS: BP 97/60
[2017-01-28 12:25] LABS: BASOPHILS % (AUTO) 0.3 % (0.0-2.0); LYMPHOCYTES % (AUTO) 9.8 % (20.0-45.0); MEAN CORPUSCULAR HEMOGLOBIN 27.1 PG (27.0-31.0); MEAN CORPUSCULAR HGB CONC 31.4 G/DL (32.0-36.0); MEAN CORPUSCULAR VOLUME 86 FL (80-99); MEAN PLATELET VOLUME 10.8 FL (6.5-10.1); NEUTROPHILS % (AUTO) 81.9 % (45.0-75.0); PLATELET COUNT 322 K/UL (150-450); RED BLOOD COUNT 5.51 M/UL (4.20-5.40); RED CELL DISTRIBUTION WIDTH 13.1 % (11.6-14.8); WHITE BLOOD COUNT 17.3 K/UL (4.8-10.8)
[2017-01-28 12:27] LABS: ANION GAP 10 mmol/L (5-15); CALCIUM 9.6 MG/DL (8.5-10.1); CARBON DIOXIDE 33 MMOL/L (21-32); CHLORIDE 99 MMOL/L (98-107); CREATININE 3.1 MG/DL (0.55-1.30); GLOMERULAR FILTRATION RATE 18.3 mL/min (>60); POTASSIUM 3.3 MMOL/L (3.5-5.1); SODIUM 142 MMOL/L (136-145)
[2017-01-28 12:30] LABS: ALANINE AMINOTRANSFERASE 16 U/L (12-78); ALBUMIN/GLOBULIN RATIO 0.7 (1.0-2.7); ASPARTATE AMINO TRANSFERASE 17 U/L (15-37); MAGNESIUM 2.6 MG/DL (1.8-2.4); TOTAL PROTEIN 7.9 G/DL (6.4-8.2)
[2017-01-28 12:30] LABS: ABG ALLEN TEST POSITIVE; ABG BASE EXCESS 8.7; ABG PCO2 44.9 mmHg (35.0-45.0)
[2017-01-28] MEDS ORDERED: Piperacillin/Tazobactam 3.375 GM in NS 55 ML IVPB ONE (12:45)
[2017-01-28 13:51] LABS: APPEARANCE,URINE CLOUDY; KETONES,URINE 1+ (NEGATIVE); LEUKOCYTE ESTERASE ,URINE 1+ (NEGATIVE); NITRITE,URINE NEGATIVE (NEGATIVE); PH,URINE 5 (4.5-8.0); PROTEIN,URINE 2+ (NEGATIVE); UROBILINOGEN,URINE NORMAL MG/DL (0.0-1.0)
[2017-01-28 14:15] LABS: RBC,URINE 0-2 /HPF (0 - 2)
[2017-01-28 14:16] LABS: AMORPHOUS SEDIMENT,UR MANY /LPF; BACTERIA,URINE MODERATE /HPF; SQUAMOUS EPITHELIAL CELL,UR MANY /LPF (NONE/OCC)
[2017-01-28 14:18] LABS: ICTOTEST NEGATIVE
[2017-01-28 14:48] VITALS: BP 98/53
--- NOTE | 2017-01-28 16:07 | Diagnostic Imaging Report ---
Prior Indication: Reason For Exam: SOB Technique: One view of the chest Comparison: 03/28/2016 Findings: Lungs and pleural spaces are clear. Heart size is normal. No significant change Impression: No acute process
[2017-01-28] MEDS: NovoLOG Insulin Flexpen SUBQ SCH ×2 (18:23→21:47)
--- NOTE | 2017-01-28 18:27 | History & Physical ---
History and Physical History & Physicial Abhilash Tadeo MD Jan 28, 2017 18:27
[2017-01-28] MEDS ORDERED: Morphine Sulfate 2mg/ml Inj IVP PRN (18:30)
[2017-01-28] MEDS ORDERED: Milk of Magnesia 30ml Ud ORAL PRN (18:30)
[2017-01-28] MEDS ORDERED: Miralax 17gm pkt ORAL PRN (18:30)
[2017-01-28] MEDS ORDERED: Acetaminophen 650 MG SUPP RECTAL PRN (18:30)
[2017-01-28] MEDS ORDERED: LORazepam 1mg tab ORAL PRN (18:30)
[2017-01-28] MEDS ORDERED: Morphine Sulfate 4mg/ml Inj IVP PRN (18:30)
[2017-01-28] MEDS ORDERED: Nitroglycerin Subl 0.4mg tab SL PRN (18:30)
[2017-01-28] MEDS: NS w/KCl 40mEq 1,000 ML IV SCH (20:45)
[2017-01-28] MEDS: Heparin 5000 units/ml inj SUBQ SCH (20:49)
[2017-01-28] MEDS ORDERED: Heparin 5000 units/ml inj SUBQ SCH (21:00)
--- NOTE | 2017-01-28 23:46 | History and Physical Report ---
DATE OF ADMISSION: 01/28/2017 CHIEF COMPLAINT/HISTORY OF PRESENT ILLNESS: Nausea, vomiting, unable to keep fluids down or meals down, and severe weakness for the past four days. Denies any abdominal discomfort. Denies any fever, chills, nausea, or vomiting. The patient has been having these recurrent intractable nausea and vomiting in the past. Last admission to [facility] was from 09/10/2016 to 09/14/2016. At that time, the patient had the same presentation with intractable nausea and vomiting and was being followed by Dr. Dayton Alvares from Gastroenterology. The patient had an extensive workup done at that time and was worked up for major depressive disorder and she was given Cymbalta and the patient was felt that the intractable nausea and vomiting are mostly related to diabetic gastroparesis. PAST MEDICAL HISTORY/PAST SURGICAL HISTORY: As above. History of hypertension, diabetes type 2 with gastroparesis, hypertension, peripheral vascular disease, status post right BKA. MEDICATIONS AT HOME: Significant for aspirin, docusate, Lantus insulin, lisinopril, Protonix, and Zantac. ALLERGIES: Iodine. SOCIAL HISTORY: Denies any smoking, alcohol, or drugs. FAMILY HISTORY: Noncontributory. REVIEW OF SYSTEMS: Mostly as above. Complained about nausea and vomiting. Denies any bright red blood per rectum. Denies any emesis. Denies any gum bleeding. Denies any loss of consciousness. Denies any suicidal or homicidal ideations. Complained about severe weakness. Denies any fever or chills. Denies any hemoptysis or hematochezia. PHYSICAL EXAMINATION: VITAL SIGNS: On admission from the ER are significant for temperature 98.4, pulse of 96, respirations 20, and blood pressure 89/68, repeat one was 98/53. GENERAL: The patient is awake, responsive, and in no acute distress, however, very weak appearing and very tired. HEAD AND NECK: Pupils are equal and reactive to light. Extraocular movements are intact. NECK: Supple. No JVD. LUNGS: Good air entry. No wheezing or rales. Poor inspiratory effort. HEART: S1 and S2. Regular rhythm. No murmur or gallop. EXTREMITY: No cyanosis, clubbing, or edema. Right lower extremity has BKA with the stump intact. NEUROLOGIC EXAMINATION: Cranial nerves II through XII are grossly intact. Motor is 5/5 in all extremities. GAIT: Not assessed due to the patient's status. LABORATORY AND DIAGNOSTIC DATA: On admission, sodium 142, potassium 3.3, chloride 99, bicarbonate 33, BUN 69, and creatinine 3.1. GFR is 18 and glucose is 294. Magnesium 2.6. Alkaline phosphatase is 125. First troponin 0.05. Urinalysis is +2 protein, +4 glucose +1 ketone, many squamous epithelial cells with many amorphic sedimentation, moderate bacteria, +1 bilirubin, 5 to 10 hyaline casts, otherwise, no leukocytosis. ASSESSMENT: 1. Intractable nausea and vomiting, most likely secondary to the diabetic gastroparesis. 2. Uncontrolled diabetes type 2. 3. Hypertension. 4. Gastritis. 5. Severe peripheral vascular disease, status post right below-knee amputation. 6. Acute kidney injury with acute tubular necrosis on chronic, most likely secondary to severe dehydration and hypovolemia. 7. Hypotension at this time, most likely secondary to hypovolemia. PLAN: Admit the patient to telemetry. We will follow up laboratory. Aggressive IV hydration. We will discuss the case with Dr. Alvares from GI and follow up with Dr. Ellison from Nephrology and Dr. Bronson Jimenez from Psychiatry. We will start the patient on clear liquid diet and Accu-Chek with sliding scale. We will monitor laboratory in the morning as well as culture. We will hold off on antibiotics at this time. The patient is afebrile at this time and we will monitor DVT prophylaxis with heparin subcutaneous. Abhilash Tadeo M.D. DR: LYNNE JOB#: [id number] CC:
[2017-01-29 00:14] VITALS: BP 109/55
[2017-01-29 04:20] VITALS: BP 111/60
[2017-01-29] MEDS: NovoLOG Insulin Flexpen SUBQ SCH ×4 (06:52→21:04)
[2017-01-29] MEDS: NS w/KCl 40mEq 1,000 ML IV SCH ×3 (07:00→19:30)
[2017-01-29 07:51] LABS: BASOPHILS % (AUTO) 0.5 % (0.0-2.0); EOSINOPHILS % (AUTO) 0.1 % (0.0-3.0); LYMPHOCYTES % (AUTO) 16.8 % (20.0-45.0); MEAN CORPUSCULAR HEMOGLOBIN 29.2 PG (27.0-31.0); MEAN CORPUSCULAR HGB CONC 33.4 G/DL (32.0-36.0); MEAN CORPUSCULAR VOLUME 88 FL (80-99); MEAN PLATELET VOLUME 9.8 FL (6.5-10.1); MONOCYTES % (AUTO) 8.8 % (1.0-10.0); NEUTROPHILS % (AUTO) 73.9 % (45.0-75.0); PLATELET COUNT 196 K/UL (150-450); RED BLOOD COUNT 4.56 M/UL (4.20-5.40); RED CELL DISTRIBUTION WIDTH 13.2 % (11.6-14.8); WHITE BLOOD COUNT 11.9 K/UL (4.8-10.8)
[2017-01-29 07:58] LABS: PROTHROMBIN TIME 10.1 SEC (9.30-11.50)
[2017-01-29 08:00] VITALS: BP 131/75
[2017-01-29] MEDS: Aspirin Baby 81mg ORAL SCH (09:00)
[2017-01-29] MEDS: Heparin 5000 units/ml inj SUBQ SCH ×2 (09:00→21:03)
[2017-01-29] MEDS ORDERED: Metoclopramide 10mg/2ml Inj IVP ONE (09:20)
[2017-01-29 10:13] LABS: ALANINE AMINOTRANSFERASE 16 U/L (12-78); ALBUMIN/GLOBULIN RATIO 0.7 (1.0-2.7); ANION GAP 18 mmol/L (5-15); ASPARTATE AMINO TRANSFERASE 24 U/L (15-37); CALCIUM 8.9 MG/DL (8.5-10.1); CARBON DIOXIDE 24 MMOL/L (21-32); CHLORIDE 102 MMOL/L (98-107); CREATININE 2.2 MG/DL (0.55-1.30); MAGNESIUM 2.4 MG/DL (1.8-2.4); PHOSPHORUS 4.3 MG/DL (2.5-4.9); POTASSIUM 4.2 MMOL/L (3.5-5.1); SODIUM 144 MMOL/L (136-145); THYROID STIMULATING HORMONE 0.637 uiU/mL (0.358-3.740); TOTAL PROTEIN 6.6 G/DL (6.4-8.2)
[2017-01-29 12:00] VITALS: BP 127/78
--- NOTE | 2017-01-29 14:30 | Internal Med Progress Note ---
Subjective Date of Service: Jan 29, 2017 Physician Name Fletcher Irizarry Attending Physician Abhilash Tadeo MD Current Medications Medications (Trade) Dose Ordered Sig/Salvador Route PRN Reason Start Time Stop Time Status Last Admin Dose Admin Acetaminophen (Tylenol) 650 mg Q4H PRN ORAL Mild Pain (Pain Scale 1-3) 01/28/17 18:30 02/27/17 18:29 Acetaminophen (Tylenol) 650 mg Q4H PRN ORAL T>100.5 01/28/17 18:30 02/27/17 18:29 Acetaminophen (Tylenol) 650 mg Q4H PRN RECTAL Mild Pain (Pain Scale 1-3) 01/28/17 18:30 02/27/17 18:29 Aspirin (ASA) 81 mg DAILY ORAL 01/29/17 09:00 02/28/17 08:59 Dextrose (Dextrose 50%) STAT PRN IV Hypoglycemia 01/28/17 18:30 02/27/17 18:29 Erythromycin (Jl-Ped) 250 mg Q6HR ORAL 01/29/17 18:00 02/05/17 17:59 Heparin Sodium (Porcine) (Heparin 5000 units/ml) 5,000 units EVERY 12 HOURS SUBQ 01/28/17 21:00 02/27/17 20:59 01/28/17 20:49 Insulin Aspart (NovoLOG) BEFORE MEALS AND HS SUBQ 01/28/17 17:30 02/27/17 17:29 01/29/17 13:44 Lorazepam (Ativan) 1 mg Q4H PRN ORAL For Anxiety 01/28/17 18:30 02/04/17 18:29 Magnesium Hydroxide (Mom) 30 ml HSPRN PRN ORAL Constipation 01/28/17 18:30 02/27/17 18:29 Morphine Sulfate (Morphine Sulfate) 2 mg Q4H PRN IVP Moderate Pain (Pain Scale 4-6) 01/28/17 18:30 02/04/17 18:29 Morphine Sulfate (Morphine Sulfate) 4 mg Q4H PRN IVP Severe Pain (Pain Scale 7-10) 01/28/17 18:30 02/04/17 18:29 Nitroglycerin (Ntg) 0.4 mg Q5M X 3 DOSES PRN SL Prn Chest Pain 01/28/17 18:30 02/27/17 18:29 Ondansetron HCl (Zofran) 4 mg Q6H PRN IVP Nausea & Vomiting 01/28/17 18:30 02/27/17 18:29 01/29/17 05:11 Pantoprazole (Protonix) 40 mg DAILY ORAL 01/29/17 09:00 02/28/17 08:59 Polyethylene Glycol (Miralax) 17 gm HSPRN PRN ORAL Constipation 01/28/17 18:30 02/27/17 18:29 Sodium Chloride 1,000 ml @ 125 mls/hr Q8H IV 01/28/17 19:30 02/27/17 19:29 01/29/17 13:46 Allergies: Coded Allergies: IODINE (Verified Allergy, Severe, Anaphylaxis, 02/29/12) Objective Last Vital Signs Date Time Temp Pulse Resp B/P (MAP) Pulse Ox O2 Delivery O2 Flow Rate FiO2 01/29/17 12:00 98.2 92 18 127/78 98 Room Air General Appearance: WD/WN, alert, mild distress EENT: PERRL/EOMI, normal ENT inspection, TMs normal Neck: non-tender, normal alignment, supple, normal inspection Cardiovascular: normal peripheral pulses, normal rate, regular rhythm, no gallop/murmur, no JVD Respiratory/Chest: chest wall non-tender, lungs clear, normal breath sounds, no respiratory distress, no accessory muscle use Abdomen: decreased bowel sounds, guarding, tender Extremities: normal range of motion Edema: trace edema Neurologic: transportation assistant II-XII grossly normal, no motor/sensory deficits Skin: normal pigmentation, warm/dry Laboratory Tests Test 01/29/17 06:10 White Blood Count 11.9 K/UL (4.8-10.8) H Red Blood Count 4.56 M/UL (4.20-5.40) Hemoglobin 13.3 G/DL (12.0-16.0) Hematocrit 39.9 % (37.0-47.0) Mean Corpuscular Volume 88 FL (80-99) Mean Corpuscular Hemoglobin 29.2 PG (27.0-31.0) Mean Corpuscular Hemoglobin Concent 33.4 G/DL (32.0-36.0) Red Cell Distribution Width 13.2 % (11.6-14.8) Platelet Count 196 K/UL (150-450) Mean Platelet Volume 9.8 FL (6.5-10.1) Neutrophils (%) (Auto) 73.9 % (45.0-75.0) Lymphocytes (%) (Auto) 16.8 % (20.0-45.0) L Monocytes (%) (Auto) 8.8 % (1.0-10.0) Eosinophils (%) (Auto) 0.1 % (0.0-3.0) Basophils (%) (Auto) 0.5 % (0.0-2.0) Prothrombin Time 10.1 SEC (9.30-11.50) Prothromb Time International Ratio 1.0 (0.9-1.1) Activated Partial Thromboplast Time 21 SEC (23-33) L Sodium Level 144 MMOL/L (136-145) Potassium Level 4.2 MMOL/L (3.5-5.1) Chloride Level 102 MMOL/L (98-107) Carbon Dioxide Level 24 MMOL/L (21-32) Anion Gap 18 mmol/L (5-15) H Blood Urea Nitrogen 71 mg/dL (7-18) H Creatinine 2.2 MG/DL (0.55-1.30) H Estimat Glomerular Filtration Rate 27.0 mL/min (>60) Glucose Level 231 MG/DL (74-106) H Calcium Level 8.9 MG/DL (8.5-10.1) Phosphorus Level 4.3 MG/DL (2.5-4.9) Magnesium Level 2.4 MG/DL (1.8-2.4) Total Bilirubin 0.5 MG/DL (0.2-1.0) Aspartate Amino Transf (AST/SGOT) 24 U/L (15-37) Alanine Aminotransferase (ALT/SGPT) 16 U/L (12-78) Alkaline Phosphatase 109 U/L (46-116) Total Protein 6.6 G/DL (6.4-8.2) Albumin 2.8 G/DL (3.4-5.0) L Globulin 3.8 g/dL Albumin/Globulin Ratio 0.7 (1.0-2.7) L Lipase 51 U/L (73-393) L Thyroid Stimulating Hormone (TSH) 0.637 uiU/mL (0.358-3.740) Microbiology Date/Time Source Procedure Growth Status 01/28/17 13:34 Urine,Clean Catch Urine Culture - Preliminary NO GROWTH Resulted Assessment/Plan Assessment/Plan 1. Intractable nausea and vomiting, most likely secondary to the diabetic gastroparesis. 2. Uncontrolled diabetes type 2. 3. Hypertension. 4. Gastritis. 5. Severe peripheral vascular disease, status post right below-knee amputation. 6. Acute kidney injury with acute tubular necrosis on chronic, most likely secondary to severe dehydration and hypovolemia. 7. Hypotension at this time, most likely secondary to hypovolemia. PLAN: Admit the patient to telemetry. We will follow up laboratory. Aggressive IV hydration. We will discuss the case with Dr. Alvares from GI and follow up with Dr. Ellison from Nephrology and Dr. Bronson Jimenez from Psychiatry. We will start the patient on clear liquid diet and Accu-Chek with sliding scale. We will monitor laboratory in the morning as well as culture. We will hold off on antibiotics at this time. The patient is afebrile at this time and we will monitor DVT prophylaxis with heparin subcutaneous. FLETCHER IRIZARRY Jan 29, 2017 14:30
[2017-01-29 16:00] VITALS: BP 136/76
[2017-01-29] MEDS: Erythromycin Ethylsuccinate 200mg/5ml Susp ORAL SCH ×2 (17:25→23:51)
[2017-01-29 20:00] VITALS: BP 137/77
--- NOTE | 2017-01-29 22:30 | Consultation ---
DATE OF CONSULTATION: 01/29/2017 GASTROENTEROLOGY CONSULTATION CONSULTING PHYSICIAN: Catalina Murrieta M.D. REFERRING PHYSICIAN: Abhilash Tadeo M.D. CHIEF COMPLAINT: I was asked to see this patient by Dr. Abhilash Tadeo for evaluation of nausea and vomiting. HISTORY OF PRESENT ILLNESS: The patient is a 66-year-old woman with recurrent bouts of nausea and vomiting, which occur several times a year. The patient comes with bouts of vomiting that lasted about three days. Apparently, she has been admitted twice recently to the hospital. She had an endoscopy earlier this year showing esophagitis and gastritis. Biopsy of the stomach did not show any Helicobacter pylori or any other findings. The patient's vomiting has been attributed to diabetic gastroparesis. The patient denies any abdominal pain or hematemesis. PAST MEDICAL HISTORY: History of type 2 diabetes requiring insulin, history of peripheral vascular disease, status post below-knee amputation, hypertension, esophagitis, gastritis, recurrent nausea and vomiting. PAST SURGICAL HISTORY: Status post fibroid removal and status post below-knee amputation. ALLERGIES: Iodine. FAMILY HISTORY: Noncontributory. SOCIAL HISTORY: The patient does not smoke or drink alcohol. REVIEW OF SYSTEMS: Otherwise negative. PHYSICAL EXAMINATION: GENERAL: A pleasant woman, seen in her room. HEENT: Normocephalic and atraumatic. Sclerae anicteric. Oropharynx clear. NECK: Supple. CHEST: Clear to auscultation. CARDIOVASCULAR: Revealed regular rate. ABDOMEN: Soft. EXTREMITIES: Reveals no edema, but there was evidence of amputation below the knee. LABORATORY DATA: Noted. ASSESSMENT: This patient has recurrent episode of nausea and vomiting. She has undergone extensive workup earlier this year with an upper gastrointestinal endoscopy and MRI with MR angiography of the abdominal vessels, gastric emptying study, as well as abdomen and pelvis CT scan and abdominal ultrasound. The leading diagnosis remains as diabetic gastroparesis. Repeat workup with above testing is now worthwhile. The nuclear medicine gastric emptying study did show slow gastric emptying consistent with severe gastroparesis. The patient's fluid should be low fast and small in volumes. Motility agents can also be used to assist for digestion. RECOMMENDATIONS: Per above discussion and per orders written in the chart. Thank you for asking me to participate in the care of this patient. Catalina Murrieta M.D. DR: AZAEL JOB#: [id number] CC:
[2017-01-30] VITALS: BP 137/70
[2017-01-30] MEDS: NS w/KCl 40mEq 1,000 ML IV SCH ×3 (03:20→19:30)
[2017-01-30 04:00] VITALS: BP 148/86
--- NOTE | 2017-01-30 06:30 | Consultation ---
DATE OF CONSULTATION: 01/29/2017 NEPHROLOGY CONSULTATION CONSULTING PHYSICIAN: Fela Ellison M.D. ATTENDING/REFERRING PHYSICIAN: Abhilash Tadeo M.D. REASON FOR CONSULTATION: Acute renal failure. HISTORY OF PRESENT ILLNESS: The patient is an unfortunate 66-year-old female with past medical history significant for history of diabetes, hypertension, dyslipidemia, history of peripheral vascular disease, history of chronic kidney disease due to diabetic nephropathy, who presented to emergency room with complaint of intractable nausea and vomiting. Upon arrival in the ER, the patient was found to have creatinine of 3. The patient was started on IV fluid, found to have abnormal electrolytes and renal function. I was called for management of renal disease and electrolyte imbalance. PAST MEDICAL HISTORY: Includin. History of chronic kidney disease, baseline creatinine is unknown. 2. History of hypertension. 3. History of diabetes. 4. History of gastroparesis. 5. History of peripheral vascular disease, status post right BKA. HOME MEDICATIONS: Includin. Aspirin. 2. Colace. 3. Lantus. 4. Lisinopril. 5. Protonix. 6. Zantac. ALLERGIES: The patient is allergic to iodine. SOCIAL HISTORY: Denies any current history of alcohol or tobacco use. FAMILY HISTORY: Noncontributory. REVIEW OF SYSTEMS: GENERAL: She complained of generalized weakness. Denies any fever, chills, or night sweats. HEAD AND NECK: Denies any dysphagia, odynophagia, blurry vision, headache, neck stiffness. PULMONARY: No shortness of breath, cough, or sputum. CARDIOVASCULAR: Denies any chest pain, palpitations. GASTROINTESTINAL: Complained of nausea, vomiting. No melena. No hematemesis. No hematochezia. GENITOURINARY: Denies any dysuria, frequency, hematuria. MUSCULOSKELETAL: Complained of generalized weakness. Denies any localized weakness or numbness. PHYSICAL EXAMINATION: VITAL SIGNS: The patient has temperature of 98, blood pressure of 100/65, pulse rate of 80, and respiratory rate of 18. HEAD AND NECK: No JVP. No LAD. No thyromegaly. Extraocular movement intact. Pupils are reactive to light and accommodation. LUNGS: Clear to auscultation. CARDIAC: Regular rate and rhythm. S1, S2. No murmur. No rub. ABDOMEN: Soft, nontender, nondistended. EXTREMITIES: No edema. No clubbing. No cyanosis. NEUROLOGIC: Cranial nerves II through XII within normal limit. Upper and lower extremities are grossly intact. Right BKA. LABORATORY AND DIAGNOSTIC DATA: Laboratory value on admission revealed sodium of 144, potassium 3.3, chloride 99, bicarbonate 33, BUN of 69, creatinine of 6, glucose of 294, calcium of 9.6, magnesium of 2.6. AST of 17, ALT of 16, alkaline phosphatase of 125. CBC revealed WBC count of , hemoglobin of 14.9, hematocrit of 47, platelet count of 322,000. UA revealed specific gravity of 1.020, protein 2+, glucose 4+, blood 2+, leukocyte esterase 1+, WBC of 5-10, and bacteria many. ASSESSMENT: 1. Acute renal failure. The etiology of acute renal failure is acute tubular necrosis due to unstable hemodynamics and hypotension. 2. Chronic kidney disease due to diabetic nephropathy. Since the patient has some diabetic neuropathy, she most probably has some degree of diabetic nephropathy. 3. Dehydration. 4. Hypokalemia. 5. Urinary tract infection. 6. Elevated white blood cell count. PLAN: To obtain UA. Check the random urine protein/creatinine ratio to calculate the proteinuria. Check the urine sodium and creatinine to calculate fractional excretion of sodium. Ultrasound of the kidney to evaluate the kidney size. Continue IV fluids. Replace electrolytes as needed. Again, I would like to thank Dr. Abhilash Tadeo for allowing me to participate in the care of this patient. Fela Ellison M.D. DR: Olena JOB#: [id number] CC:
[2017-01-30] MEDS: Erythromycin Ethylsuccinate 200mg/5ml Susp ORAL SCH ×5 (06:31→23:56)
[2017-01-30] MEDS: NovoLOG Insulin Flexpen SUBQ SCH ×4 (06:32→21:11)
[2017-01-30 07:51] LABS: BASOPHILS % (AUTO) 0.4 % (0.0-2.0); MEAN CORPUSCULAR HEMOGLOBIN 28.1 PG (27.0-31.0); MEAN CORPUSCULAR VOLUME 88 FL (80-99); MONOCYTES % (AUTO) 7.4 % (1.0-10.0); NEUTROPHILS % (AUTO) 77.2 % (45.0-75.0); PLATELET COUNT 255 K/UL (150-450); RED BLOOD COUNT 4.78 M/UL (4.20-5.40); RED CELL DISTRIBUTION WIDTH 13.1 % (11.6-14.8); WHITE BLOOD COUNT 11.1 K/UL (4.8-10.8)
[2017-01-30 08:00] VITALS: BP 149/72
[2017-01-30 08:14] LABS: ANION GAP 10 mmol/L (5-15); CALCIUM 8.8 MG/DL (8.5-10.1); CARBON DIOXIDE 30 MMOL/L (21-32); CHLORIDE 106 MMOL/L (98-107); CREATININE 1.4 MG/DL (0.55-1.30); GLOMERULAR FILTRATION RATE 45.6 mL/min (>60); SODIUM 145 MMOL/L (136-145)
[2017-01-30] MEDS: Aspirin Baby 81mg ORAL SCH (10:02)
[2017-01-30] MEDS: Heparin 5000 units/ml inj SUBQ SCH ×2 (10:06→21:12)
[2017-01-30 12:00] VITALS: BP 141/75
--- NOTE | 2017-01-30 13:11 | General Progress Note ---
Assessment/Plan Assessment/Plan Assessment - Recurrent N/V - Diabetes - Diabetic gastroparesis Recommendations - PPI - anti-emetics - glycemic control - Elevate HOB - Hydration Subjective Allergies: Coded Allergies: IODINE (Verified Allergy, Severe, Anaphylaxis, 02/29/12) Subjective Still with N/V unable to drink liquids Objective Last 24 Hour Vital Signs Date Time Temp Pulse Resp B/P (MAP) Pulse Ox O2 Delivery O2 Flow Rate FiO2 01/30/17 04:00 97 01/30/17 04:00 99.0 98 20 148/86 95 Room Air 01/30/17 00:00 98.1 92 20 137/70 Room Air 01/30/17 00:00 82 01/29/17 20:00 98.1 96 20 137/77 99 Room Air 01/29/17 20:00 82 01/29/17 16:00 95 01/29/17 16:00 136/76 Intake and Output 01/30/17 01/31/17 19:00 07:00 Intake Total 50 ml Output Total 500 ml Balance -450 ml Intake Oral 50 ml Output Urine Total 500 ml Laboratory Tests 01/30/17 06:50: White Blood Count 11.1H, Red Blood Count 4.78, Hemoglobin 13.4, Hematocrit 42.1 , Mean Corpuscular Volume 88, Mean Corpuscular Hemoglobin 28.1, Mean Corpuscular Hemoglobin Concent 32.0, Red Cell Distribution Width 13.1, Platelet Count 255, Mean Platelet Volume 11.0H, Neutrophils (%) (Auto) 77.2H, Lymphocytes (%) (Auto) 15.0L, Monocytes (%) (Auto) 7.4, Eosinophils (%) (Auto) 0.0, Basophils (%) (Auto) 0.4, Sodium Level 145, Potassium Level 4.0, Chloride Level 106, Carbon Dioxide Level 30, Anion Gap 10, Blood Urea Nitrogen 45H, Creatinine 1.4H, Estimat Glomerular Filtration Rate 45.6, Glucose Level 299H, Calcium Level 8.8 Height (Feet): 5 Height (Inches): 4.00 Weight (Pounds): 128 Objective Obese AA woman NCAT supple CTA RRR Soft ND NT no edema non focal OWEN GONSALVES Jan 30, 2017 13:11
--- NOTE | 2017-01-30 14:36 | Cardiology Report ---
APPROVED REPORT EKG Measurement Heart [id number] ND [id number] [id number] Normal sinus rhythm Minimal voltage criteria for LVH, may be normal variant Nonspecific T wave abnormality Abnormal ECG
[2017-01-30 16:00] VITALS: BP 149/82
--- NOTE | 2017-01-30 16:43 | Internal Med Progress Note ---
Subjective Date of Service: Jan 30, 2017 Physician Name LorenFletcher Attending Physician Abhilash Tadeo MD Current Medications Medications (Trade) Dose Ordered Sig/Salvador Route PRN Reason Start Time Stop Time Status Last Admin Dose Admin Acetaminophen (Tylenol) 650 mg Q4H PRN ORAL Mild Pain (Pain Scale 1-3) 01/28/17 18:30 02/27/17 18:29 Acetaminophen (Tylenol) 650 mg Q4H PRN ORAL T>100.5 01/28/17 18:30 02/27/17 18:29 Acetaminophen (Tylenol) 650 mg Q4H PRN RECTAL Mild Pain (Pain Scale 1-3) 01/28/17 18:30 02/27/17 18:29 Amlodipine Besylate (Norvasc) 5 mg DAILY ORAL 01/31/17 09:00 03/02/17 08:59 Aspirin (ASA) 81 mg DAILY ORAL 01/29/17 09:00 02/28/17 08:59 01/30/17 10:02 Dextrose (Dextrose 50%) STAT PRN IV Hypoglycemia 01/28/17 18:30 02/27/17 18:29 Erythromycin (Jl-Ped) 250 mg Q6HR ORAL 01/29/17 18:00 02/05/17 17:59 01/30/17 06:31 Heparin Sodium (Porcine) (Heparin 5000 units/ml) 5,000 units EVERY 12 HOURS SUBQ 01/28/17 21:00 02/27/17 20:59 01/30/17 10:06 Insulin Aspart (NovoLOG) BEFORE MEALS AND HS SUBQ 01/28/17 17:30 02/27/17 17:29 01/30/17 14:43 Lorazepam (Ativan) 1 mg Q4H PRN ORAL For Anxiety 01/28/17 18:30 02/04/17 18:29 Magnesium Hydroxide (Mom) 30 ml HSPRN PRN ORAL Constipation 01/28/17 18:30 02/27/17 18:29 Metoclopramide HCl (Reglan) 5 mg Q6H PRN IVP Nausea & Vomiting 01/30/17 16:30 03/01/17 16:29 UNV Morphine Sulfate (Morphine Sulfate) 2 mg Q4H PRN IVP Moderate Pain (Pain Scale 4-6) 01/28/17 18:30 02/04/17 18:29 Morphine Sulfate (Morphine Sulfate) 4 mg Q4H PRN IVP Severe Pain (Pain Scale 7-10) 01/28/17 18:30 02/04/17 18:29 01/29/17 22:42 Nitroglycerin (Ntg) 0.4 mg Q5M X 3 DOSES PRN SL Prn Chest Pain 01/28/17 18:30 02/27/17 18:29 Pantoprazole (Protonix) 40 mg DAILY ORAL 01/29/17 09:00 02/28/17 08:59 01/30/17 10:02 Polyethylene Glycol (Miralax) 17 gm HSPRN PRN ORAL Constipation 01/28/17 18:30 02/27/17 18:29 Sodium Chloride 1,000 ml @ 125 mls/hr Q8H IV 01/28/17 19:30 02/27/17 19:29 01/30/17 14:39 Allergies: Coded Allergies: IODINE (Verified Allergy, Severe, Anaphylaxis, 02/29/12) ROS Limited/Unobtainable: No Constitutional: Reports: no symptoms HEENT: Reports: no symptoms Cardiovascular: Reports: no symptoms Respiratory: Reports: no symptoms Gastrointestinal/Abdominal: Reports: no symptoms Genitourinary: Reports: no symptoms Neurologic/Psychiatric: Reports: no symptoms Subjective 66 YO F admitted with intractable vomiting. Cover for Int Davon-Dr Tadeo. Objective Last Vital Signs Date Time Temp Pulse Resp B/P (MAP) Pulse Ox O2 Delivery O2 Flow Rate FiO2 01/30/17 16:00 98.8 94 18 149/82 96 Room Air Laboratory Tests Test 01/30/17 06:50 White Blood Count 11.1 K/UL (4.8-10.8) H Red Blood Count 4.78 M/UL (4.20-5.40) Hemoglobin 13.4 G/DL (12.0-16.0) Hematocrit 42.1 % (37.0-47.0) Mean Corpuscular Volume 88 FL (80-99) Mean Corpuscular Hemoglobin 28.1 PG (27.0-31.0) Mean Corpuscular Hemoglobin Concent 32.0 G/DL (32.0-36.0) Red Cell Distribution Width 13.1 % (11.6-14.8) Platelet Count 255 K/UL (150-450) Mean Platelet Volume 11.0 FL (6.5-10.1) H Neutrophils (%) (Auto) 77.2 % (45.0-75.0) H Lymphocytes (%) (Auto) 15.0 % (20.0-45.0) L Monocytes (%) (Auto) 7.4 % (1.0-10.0) Eosinophils (%) (Auto) 0.0 % (0.0-3.0) Basophils (%) (Auto) 0.4 % (0.0-2.0) Sodium Level 145 MMOL/L (136-145) Potassium Level 4.0 MMOL/L (3.5-5.1) Chloride Level 106 MMOL/L (98-107) Carbon Dioxide Level 30 MMOL/L (21-32) Anion Gap 10 mmol/L (5-15) Blood Urea Nitrogen 45 mg/dL (7-18) H Creatinine 1.4 MG/DL (0.55-1.30) H Estimat Glomerular Filtration Rate 45.6 mL/min (>60) Glucose Level 299 MG/DL (74-106) H Calcium Level 8.8 MG/DL (8.5-10.1) Microbiology Date/Time Source Procedure Growth Status 01/28/17 13:45 Blood Blood Culture - Preliminary NO GROWTH AFTER 24 HOURS Resulted 01/28/17 13:30 Blood Blood Culture - Preliminary NO GROWTH AFTER 24 HOURS Resulted 01/28/17 13:34 Urine,Clean Catch Urine Culture - Preliminary NO GROWTH AFTER 24 HOURS Resulted Intake and Output 01/30/17 01/31/17 19:00 07:00 Intake Total 200 ml Output Total 750 ml Balance -550 ml Intake Oral 200 ml Output Urine Total 750 ml Objective General Appearance: WD/WN, alert, mild distress EENT: PERRL/EOMI, normal ENT inspection, TMs normal Neck: non-tender, normal alignment, supple, normal inspection Cardiovascular: normal peripheral pulses, normal rate, regular rhythm, no gallop/murmur, no JVD Respiratory/Chest: chest wall non-tender, lungs clear, normal breath sounds, no respiratory distress, no accessory muscle use Abdomen: decreased bowel sounds, guarding, tender Extremities: normal range of motion Edema: trace edema Neurologic: dental detail representative II-XII grossly normal, no motor/sensory deficits Skin: normal pigmentation, warm/dry Assessment/Plan Assessment/Plan 1. Intractable nausea and vomiting, most likely secondary to the diabetic gastroparesis. 2. Uncontrolled diabetes type 2. 3. Hypertension. 4. Gastritis. 5. Severe peripheral vascular disease, status post right below-knee amputation. 6. Acute kidney injury with acute tubular necrosis on chronic, most likely secondary to severe dehydration and hypovolemia. 7. Hypotension at this time, most likely secondary to hypovolemia. 8. Renal Failure. Improving on IV fluids. PLAN: Admit the patient to telemetry. We will follow up laboratory. Aggressive IV hydration. We will discuss the case with Dr. Alvares from GI and follow up with Dr. Ellison from Nephrology and Dr. Bronson Jimenez from Psychiatry. We will start the patient on clear liquid diet and Accu-Chek with sliding scale. We will monitor laboratory in the morning as well as culture. We will hold off on antibiotics at this time. The patient is afebrile at this time and we will monitor DVT prophylaxis with heparin subcutaneous. FLETCHER IRIZARRY Jan 30, 2017 16:43
[2017-01-30] MEDS: Metoclopramide 10mg/2ml Inj IVP PRN (16:59)
--- NOTE | 2017-01-30 19:57 | Consultation ---
History of Present Illness General Date patient seen: Jan 29, 2017 Chief Complaint: Abnormal Labs Present Illness HPI the pt was anxious and depressed. the pt stated that she has been having emesis for a while she believes that ativan helps the n/v. the pt was reluctant to take ssris. the pt doesn't have si/hi Allergies: Coded Allergies: IODINE (Verified Allergy, Severe, Anaphylaxis, 02/29/12) Medication History Scheduled Aspirin* (Aspirin*), 325 MG ORAL DAILY Aspirin* (Aspir 81*), 81 MG ORAL DAILY, (Reported) Docusate Sodium* (Colace*), 100 MG PO DAILY Insulin Glargine (Lantus), 21 UNITS SUBQ QHS, (Reported) Insulin Glargine (Lantus), 26 SUBQ BEDTIME, (Reported) Insulin Glargine (Lantus), 0 SUBQ BEDTIME, (Reported) Insulin Lispro (Humalog), 0 SUBQ AC+HS, (Reported) Lisinopril* (Lisinopril*), 10 MG ORAL DAILY Lisinopril* (Lisinopril*), 10 MG ORAL DAILY, (Reported) Metoclopramide Hcl* (Reglan*), 10 MG ORAL THREE TIMES A DAY, (Reported) Pantoprazole Sodium (Protonix), 40 MG GT DAILY, (Reported) Ranitidine Hcl* (Zantac*), 150 MG ORAL BEDTIME Scheduled PRN Hydrocodone Bit/Acetaminophen 5-325* ([place] 5-325 Tablet*), 1 TAB ORAL Q4H PRN for For Pain, (Reported) Miscellaneous Medications Insulin Aspart (Novolog), Unknown Dose, (Reported) Patient History History Provided By: Patient, Medical Record, PMD Healthcare decision maker Resuscitation status Full Code Advanced Directive on File Past Medical/Surgical History Past Medical/Surgical History: (1) Sepsis (2) Hematemesis (3) Esophagitis (4) Diabetes mellitus (5) Diabetes mellitus (6) Depression (7) Gastritis (8) Hyperglycemia (9) Malingering (10) Peripheral vascular disease (11) Weakness (12) PVD (peripheral vascular disease) (13) Hypertension (14) Hypotension (15) Pain (16) Nausea & vomiting (17) Uncontrolled diabetes mellitus (18) Uncontrolled hypertension (19) Complete below knee amputation of right lower extremity Review of Systems Psychiatric: Reports: prior hx, anxiety, depressed feelings, emotional problems Physical Exam General Appearance: WD/WN, no apparent distress, alert, overweight Neurologic: alert, oriented x 3, responsive, depressed affect Last 24 Hour Vital Signs Date Time Temp Pulse Resp B/P (MAP) Pulse Ox O2 Delivery O2 Flow Rate FiO2 01/30/17 16:59 94 149/82 01/30/17 16:00 98.8 94 18 149/82 96 Room Air 01/30/17 12:00 98.2 88 18 141/75 94 Room Air 01/30/17 08:00 98.2 90 18 149/72 95 Room Air 01/30/17 04:00 97 01/30/17 04:00 99.0 98 20 148/86 95 Room Air 01/30/17 00:00 98.1 92 20 137/70 Room Air 01/30/17 00:00 82 01/29/17 20:00 98.1 96 20 137/77 99 Room Air 01/29/17 20:00 82 Intake and Output 01/30/17 01/31/17 19:00 07:00 Intake Total 320 ml Output Total 1050 ml Balance -730 ml Intake Oral 320 ml Output Urine Total 1050 ml Laboratory Tests Test 01/30/17 06:50 White Blood Count 11.1 K/UL (4.8-10.8) H Red Blood Count 4.78 M/UL (4.20-5.40) Hemoglobin 13.4 G/DL (12.0-16.0) Hematocrit 42.1 % (37.0-47.0) Mean Corpuscular Volume 88 FL (80-99) Mean Corpuscular Hemoglobin 28.1 PG (27.0-31.0) Mean Corpuscular Hemoglobin Concent 32.0 G/DL (32.0-36.0) Red Cell Distribution Width 13.1 % (11.6-14.8) Platelet Count 255 K/UL (150-450) Mean Platelet Volume 11.0 FL (6.5-10.1) H Neutrophils (%) (Auto) 77.2 % (45.0-75.0) H Lymphocytes (%) (Auto) 15.0 % (20.0-45.0) L Monocytes (%) (Auto) 7.4 % (1.0-10.0) Eosinophils (%) (Auto) 0.0 % (0.0-3.0) Basophils (%) (Auto) 0.4 % (0.0-2.0) Sodium Level 145 MMOL/L (136-145) Potassium Level 4.0 MMOL/L (3.5-5.1) Chloride Level 106 MMOL/L (98-107) Carbon Dioxide Level 30 MMOL/L (21-32) Anion Gap 10 mmol/L (5-15) Blood Urea Nitrogen 45 mg/dL (7-18) H Creatinine 1.4 MG/DL (0.55-1.30) H Estimat Glomerular Filtration Rate 45.6 mL/min (>60) Glucose Level 299 MG/DL (74-106) H Calcium Level 8.8 MG/DL (8.5-10.1) Height (Feet): 5 Height (Inches): 4.00 Weight (Pounds): 128 Medications Current Medications Medications (Trade) Dose Ordered Sig/[place] Route PRN Reason Start Time Stop Time Status Last Admin Dose Admin Acetaminophen (Tylenol) 650 mg Q4H PRN ORAL Mild Pain (Pain Scale 1-3) 01/28/17 18:30 02/27/17 18:29 Acetaminophen (Tylenol) 650 mg Q4H PRN ORAL T>100.5 01/28/17 18:30 02/27/17 18:29 Acetaminophen (Tylenol) 650 mg Q4H PRN RECTAL Mild Pain (Pain Scale 1-3) 01/28/17 18:30 02/27/17 18:29 Amlodipine Besylate (Norvasc) 5 mg DAILY ORAL 01/31/17 09:00 03/02/17 08:59 Aspirin (ASA) 81 mg DAILY ORAL 01/29/17 09:00 02/28/17 08:59 01/30/17 10:02 Dextrose (Dextrose 50%) STAT PRN IV Hypoglycemia 01/28/17 18:30 02/27/17 18:29 Erythromycin (Jl-Ped) 250 mg Q6HR ORAL 01/29/17 18:00 02/05/17 17:59 01/30/17 17:08 Heparin Sodium (Porcine) (Heparin 5000 units/ml) 5,000 units EVERY 12 HOURS SUBQ 01/28/17 21:00 1/14/18 20:59 01/30/17 10:06 Insulin Aspart (NovoLOG) BEFORE MEALS AND HS SUBQ 01/28/17 17:30 02/27/17 17:29 01/30/17 17:08 Lorazepam (Ativan) 1 mg Q4H PRN ORAL For Anxiety 01/28/17 18:30 02/04/17 18:29 Magnesium Hydroxide (Mom) 30 ml HSPRN PRN ORAL Constipation 01/28/17 18:30 02/27/17 18:29 Metoclopramide HCl (Reglan) 5 mg Q6H PRN IVP Nausea & Vomiting 01/30/17 17:00 03/01/17 16:59 01/30/17 16:59 Morphine Sulfate (Morphine Sulfate) 2 mg Q4H PRN IVP Moderate Pain (Pain Scale 4-6) 01/28/17 18:30 02/04/17 18:29 Morphine Sulfate (Morphine Sulfate) 4 mg Q4H PRN IVP Severe Pain (Pain Scale 7-10) 01/28/17 18:30 02/04/17 18:29 01/29/17 22:42 Nitroglycerin (Ntg) 0.4 mg Q5M X 3 DOSES PRN SL Prn Chest Pain 01/28/17 18:30 02/27/17 18:29 Pantoprazole (Protonix) 40 mg DAILY ORAL 01/29/17 09:00 02/28/17 08:59 01/30/17 10:02 Polyethylene Glycol (Miralax) 17 gm HSPRN PRN ORAL Constipation 01/28/17 18:30 02/27/17 18:29 Sodium Chloride 1,000 ml @ 125 mls/hr Q8H IV 01/28/17 19:30 02/27/17 19:29 01/30/17 14:39 Assessment/Plan Status: stable Assessment/Plan Anxiety D/O -klonopin 1mg qhs Bronson Jimenez M.D. Jan 30, 2017 19:57
[2017-01-30 20:15] VITALS: BP 139/81
--- NOTE | 2017-01-30 22:50 | Consultation ---
History of Present Illness General Chief Complaint: Abnormal Labs Present Illness HPI 66-year-old female with past medical history significant for history of diabetes , hypertension, dyslipidemia, history of peripheral vascular disease, history of chronic kidney disease due to diabetic nephropathy, came to emergency room with complaint of intractable nausea and vomiting. the pt is endorsing anxiety and depressed mood, anhedonia. no si/hi. Allergies: Coded Allergies: IODINE (Verified Allergy, Severe, Anaphylaxis, 02/29/12) Medication History Scheduled Aspirin* (Aspirin*), 325 MG ORAL DAILY Aspirin* (Aspir 81*), 81 MG ORAL DAILY, (Reported) Docusate Sodium* (Colace*), 100 MG PO DAILY Insulin Glargine (Lantus), 21 UNITS SUBQ QHS, (Reported) Insulin Glargine (Lantus), 26 SUBQ BEDTIME, (Reported) Insulin Glargine (Lantus), 0 SUBQ BEDTIME, (Reported) Insulin Lispro (Humalog), 0 SUBQ AC+HS, (Reported) Lisinopril* (Lisinopril*), 10 MG ORAL DAILY Lisinopril* (Lisinopril*), 10 MG ORAL DAILY, (Reported) Metoclopramide Hcl* (Reglan*), 10 MG ORAL THREE TIMES A DAY, (Reported) Pantoprazole Sodium (Protonix), 40 MG GT DAILY, (Reported) Ranitidine Hcl* (Zantac*), 150 MG ORAL BEDTIME Scheduled PRN Hydrocodone Bit/Acetaminophen 5-325* ([place] 5-325 Tablet*), 1 TAB ORAL Q4H PRN for For Pain, (Reported) Miscellaneous Medications Insulin Aspart (Novolog), Unknown Dose, (Reported) Patient History History Provided By: Patient, Medical Record, PMD Healthcare decision maker Resuscitation status Full Code Advanced Directive on File Past Medical/Surgical History Past Medical/Surgical History: (1) Esophagitis (2) Gastritis (3) PVD (peripheral vascular disease) (4) Hematemesis (5) Diabetes mellitus (6) Diabetes mellitus (7) Peripheral vascular disease (8) Pain (9) Uncontrolled hypertension (10) Malingering (11) Sepsis (12) Hyperglycemia (13) Hypotension (14) Nausea & vomiting (15) Uncontrolled diabetes mellitus (16) Weakness (17) Depression (18) Hypertension (19) Complete below knee amputation of right lower extremity Review of Systems Psychiatric: Reports: prior hx, anxiety, depressed feelings, emotional problems Physical Exam General Appearance: WD/WN, no apparent distress, alert Neurologic: alert, oriented x 3, responsive, depressed affect Last 24 Hour Vital Signs Date Time Temp Pulse Resp B/P (MAP) Pulse Ox O2 Delivery O2 Flow Rate FiO2 01/30/17 20:15 97.7 90 21 139/81 91 Room Air 01/30/17 16:59 94 149/82 01/30/17 16:00 85 01/30/17 16:00 98.8 94 18 149/82 96 Room Air 01/30/17 12:00 85 01/30/17 12:00 98.2 88 18 141/75 94 Room Air 01/30/17 08:00 98.2 90 18 149/72 95 Room Air 01/30/17 08:00 95 01/30/17 04:00 97 01/30/17 04:00 99.0 98 20 148/86 95 Room Air 01/30/17 00:00 98.1 92 20 137/70 Room Air 01/30/17 00:00 82 Intake and Output 01/30/17 01/31/17 19:00 07:00 Intake Total 320 ml Output Total 1050 ml Balance -730 ml Intake Oral 320 ml Output Urine Total 1050 ml Laboratory Tests Test 01/30/17 06:50 White Blood Count 11.1 K/UL (4.8-10.8) H Red Blood Count 4.78 M/UL (4.20-5.40) Hemoglobin 13.4 G/DL (12.0-16.0) Hematocrit 42.1 % (37.0-47.0) Mean Corpuscular Volume 88 FL (80-99) Mean Corpuscular Hemoglobin 28.1 PG (27.0-31.0) Mean Corpuscular Hemoglobin Concent 32.0 G/DL (32.0-36.0) Red Cell Distribution Width 13.1 % (11.6-14.8) Platelet Count 255 K/UL (150-450) Mean Platelet Volume 11.0 FL (6.5-10.1) H Neutrophils (%) (Auto) 77.2 % (45.0-75.0) H Lymphocytes (%) (Auto) 15.0 % (20.0-45.0) L Monocytes (%) (Auto) 7.4 % (1.0-10.0) Eosinophils (%) (Auto) 0.0 % (0.0-3.0) Basophils (%) (Auto) 0.4 % (0.0-2.0) Sodium Level 145 MMOL/L (136-145) Potassium Level 4.0 MMOL/L (3.5-5.1) Chloride Level 106 MMOL/L (98-107) Carbon Dioxide Level 30 MMOL/L (21-32) Anion Gap 10 mmol/L (5-15) Blood Urea Nitrogen 45 mg/dL (7-18) H Creatinine 1.4 MG/DL (0.55-1.30) H Estimat Glomerular Filtration Rate 45.6 mL/min (>60) Glucose Level 299 MG/DL (74-106) H Calcium Level 8.8 MG/DL (8.5-10.1) Height (Feet): 5 Height (Inches): 4.00 Weight (Pounds): 128 Medications Current Medications Medications (Trade) Dose Ordered Sig/[place] Route PRN Reason Start Time Stop Time Status Last Admin Dose Admin Acetaminophen (Tylenol) 650 mg Q4H PRN ORAL Mild Pain (Pain Scale 1-3) 01/28/17 18:30 02/27/17 18:29 Acetaminophen (Tylenol) 650 mg Q4H PRN ORAL T>100.5 01/28/17 18:30 02/27/17 18:29 Acetaminophen (Tylenol) 650 mg Q4H PRN RECTAL Mild Pain (Pain Scale 1-3) 01/28/17 18:30 02/27/17 18:29 Amlodipine Besylate (Norvasc) 5 mg DAILY ORAL 01/31/17 09:00 03/02/17 08:59 Aspirin (ASA) 81 mg DAILY ORAL 01/29/17 09:00 02/28/17 08:59 01/30/17 10:02 Dextrose (Dextrose 50%) STAT PRN IV Hypoglycemia 01/28/17 18:30 02/27/17 18:29 Erythromycin (Jl-Ped) 250 mg Q6HR ORAL 01/29/17 18:00 02/05/17 17:59 01/30/17 17:08 Heparin Sodium (Porcine) (Heparin 5000 units/ml) 5,000 units EVERY 12 HOURS SUBQ 01/28/17 21:00 02/27/17 20:59 01/30/17 21:12 Insulin Aspart (NovoLOG) BEFORE MEALS AND HS SUBQ 01/28/17 17:30 02/27/17 17:29 01/30/17 21:11 Lorazepam (Ativan) 1 mg Q4H PRN ORAL For Anxiety 01/28/17 18:30 02/04/17 18:29 Magnesium Hydroxide (Mom) 30 ml HSPRN PRN ORAL Constipation 01/28/17 18:30 02/27/17 18:29 Metoclopramide HCl (Reglan) 5 mg Q6H PRN IVP Nausea & Vomiting 01/30/17 17:00 03/01/17 16:59 01/30/17 16:59 Morphine Sulfate (Morphine Sulfate) 2 mg Q4H PRN IVP Moderate Pain (Pain Scale 4-6) 01/28/17 18:30 02/04/17 18:29 Morphine Sulfate (Morphine Sulfate) 4 mg Q4H PRN IVP Severe Pain (Pain Scale 7-10) 01/28/17 18:30 02/04/17 18:29 01/29/17 22:42 Nitroglycerin (Ntg) 0.4 mg Q5M X 3 DOSES PRN SL Prn Chest Pain 01/28/17 18:30 02/27/17 18:29 Pantoprazole (Protonix) 40 mg DAILY ORAL 01/29/17 09:00 02/28/17 08:59 01/30/17 10:02 Polyethylene Glycol (Miralax) 17 gm HSPRN PRN ORAL Constipation 01/28/17 18:30 02/27/17 18:29 Sodium Chloride 1,000 ml @ 125 mls/hr Q8H IV 01/28/17 19:30 02/27/17 19:29 01/30/17 19:30 Assessment/Plan Status: stable Assessment/Plan MDD r/o mj use -cont current meds -may consider remeron to reduce n/v -Bronson Silverman M.D. Jan 30, 2017 22:50
[2017-01-31 00:26] VITALS: BP 123/66
[2017-01-31] MEDS: NS w/KCl 40mEq 1,000 ML IV SCH ×3 (03:30→19:30)
[2017-01-31 03:59] VITALS: BP 134/71
[2017-01-31] MEDS: Erythromycin Ethylsuccinate 200mg/5ml Susp ORAL SCH ×4 (06:00→23:48)
[2017-01-31] MEDS: NovoLOG Insulin Flexpen SUBQ SCH ×4 (06:34→22:02)
[2017-01-31 08:00] VITALS: BP 147/73
--- NOTE | 2017-01-31 08:24 | Nephrology Progress Note ---
Assessment/Plan Assessment 1. Acute renal failure. 3. Dehydration. 4. Hypokalemia. 5. Urinary tract infection. 6. Elevated white blood cell count. 7.intractable nausea and vomiting Plan plan to continue current iv monitoring renal function replace electrolyte as need avoid NSAID Subjective Constitutional: Reports: no symptoms, malaise, weakness HEENT: Reports: no symptoms Genitourinary: Reports: no symptoms Neurologic/Psychiatric: Reports: no symptoms Subjective c/o nausea and vomiting also has diffuse abdominal pain Objective Objective Last 24 Hour Vital Signs Date Time Temp Pulse Resp B/P (MAP) Pulse Ox O2 Delivery O2 Flow Rate FiO2 01/31/17 04:00 77 01/31/17 03:59 98.0 85 22 134/71 93 Nasal Cannula 01/31/17 00:26 98.1 81 21 123/66 91 Room Air 01/31/17 00:00 76 01/30/17 20:15 97.7 90 21 139/81 91 Room Air 01/30/17 20:00 86 01/30/17 16:59 94 149/82 01/30/17 16:00 85 01/30/17 16:00 98.8 94 18 149/82 96 Room Air 01/30/17 12:00 85 01/30/17 12:00 98.2 88 18 141/75 94 Room Air Height (Feet): 5 Height (Inches): 4.00 Weight (Pounds): 128 Objective HEAD AND NECK: No JVP. No LAD. No thyromegaly. Extraocular movement intact. Pupils are reactive to light and accommodation. LUNGS: Clear to auscultation. CARDIAC: Regular rate and rhythm. S1, S2. No murmur. No rub. ABDOMEN: Soft, nontender, nondistended. EXTREMITIES: No edema. No clubbing. No cyanosis. NEUROLOGIC: Cranial nerves II through XII within normal limit. Upper and lower extremities are grossly intact. Right BKA. NAMITA SANTAMARIA Jan 31, 2017 08:24
[2017-01-31 09:13] LABS: BASOPHILS % (AUTO) 0.5 % (0.0-2.0); EOSINOPHILS % (AUTO) 0.4 % (0.0-3.0); LYMPHOCYTES % (AUTO) 19.7 % (20.0-45.0); MEAN CORPUSCULAR HEMOGLOBIN 27.9 PG (27.0-31.0); MEAN CORPUSCULAR VOLUME 87 FL (80-99); MEAN PLATELET VOLUME 10.7 FL (6.5-10.1); MONOCYTES % (AUTO) 7.1 % (1.0-10.0); NEUTROPHILS % (AUTO) 72.3 % (45.0-75.0); PLATELET COUNT 236 K/UL (150-450); RED BLOOD COUNT 4.93 M/UL (4.20-5.40); RED CELL DISTRIBUTION WIDTH 12.8 % (11.6-14.8); WHITE BLOOD COUNT 10.6 K/UL (4.8-10.8)
[2017-01-31 09:19] LABS: ANION GAP 5 mmol/L (5-15); CALCIUM 8.9 MG/DL (8.5-10.1); CARBON DIOXIDE 31 MMOL/L (21-32); CHLORIDE 107 MMOL/L (98-107); GLOMERULAR FILTRATION RATE > 60 mL/min (>60); POTASSIUM 3.9 MMOL/L (3.5-5.1); SODIUM 143 MMOL/L (136-145)
[2017-01-31] MEDS: Aspirin Baby 81mg ORAL SCH (10:49)
[2017-01-31] MEDS: Heparin 5000 units/ml inj SUBQ SCH ×2 (10:50→22:03)
--- NOTE | 2017-01-31 11:03 | GI Progress Note ---
Assessment/Plan Problems: (1) Hx of BKA ICD Codes: Z89.519 - Acquired absence of unspecified leg below knee SNOMED: 125270275, 135000251 (2) Nausea & vomiting ICD Codes: R11.2 - Nausea with vomiting, unspecified SNOMED: 40496552 Qualifiers: Qualified Codes: R11.2 - Nausea with vomiting, unspecified (3) Weakness ICD Codes: R53.1 - Weakness SNOMED: 07834102 (4) Diabetes mellitus ICD Codes: E11.9 - Type 2 diabetes mellitus without complications SNOMED: 02499450 (5) Esophagitis ICD Codes: K20.9 - Esophagitis, unspecified SNOMED: 04578740 Status: stable Status Narrative Discussed with Dr. Alvares. Assessment/Plan Assessment - Recurrent N/V - Diabetes - Diabetic gastroparesis Recommendations - PPI - anti-emetics, low dose erythromycin for gi motility - glycemic control - Elevate HOB - Hydration Subjective Gastrointestinal/Abdominal: Reports: no symptoms Objective Last 24 Hour Vital Signs Date Time Temp Pulse Resp B/P (MAP) Pulse Ox O2 Delivery O2 Flow Rate FiO2 01/31/17 10:49 94 147/73 01/31/17 08:00 97.0 94 20 147/73 95 01/31/17 04:00 77 01/31/17 03:59 98.0 85 22 134/71 93 Nasal Cannula 01/31/17 00:26 98.1 81 21 123/66 91 Room Air 01/31/17 00:00 76 01/30/17 20:15 97.7 90 21 139/81 91 Room Air 01/30/17 20:00 86 01/30/17 16:59 94 149/82 01/30/17 16:00 85 01/30/17 16:00 98.8 94 18 149/82 96 Room Air 01/30/17 12:00 85 01/30/17 12:00 98.2 88 18 141/75 94 Room Air Laboratory Tests Test 01/31/17 07:50 White Blood Count 10.6 K/UL (4.8-10.8) Red Blood Count 4.93 M/UL (4.20-5.40) Hemoglobin 13.8 G/DL (12.0-16.0) Hematocrit 43.1 % (37.0-47.0) Mean Corpuscular Volume 87 FL (80-99) Mean Corpuscular Hemoglobin 27.9 PG (27.0-31.0) Mean Corpuscular Hemoglobin Concent 32.0 G/DL (32.0-36.0) Red Cell Distribution Width 12.8 % (11.6-14.8) Platelet Count 236 K/UL (150-450) Mean Platelet Volume 10.7 FL (6.5-10.1) H Neutrophils (%) (Auto) 72.3 % (45.0-75.0) Lymphocytes (%) (Auto) 19.7 % (20.0-45.0) L Monocytes (%) (Auto) 7.1 % (1.0-10.0) Eosinophils (%) (Auto) 0.4 % (0.0-3.0) Basophils (%) (Auto) 0.5 % (0.0-2.0) Sodium Level 143 MMOL/L (136-145) Potassium Level 3.9 MMOL/L (3.5-5.1) Chloride Level 107 MMOL/L (98-107) Carbon Dioxide Level 31 MMOL/L (21-32) Anion Gap 5 mmol/L (5-15) Blood Urea Nitrogen 22 mg/dL (7-18) H Creatinine 1.0 MG/DL (0.55-1.30) Estimat Glomerular Filtration Rate > 60 mL/min (>60) Glucose Level 208 MG/DL (74-106) H Calcium Level 8.9 MG/DL (8.5-10.1) Height (Feet): 5 Height (Inches): 4.00 Weight (Pounds): 128 General Appearance: WD/WN, no apparent distress, alert, overweight Cardiovascular: normal rate Respiratory/Chest: normal breath sounds, no respiratory distress Abdominal Exam: normal bowel sounds, non tender, soft Extremities: normal range of motion, non-tender Mariam Barbosa NAudra Jan 31, 2017 11:03
[2017-01-31] MEDS: Metoclopramide 10mg/2ml Inj IVP PRN ×2 (15:20→22:03)
[2017-01-31 16:00] VITALS: BP 119/67
--- NOTE | 2017-01-31 18:53 | Internal Med Progress Note ---
Subjective Date of Service: Jan 31, 2017 Physician Name LorenFletcher Attending Physician Abhilash Tadeo MD Current Medications Medications (Trade) Dose Ordered Sig/[place] Route PRN Reason Start Time Stop Time Status Last Admin Dose Admin Acetaminophen (Tylenol) 650 mg Q4H PRN ORAL Mild Pain (Pain Scale 1-3) 01/28/17 18:30 02/27/17 18:29 Acetaminophen (Tylenol) 650 mg Q4H PRN ORAL T>100.5 01/28/17 18:30 02/27/17 18:29 Acetaminophen (Tylenol) 650 mg Q4H PRN RECTAL Mild Pain (Pain Scale 1-3) 01/28/17 18:30 02/27/17 18:29 Amlodipine Besylate (Norvasc) 5 mg DAILY ORAL 01/31/17 09:00 03/02/17 08:59 01/31/17 10:49 Aspirin (ASA) 81 mg DAILY ORAL 01/29/17 09:00 02/28/17 08:59 01/31/17 10:49 Dextrose (Dextrose 50%) STAT PRN IV Hypoglycemia 01/28/17 18:30 02/27/17 18:29 Erythromycin (Jl-Ped) 250 mg Q6HR ORAL 01/29/17 18:00 02/05/17 17:59 01/30/17 17:08 Heparin Sodium (Porcine) (Heparin 5000 units/ml) 5,000 units EVERY 12 HOURS SUBQ 01/28/17 21:00 02/27/17 20:59 01/31/17 10:50 Insulin Aspart (NovoLOG) BEFORE MEALS AND HS SUBQ 01/28/17 17:30 02/27/17 17:29 01/31/17 17:30 Lorazepam (Ativan) 1 mg Q4H PRN ORAL For Anxiety 01/28/17 18:30 02/04/17 18:29 Magnesium Hydroxide (Mom) 30 ml HSPRN PRN ORAL Constipation 01/28/17 18:30 02/27/17 18:29 Metoclopramide HCl (Reglan) 5 mg Q6H PRN IVP Nausea & Vomiting 01/30/17 17:00 03/01/17 16:59 01/31/17 15:20 Morphine Sulfate (Morphine Sulfate) 2 mg Q4H PRN IVP Moderate Pain (Pain Scale 4-6) 01/28/17 18:30 02/04/17 18:29 Morphine Sulfate (Morphine Sulfate) 4 mg Q4H PRN IVP Severe Pain (Pain Scale 7-10) 01/28/17 18:30 02/04/17 18:29 01/29/17 22:42 Nitroglycerin (Ntg) 0.4 mg Q5M X 3 DOSES PRN SL Prn Chest Pain 01/28/17 18:30 02/27/17 18:29 Pantoprazole (Protonix) 40 mg DAILY ORAL 01/29/17 09:00 02/28/17 08:59 01/31/17 10:49 Polyethylene Glycol (Miralax) 17 gm HSPRN PRN ORAL Constipation 01/28/17 18:30 02/27/17 18:29 Sodium Chloride 1,000 ml @ 125 mls/hr Q8H IV 01/28/17 19:30 02/27/17 19:29 01/31/17 15:29 Allergies: Coded Allergies: IODINE (Verified Allergy, Severe, Anaphylaxis, 02/29/12) ROS Limited/Unobtainable: No Constitutional: Reports: no symptoms HEENT: Reports: no symptoms Cardiovascular: Reports: no symptoms Respiratory: Reports: no symptoms Gastrointestinal/Abdominal: Reports: nausea, vomiting Genitourinary: Reports: no symptoms Neurologic/Psychiatric: Reports: no symptoms Subjective 66 YO F admitted with intractable vomiting. Cover for [facility]-Dr Tadeo. Objective Last Vital Signs Date Time Temp Pulse Resp B/P (MAP) Pulse Ox O2 Delivery O2 Flow Rate FiO2 01/31/17 16:00 88 01/31/17 16:00 97.2 19 119/67 95 01/31/17 03:59 Nasal Cannula Laboratory Tests Test 01/31/17 07:50 White Blood Count 10.6 K/UL (4.8-10.8) Red Blood Count 4.93 M/UL (4.20-5.40) Hemoglobin 13.8 G/DL (12.0-16.0) Hematocrit 43.1 % (37.0-47.0) Mean Corpuscular Volume 87 FL (80-99) Mean Corpuscular Hemoglobin 27.9 PG (27.0-31.0) Mean Corpuscular Hemoglobin Concent 32.0 G/DL (32.0-36.0) Red Cell Distribution Width 12.8 % (11.6-14.8) Platelet Count 236 K/UL (150-450) Mean Platelet Volume 10.7 FL (6.5-10.1) H Neutrophils (%) (Auto) 72.3 % (45.0-75.0) Lymphocytes (%) (Auto) 19.7 % (20.0-45.0) L Monocytes (%) (Auto) 7.1 % (1.0-10.0) Eosinophils (%) (Auto) 0.4 % (0.0-3.0) Basophils (%) (Auto) 0.5 % (0.0-2.0) Sodium Level 143 MMOL/L (136-145) Potassium Level 3.9 MMOL/L (3.5-5.1) Chloride Level 107 MMOL/L (98-107) Carbon Dioxide Level 31 MMOL/L (21-32) Anion Gap 5 mmol/L (5-15) Blood Urea Nitrogen 22 mg/dL (7-18) H Creatinine 1.0 MG/DL (0.55-1.30) Estimat Glomerular Filtration Rate > 60 mL/min (>60) Glucose Level 208 MG/DL (74-106) H Calcium Level 8.9 MG/DL (8.5-10.1) Intake and Output 01/31/17 02/01/17 19:00 07:00 Intake Total 800 ml Balance 800 ml Intake Oral 800 ml # Voids 6 # Bowel Movements 1 Objective General Appearance: WD/WN, alert, mild distress EENT: PERRL/EOMI, normal ENT inspection, TMs normal Neck: non-tender, normal alignment, supple, normal inspection Cardiovascular: normal peripheral pulses, normal rate, regular rhythm, no gallop/murmur, no JVD Respiratory/Chest: chest wall non-tender, lungs clear, normal breath sounds, no respiratory distress, no accessory muscle use Abdomen: decreased bowel sounds, guarding, tender Extremities: normal range of motion Edema: trace edema Neurologic: mobility developer II-XII grossly normal, no motor/sensory deficits Skin: normal pigmentation, warm/dry Assessment/Plan Assessment/Plan 1. Intractable nausea and vomiting, most likely secondary to the diabetic gastroparesis. 2. Uncontrolled diabetes type 2. 3. Hypertension. 4. Gastritis. 5. Severe peripheral vascular disease, status post right below-knee amputation. 6. Acute kidney injury with acute tubular necrosis on chronic, most likely secondary to severe dehydration and hypovolemia. 7. Hypotension at this time, most likely secondary to hypovolemia. 8. Renal Failure. See nephrology note. Improving on IV fluids. PLAN: Admit the patient to telemetry. We will follow up laboratory. Aggressive IV hydration. We will discuss the case with Dr. Alvares from GI and follow up with Dr. Ellison from Nephrology and Dr. Bronson Jimenez from Psychiatry. We will start the patient on clear liquid diet and Accu-Chek with sliding scale. We will monitor laboratory in the morning as well as culture. We will hold off on antibiotics at this time. The patient is afebrile at this time and we will monitor DVT prophylaxis with heparin subcutaneous. FLETCHER IRIZARRY Jan 31, 2017 18:53
[2017-01-31 20:00] VITALS: BP 143/86
--- NOTE | 2017-01-31 23:01 | General Progress Note ---
Assessment/Plan Status: stable Assessment/Plan mdd anxiety klonopin remeron 15mg qhs Subjective Date patient seen: Jan 31, 2017 Neurologic/Psychiatric: Reports: anxiety, depressed, emotional problems Allergies: Coded Allergies: IODINE (Verified Allergy, Severe, Anaphylaxis, 02/29/12) Objective Last 24 Hour Vital Signs Date Time Temp Pulse Resp B/P (MAP) Pulse Ox O2 Delivery O2 Flow Rate FiO2 01/31/17 20:00 100.0 89 12 143/86 99 Room Air 01/31/17 16:00 88 01/31/17 16:00 97.2 83 19 119/67 95 01/31/17 12:00 84 01/31/17 10:49 94 147/73 01/31/17 08:00 97.0 94 20 147/73 95 01/31/17 08:00 103 01/31/17 04:00 77 01/31/17 03:59 98.0 85 22 134/71 93 Nasal Cannula 01/31/17 00:26 98.1 81 21 123/66 91 Room Air 01/31/17 00:00 76 Intake and Output 01/31/17 02/01/17 19:00 07:00 Intake Total 800 ml Balance 800 ml Intake Oral 800 ml # Voids 6 # Bowel Movements 1 Laboratory Tests 01/31/17 07:50: White Blood Count 10.6, Red Blood Count 4.93, Hemoglobin 13.8, Hematocrit 43.1, Mean Corpuscular Volume 87, Mean Corpuscular Hemoglobin 27.9, Mean Corpuscular Hemoglobin Concent 32.0, Red Cell Distribution Width 12.8, Platelet Count 236, Mean Platelet Volume 10.7H, Neutrophils (%) (Auto) 72.3, Lymphocytes (%) (Auto) 19.7L, Monocytes (%) (Auto) 7.1, Eosinophils (%) (Auto) 0.4, Basophils (%) (Auto ) 0.5, Sodium Level 143, Potassium Level 3.9, Chloride Level 107, Carbon Dioxide Level 31, Anion Gap 5, Blood Urea Nitrogen 22H, Creatinine 1.0, Estimat Glomerular Filtration Rate > 60, Glucose Level 208H, Calcium Level 8.9 Height (Feet): 5 Height (Inches): 4.00 Weight (Pounds): 128 General Appearance: no apparent distress, alert Neurologic: alert, oriented x 3, responsive, depressed affect Farhadi,Pantea M.D. Jan 31, 2017 23:01
[2017-02-01] VITALS: BP 112/72
[2017-02-01] MEDS: NS w/KCl 40mEq 1,000 ML IV SCH ×4 (03:18→21:00)
[2017-02-01 04:00] VITALS: BP 134/70
[2017-02-01] MEDS: Erythromycin Ethylsuccinate 200mg/5ml Susp ORAL SCH ×3 (06:00→18:00)
[2017-02-01] MEDS: NovoLOG Insulin Flexpen SUBQ SCH ×5 (06:35→21:00)
[2017-02-01 08:00] VITALS: BP 123/84
[2017-02-01] MEDS: Aspirin Baby 81mg ORAL SCH (08:48)
[2017-02-01 08:54] LABS: BASOPHILS % (AUTO) 0.5 % (0.0-2.0); EOSINOPHILS % (AUTO) 0.8 % (0.0-3.0); LYMPHOCYTES % (AUTO) 16.6 % (20.0-45.0); MEAN CORPUSCULAR HEMOGLOBIN 28.4 PG (27.0-31.0); MEAN CORPUSCULAR HGB CONC 32.6 G/DL (32.0-36.0); MEAN CORPUSCULAR VOLUME 87 FL (80-99); MEAN PLATELET VOLUME 10.9 FL (6.5-10.1); MONOCYTES % (AUTO) 6.8 % (1.0-10.0); NEUTROPHILS % (AUTO) 75.3 % (45.0-75.0); PLATELET COUNT 235 K/UL (150-450); WHITE BLOOD COUNT 11.1 K/UL (4.8-10.8)
[2017-02-01 08:58] LABS: ANION GAP 3 mmol/L (5-15); CALCIUM 8.7 MG/DL (8.5-10.1); CARBON DIOXIDE 31 MMOL/L (21-32); CHLORIDE 106 MMOL/L (98-107); CREATININE 1.2 MG/DL (0.55-1.30); GLOMERULAR FILTRATION RATE 54.5 mL/min (>60); POTASSIUM 3.7 MMOL/L (3.5-5.1); SODIUM 140 MMOL/L (136-145)
[2017-02-01] MEDS: Heparin 5000 units/ml inj SUBQ SCH ×3 (09:46→21:00)
[2017-02-01 12:00] VITALS: BP 126/76
--- NOTE | 2017-02-01 14:22 | GI Progress Note ---
Assessment/Plan Problems: (1) Hx of BKA ICD Codes: Z89.519 - Acquired absence of unspecified leg below knee SNOMED: 505633385, 457112216 (2) Nausea & vomiting ICD Codes: R11.2 - Nausea with vomiting, unspecified SNOMED: 73078519 Qualifiers: Qualified Codes: R11.2 - Nausea with vomiting, unspecified (3) Weakness ICD Codes: R53.1 - Weakness SNOMED: 97152710 (4) Diabetes mellitus ICD Codes: E11.9 - Type 2 diabetes mellitus without complications SNOMED: 10035366 (5) Esophagitis ICD Codes: K20.9 - Esophagitis, unspecified SNOMED: 22213499 Status: unchanged Status Narrative Discussed with Dr. Alvares. Assessment/Plan Assessment - Recurrent N/V - Diabetes - Diabetic gastroparesis Recommendations - PPI - anti-emetics, low dose erythromycin for gi motility - glycemic control - Elevate HOB - Hydration Subjective Gastrointestinal/Abdominal: Reports: no symptoms Objective Last 24 Hour Vital Signs Date Time Temp Pulse Resp B/P (MAP) Pulse Ox O2 Delivery O2 Flow Rate FiO2 02/01/17 12:00 80 02/01/17 12:00 97.9 83 18 126/76 94 Room Air 02/01/17 08:51 84 123/84 02/01/17 08:00 99.1 90 20 123/84 94 Room Air 02/01/17 08:00 99.1 90 20 123/84 94 Room Air 02/01/17 08:00 100 02/01/17 04:00 97.3 96 18 134/70 97 Room Air 02/01/17 04:00 93 02/01/17 00:00 98.2 81 20 112/72 95 Room Air 02/01/17 00:00 82 01/31/17 20:00 85 01/31/17 20:00 100.0 89 12 143/86 99 Room Air 01/31/17 16:00 88 01/31/17 16:00 97.2 83 19 119/67 95 Intake and Output 02/01/17 02/02/17 19:00 07:00 Intake Total 240 ml Balance 240 ml Intake Oral 240 ml Laboratory Tests Test 02/01/17 08:10 White Blood Count 11.1 K/UL (4.8-10.8) H Red Blood Count 4.60 M/UL (4.20-5.40) Hemoglobin 13.1 G/DL (12.0-16.0) Hematocrit 40.1 % (37.0-47.0) Mean Corpuscular Volume 87 FL (80-99) Mean Corpuscular Hemoglobin 28.4 PG (27.0-31.0) Mean Corpuscular Hemoglobin Concent 32.6 G/DL (32.0-36.0) Red Cell Distribution Width 13.0 % (11.6-14.8) Platelet Count 235 K/UL (150-450) Mean Platelet Volume 10.9 FL (6.5-10.1) H Neutrophils (%) (Auto) 75.3 % (45.0-75.0) H Lymphocytes (%) (Auto) 16.6 % (20.0-45.0) L Monocytes (%) (Auto) 6.8 % (1.0-10.0) Eosinophils (%) (Auto) 0.8 % (0.0-3.0) Basophils (%) (Auto) 0.5 % (0.0-2.0) Sodium Level 140 MMOL/L (136-145) Potassium Level 3.7 MMOL/L (3.5-5.1) Chloride Level 106 MMOL/L (98-107) Carbon Dioxide Level 31 MMOL/L (21-32) Anion Gap 3 mmol/L (5-15) L Blood Urea Nitrogen 21 mg/dL (7-18) H Creatinine 1.2 MG/DL (0.55-1.30) Estimat Glomerular Filtration Rate 54.5 mL/min (>60) Glucose Level 226 MG/DL (74-106) H Calcium Level 8.7 MG/DL (8.5-10.1) Height (Feet): 5 Height (Inches): 4.00 Weight (Pounds): 128 General Appearance: WD/WN, no apparent distress, alert Cardiovascular: normal rate Respiratory/Chest: normal breath sounds, no respiratory distress Abdominal Exam: normal bowel sounds, non tender, soft Extremities: normal range of motion, non-tender Mariam Barbosa N.PSusie Feb 01, 2017 14:22
[2017-02-01 16:00] VITALS: BP 125/77
--- NOTE | 2017-02-01 17:14 | Nephrology Progress Note ---
Assessment/Plan Assessment 1. Acute renal failure. 3. Dehydration. 4. Hypokalemia. 5. Urinary tract infection. 6. Elevated white blood cell count. 7.intractable nausea and vomiting Plan plan to continue current iv monitoring renal function replace electrolyte as need avoid NSAID Subjective Constitutional: Reports: no symptoms HEENT: Reports: no symptoms Genitourinary: Reports: no symptoms Neurologic/Psychiatric: Reports: no symptoms Subjective feeling better Objective Objective Last 24 Hour Vital Signs Date Time Temp Pulse Resp B/P (MAP) Pulse Ox O2 Delivery O2 Flow Rate FiO2 02/01/17 16:00 98.2 95 18 125/77 95 Room Air 02/01/17 12:00 80 02/01/17 12:00 97.9 83 18 126/76 94 Room Air 02/01/17 08:51 84 123/84 02/01/17 08:00 99.1 90 20 123/84 94 Room Air 02/01/17 08:00 99.1 90 20 123/84 94 Room Air 02/01/17 08:00 100 02/01/17 04:00 97.3 96 18 134/70 97 Room Air 02/01/17 04:00 93 02/01/17 00:00 98.2 81 20 112/72 95 Room Air 02/01/17 00:00 82 01/31/17 20:00 85 01/31/17 20:00 100.0 89 12 143/86 99 Room Air Intake and Output 02/01/17 02/02/17 19:00 07:00 Intake Total 240 ml Balance 240 ml Intake Oral 240 ml Laboratory Tests 02/01/17 08:10: White Blood Count 11.1H, Red Blood Count 4.60, Hemoglobin 13.1, Hematocrit 40.1 , Mean Corpuscular Volume 87, Mean Corpuscular Hemoglobin 28.4, Mean Corpuscular Hemoglobin Concent 32.6, Red Cell Distribution Width 13.0, Platelet Count 235, Mean Platelet Volume 10.9H, Neutrophils (%) (Auto) 75.3H, Lymphocytes (%) (Auto) 16.6L, Monocytes (%) (Auto) 6.8, Eosinophils (%) (Auto) 0.8, Basophils (%) (Auto) 0.5, Sodium Level 140, Potassium Level 3.7, Chloride Level 106, Carbon Dioxide Level 31, Anion Gap 3L, Blood Urea Nitrogen 21H, Creatinine 1.2, Estimat Glomerular Filtration Rate 54.5, Glucose Level 226H, Calcium Level 8.7 Height (Feet): 5 Height (Inches): 4.00 Weight (Pounds): 128 Objective HEAD AND NECK: No JVP. No LAD. No thyromegaly. Extraocular movement intact. Pupils are reactive to light and accommodation. LUNGS: Clear to auscultation. CARDIAC: Regular rate and rhythm. S1, S2. No murmur. No rub. ABDOMEN: Soft, nontender, nondistended. EXTREMITIES: No edema. No clubbing. No cyanosis. NEUROLOGIC: Cranial nerves II through XII within normal limit. Upper and lower extremities are grossly intact. Right BKA. NAMITA SANTAMARIA Feb 01, 2017 17:14
--- NOTE | 2017-02-01 18:11 | Internal Med Progress Note ---
Subjective Date of Service: Feb 01, 2017 Physician Name Fletcher Irizarry Attending Physician Abhilash Tadeo MD Current Medications Medications (Trade) Dose Ordered Sig/Salvador Route PRN Reason Start Time Stop Time Status Last Admin Dose Admin Acetaminophen (Tylenol) 650 mg Q4H PRN ORAL Mild Pain (Pain Scale 1-3) 01/28/17 18:30 02/27/17 18:29 Acetaminophen (Tylenol) 650 mg Q4H PRN ORAL T>100.5 01/28/17 18:30 02/27/17 18:29 Acetaminophen (Tylenol) 650 mg Q4H PRN RECTAL Mild Pain (Pain Scale 1-3) 01/28/17 18:30 02/27/17 18:29 Amlodipine Besylate (Norvasc) 5 mg DAILY ORAL 01/31/17 09:00 03/02/17 08:59 02/01/17 08:51 Aspirin (ASA) 81 mg DAILY ORAL 01/29/17 09:00 02/28/17 08:59 02/01/17 08:48 Clonazepam (KlonoPIN) 1 mg BEDTIME ONCE ORAL 02/01/17 21:00 02/01/17 21:01 Dextrose (Dextrose 50%) STAT PRN IV Hypoglycemia 01/28/17 18:30 02/27/17 18:29 Erythromycin (Jl-Ped) 250 mg Q6HR ORAL 01/29/17 18:00 03/03/17 17:59 01/30/17 17:08 Heparin Sodium (Porcine) (Heparin 5000 units/ml) 5,000 units EVERY 12 HOURS SUBQ 01/28/17 21:00 02/27/17 20:59 02/01/17 09:46 Insulin Aspart (NovoLOG) BEFORE MEALS AND HS SUBQ 01/28/17 17:30 02/27/17 17:29 02/01/17 17:22 Lorazepam (Ativan) 1 mg Q4H PRN ORAL For Anxiety 01/28/17 18:30 02/04/17 18:29 Magnesium Hydroxide (Mom) 30 ml HSPRN PRN ORAL Constipation 01/28/17 18:30 02/27/17 18:29 Metoclopramide HCl (Reglan) 5 mg Q6H PRN IVP Nausea & Vomiting 01/30/17 17:00 03/01/17 16:59 01/31/17 22:03 Mirtazapine (Remeron) 7.5 mg BEDTIME ORAL 02/01/17 21:00 03/03/17 20:59 Morphine Sulfate (Morphine Sulfate) 2 mg Q4H PRN IVP Moderate Pain (Pain Scale 4-6) 01/28/17 18:30 02/04/17 18:29 Morphine Sulfate (Morphine Sulfate) 4 mg Q4H PRN IVP Severe Pain (Pain Scale 7-10) 01/28/17 18:30 02/04/17 18:29 01/29/17 22:42 Nitroglycerin (Ntg) 0.4 mg Q5M X 3 DOSES PRN SL Prn Chest Pain 01/28/17 18:30 02/27/17 18:29 Pantoprazole (Protonix) 40 mg DAILY ORAL 01/29/17 09:00 02/28/17 08:59 02/01/17 08:47 Polyethylene Glycol (Miralax) 17 gm HSPRN PRN ORAL Constipation 01/28/17 18:30 02/27/17 18:29 Sodium Chloride 1,000 ml @ 125 mls/hr Q8H IV 01/28/17 19:30 02/27/17 19:29 01/31/17 15:29 Allergies: Coded Allergies: IODINE (Verified Allergy, Severe, Anaphylaxis, 02/29/12) ROS Limited/Unobtainable: No Constitutional: Reports: no symptoms HEENT: Reports: no symptoms Cardiovascular: Reports: no symptoms Respiratory: Reports: no symptoms Gastrointestinal/Abdominal: Reports: nausea, vomiting Genitourinary: Reports: no symptoms Neurologic/Psychiatric: Reports: no symptoms Subjective 66 YO F admitted with intractable vomiting. Cover for Int Med-Dr Tadeo. Objective Last Vital Signs Date Time Temp Pulse Resp B/P (MAP) Pulse Ox O2 Delivery O2 Flow Rate FiO2 02/01/17 16:00 98.2 95 18 125/77 95 Room Air Laboratory Tests Test 02/01/17 08:10 White Blood Count 11.1 K/UL (4.8-10.8) H Red Blood Count 4.60 M/UL (4.20-5.40) Hemoglobin 13.1 G/DL (12.0-16.0) Hematocrit 40.1 % (37.0-47.0) Mean Corpuscular Volume 87 FL (80-99) Mean Corpuscular Hemoglobin 28.4 PG (27.0-31.0) Mean Corpuscular Hemoglobin Concent 32.6 G/DL (32.0-36.0) Red Cell Distribution Width 13.0 % (11.6-14.8) Platelet Count 235 K/UL (150-450) Mean Platelet Volume 10.9 FL (6.5-10.1) H Neutrophils (%) (Auto) 75.3 % (45.0-75.0) H Lymphocytes (%) (Auto) 16.6 % (20.0-45.0) L Monocytes (%) (Auto) 6.8 % (1.0-10.0) Eosinophils (%) (Auto) 0.8 % (0.0-3.0) Basophils (%) (Auto) 0.5 % (0.0-2.0) Sodium Level 140 MMOL/L (136-145) Potassium Level 3.7 MMOL/L (3.5-5.1) Chloride Level 106 MMOL/L (98-107) Carbon Dioxide Level 31 MMOL/L (21-32) Anion Gap 3 mmol/L (5-15) L Blood Urea Nitrogen 21 mg/dL (7-18) H Creatinine 1.2 MG/DL (0.55-1.30) Estimat Glomerular Filtration Rate 54.5 mL/min (>60) Glucose Level 226 MG/DL (74-106) H Calcium Level 8.7 MG/DL (8.5-10.1) Intake and Output 02/01/17 02/02/17 19:00 07:00 Intake Total 240 ml Balance 240 ml Intake Oral 240 ml Objective General Appearance: WD/WN, alert, mild distress EENT: PERRL/EOMI, normal ENT inspection, TMs normal Neck: non-tender, normal alignment, supple, normal inspection Cardiovascular: normal peripheral pulses, normal rate, regular rhythm, no gallop/murmur, no JVD Respiratory/Chest: chest wall non-tender, lungs clear, normal breath sounds, no respiratory distress, no accessory muscle use Abdomen: decreased bowel sounds, guarding, tender Extremities: normal range of motion Edema: trace edema 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 Intractable nausea and vomiting, most likely secondary to the diabetic gastroparesis. 2. Uncontrolled diabetes type 2. 3. Hypertension. 4. Gastritis. 5. Severe peripheral vascular disease, status post right below-knee amputation. 6. Acute kidney injury with acute tubular necrosis on chronic, most likely secondary to severe dehydration and hypovolemia. 7. Hypotension at this time, most likely secondary to hypovolemia. 8. Renal Failure. See nephrology note. Improving on IV fluids. PLAN: Admit the patient to telemetry. We will follow up laboratory. Aggressive IV hydration. We will discuss the case with Dr. Alvares from GI and follow up with Dr. Ellison from Nephrology and Dr. Bronson Jimenez from Psychiatry. We will start the patient on clear liquid diet and Accu-Chek with sliding scale. We will monitor laboratory in the morning as well as culture. We will hold off on antibiotics at this time. The patient is afebrile at this time and we will monitor DVT prophylaxis with heparin subcutaneous. Transfer to Med/surg FLETCHER IRIZARRY Feb 01, 2017 18:11
[2017-02-01 20:54] VITALS: BP 130/68
[2017-02-01] MEDS ORDERED: Nitroglycerin Subl 0.4mg tab SL PRN (21:00)
[2017-02-01] MEDS ORDERED: Morphine Sulfate 2mg/ml Inj IVP PRN (22:30)
[2017-02-01] MEDS ORDERED: LORazepam 1mg tab ORAL PRN (22:30)
[2017-02-01] MEDS ORDERED: Morphine Sulfate 4mg/ml Inj IVP PRN (22:30)
[2017-02-01] MEDS ORDERED: Acetaminophen 650 MG SUPP RECTAL PRN (22:30)
--- NOTE | 2017-02-01 22:52 | General Progress Note ---
Assessment/Plan Status: stable Assessment/Plan mdd anxiety klonopin remeron 15mg qhs Subjective Date patient seen: Feb 01, 2017 Neurologic/Psychiatric: Reports: anxiety, depressed Allergies: Coded Allergies: IODINE (Verified Allergy, Severe, Anaphylaxis, 02/29/12) Subjective the pt is less anxious Objective Last 24 Hour Vital Signs Date Time Temp Pulse Resp B/P (MAP) Pulse Ox O2 Delivery O2 Flow Rate FiO2 02/01/17 20:54 97.0 97 20 130/68 96 Room Air 02/01/17 16:00 98.2 95 18 125/77 95 Room Air 02/01/17 16:00 84 02/01/17 12:00 80 02/01/17 12:00 97.9 83 18 126/76 94 Room Air 02/01/17 08:51 84 123/84 02/01/17 08:00 99.1 90 20 123/84 94 Room Air 02/01/17 08:00 99.1 90 20 123/84 94 Room Air 02/01/17 08:00 100 02/01/17 04:00 97.3 96 18 134/70 97 Room Air 02/01/17 04:00 93 02/01/17 00:00 98.2 81 20 112/72 95 Room Air 02/01/17 00:00 82 Intake and Output 02/01/17 02/02/17 19:00 07:00 Intake Total 480 ml Balance 480 ml Intake Oral 480 ml # Voids 4 Laboratory Tests 02/01/17 08:10: White Blood Count 11.1H, Red Blood Count 4.60, Hemoglobin 13.1, Hematocrit 40.1 , Mean Corpuscular Volume 87, Mean Corpuscular Hemoglobin 28.4, Mean Corpuscular Hemoglobin Concent 32.6, Red Cell Distribution Width 13.0, Platelet Count 235, Mean Platelet Volume 10.9H, Neutrophils (%) (Auto) 75.3H, Lymphocytes (%) (Auto) 16.6L, Monocytes (%) (Auto) 6.8, Eosinophils (%) (Auto) 0.8, Basophils (%) (Auto) 0.5, Sodium Level 140, Potassium Level 3.7, Chloride Level 106, Carbon Dioxide Level 31, Anion Gap 3L, Blood Urea Nitrogen 21H, Creatinine 1.2, Estimat Glomerular Filtration Rate 54.5, Glucose Level 226H, Calcium Level 8.7 Height (Feet): 5 Height (Inches): 4.00 Weight (Pounds): 128 General Appearance: WD/WN, no apparent distress, alert Neurologic: alert, oriented x 3, responsive, depressed affect Bronson Jimenez M.D. Feb 01, 2017 22:52
[2017-02-01] MEDS ORDERED: Metoclopramide 10mg/2ml Inj IVP PRN (23:00)
[2017-02-02] VITALS: BP 126/63
[2017-02-02] MEDS: NS w/KCl 40mEq 1,000 ML IV SCH ×3 (01:35→21:10)
[2017-02-02 04:00] VITALS: BP 131/66
[2017-02-02] MEDS: Erythromycin Ethylsuccinate 200mg/5ml Susp ORAL SCH ×4 (06:00→17:28)
[2017-02-02] MEDS: NovoLOG Insulin Flexpen SUBQ SCH ×4 (06:16→21:29)
[2017-02-02 06:34] LABS: BASOPHILS % (AUTO) 0.7 % (0.0-2.0); EOSINOPHILS % (AUTO) 1.4 % (0.0-3.0); LYMPHOCYTES % (AUTO) 20.9 % (20.0-45.0); MEAN CORPUSCULAR HEMOGLOBIN 28.1 PG (27.0-31.0); MEAN CORPUSCULAR HGB CONC 32.4 G/DL (32.0-36.0); MEAN CORPUSCULAR VOLUME 87 FL (80-99); MEAN PLATELET VOLUME 10.6 FL (6.5-10.1); MONOCYTES % (AUTO) 8.6 % (1.0-10.0); NEUTROPHILS % (AUTO) 68.4 % (45.0-75.0); PLATELET COUNT 238 K/UL (150-450); RED BLOOD COUNT 4.61 M/UL (4.20-5.40); RED CELL DISTRIBUTION WIDTH 12.8 % (11.6-14.8); WHITE BLOOD COUNT 11.5 K/UL (4.8-10.8)
[2017-02-02 07:01] LABS: ANION GAP 7 mmol/L (5-15); CALCIUM 8.7 MG/DL (8.5-10.1); CARBON DIOXIDE 27 MMOL/L (21-32); CHLORIDE 107 MMOL/L (98-107); GLOMERULAR FILTRATION RATE > 60 mL/min (>60); POTASSIUM 4.2 MMOL/L (3.5-5.1); SODIUM 141 MMOL/L (136-145)
--- NOTE | 2017-02-02 07:59 | Nephrology Progress Note ---
Assessment/Plan Assessment 1. Acute renal failure. 3. Dehydration. 4. Hypokalemia. 5. Urinary tract infection. 6. Elevated white blood cell count. 7.intractable nausea and vomiting Plan plan to continue current iv monitoring renal function replace electrolyte as need avoid NSAID Subjective Constitutional: Reports: no symptoms HEENT: Reports: no symptoms Genitourinary: Reports: no symptoms Neurologic/Psychiatric: Reports: no symptoms Subjective feeling better denies any cp.sob Objective Objective Last 24 Hour Vital Signs Date Time Temp Pulse Resp B/P (MAP) Pulse Ox O2 Delivery O2 Flow Rate FiO2 02/02/17 04:00 97.9 86 18 131/66 96 02/02/17 00:00 98.2 81 18 126/63 93 02/01/17 20:54 97.0 97 20 130/68 96 Room Air 02/01/17 16:00 98.2 95 18 125/77 95 Room Air 02/01/17 16:00 84 02/01/17 12:00 80 02/01/17 12:00 97.9 83 18 126/76 94 Room Air 02/01/17 08:51 84 123/84 02/01/17 08:00 99.1 90 20 123/84 94 Room Air 02/01/17 08:00 99.1 90 20 123/84 94 Room Air 02/01/17 08:00 100 Laboratory Tests 02/01/17 08:10: White Blood Count 11.1H, Red Blood Count 4.60, Hemoglobin 13.1, Hematocrit 40.1 , Mean Corpuscular Volume 87, Mean Corpuscular Hemoglobin 28.4, Mean Corpuscular Hemoglobin Concent 32.6, Red Cell Distribution Width 13.0, Platelet Count 235, Mean Platelet Volume 10.9H, Neutrophils (%) (Auto) 75.3H, Lymphocytes (%) (Auto) 16.6L, Monocytes (%) (Auto) 6.8, Eosinophils (%) (Auto) 0.8, Basophils (%) (Auto) 0.5, Sodium Level 140, Potassium Level 3.7, Chloride Level 106, Carbon Dioxide Level 31, Anion Gap 3L, Blood Urea Nitrogen 21H, Creatinine 1.2, Estimat Glomerular Filtration Rate 54.5, Glucose Level 226H, Calcium Level 8.7 02/02/17 05:30: White Blood Count 11.5H, Red Blood Count 4.61, Hemoglobin 13.0, Hematocrit 40.0 , Mean Corpuscular Volume 87, Mean Corpuscular Hemoglobin 28.1, Mean Corpuscular Hemoglobin Concent 32.4, Red Cell Distribution Width 12.8, Platelet Count 238, Mean Platelet Volume 10.6H, Neutrophils (%) (Auto) 68.4, Lymphocytes (%) (Auto) 20.9, Monocytes (%) (Auto) 8.6, Eosinophils (%) (Auto) 1.4, Basophils (%) (Auto) 0.7, Sodium Level 141, Potassium Level 4.2, Chloride Level 107, Carbon Dioxide Level 27, Anion Gap 7, Blood Urea Nitrogen 20H, Creatinine 1.0, Estimat Glomerular Filtration Rate > 60, Glucose Level 162H, Calcium Level 8.7 Height (Feet): 5 Height (Inches): 4.00 Weight (Pounds): 128 Objective HEAD AND NECK: No JVP. No LAD. No thyromegaly. Extraocular movement intact. Pupils are reactive to light and accommodation. LUNGS: Clear to auscultation. CARDIAC: Regular rate and rhythm. S1, S2. No murmur. No rub. ABDOMEN: Soft, nontender, nondistended. EXTREMITIES: No edema. No clubbing. No cyanosis. NEUROLOGIC: Cranial nerves II through XII within normal limit. Upper and lower extremities are grossly intact. Right BKA. NAMITA SANTAMARIA Feb 02, 2017 07:59
[2017-02-02 08:46] VITALS: BP 142/75
--- NOTE | 2017-02-02 09:22 | Internal Med Progress Note ---
Subjective Physician Name Abhilash Tadeo Attending Physician Abhilash Tadeo MD Current Medications Medications (Trade) Dose Ordered Sig/[place] Route PRN Reason Start Time Stop Time Status Last Admin Dose Admin Acetaminophen (Tylenol) 650 mg Q4H PRN ORAL Mild Pain (Pain Scale 1-3) 02/01/17 22:30 02/27/17 18:29 Acetaminophen (Tylenol) 650 mg Q4H PRN ORAL T>100.5 02/01/17 22:30 02/27/17 18:29 Acetaminophen (Tylenol) 650 mg Q4H PRN RECTAL Mild Pain (Pain Scale 1-3) 02/01/17 22:30 02/27/17 18:29 Amlodipine Besylate (Norvasc) 5 mg DAILY ORAL 02/02/17 09:00 03/02/17 08:59 Aspirin (ASA) 81 mg DAILY ORAL 02/02/17 09:00 02/28/17 08:59 Dextrose (Dextrose 50%) STAT PRN IV Hypoglycemia 02/02/17 18:30 02/27/17 18:29 Erythromycin (Jl-Ped) 250 mg Q6HR ORAL 02/02/17 00:00 03/03/17 17:59 Heparin Sodium (Porcine) (Heparin 5000 units/ml) 5,000 units EVERY 12 HOURS SUBQ 02/01/17 21:00 02/27/17 20:59 Insulin Aspart (NovoLOG) BEFORE MEALS AND HS SUBQ 02/01/17 21:00 02/27/17 17:29 02/02/17 06:16 Lorazepam (Ativan) 1 mg Q4H PRN ORAL For Anxiety 02/01/17 22:30 02/04/17 18:29 Magnesium Hydroxide (Mom) 30 ml HSPRN PRN ORAL Constipation 02/02/17 18:30 02/27/17 18:29 Metoclopramide HCl (Reglan) 5 mg Q6H PRN IVP Nausea & Vomiting 02/01/17 23:00 03/01/17 16:59 02/02/17 06:14 Mirtazapine (Remeron) 7.5 mg BEDTIME ORAL 02/01/17 21:00 03/03/17 20:59 Morphine Sulfate (Morphine Sulfate) 2 mg Q4H PRN IVP Moderate Pain (Pain Scale 4-6) 02/01/17 22:30 02/04/17 18:29 Morphine Sulfate (Morphine Sulfate) 4 mg Q4H PRN IVP Severe Pain (Pain Scale 7-10) 02/01/17 22:30 02/04/17 18:29 Nitroglycerin (Ntg) 0.4 mg Q5M X 3 DOSES PRN SL Prn Chest Pain 02/01/17 21:00 02/27/17 18:29 Pantoprazole (Protonix) 40 mg DAILY ORAL 02/02/17 09:00 02/28/17 08:59 Polyethylene Glycol (Miralax) 17 gm HSPRN PRN ORAL Constipation 02/02/17 18:30 02/27/17 18:29 Sodium Chloride 1,000 ml @ 125 mls/hr Q8H IV 02/01/17 21:00 02/27/17 19:29 02/02/17 01:35 Allergies: Coded Allergies: IODINE (Verified Allergy, Severe, Anaphylaxis, 02/29/12) Subjective awake, alert, responsive, feeling better, less Nausea, No vomiting Objective Last Vital Signs Date Time Temp Pulse Resp B/P (MAP) Pulse Ox O2 Delivery O2 Flow Rate FiO2 02/02/17 08:46 97.9 81 19 142/75 92 02/01/17 20:54 Room Air Laboratory Tests Test 02/02/17 05:30 White Blood Count 11.5 K/UL (4.8-10.8) H Red Blood Count 4.61 M/UL (4.20-5.40) Hemoglobin 13.0 G/DL (12.0-16.0) Hematocrit 40.0 % (37.0-47.0) Mean Corpuscular Volume 87 FL (80-99) Mean Corpuscular Hemoglobin 28.1 PG (27.0-31.0) Mean Corpuscular Hemoglobin Concent 32.4 G/DL (32.0-36.0) Red Cell Distribution Width 12.8 % (11.6-14.8) Platelet Count 238 K/UL (150-450) Mean Platelet Volume 10.6 FL (6.5-10.1) H Neutrophils (%) (Auto) 68.4 % (45.0-75.0) Lymphocytes (%) (Auto) 20.9 % (20.0-45.0) Monocytes (%) (Auto) 8.6 % (1.0-10.0) Eosinophils (%) (Auto) 1.4 % (0.0-3.0) Basophils (%) (Auto) 0.7 % (0.0-2.0) Sodium Level 141 MMOL/L (136-145) Potassium Level 4.2 MMOL/L (3.5-5.1) Chloride Level 107 MMOL/L (98-107) Carbon Dioxide Level 27 MMOL/L (21-32) Anion Gap 7 mmol/L (5-15) Blood Urea Nitrogen 20 mg/dL (7-18) H Creatinine 1.0 MG/DL (0.55-1.30) Estimat Glomerular Filtration Rate > 60 mL/min (>60) Glucose Level 162 MG/DL (74-106) H Calcium Level 8.7 MG/DL (8.5-10.1) Intake and Output 02/02/17 02/03/17 19:00 07:00 Intake Total 360 ml Balance 360 ml Intake Oral 360 ml Objective General: No acute distress, awake and alert HEENT: NCAT, sclera anicteric, PERRL, EOMI. Neck: Supple, no significant jugular venous distention, Lungs: fair inspiratory effort, clear to auscultation bilaterally, no Wheeze or Rales. Heart: Regular rate and rhythm, normal S1/S2, no murmur Abdomen: soft, nontender, nondistended. Normoactive bowel sounds. Morbid Obesity. / Rectal: Refused and deferred. Extremities: No Cyanosis , clubbing or edema. RLE BKA with intact stump. Neuro: A&O x 3, Able to move all extremities Skin: warm, no rashes or lesions Psych: Normal mood and affect Assessment/Plan Assessment/Plan ASSESSMENT: 1. Intractable nausea and vomiting, most likely secondary to the diabetic gastroparesis. 2. Uncontrolled diabetes type 2. 3. Hypertension. 4. Gastritis. 5. Severe peripheral vascular disease, status post right below-knee amputation. 6. Acute kidney injury with acute tubular necrosis on chronic, most likely secondary to severe dehydration and hypovolemia. 7. Hypotension at this time, most likely secondary to hypovolemia. PLAN: IV hydration. Dr. Alvares from GI Dr. Ellison from Nephrology Dr. Bronson Jimenez from Psychiatry. Accu-Chek with sliding scale. monitor laboratory as well as culture. hold off on antibiotics DVT prophylaxis with heparin subcutaneous. Advance diet DC Planning in 1 or 2 days Abhilash Tadeo MD Feb 02, 2017 09:22
[2017-02-02] MEDS: Aspirin Baby 81mg ORAL SCH (09:37)
[2017-02-02] MEDS: Heparin 5000 units/ml inj SUBQ SCH ×2 (09:39→21:29)
--- NOTE | 2017-02-02 11:19 | GI Progress Note ---
Assessment/Plan Problems: (1) Hx of BKA ICD Codes: Z89.519 - Acquired absence of unspecified leg below knee SNOMED: 085049296, 015761710 (2) Nausea & vomiting ICD Codes: R11.2 - Nausea with vomiting, unspecified SNOMED: 87660375 Qualifiers: Qualified Codes: R11.2 - Nausea with vomiting, unspecified (3) Weakness ICD Codes: R53.1 - Weakness SNOMED: 70278127 (4) Diabetes mellitus ICD Codes: E11.9 - Type 2 diabetes mellitus without complications SNOMED: 93879776 (5) Esophagitis ICD Codes: K20.9 - Esophagitis, unspecified SNOMED: 04889348 Status: progressing, unchanged Status Narrative Discussed with Dr. Alvares. Assessment/Plan Assessment - Recurrent N/V - Diabetes - Diabetic gastroparesis Recommendations - PPI - anti-emetics, low dose erythromycin for gi motility >> add reglan ATC - glycemic control - Elevate HOB - Hydration - CLD, adv as tolerated - fu labs Subjective Subjective small emesis this morning Objective Last 24 Hour Vital Signs Date Time Temp Pulse Resp B/P (MAP) Pulse Ox O2 Delivery O2 Flow Rate FiO2 02/02/17 09:37 81 142/75 02/02/17 08:46 97.9 81 19 142/75 92 02/02/17 04:00 97.9 86 18 131/66 96 02/02/17 00:00 98.2 81 18 126/63 93 02/01/17 20:54 97.0 97 20 130/68 96 Room Air 02/01/17 16:00 98.2 95 18 125/77 95 Room Air 02/01/17 16:00 84 02/01/17 12:00 80 02/01/17 12:00 97.9 83 18 126/76 94 Room Air Intake and Output 02/02/17 02/03/17 19:00 07:00 Intake Total 360 ml Balance 360 ml Intake Oral 360 ml Laboratory Tests Test 02/02/17 05:30 White Blood Count 11.5 K/UL (4.8-10.8) H Red Blood Count 4.61 M/UL (4.20-5.40) Hemoglobin 13.0 G/DL (12.0-16.0) Hematocrit 40.0 % (37.0-47.0) Mean Corpuscular Volume 87 FL (80-99) Mean Corpuscular Hemoglobin 28.1 PG (27.0-31.0) Mean Corpuscular Hemoglobin Concent 32.4 G/DL (32.0-36.0) Red Cell Distribution Width 12.8 % (11.6-14.8) Platelet Count 238 K/UL (150-450) Mean Platelet Volume 10.6 FL (6.5-10.1) H Neutrophils (%) (Auto) 68.4 % (45.0-75.0) Lymphocytes (%) (Auto) 20.9 % (20.0-45.0) Monocytes (%) (Auto) 8.6 % (1.0-10.0) Eosinophils (%) (Auto) 1.4 % (0.0-3.0) Basophils (%) (Auto) 0.7 % (0.0-2.0) Sodium Level 141 MMOL/L (136-145) Potassium Level 4.2 MMOL/L (3.5-5.1) Chloride Level 107 MMOL/L (98-107) Carbon Dioxide Level 27 MMOL/L (21-32) Anion Gap 7 mmol/L (5-15) Blood Urea Nitrogen 20 mg/dL (7-18) H Creatinine 1.0 MG/DL (0.55-1.30) Estimat Glomerular Filtration Rate > 60 mL/min (>60) Glucose Level 162 MG/DL (74-106) H Calcium Level 8.7 MG/DL (8.5-10.1) Height (Feet): 5 Height (Inches): 4.00 Weight (Pounds): 128 General Appearance: WD/WN, no apparent distress, alert Cardiovascular: normal rate Respiratory/Chest: normal breath sounds, no respiratory distress Abdominal Exam: normal bowel sounds, non tender, soft Extremities: normal range of motion, non-tender Mariam Barbosa N.P. Feb 02, 2017 11:19
[2017-02-02 11:33] VITALS: BP 121/62
[2017-02-02] MEDS: Metoclopramide 10mg/2ml Inj IVP SCH ×2 (13:08→21:15)
[2017-02-02 15:32] VITALS: BP 121/69
[2017-02-02] MEDS ORDERED: Miralax 17gm pkt ORAL PRN (18:30)
[2017-02-02] MEDS ORDERED: Milk of Magnesia 30ml Ud ORAL PRN (18:30)
[2017-02-02 20:05] VITALS: BP 132/66
--- NOTE | 2017-02-02 21:45 | Progress Note ---
DATE: 02/02/2017 SUBJECTIVE: The patient is less anxious. Her nausea has decreased. Stated that her anxiety has decreased. MENTAL STATUS EXAMINATION: The patient is alert and oriented x4. Pleasant. Mood is neutral. Affect is constricted. Congruent with mood. Thought process is concrete. Thought content, no suicidal or homicidal ideations. ASSESSMENT: 1. Anxiety disorder. 2. Hyperemesis. PLAN: 1. We will continue the Klonopin and Remeron. 2. Provide the patient with supportive therapy and reality orientation. Bronson Jimenez M.D. DR: EUSEBIA JOB#: [id number] CC:
[2017-02-03] VITALS (7 sets, daily range): BP systolic 125–150; BP diastolic 61–85
[2017-02-03] MEDS: Erythromycin Ethylsuccinate 200mg/5ml Susp ORAL SCH ×5 (06:00→23:00)
[2017-02-03] MEDS: NS w/KCl 40mEq 1,000 ML IV SCH (06:10)
[2017-02-03] MEDS: Metoclopramide 10mg/2ml Inj IVP SCH ×3 (06:11→21:56)
[2017-02-03] MEDS: NovoLOG Insulin Flexpen SUBQ SCH ×4 (06:15→20:07)
[2017-02-03 07:08] LABS: ANION GAP 8 mmol/L (5-15); CALCIUM 8.5 MG/DL (8.5-10.1); CARBON DIOXIDE 25 MMOL/L (21-32); CHLORIDE 109 MMOL/L (98-107); CREATININE 0.9 MG/DL (0.55-1.30); GLOMERULAR FILTRATION RATE > 60 mL/min (>60); POTASSIUM 4.5 MMOL/L (3.5-5.1); SODIUM 142 MMOL/L (136-145)
[2017-02-03 07:14] LABS: BASOPHILS % (AUTO) 0.6 % (0.0-2.0); EOSINOPHILS % (AUTO) 1.5 % (0.0-3.0); LYMPHOCYTES % (AUTO) 20.6 % (20.0-45.0); MEAN CORPUSCULAR HEMOGLOBIN 28.1 PG (27.0-31.0); MEAN CORPUSCULAR HGB CONC 32.4 G/DL (32.0-36.0); MEAN CORPUSCULAR VOLUME 87 FL (80-99); MEAN PLATELET VOLUME 10.9 FL (6.5-10.1); MONOCYTES % (AUTO) 8.2 % (1.0-10.0); NEUTROPHILS % (AUTO) 69.2 % (45.0-75.0); PLATELET COUNT 236 K/UL (150-450); RED CELL DISTRIBUTION WIDTH 12.8 % (11.6-14.8); WHITE BLOOD COUNT 10.1 K/UL (4.8-10.8)
[2017-02-03] MEDS: Aspirin Baby 81mg ORAL SCH (09:40)
[2017-02-03] MEDS: Heparin 5000 units/ml inj SUBQ SCH ×2 (09:41→20:05)
--- NOTE | 2017-02-03 10:47 | Nephrology Progress Note ---
Assessment/Plan Assessment 1. Acute renal failure. 3. Dehydration. 4. Hypokalemia. 5. Urinary tract infection. 6. Elevated white blood cell count. 7.intractable nausea and vomiting Plan plan to continue current iv monitoring renal function replace electrolyte as need avoid NSAID Subjective Constitutional: Reports: no symptoms HEENT: Reports: no symptoms Genitourinary: Reports: no symptoms Neurologic/Psychiatric: Reports: no symptoms Subjective feeling better denies any cp.sob Objective Objective Last 24 Hour Vital Signs Date Time Temp Pulse Resp B/P (MAP) Pulse Ox O2 Delivery O2 Flow Rate FiO2 02/03/17 09:40 86 134/77 02/03/17 08:00 98.2 86 19 134/77 94 02/03/17 04:00 99 Room Air 02/03/17 04:00 97.9 88 20 150/81 99 Room Air 02/03/17 00:00 97.9 86 20 132/85 96 Room Air 02/03/17 00:00 96 Room Air 02/02/17 20:05 98.4 81 20 132/66 96 Room Air 02/02/17 20:00 96 Room Air 02/02/17 15:32 98.2 81 19 121/69 92 02/02/17 11:33 97.7 86 19 121/62 98 Intake and Output 02/02/17 02/03/17 19:00 07:00 Intake Total 1590 ml 1050 ml Balance 1590 ml 1050 ml Intake Oral 840 ml 50 ml IV Total 750 ml 1000 ml # Voids 2 1 Laboratory Tests 02/03/17 06:20: White Blood Count 10.1, Red Blood Count 4.50, Hemoglobin 12.6, Hematocrit 39.0, Mean Corpuscular Volume 87, Mean Corpuscular Hemoglobin 28.1, Mean Corpuscular Hemoglobin Concent 32.4, Red Cell Distribution Width 12.8, Platelet Count 236, Mean Platelet Volume 10.9H, Neutrophils (%) (Auto) 69.2, Lymphocytes (%) (Auto) 20.6, Monocytes (%) (Auto) 8.2, Eosinophils (%) (Auto) 1.5, Basophils (%) (Auto ) 0.6, Sodium Level 142, Potassium Level 4.5, Chloride Level 109H, Carbon Dioxide Level 25, Anion Gap 8, Blood Urea Nitrogen 14, Creatinine 0.9, Estimat Glomerular Filtration Rate > 60, Glucose Level 157H, Calcium Level 8.5 Height (Feet): 5 Height (Inches): 4.00 Weight (Pounds): 128 Objective HEAD AND NECK: No JVP. No LAD. No thyromegaly. Extraocular movement intact. Pupils are reactive to light and accommodation. LUNGS: Clear to auscultation. CARDIAC: Regular rate and rhythm. S1, S2. No murmur. No rub. ABDOMEN: Soft, nontender, nondistended. EXTREMITIES: No edema. No clubbing. No cyanosis. NEUROLOGIC: Cranial nerves II through XII within normal limit. Upper and lower extremities are grossly intact. Right BKA. NAMITA SANTAMARIA Feb 03, 2017 10:47
--- NOTE | 2017-02-03 11:39 | GI Progress Note ---
Assessment/Plan Problems: (1) Hx of BKA ICD Codes: Z89.519 - Acquired absence of unspecified leg below knee SNOMED: 510394410, 703601135 (2) Nausea & vomiting ICD Codes: R11.2 - Nausea with vomiting, unspecified SNOMED: 27029516 Qualifiers: Qualified Codes: R11.2 - Nausea with vomiting, unspecified (3) Weakness ICD Codes: R53.1 - Weakness SNOMED: 55294976 (4) Diabetes mellitus ICD Codes: E11.9 - Type 2 diabetes mellitus without complications SNOMED: 03200860 (5) Esophagitis ICD Codes: K20.9 - Esophagitis, unspecified SNOMED: 39949131 Status: stable Status Narrative Discussed with Dr. Alvares. Assessment/Plan Assessment - Recurrent N/V - Diabetes - Diabetic gastroparesis Recommendations okay for DC per GI standpoint if tolerates lunch - adv diet - dc IVFs - PPI - anti-emetics, low dose erythromycin for gi motility >> cont reglan ATC - glycemic control - Elevate HOB - fu labs Subjective Subjective small emesis this morning overall feels better, wants to go home Objective Last 24 Hour Vital Signs Date Time Temp Pulse Resp B/P (MAP) Pulse Ox O2 Delivery O2 Flow Rate FiO2 02/03/17 09:40 86 134/77 02/03/17 08:00 98.2 86 19 134/77 94 02/03/17 04:00 99 Room Air 02/03/17 04:00 97.9 88 20 150/81 99 Room Air 02/03/17 00:00 97.9 86 20 132/85 96 Room Air 02/03/17 00:00 96 Room Air 02/02/17 20:05 98.4 81 20 132/66 96 Room Air 02/02/17 20:00 96 Room Air 02/02/17 15:32 98.2 81 19 121/69 92 Intake and Output 02/02/17 02/03/17 19:00 07:00 Intake Total 1590 ml 1050 ml Balance 1590 ml 1050 ml Intake Oral 840 ml 50 ml IV Total 750 ml 1000 ml # Voids 2 1 Laboratory Tests Test 02/03/17 06:20 White Blood Count 10.1 K/UL (4.8-10.8) Red Blood Count 4.50 M/UL (4.20-5.40) Hemoglobin 12.6 G/DL (12.0-16.0) Hematocrit 39.0 % (37.0-47.0) Mean Corpuscular Volume 87 FL (80-99) Mean Corpuscular Hemoglobin 28.1 PG (27.0-31.0) Mean Corpuscular Hemoglobin Concent 32.4 G/DL (32.0-36.0) Red Cell Distribution Width 12.8 % (11.6-14.8) Platelet Count 236 K/UL (150-450) Mean Platelet Volume 10.9 FL (6.5-10.1) H Neutrophils (%) (Auto) 69.2 % (45.0-75.0) Lymphocytes (%) (Auto) 20.6 % (20.0-45.0) Monocytes (%) (Auto) 8.2 % (1.0-10.0) Eosinophils (%) (Auto) 1.5 % (0.0-3.0) Basophils (%) (Auto) 0.6 % (0.0-2.0) Sodium Level 142 MMOL/L (136-145) Potassium Level 4.5 MMOL/L (3.5-5.1) Chloride Level 109 MMOL/L (98-107) H Carbon Dioxide Level 25 MMOL/L (21-32) Anion Gap 8 mmol/L (5-15) Blood Urea Nitrogen 14 mg/dL (7-18) Creatinine 0.9 MG/DL (0.55-1.30) Estimat Glomerular Filtration Rate > 60 mL/min (>60) Glucose Level 157 MG/DL (74-106) H Calcium Level 8.5 MG/DL (8.5-10.1) Height (Feet): 5 Height (Inches): 4.00 Weight (Pounds): 128 General Appearance: WD/WN, no apparent distress, alert Cardiovascular: normal rate Respiratory/Chest: normal breath sounds, no respiratory distress Abdominal Exam: normal bowel sounds, non tender, soft Extremities: normal range of motion, non-tender Mariam Barbosa N.P. Feb 03, 2017 11:39
--- NOTE | 2017-02-03 22:49 | Internal Med Progress Note ---
Subjective Physician Name Abhilash Tadeo Attending Physician Abhilash Tadeo MD Current Medications Medications (Trade) Dose Ordered Sig/Salvador Route PRN Reason Start Time Stop Time Status Last Admin Dose Admin Acetaminophen (Tylenol) 650 mg Q4H PRN ORAL Mild Pain (Pain Scale 1-3) 02/01/17 22:30 02/27/17 18:29 Acetaminophen (Tylenol) 650 mg Q4H PRN ORAL T>100.5 02/01/17 22:30 02/27/17 18:29 Acetaminophen (Tylenol) 650 mg Q4H PRN RECTAL Mild Pain (Pain Scale 1-3) 02/01/17 22:30 02/27/17 18:29 Amlodipine Besylate (Norvasc) 5 mg DAILY ORAL 02/02/17 09:00 03/02/17 08:59 02/03/17 09:40 Aspirin (ASA) 81 mg DAILY ORAL 02/02/17 09:00 02/28/17 08:59 02/03/17 09:40 Dextrose (Dextrose 50%) STAT PRN IV Hypoglycemia 02/02/17 18:30 02/27/17 18:29 Erythromycin (Jl-Ped) 250 mg Q6HR ORAL 02/02/17 00:00 03/03/17 17:59 02/03/17 13:11 Heparin Sodium (Porcine) (Heparin 5000 units/ml) 5,000 units EVERY 12 HOURS SUBQ 02/01/17 21:00 02/27/17 20:59 02/03/17 20:05 Insulin Aspart (NovoLOG) BEFORE MEALS AND HS SUBQ 02/01/17 21:00 02/27/17 17:29 02/03/17 20:07 Lorazepam (Ativan) 1 mg Q4H PRN ORAL For Anxiety 02/01/17 22:30 02/04/17 18:29 Magnesium Hydroxide (Mom) 30 ml HSPRN PRN ORAL Constipation 02/02/17 18:30 02/27/17 18:29 Metoclopramide HCl (Reglan) 5 mg Q6H PRN IVP Nausea & Vomiting 02/01/17 23:00 03/01/17 16:59 02/02/17 06:14 Metoclopramide HCl (Reglan) 10 mg Q8H IVP 02/02/17 14:00 03/04/17 13:59 02/03/17 13:44 Mirtazapine (Remeron) 7.5 mg BEDTIME ORAL 02/01/17 21:00 03/03/17 20:59 02/03/17 20:04 Morphine Sulfate (Morphine Sulfate) 2 mg Q4H PRN IVP Moderate Pain (Pain Scale 4-6) 02/01/17 22:30 02/04/17 18:29 Morphine Sulfate (Morphine Sulfate) 4 mg Q4H PRN IVP Severe Pain (Pain Scale 7-10) 02/01/17 22:30 02/04/17 18:29 Nitroglycerin (Ntg) 0.4 mg Q5M X 3 DOSES PRN SL Prn Chest Pain 02/01/17 21:00 02/27/17 18:29 Pantoprazole (Protonix) 40 mg DAILY ORAL 02/02/17 09:00 02/28/17 08:59 02/03/17 09:40 Polyethylene Glycol (Miralax) 17 gm HSPRN PRN ORAL Constipation 02/02/17 18:30 02/27/17 18:29 Allergies: Coded Allergies: IODINE (Verified Allergy, Severe, Anaphylaxis, 02/29/12) Subjective awake, alert, responsive, feeling better, less Nausea, some vomiting Objective Last Vital Signs Date Time Temp Pulse Resp B/P (MAP) Pulse Ox O2 Delivery O2 Flow Rate FiO2 02/03/17 20:00 98.2 86 19 125/61 96 Room Air Laboratory Tests Test 02/03/17 06:20 White Blood Count 10.1 K/UL (4.8-10.8) Red Blood Count 4.50 M/UL (4.20-5.40) Hemoglobin 12.6 G/DL (12.0-16.0) Hematocrit 39.0 % (37.0-47.0) Mean Corpuscular Volume 87 FL (80-99) Mean Corpuscular Hemoglobin 28.1 PG (27.0-31.0) Mean Corpuscular Hemoglobin Concent 32.4 G/DL (32.0-36.0) Red Cell Distribution Width 12.8 % (11.6-14.8) Platelet Count 236 K/UL (150-450) Mean Platelet Volume 10.9 FL (6.5-10.1) H Neutrophils (%) (Auto) 69.2 % (45.0-75.0) Lymphocytes (%) (Auto) 20.6 % (20.0-45.0) Monocytes (%) (Auto) 8.2 % (1.0-10.0) Eosinophils (%) (Auto) 1.5 % (0.0-3.0) Basophils (%) (Auto) 0.6 % (0.0-2.0) Sodium Level 142 MMOL/L (136-145) Potassium Level 4.5 MMOL/L (3.5-5.1) Chloride Level 109 MMOL/L (98-107) H Carbon Dioxide Level 25 MMOL/L (21-32) Anion Gap 8 mmol/L (5-15) Blood Urea Nitrogen 14 mg/dL (7-18) Creatinine 0.9 MG/DL (0.55-1.30) Estimat Glomerular Filtration Rate > 60 mL/min (>60) Glucose Level 157 MG/DL (74-106) H Calcium Level 8.5 MG/DL (8.5-10.1) Intake and Output 02/02/17 02/03/17 19:00 07:00 Intake Total 1590 ml 1050 ml Balance 1590 ml 1050 ml Intake Oral 840 ml 50 ml IV Total 750 ml 1000 ml # Voids 2 1 Objective General: No acute distress, awake and alert HEENT: NCAT, sclera anicteric, PERRL, EOMI. Neck: Supple, no significant jugular venous distention, Lungs: fair inspiratory effort, clear to auscultation bilaterally, no Wheeze or Rales. Heart: Regular rate and rhythm, normal S1/S2, no murmur Abdomen: soft, nontender, nondistended. Normoactive bowel sounds. Morbid Obesity. / Rectal: Refused and deferred. Extremities: No Cyanosis , clubbing or edema. RLE BKA with intact stump. Neuro: A&O x 3, Able to move all extremities Skin: warm, no rashes or lesions Psych: Normal mood and affect Assessment/Plan Assessment/Plan ASSESSMENT: 1. Intractable nausea and vomiting, most likely secondary to the diabetic gastroparesis. 2. Uncontrolled diabetes type 2. 3. Hypertension. 4. Gastritis. 5. Severe peripheral vascular disease, status post right below-knee amputation. 6. Acute kidney injury with acute tubular necrosis on chronic, most likely secondary to severe dehydration and hypovolemia. 7. Hypotension at this time, most likely secondary to hypovolemia. PLAN: IV hydration. Dr. Alvares from GI Dr. Ellison from Nephrology Dr. Bronson Jimenez from Psychiatry. Accu-Chek with sliding scale. monitor laboratory as well as culture. hold off on antibiotics DVT prophylaxis with heparin subcutaneous. Advance diet DC Planning in Abhilash Tadeo MD Feb 03, 2017 22:49
[2017-02-04 04:00] VITALS: BP 122/72
[2017-02-04] MEDS: Erythromycin Ethylsuccinate 200mg/5ml Susp ORAL SCH ×3 (05:02→12:22)
[2017-02-04] MEDS: Metoclopramide 10mg/2ml Inj IVP SCH ×2 (05:02→14:13)
[2017-02-04] MEDS: NovoLOG Insulin Flexpen SUBQ SCH ×2 (05:46→12:25)
[2017-02-04 08:00] VITALS: BP 118/70
[2017-02-04] MEDS: Aspirin Baby 81mg ORAL SCH (08:42)
[2017-02-04] MEDS: Heparin 5000 units/ml inj SUBQ SCH (08:44)
[2017-02-04 12:00] VITALS: BP 122/64
--- NOTE | 2017-02-04 12:29 | Nephrology Progress Note ---
Assessment/Plan Assessment 1. Acute renal failure. 3. Dehydration. 4. Hypokalemia. 5. Urinary tract infection. 6. Elevated white blood cell count. 7.intractable nausea and vomiting Plan plan to continue current iv monitoring renal function replace electrolyte as need avoid NSAID Subjective Constitutional: Reports: no symptoms HEENT: Reports: no symptoms Genitourinary: Reports: no symptoms Neurologic/Psychiatric: Reports: no symptoms Subjective feeling better denies any cp.sob Objective Objective Last 24 Hour Vital Signs Date Time Temp Pulse Resp B/P (MAP) Pulse Ox O2 Delivery O2 Flow Rate FiO2 02/04/17 08:42 89 118/70 02/04/17 08:00 98.2 89 18 118/70 96 Room Air 02/04/17 04:00 97.7 98 20 122/72 94 Room Air 02/03/17 23:52 98.2 81 19 150/76 92 Room Air 02/03/17 20:00 98.2 86 19 125/61 96 Room Air 02/03/17 16:19 97.9 78 20 143/78 98 Intake and Output 02/03/17 02/04/17 19:00 07:00 Intake Total 240 ml 120 ml Output Total 590 ml Balance 240 ml -470 ml Intake Oral 240 ml 120 ml Drainage Total 590 ml # Voids 2 1 Height (Feet): 5 Height (Inches): 4.00 Weight (Pounds): 128 Objective HEAD AND NECK: No JVP. No LAD. No thyromegaly. Extraocular movement intact. Pupils are reactive to light and accommodation. LUNGS: Clear to auscultation. CARDIAC: Regular rate and rhythm. S1, S2. No murmur. No rub. ABDOMEN: Soft, nontender, nondistended. EXTREMITIES: No edema. No clubbing. No cyanosis. NEUROLOGIC: Cranial nerves II through XII within normal limit. Upper and lower extremities are grossly intact. Right BKA. NAMITA SANTAMARIA Feb 04, 2017 12:29
--- NOTE | 2017-02-04 14:36 | GI Progress Note ---
Assessment/Plan Problems: (1) Hx of BKA ICD Codes: Z89.519 - Acquired absence of unspecified leg below knee SNOMED: 625734345, 203972819 (2) Nausea & vomiting ICD Codes: R11.2 - Nausea with vomiting, unspecified SNOMED: 02135047 Qualifiers: Qualified Codes: R11.2 - Nausea with vomiting, unspecified (3) Weakness ICD Codes: R53.1 - Weakness SNOMED: 66342047 (4) Diabetes mellitus ICD Codes: E11.9 - Type 2 diabetes mellitus without complications SNOMED: 71126982 (5) Esophagitis ICD Codes: K20.9 - Esophagitis, unspecified SNOMED: 91982686 Status: stable Status Narrative Discussed with Dr. Alvares. Assessment/Plan Assessment - Recurrent N/V - Diabetes - Diabetic gastroparesis Recommendations okay for DC per GI standpoint tolerating diet zofran prn, consider rx for ODT PPI anti-emetics, low dose erythromycin for gi motility >> cont reglan ATC glycemic control Elevate HOB fu labs The patient was seen and examined at bedside and all new and available data was reviewed in the patients chart. I agree with the above findings, impression and plan. (Patient seen earlier today. Signature stamp does not reflect patient encounter time.). - Ron Alvares MD Subjective Subjective nausea without vomiting Objective Last 24 Hour Vital Signs Date Time Temp Pulse Resp B/P (MAP) Pulse Ox O2 Delivery O2 Flow Rate FiO2 02/04/17 12:00 98.2 83 18 122/64 97 Room Air 02/04/17 08:42 89 118/70 02/04/17 08:00 98.2 89 18 118/70 96 Room Air 02/04/17 04:00 97.7 98 20 122/72 94 Room Air 02/03/17 23:52 98.2 81 19 150/76 92 Room Air 02/03/17 20:00 98.2 86 19 125/61 96 Room Air 02/03/17 16:19 97.9 78 20 143/78 98 Intake and Output 02/03/17 02/04/17 19:00 07:00 Intake Total 240 ml 120 ml Output Total 590 ml Balance 240 ml -470 ml Intake Oral 240 ml 120 ml Drainage Total 590 ml # Voids 2 1 Height (Feet): 5 Height (Inches): 4.00 Weight (Pounds): 128 General Appearance: WD/WN, no apparent distress, alert Cardiovascular: normal rate Respiratory/Chest: normal breath sounds, no respiratory distress Abdominal Exam: normal bowel sounds, non tender, soft Extremities: normal range of motion, non-tender Mariam Barbosa.Humberto Feb 04, 2017 14:36 JOHNATHAN ALVARES Feb 08, 2017 08:14
--- NOTE | 2017-02-04 14:59 | Internal Med Progress Note ---
Subjective Physician Name Abhilash Tadeo Attending Physician Abhilash Tadeo MD Current Medications Medications (Trade) Dose Ordered Sig/Salvador Route PRN Reason Start Time Stop Time Status Last Admin Dose Admin Acetaminophen (Tylenol) 650 mg Q4H PRN ORAL Mild Pain (Pain Scale 1-3) 02/01/17 22:30 02/27/17 18:29 Acetaminophen (Tylenol) 650 mg Q4H PRN ORAL T>100.5 02/01/17 22:30 02/27/17 18:29 Acetaminophen (Tylenol) 650 mg Q4H PRN RECTAL Mild Pain (Pain Scale 1-3) 02/01/17 22:30 02/27/17 18:29 Amlodipine Besylate (Norvasc) 5 mg DAILY ORAL 02/02/17 09:00 03/02/17 08:59 02/04/17 08:42 Aspirin (ASA) 81 mg DAILY ORAL 02/02/17 09:00 02/28/17 08:59 02/04/17 08:42 Dextrose (Dextrose 50%) STAT PRN IV Hypoglycemia 02/02/17 18:30 02/27/17 18:29 Erythromycin (Jl-Ped) 250 mg Q6HR ORAL 02/02/17 00:00 03/03/17 17:59 02/04/17 12:22 Heparin Sodium (Porcine) (Heparin 5000 units/ml) 5,000 units EVERY 12 HOURS SUBQ 02/01/17 21:00 02/27/17 20:59 02/04/17 08:44 Insulin Aspart (NovoLOG) BEFORE MEALS AND HS SUBQ 02/01/17 21:00 02/27/17 17:29 02/04/17 12:25 Lorazepam (Ativan) 1 mg Q4H PRN ORAL For Anxiety 02/01/17 22:30 02/04/17 18:29 Magnesium Hydroxide (Mom) 30 ml HSPRN PRN ORAL Constipation 02/02/17 18:30 02/27/17 18:29 Metoclopramide HCl (Reglan) 5 mg Q6H PRN IVP Nausea & Vomiting 02/01/17 23:00 03/01/17 16:59 02/02/17 06:14 Metoclopramide HCl (Reglan) 10 mg Q8H IVP 02/02/17 14:00 03/04/17 13:59 02/04/17 14:13 Mirtazapine (Remeron) 7.5 mg BEDTIME ORAL 02/01/17 21:00 03/03/17 20:59 02/03/17 20:04 Morphine Sulfate (Morphine Sulfate) 2 mg Q4H PRN IVP Moderate Pain (Pain Scale 4-6) 02/01/17 22:30 02/04/17 18:29 Morphine Sulfate (Morphine Sulfate) 4 mg Q4H PRN IVP Severe Pain (Pain Scale 7-10) 02/01/17 22:30 02/04/17 18:29 Nitroglycerin (Ntg) 0.4 mg Q5M X 3 DOSES PRN SL Prn Chest Pain 02/01/17 21:00 02/27/17 18:29 Pantoprazole (Protonix) 40 mg DAILY ORAL 02/02/17 09:00 02/28/17 08:59 02/04/17 08:42 Polyethylene Glycol (Miralax) 17 gm HSPRN PRN ORAL Constipation 02/02/17 18:30 02/27/17 18:29 Allergies: Coded Allergies: IODINE (Verified Allergy, Severe, Anaphylaxis, 02/29/12) Subjective awake, alert, responsive, feeling better, less Nausea, No vomiting, tolerated PO intake Objective Last Vital Signs Date Time Temp Pulse Resp B/P (MAP) Pulse Ox O2 Delivery O2 Flow Rate FiO2 02/04/17 12:00 98.2 83 18 122/64 97 Room Air Intake and Output 02/03/17 02/04/17 19:00 07:00 Intake Total 240 ml 120 ml Output Total 590 ml Balance 240 ml -470 ml Intake Oral 240 ml 120 ml Drainage Total 590 ml # Voids 2 1 Objective General: No acute distress, awake and alert HEENT: NCAT, sclera anicteric, PERRL, EOMI. Neck: Supple, no significant jugular venous distention, Lungs: fair inspiratory effort, clear to auscultation bilaterally, no Wheeze or Rales. Heart: Regular rate and rhythm, normal S1/S2, no murmur Abdomen: soft, nontender, nondistended. Normoactive bowel sounds. Morbid Obesity. / Rectal: Refused and deferred. Extremities: No Cyanosis , clubbing or edema. RLE BKA with intact stump. Neuro: A&O x 3, Able to move all extremities Skin: warm, no rashes or lesions Psych: Normal mood and affect Assessment/Plan Assessment/Plan ASSESSMENT: 1. Intractable nausea and vomiting, most likely secondary to the diabetic gastroparesis. 2. Uncontrolled diabetes type 2. 3. Hypertension. 4. Gastritis. 5. Severe peripheral vascular disease, status post right below-knee amputation. 6. Acute kidney injury with acute tubular necrosis on chronic, most likely secondary to severe dehydration and hypovolemia. 7. Hypotension at this time, most likely secondary to hypovolemia. PLAN: IV hydration. Dr. Alvares from GI Dr. Ellison from Nephrology Dr. Bronson Jimenez from Psychiatry. Accu-Chek with sliding scale. monitor laboratory as well as culture. hold off on antibiotics DVT prophylaxis with heparin subcutaneous. Advance diet DC Planning today Abhilash Tadeo MD Feb 04, 2017 14:59
--- NOTE | 2017-02-04 21:17 | Progress Note ---
DATE: 02/03/2017 SUBJECTIVE: The patient continues to be having nausea and difficult coping with anxiety. The patient stated that she felt better on Klonopin and Remeron, however, the anxiety is coming back. MENTAL STATUS EXAMINATION: Alert and oriented times self, place, and situation she is in. Mood is neutral. Affect is flat. Thought process is concrete. Thought content, no suicidal or homicidal ideation. ASSESSMENT: 1. Major depressive disorder. 2. Anxiety. PLAN: 1. We will continue with the Klonopin. 2. Continue Remeron. Bronson Jimenez M.D. DR: EUSEBIA JOB#: [id number] CC:
--- NOTE | 2017-02-04 21:47 | Progress Note ---
DATE: 02/04/2017 SUBJECTIVE: Today, the patient continues to be anxious, has nausea and vomiting. Stated that the pills did not help her and she is getting discharged. MENTAL STATUS EXAMINATION: The patient is alert and oriented to time, self, place, and situation she is in. Mood is anxious. Affect is constricted, congruent with mood. Thought process is concrete. Thought content, no suicidal or homicidal ideation. No delusions. No auditory or visual hallucinations. Insight and judgment are fair. ASSESSMENT: Anxiety disorder, depression. PLAN: 1. We will continue the Remeron and Klonopin. 2. Provide the patient with reality orientation and supportive therapy. Bronson Jimenez M.D. DR: Vargas JOB#: [id number] CC:
--- NOTE | 2017-02-09 13:19 | Discharge Summary ---
Discharge Summary Hospital Course Date of Admission Jan 28, 2017 at 11:47 Date of Discharge Feb 04, 2017 at 16:10 Admitting Diagnosis weakness/hypotension/hyperglycemia HPI Stacey Silveira is a 66 year old female who was admitted on Jan 28, 2017 at 11 :47 for Weakness,Hypotension,Hyperglycemia Hospital Course dc summary #[id number] Discharge Medications Continued Medications: Aspirin* (Aspir 81*) 81 Mg Tablet.dr 81 MG ORAL DAILY, TAB Docusate Sodium* (Colace*) 100 Mg Capsule 100 MG PO DAILY for 30 Days, CAP Hydrocodone Bit/Acetaminophen 5-325* ([place] 5-325 Tablet*) 1 Each Tablet 1 TAB ORAL Q4H PRN for For Pain, TAB Insulin Aspart (Novolog) 100 Unit/1 Ml Vial Unknown Dose Insulin Glargine (Lantus) 100 Unit/1 Ml Insuln.pen 0 SUBQ BEDTIME, #1 EA 0 Refills Lisinopril* (Lisinopril*) 10 Mg Tablet 10 MG ORAL DAILY, #30 TAB Metoclopramide Hcl* (Reglan*) 10 Mg Tablet 10 MG ORAL THREE TIMES A DAY, #90 TAB Pantoprazole Sodium (Protonix) 40 Mg Granpkt.dr 40 MG GT DAILY, PKT Ranitidine Hcl* (Zantac*) 150 Mg Tablet 150 MG ORAL BEDTIME for 30 Days, TAB Discharge Condition Upon Discharge: stable Discharge Disposition Patient was discharged to Home (01) Discharge Diagnoses: Discharge Instructions Discharge Instructions Special Instructions I have been assigned to complete a D/C Summary on this account. I was not involved in the patient management Sonia Guevara NP ([place]) Feb 09, 2017 13:19
--- NOTE | 2017-02-10 | Discharge Summary 2 SIG ---
DATE OF ADMISSION: 01/28/2017 DATE OF DISCHARGE: 02/04/2017 REASON FOR ADMISSION: 66-year-old female with past medical history of diabetes and hypertension presented with nausea, vomiting and inability to keep down fluids or meals. The patient also reported severe weakness for the past couple of days. She denied abdominal discomfort. Denied fever, chills. The patient had recurrent intractable nausea and vomiting symptoms in the past with last admission in [facility] from 09/10/2016 until 09/14/2016. At that time, the patient had similar presentation and was being followed by GI specialist. She had extensive workup and was also worked out for major depressive disorder. It was felt that the patient had nausea and vomiting most likely related to diabetic gastroparesis. Upon presentation to ED, the patient was hypotensive and tachycardic with mild leukocytosis. The patient started on empiric antibiotic. Blood pressure was fluid responsive. Laboratory work also showed evidence of acute kidney injury and elevated glucose. Upon re-evaluation blood pressure improved to 134/79, heart rate- 94. EKG showed normal sinus rhythm. No ischemic changes. Chest x-ray revealed no acute cardiopulmonary disease. WBC -17.3. Urinalysis revealed possible urinary tract infection. BUN- 69, creatinine- 3.1, potassium -3.3. The patient was admitted for further management with diagnosis of intractable nausea and vomiting likely secondary to diabetic gastroparesis, uncontrolled diabetes, possible urinary tract infection, hypotension, gastritis, acute renal failure, likely acute tubular necrosis secondary to severe dehydration and hypovolemia, and hypotension likely secondary to hypovolemia. HOSPITAL COURSE: The patient was admitted. The patient was started on aggressive IV hydration. Urine culture was negative. Blood culture were negative. Leukocytosis resolved in two days. The patient was off antibiotics. Renal parameters and electrolytes were closely monitored while on aggressive IV hydration. [employer] Specialist followed the patient. Electrolytes were replaced as needed. Nephrotoxics were avoided, especially nonsteroidal anti- inflammatory drugs. With aggressive hydration, BUN down to 14, creatinine down to 0.9. Acute tubular necrosis resolved, was likely due to severe dehydration and hypovolemia. Blood pressure improved with aggressive hydration. Blood pressure prior to discharge -122/64. Blood sugar was managed with with long-acting insulin and sliding scale as needed. Blood sugar improved. DVT prophylaxis provided. GI closely followed the patient. Antiemetic provided as needed. Diet was slowly reintroduced. The patient was on PPI. The patient was on Reglan [id number] and low dose of erythromycin for GI motility was added. The patient was able to tolerate diet. Nausea and vomiting subsided. Psychiatrist had seen and evaluated the patient. Per psychiatrist, the patient had anxiety disorder and depression. Psychiatric medication regimen was optimized. The patient was stable for discharge home. FINAL DIAGNOSES: 1. Intractable nausea and vomiting, likely secondary to diabetic gastroparesis, resolved. 2. Uncontrolled diabetes mellitus Type 2 3. Hypotension,likely secondary to hypovolemia, resolved. 4. Acute renal failure/acute tubular necrosis on chronic, most likely secondary to severe dehydration and hypovolemia, resolved. 5. Gastritis. 6. Severe peripheral vascular disease 7. Status post right below-knee amputation. 8. Anxiety disorder. 9. Depression. DISCHARGE MEDICATIONS: See medication reconciliation list. DISCHARGE INSTRUCTIONS: The patient discharged home and follow up with primary medical doctor next week. Abhilash Tadeo M.D. I have been assigned to dictate discharge summary on this account and I was not involved in the patient's management. Sonia MartinNewyork-Presbyterian Lower Manhattan HospitalWei N.P. DR: ROCAEL JOB#: [id number] CC: TRISH
== END 2017-02-04 16:10 | disposition home or self-care (01) | DRG 73 ==
LOC: EDBD 11:23 → EMR 11:40 → 2E 11:47 → EDBEDREQ 13:12 → 2E 18:00 → 4E 02-01 20:59
DX: E11.43 Type 2 diabetes mellitus with diabetic autonomic (poly)neuropathy (principal); N17.0 Acute kidney failure with tubular necrosis; I95.9 Hypotension, unspecified; E11.51 Type 2 diabetes mellitus with diabetic peripheral angiopathy without gangrene; E11.22 Type 2 diabetes mellitus with diabetic chronic kidney disease; N39.0 Urinary tract infection, site not specified; E11.65 Type 2 diabetes mellitus with hyperglycemia; K31.84 Gastroparesis; E86.0 Dehydration; E86.1 Hypovolemia; Z89.511 Acquired absence of right leg below knee; I12.9 Hypertensive chronic kidney disease with stage 1 through stage 4 chronic kidney disease, or unspecified chronic kidney disease; N18.9 Chronic kidney disease, unspecified; E87.6 Hypokalemia; F41.9 Anxiety disorder, unspecified; F32.9 Major depressive disorder, single episode, unspecified; K29.70 Gastritis, unspecified, without bleeding; K20.9 Esophagitis, unspecified; Z79.4 Long term (current) use of insulin; Z79.82 Long term (current) use of aspirin
CPT/HCPCS: 36415; 36600; 71010; 80048; 80053; 81003; 82009; 82803; 82962; 83690; 83735; 84100; 84443; 84484; 85025; 85610; 85730; 87040; 87086; 93005; 99285; J1815; J2405; J2765

== ENCOUNTER 2017-09-15 10:53 | Emergency (ER) | payer BC, OTHER, MEDICAID ==
[~2017-09-15] VITALS: Ht 165.1 cm; Wt 89.8 kg
--- NOTE | 2017-09-15 11:26 | Emergency Room Report ---
History of Present Illness General Chief Complaint: Upper Extremity Injury Source: Patient Present Illness HPI 67-year-old female with chronic right third digit dysfunction from previous injury presents with mild pain to the right third digit, after she fell forward onto the bed and her finger popped. She reports she feels like it's able to flex slightly, whenever since her last accident and surgery she has not been able to bend it much. She didn't bleed anywhere on the finger, and reports it is swollen but it is chronically swollen and not more so than before. She reports she's having mild pain now. Allergies: Coded Allergies: IODINE (Verified Allergy, Severe, Anaphylaxis, 02/29/12) Patient History Past Medical History: see triage record Reviewed Nursing Documentation: PMH: Agreed; PSxH: Agreed Nursing Documentation-PMH Hx Cardiac Problems: No Hx Hypertension: Yes Hx Diabetes: Yes Hx Cancer: No Hx Gastrointestinal Problems: No Hx Neurological Problems: Yes - NEUROPATHY Review of Systems Constitutional: Denies: no symptoms, see HPI, chills, sweats, fever, malaise, weakness, other Eye: Denies: acuity changes Respiratory: Denies: cough, shortness of breath Cardiovascular: Denies: chest pain Gastrointestinal: Denies: nausea, vomiting Skin: Denies: rash Neurological: Denies: headache Physical Exam Vital Signs Date Time Temp Pulse Resp B/P (MAP) Pulse Ox O2 Delivery O2 Flow Rate FiO2 09/15/17 10:58 98.3 84 20 134/80 94 Room Air 98.2 Sp02 EP Interpretation: normal General Appearance: well appearing, no apparent distress Head: normocephalic, atraumatic ENT: hearing grossly normal, normal voice Neck: full range of motion, supple Respiratory: no respiratory distress, speaking full sentences Musculoskeletal: decreased range of mation - Right hand dorsum with scarring, third digit with mild edema, no tenderness, patient able to flex DIP and PIP joints, but this is chronic, she does have mild flexion ability at third MCP joint, skin is intact, cap refill less than 2 seconds, no erythema no warmth. Neurologic: alert, normal gait Psychiatric: mood/affect normal Skin: no rash Medical Decision Making Diagnostic Impression: Primary Impression: Finger deformity ER Course Patient has a nonfunctional right hand third digit, and came in with concern that she may have injured it, however since is nonfunctional before, is not causing severe pain, I will give her finger protector splint and she'll be discharged. Last Vital Signs Date Time Temp Pulse Resp B/P (MAP) Pulse Ox O2 Delivery O2 Flow Rate FiO2 09/15/17 10:58 98.3 84 20 134/80 94 Room Air 98.2 Disposition: HOME, SELF-CARE Condition: Stable SIMBA JJ M.D Sep 15, 2017 11:26
[2017-09-15 11:29] VITALS: BP 132/79
== END 2017-09-15 11:25 | disposition home or self-care (01) ==
LOC: EMR 11:17
DX: M21.241 Flexion deformity, right finger joints (principal); I10 Essential (primary) hypertension; E11.9 Type 2 diabetes mellitus without complications; G62.9 Polyneuropathy, unspecified
CPT/HCPCS: 99283